=== PATIENT | female | born 1955 | race Caucasian/White ===

== ENCOUNTER 2017-12-11 09:54 | Emergency (ER) | payer BC, SELFPAY ==
[2017-12-11 10:08] VITALS: BP 143/71; PULSE 130; RESP 18; TEMP 36.9; O2SAT 98; BMI 26.6
--- NOTE | 2017-12-11 10:13 | HMH.EDUTC ---
[facility] [place] Clinical Impression: Influenza Disposition: Home, Self-Care Condition on Discharge: Good Instructions: Influenza Additional Instructions: ? Start Tamiflu today if you are going to take it. Discussed risk and possible benefits. ? Lots of rest ? Increase Fluids water, Gatorade, powerade, pedialyte,if infant/toddler/child ? Alternate Tylenol and / or ibuprofen as discussed for fever, aches, chills x 24 hours without medication for symptoms ? Follow up IMMEDIATELY for new or worsening Symptoms OR no noticeable improvement over the next 48-72 hours, 911 for difficulty or breathing ? You or your child area contagious until no fever, aches, chills for 24 hours with medication for symptoms Prescriptions: Dextromethorphan Polistirex [Delsym] 10 ml PO Q12H PRN #250 ninfa.er.12h PRN Reason: Cough Oseltamivir Phosphate [Tamiflu 75mg Capsule] 75 mg PO BID #10 cap Time of Disposition: 10:24 Medical Decision Making - Medical Records Medical records reviewed: Yes: I reviewed the patient's medical records. Vital Signs: 12/11/17 10:08 Temperature 98.4 F Temperature Source Temporal Artery Scan Pulse Rate [Right] 130 H Respiratory Rate 18 Blood Pressure [Right Arm] 143/71 Blood Pressure Mean [Right Arm] 95 Blood Pressure Source [Right Arm] Automatic Cuff Blood Pressure Position [Right Arm] Sitting 02 Sat by Pulse Oximetry 98 Oxygen Delivery Method Room Air - Pillo Inquiry Pt receiving controlled substance: No Pillo was queried for this patient: No [facility] [place] - General Stated complaint: cough chest congestion fever head ache left ear pa Mode of Arrival: Ambulatory Source of Information: Patient Limitations: No Limitations Description of Symptoms (Recalled from Triage Doc. by RN): COUGH, CONGESTION, HEADACHE BEGAN SUNDAY HEENT Symptoms (Recalled from RN notes): Yes Resp Symptoms (Recalled from RN notes): No Skin Symptoms (Recalled from RN notes): No MS Symptoms (Recalled from RN notes): No Functional Status (Recalled from RN notes): N - History of Present Illness Provider Complaint: Patient state that she is having cough, nasal congestion, body aches,fever, chills and over all not feeling well State that she started to feel bad on Sunday and it has continued to get worse State that this morning she seems to feel worse and achey all over - Related Data Previous Rx's Medication Instructions Recorded Dextromethorphan Polistirex 10 ml PO Q12H PRN #250 ninfa.er.12h 12/11/17 [Delsym] Oseltamivir Phosphate [Tamiflu 75 mg PO BID #10 cap 12/11/17 75mg Capsule] Allergies Allergy/AdvReac Type Severity Reaction Status Date / Time prednisone [PREDNISONE] Allergy Mild Verified 12/11/17 10:12 Sulfa (Sulfonamide Allergy Mild Verified 12/11/17 10:12 Antibiotics) [SULFA (SULFONAMIDE ANTIBIOTICS)] - Worker's Comp Is this a Worker's Comp case?: No [facility] History I have reviewed the patient's past medical history: Yes - *Social History Alcohol Intake: never - Psychiatric History Expresses thoughts of harming self/others: None Suicide Plan Description: No Plan ROS Obtained: Yes All systems reviewed & no additional complaints - Constitutional Constitutional: Reports body ache, Reports chills, Reports fever(s) - ENT Ears, Nose, Mouth, and Throat: Reports sinus pain, Reports sore throat Physical Exam - General General appearance: alert, in no apparent distress - Expanded ENT Exam Nose exam: Present: sinus tenderness Comment: Throat red, irritated, drainage noted - Respiratory Respiratory exam: Present: normal lung sounds bilaterally. Absent: respiratory distress - Cardiovascular Cardiovascular exam: Present: tachycardia - Abdominal Exam Abdominal exam: Present: soft, normal bowel sounds. Absent: distention, tenderness, guarding - Neurological Exam Neurological exam: Present: alert, oriented X3
--- NOTE | 2017-12-11 10:17 | ED_ITS ---
[facility] [place]ression: Influenza Disposition: Home, Self-Care Condition on Discharge: Good Instructions: Influenza Additional Instructions: ? Start Tamiflu today if you are going to take it. Discussed risk and possible benefits. ? Lots of rest ? Increase Fluids water, Gatorade, powerade, pedialyte,if infant/toddler/child ? Alternate Tylenol and / or ibuprofen as discussed for fever, aches, chills x 24 hours without medication for symptoms ? Follow up IMMEDIATELY for new or worsening Symptoms OR no noticeable improvement over the next 48-72 hours, 911 for difficulty or breathing ? You or your child area contagious until no fever, aches, chills for 24 hours with medication for symptoms Prescriptions: Dextromethorphan Polistirex [Delsym] 10 ml PO Q12H PRN #250 ninfa.er.12h PRN Reason: Cough Oseltamivir Phosphate [Tamiflu 75mg Capsule] 75 mg PO BID #10 cap Time of Disposition: 10:24 Medical Decision Making - Medical Records Medical records reviewed: Yes: I reviewed the patient's medical records. Vital Signs: 12/11/17 10:08 Temperature 98.4 F Temperature Source Temporal Artery Scan Pulse Rate [Right] 130 H Respiratory Rate 18 Blood Pressure [Right Arm] 143/71 Blood Pressure Mean [Right Arm] 95 Blood Pressure Source [Right Arm] Automatic Cuff Blood Pressure Position [Right Arm] Sitting 02 Sat by Pulse Oximetry 98 Oxygen Delivery Method Room Air - Pillo Inquiry Pt receiving controlled substance: No Pillo was queried for this patient: No [facility] [place] - General Stated complaint: cough chest congestion fever head ache left ear pa Mode of Arrival: Ambulatory Source of Information: Patient Limitations: No Limitations Description of Symptoms (Recalled from Triage Doc. by RN): COUGH, CONGESTION, HEADACHE BEGAN SUNDAY HEENT Symptoms (Recalled from RN notes): Yes Resp Symptoms (Recalled from RN notes): No Skin Symptoms (Recalled from RN notes): No MS Symptoms (Recalled from RN notes): No Functional Status (Recalled from RN notes): N - History of Present Illness Provider Complaint: Patient state that she is having cough, nasal congestion, body aches,fever, chills and over all not feeling well State that she started to feel bad on Sunday and it has continued to get worse State that this morning she seems to feel worse and achey all over - Related Data Previous Rx's Medication Instructions Recorded Dextromethorphan Polistirex 10 ml PO Q12H PRN #250 ninfa.er.12h 12/11/17 [Delsym] Oseltamivir Phosphate [Tamiflu 75 mg PO BID #10 cap 12/11/17 75mg Capsule] Allergies Allergy/AdvReac Type Severity Reaction Status Date / Time prednisone [PREDNISONE] Allergy Mild Verified 12/11/17 10:12 Sulfa (Sulfonamide Allergy Mild Verified 12/11/17 10:12 Antibiotics) [SULFA (SULFONAMIDE ANTIBIOTICS)] - Worker's Comp Is this a Worker's Comp case?: No [facility] History I have reviewed the patient's past medical history: Yes - *Social History Alcohol Intake: never - Psychiatric History Expresses thoughts of harming self/others: None Suicide Plan Description: No Plan ROS Obtained: Yes All systems reviewed & no additional complaints - Constitutional Constitutional: Reports body ache, Reports chills, Reports fever(s) - ENT Ears, Nose, Mouth, and Throat:
[2017-12-11 10:26] LABS: UTC Influenza A Antigen Negative (Negative); UTC Influenza B Antigen Positive (Negative)
[2017-12-11 10:37] VITALS: BP 140/70; PULSE 110; RESP 18; TEMP 36.9
== END 2017-12-11 10:42 | disposition home or self-care (01) ==
PROVIDERS: Emergency Provider Nurse Practitioner
DX: J10.1 Influenza due to other identified influenza virus with other respiratory manifestations (principal)
CPT/HCPCS: 87804; 99201

== ENCOUNTER → 2020-03-23 08:22 | Outpatient (CLI) | payer BC, SELFPAY ==
--- NOTE | 2020-03-23 08:25 | MM_ITS ---
PROCEDURE: MM DIG SCREENING MAMM BI W/CAD Digital Breast Tomosynthesis Included CLINICAL INDICATION: SCREENING There is a history of breast cancer in the patient's sister. There has been a previous lumpectomy left breast. COMPARISON: MAMMO DIAGNOSTIC DIGITAL BILAT from 03/06/2018 MAMMO DIAGNOSTIC DIGITAL BILAT from 09/09/2018 MAMMO DIAGNOSTIC DIGITAL BILAT from 03/13/2019 TECHNIQUE: Standard CC and MLO images and 3D Tomosynthesis was obtained. R2 CAD reviewed. FINDINGS: Moderate diffuse fibroglandular densities are seen in both breasts. Several surgical clips deep to the nipple left breast. There is benign-appearing calcification in each breast. There is no suspicious lesion and no suspicious microcalcifications. IMPRESSION: Fibrofatty parenchyma with no suspicious lesions seen BI-RAD Category: 2 Benign Finding(s) FOLLOW-UP: 1YR 1 Year Follow-up (A letter has been sent to the patient regarding results of the study.) Dictated by: Dr. Daniele Mcclelland MD 03/24/2020 14:[address] Daniele Mcclelland MD in [place] 03/24/2020 14:46
== END ==
PROVIDERS: PCP Nurse Practitioner Family; Visit Provider Nurse Practitioner Family
DX: Z12.31 Encounter for screening mammogram for malignant neoplasm of breast (principal)
CPT/HCPCS: 77063; 77067

== ENCOUNTER → 2021-03-25 10:54 | Outpatient (CLI) | payer BC, SELFPAY ==
--- NOTE | 2021-03-25 10:58 | MM_ITS ---
PROCEDURE INFORMATION: Exam: MG Screening 3D Mammography Exam date and time: 03/25/2021 10:58 AM Age: 65 years old Clinical indication: Encounter for screening mammogram for malignant neoplasm of breast . Family history of breast carcinoma TECHNIQUE: Imaging protocol: Screening tomosynthesis and 2D mammography including computer-aided detection (CAD) when performed. COMPARISON: 1. MG MM DIG SCREENING MAMM BI W/CAD 03/23/2020 8:57 AM 2. MG MAMMO DIAGNOSTIC DIGITAL BILAT 03/13/2019 8:21 AM 3. MG MAMMO DIAGNOSTIC DIGITAL BILAT 09/09/2018 7:56 AM 4. MG MAMMO DIAGNOSTIC DIGITAL BILAT 03/06/2018 10:50 AM FINDINGS: MAMMOGRAPHY: Breast composition: The breasts are heterogeneously dense, which may obscure small masses. Mass: No new suspicious masses. Architectural distortion: No suspicious distortion. Calcifications: No suspicious calcifications. Asymmetric density: None. Skin thickening: None. Axillary adenopathy: None. IMPRESSION: No mammographic evidence of malignancy. Annual screening is recommended unless otherwise clinically indicated. ASSESSMENT: BI-RADS Category 1: Negative
== END ==
PROVIDERS: PCP Nurse Practitioner Family; Visit Provider Nurse Practitioner Family
DX: Z12.31 Encounter for screening mammogram for malignant neoplasm of breast (principal)
CPT/HCPCS: 77063; 77067

== ENCOUNTER 2021-07-12 12:32 | Emergency (ER) | payer BC, SELFPAY ==
[2021-07-12 13:23] VITALS: BP 0/0; PULSE 0; RESP 0; TEMP -17.7; TEMP 0
== END 2021-07-12 13:25 | disposition left against medical advice (07) ==
LOC: UTC 12:34
PROVIDERS: Emergency Provider Nurse Practitioner Family; PCP Family Medicine
DX: Z53.21 Procedure and treatment not carried out due to patient leaving prior to being seen by health care provider (principal)

== ENCOUNTER → 2022-03-31 16:23 | Outpatient (CLI) | payer BC, SELFPAY ==
--- NOTE | 2022-03-31 16:25 | MM_ITS ---
PROCEDURE INFORMATION: Exam: MG Bilateral Screening 3D Mammography Exam date and time: 03/31/2022 4:37 PM Age: 66 years old Clinical indication: Screening examination TECHNIQUE: Imaging protocol: Bilateral Screening tomosynthesis and 2D mammography including computer-aided detection (CAD) when performed. COMPARISON: 1. MG MM DIG SCREENING MAMM BI W/CAD 03/25/2021 11:01 AM 2. MG MM DIG SCREENING MAMM BI W/CAD 03/23/2020 8:57 AM FINDINGS: MAMMOGRAPHY: Breast composition: The breasts are heterogeneously dense, which may obscure small masses. Mass: None. Architectural distortion: None. Calcifications: No suspicious calcifications. Asymmetric density: None. Skin thickening: None. Axillary adenopathy: None. IMPRESSION: No mammographic evidence of malignancy. Annual screening is recommended unless otherwise clinically indicated. ASSESSMENT: BI-RADS Category 1: Negative
== END ==
PROVIDERS: PCP Nurse Practitioner Family; Visit Provider Nurse Practitioner Family
DX: Z12.31 Encounter for screening mammogram for malignant neoplasm of breast (principal)
CPT/HCPCS: 77063; 77067

== ENCOUNTER → 2023-03-27 10:15 | Outpatient (CLI) | payer BC, SELFPAY ==
--- NOTE | 2023-03-27 10:19 | MM_ITS ---
PROCEDURE INFORMATION: Exam: MG Bilateral Screening 3D Mammography Exam date and time: 03/27/2023 10:14 AM Age: 67 years old Clinical indication: Screening examination TECHNIQUE: Imaging protocol: Bilateral Screening tomosynthesis and 2D mammography including computer-aided detection (CAD) when performed. COMPARISON: 1. MG MM DIG SCREENING MAMM BI W/CAD 03/31/2022 4:37 PM 2. MG MM DIG SCREENING MAMM BI W/CAD 03/25/2021 11:01 AM FINDINGS: MAMMOGRAPHY: Breast composition: The breasts are heterogeneously dense, which may obscure small masses. Mass: None. Architectural distortion: None. Calcifications: No suspicious calcifications. Asymmetric density: None. Skin thickening: None. Axillary adenopathy: None. IMPRESSION: No mammographic evidence of malignancy. Annual screening is recommended unless otherwise clinically indicated. ASSESSMENT: BI-RADS Category 1: Negative
== END ==
PROVIDERS: PCP Nurse Practitioner Family; Visit Provider Nurse Practitioner Family
DX: Z12.31 Encounter for screening mammogram for malignant neoplasm of breast (principal)
CPT/HCPCS: 77063; 77067

== ENCOUNTER 2023-12-16 13:40 | Emergency (ER) | payer BC, SELFPAY ==
[2023-12-16 14:30] VITALS: PULSE 81; RESP 18; TEMP 37; O2SAT 97; BMI 23.0
--- NOTE | 2023-12-16 14:49 | EXP.UTC ---
Discharge Plan Disposition Patient Disposition: Home, Self-Care Condition: Good Prescriptions Prescriptions: New mupirocin 2 % ointment 1 applic topical TID 7 Days Qty: 15 0RF No Action atorvastatin 80 mg tablet 80 mg PO DAILY montelukast 10 mg tablet 10 mg PO DAILY duloxetine 30 mg capsule,delayed release(DR/EC) 30 mg PO DAILY losartan 50 mg tablet 50 mg PO DAILY hydrochlorothiazide 50 mg tablet 50 mg PO DAILY fluticasone propionate [Allergy Relief (fluticasone)] 50 mcg/actuation spray,suspension 1 spray INTRANASAL DAILY Rx Instructions: administer into each nostril levocetirizine [Xyzal] 5 mg tablet 5 mg PO DAILY Qvar RediHaler 80 mcg/actuation HFA aerosol breath activated 1 inh INHALATION Q12H PRN trazodone 50 mg tablet 50 mg PO .COMPLEX Qty: 180 1RF Rx Instructions: 50 mg PO take 1-2 tablets at bedtime; desvenlafaxine succinate [Pristiq] 50 mg tablet extended release 24 hr 50 mg PO DAILY Qty: 90 1RF oxycodone-acetaminophen 1 EACH tablet 10 - 325 each PO BIDP PRN (Reason: pain) gabapentin 800 MG tablet 800 mg PO TID hydrochlorothiazide 12.5 MG capsule 5 mg PO DAILY nitroglycerin 0.4 MG tablet, sublingual 0.4 mg sublingual Q5MINP PRN (Reason: Chest Pain) 8 Days Qty: 25 0RF Referrals Follow up/Referrals: Katherine Hendrickson MD [Primary Care Provider] - See instructions Curtis Erazo DO [Staff Physician] - See instructions Activity Restrictions/Add. Instructions Additional Instructions/Restrictions: Rest the extremies, apply ice for 15 minutes as tolerated three or four times per day, Elevate the extremities as tolerated while you are resting. Take tylenol or ibuprofen for pain. Follow up with Dr. Erazo (orthopedics) if you continue to have symptoms. I put in a referral but you need to call his office and schedule an appointment. Follow up with your regular doctor. GO TO THE ER FOR ANY WORSENING SYMPTOMS Clinical Impressions Clinical Impression: Fall, Right knee pain, Abrasion of right knee, Left foot pain, Left ankle sprain Instructions Patient Instructions: DI for Knee Sprain, DI for Ankle Sprain, DI for Abrasion, DI for Foot Sprain Discharge ED Provider: Lon Carter [facility] [place] HPI General Stated complaint: AO fall ankle pain, knee pain Time Seen by Provider: 12/16/23 14:49 History of Present Illness Provider Complaint: She states that she fell and came down on her right knee. She twisted her left ankle and foot. She denies any other injury. Related Data Home Medications Medication Instructions Recorded Confirmed gabapentin 800 mg tablet 800 mg PO TID Pain 06/09/18 02/13/23 hydrochlorothiazide 12.5 mg capsule 5 mg PO DAILY bp 06/09/18 02/13/23 oxycodone-acetaminophen 10 mg-325 10 - 325 each PO BIDP PRN pain 06/09/18 02/13/23 mg tablet atorvastatin 80 mg tablet 80 mg PO DAILY 11/01/21 02/13/23 beclomethasone dipropionate 80 1 inh inhalation Q12H PRN 11/01/21 02/13/23 mcg/actuation HFA breath activated aerosol (Qvar RediHaler) duloxetine 30 mg capsule,delayed 30 mg PO DAILY 11/01/21 02/13/23 release fluticasone propionate 50 1 spray intranasal DAILY 11/01/21 02/13/23 mcg/actuation nasal spray,suspension (Allergy Relief (fluticasone)) hydrochlorothiazide 50 mg tablet 50 mg PO DAILY 11/01/21 02/13/23 levocetirizine 5 mg tablet (Xyzal) 5 mg PO DAILY 11/01/21 02/13/23 losartan 50 mg tablet 50 mg PO DAILY 11/01/21 02/13/23 montelukast 10 mg tablet 10 mg PO DAILY 11/01/21 02/13/23 Previous Rx's Medication Instructions Recorded nitroglycerin 0.4 mg sublingual 0.4 mg sublingual Q5MINP PRN Chest 06/09/18 tablet Pain 8 days ##25 trazodone 50 mg tablet 50 mg PO .COMPLEX #180 tabs 08/09/22 desvenlafaxine succinate 50 mg 50 mg PO DAILY #90 tabs 02/13/23 tablet,extended release 24 hr (Pristiq) mupirocin 2 % topical ointment 1 applic topical TID 7 days #15 12/16/23 grams Allergies Allergy/AdvReac Type Severity Reaction Status Date / Time prednisone [PREDNISONE] Allergy Mild Verified 02/13/23 09:00 Sulfa (Sulfonamide Allergy Mild Verified 02/13/23 09:00 Antibiotics) [SULFA (SULFONAMIDE ANTIBIOTICS)] [facility] Disclaimer: The information contained in this section may have been updated after the patient was seen, as this information can be updated by other users. Medical History (Updated 12/16/23 @ 16:12 by Lon Carter APRN) Major depressive disorder Social History Smoking Status: Former smoker (she quit about 20 years ago) alcohol intake: never substance use type: denies use current occupational status: retired Travel in the last 8 weeks: None number of children: 2 ROS Obtained: Yes All systems reviewed & no additional complaints except as documented Constitutional Constitutional: Denies chills and Denies fever(s) Eyes Eyes: Denies eye discharge ENT Ears, Nose, Mouth, and Throat: Denies dizziness, Denies otalgia and Denies sore throat Cardiovascular Cardiovascular: Denies chest pain Respiratory Respiratory: Denies shortness of breath, Denies chest congestion, Denies cough, Denies stridor and Denies wheezing Gastrointestinal Gastrointestingal: Denies nausea or vomiting Musculoskeletal Musculoskeletal: Reports as per HPI Integumentary/Breasts Skin/Breast: Reports as per HPI and Reports wounds Neurologic Neurologic: Denies dizziness and Denies paresthesias Allergic/Immunologic Allergic/Immunologic: Denies wheezing Physical Exam General General appearance: alert and in no apparent distress Head Head exam: atraumatic, normocephalic and normal inspection Eye Eye exam: Present normal appearance, PERRL and EOMI ENT ENT exam: Present normal exam, normal oropharynx, mucous membranes moist, TM's normal bilaterally and normal external ear exam Neck Neck exam: Present normal inspection, full ROM and trachea midline; Absent meningismus or lymphadenopathy Chest Chest inspection: Present normal inspection and symmetric chest wall rise; Absent tenderness Respiratory Respiratory exam: Present normal lung sounds bilaterally; Absent respiratory distress Cardiovascular Cardiovascular exam: Present regular rate and normal rhythm; Absent JVD Abdominal Exam Abdominal exam: Present soft and normal bowel sounds; Absent distention, tenderness or guarding Extremities Exam Extremities exam: Present normal capillary refill; Absent calf tenderness Expanded Lower Extremity Exam Right: Knee exam: Present normal inspection, full ROM and knee extension intact; Absent tenderness Lower leg exam: Present normal inspection, full ROM and Achilles tendon intact; Absent tenderness, swelling, abrasion, laceration, ecchymosis, deformity, crepitus, dislocation, erythema, palpable cord or Homans' sign Ankle exam: Present normal inspection and full ROM; Absent tenderness, swelling, abrasion, laceration, ecchymosis, deformity, crepitus, dislocation, erythema, tenderness over talofibular lig or anterior draw sign Foot/toe exam: Present normal inspection and full ROM; Absent tenderness, swelling, abrasion, laceration, ecchymosis, deformity, crepitus, dislocation, erythema, amputation, puncture wound, foreign body, calcaneal tenderness, tenderness at base of 5th metatarsal, nail avulsion or subungual hematoma Neurovascular/Tendon exam: Present normal capillary refill; Absent pulse deficit, motor deficit, sensory deficit, tendon deficit or extremity cold to touch Gait: observed and limited by pain Left: Knee exam: Present normal inspection, full ROM and knee extension intact; Absent tenderness Lower leg exam: Present normal inspection, full ROM and Achilles tendon intact; Absent tenderness or Homans' sign Ankle exam: Present full ROM and swelling; Absent abrasion, laceration, ecchymosis, deformity, crepitus, dislocation, erythema, tenderness over talofibular lig or anterior draw sign Foot/toe exam: Present full ROM, tenderness and swelling; Absent abrasion, laceration, ecchymosis, deformity, crepitus, dislocation, erythema, amputation, puncture wound, foreign body, calcaneal tenderness, tenderness at base of 5th metatarsal, nail avulsion or subungual hematoma Neurovascular/Tendon exam: Present normal capillary refill; Absent pulse deficit, motor deficit, sensory deficit, tendon deficit or extremity cold to touch Gait: observed and limited by pain Back Exam Back exam: Present normal inspection; Absent tenderness, CVA tenderness (R) or CVA tenderness (L) Neurological Exam Neurological exam: Present alert and oriented X3 Psychiatric Psychiatric exam: Present normal affect and normal mood Skin Skin exam: Present warm, dry, intact and normal color Lymphatic Lymphatic Findings: no adenopathy Medical Decision Making Medical Records Medical records reviewed: No I reviewed the patient's medical records. Pillo Inquiry Pt receiving controlled substance: No Radiology Data #1: Image(s): Knee Image Reviewed: Yes I reviewed the patient's radiology image and Yes I have reviewed radiologist's interpretation Preliminary Findings: Normal/NAD and No Fracture Seen PROCEDURE INFORMATION: Exam: XR Right Knee Exam date and time: 12/16/2023 3:03 PM Age: 68 years old Clinical indication: Injury or trauma; Fall; Blunt trauma; Knee; Right TECHNIQUE: Imaging protocol: Radiologic exam of the right knee. Views: 3 views. COMPARISON: No relevant prior studies available. FINDINGS: Bones/joints: See Soft tissues finding. Soft tissues: Soft tissue swelling in the region of the prepatellar pretibial bursa compatible with bursitis. IMPRESSION: No evidence of acute osseous injury. #2: Image(s): Ankle Image Reviewed: Yes I reviewed the patient's radiology image Preliminary Findings: Normal/NAD and No Fracture Seen PROCEDURE INFORMATION: Exam: XR Left Ankle Exam date and time: 12/16/2023 2:58 PM Age: 68 years old Clinical indication: Injury or trauma; Fall; Blunt trauma; Ankle; Left TECHNIQUE: Imaging protocol: Radiologic exam of the left ankle. Views: 3 or more views. COMPARISON: No relevant prior studies available. FINDINGS: Bones/joints: Normal. Soft tissues: Normal. IMPRESSION: No acute findings. #3: Image(s): Foot/Toes Image Reviewed: Yes I reviewed the patient's radiology image and Yes I have reviewed radiologist's interpretation Preliminary Findings: Normal/NAD and No Fracture Seen PROCEDURE INFORMATION: Exam: XR Left Foot Exam date and time: 12/16/2023 3:00 PM Age: 68 years old Clinical indication: Injury or trauma; Fall; Blunt trauma; Foot; Left TECHNIQUE: Imaging protocol: Radiologic exam of the left foot. Views: 3 or more views. COMPARISON: CR Ankle L 12/16/2023 2:58 PM FINDINGS: Bones/joints: Osteopenia. Soft tissues: Normal. IMPRESSION: Nodes of acute osseous injury. Procedures Risk/Benefits of Procedure(s) Were Explained: Yes Orthopedic Splinting/Casting Injury #1: Side: right Lower Extremity Injury Location: knee Lower Extremity Immobilizer: Gustavo wrap and applied by nurse/dr heredia Post Cast/Splinting Neuro Status: intact and no change Post Cast/Splinting Vasc Status: intact and no change
[2023-12-16] MEDS: IBUPROFEN 400 MG TABLET 800 MG PO (14:53)
[2023-12-16 16:21] VITALS: BP 0/0; PULSE 81; RESP 18; TEMP 37; O2SAT 97
== END 2023-12-16 16:20 | disposition home or self-care (01) ==
PROVIDERS: Emergency Provider Nurse Practitioner Family; PCP Family Medicine
DX: S93.402A Sprain of unspecified ligament of left ankle, initial encounter (principal); S80.211A Abrasion, right knee, initial encounter; M25.561 Pain in right knee; M79.672 Pain in left foot; W18.30XA Fall on same level, unspecified, initial encounter
CPT/HCPCS: 73562; 73610; 73630; 99212; 99214; G0463

== ENCOUNTER 2024-01-22 13:26 | Outpatient (CLI) | payer BC, SELFPAY ==
--- NOTE | 2024-01-22 13:29 | XR_ITS ---
FINAL REPORT CLINICAL HISTORY: lt foot pain COMPARISON: 12/16/2023 FINDINGS: LEFT FOOT: Three views of the left foot were obtained. There is no acute fracture or dislocation. There is mild degenerative change. There is no soft tissue abnormality. IMPRESSION: Mild degenerative change without acute bony abnormality. Reviewed, Interpreted and Dictated by Larry Boles III, MD Transcribed by Natalee Thomas Authenticated and [facility]
== END 2024-01-22 23:59 ==
LOC: RAD 13:26
PROVIDERS: PCP Family Medicine; Visit Provider Orthopaedic Surgery
DX: M79.672 Pain in left foot (principal)
CPT/HCPCS: 73630

== ENCOUNTER 2024-04-15 13:07 | Outpatient (CLI) | payer BC, SELFPAY | END 2024-04-15 23:59 | disposition home or self-care (01) | LOC: RAD 13:07 | PROVIDERS: PCP Family Medicine; Visit Provider Family Medicine | DX: Z12.31 Encounter for screening mammogram for malignant neoplasm of breast (principal) ==

== ENCOUNTER 2024-04-22 13:31 | Outpatient (CLI) | payer BC, SELFPAY ==
--- NOTE | 2024-04-22 13:34 | MM_ITS ---
PROCEDURE INFORMATION: Exam: MG Bilateral Screening 3D Mammography Exam date and time: 04/22/2024 1:18 PM Age: 68 years old Clinical indication: Screening examination TECHNIQUE: Imaging protocol: Bilateral Screening tomosynthesis and 2D mammography including computer-aided detection (CAD) when performed. COMPARISON: 1. MG MM DIG SCREENING MAMM BI W/CAD 03/27/2023 10:14 AM 2. MG MM DIG SCREENING MAMM BI W/CAD 03/31/2022 4:37 PM FINDINGS: MAMMOGRAPHY: Breast composition: There are scattered areas of fibroglandular density. Mass: None. Architectural distortion: None. Calcifications: No suspicious calcifications. Asymmetric density: None. Skin thickening: None. Axillary adenopathy: None. IMPRESSION: No mammographic evidence of malignancy. Annual screening is recommended unless otherwise clinically indicated. ASSESSMENT: BI-RADS Category 1: Negative
[2024-04-22 14:32] LABS: Blood Urea Nitrogen 10 mg/dl (7-17); Estimated Glomerular Filt Rate 72 ml/min (>60); GFR (African American) 87 ML/MIN (>60)
== END 2024-04-22 23:59 | disposition home or self-care (01) ==
LOC: RAD 13:32
PROVIDERS: Physician Assistant; PCP Family Medicine; Visit Provider Family Medicine
DX: Z12.31 Encounter for screening mammogram for malignant neoplasm of breast (principal)
CPT/HCPCS: 36415; 77063; 77067; 82565; 84520

== ENCOUNTER 2025-04-23 09:57 | Outpatient (CLI) | payer MEDICARE, SELFPAY ==
--- OUTSIDE RECORDS SUMMARY | 2025-04-23 09:59 | XMS_ITS | Encounter Summary ---
Author Organization [employer] Address [address] [place] [id number] Care Team Providers Care Foxer Name Role Phone Unavailable Primary Care Provider Unavailabl e Encounter Details Date Type Department Care Team (Late st Contact Info) Description 08/12/2019 Transcribed Document [facility] Family Medicine [facility] [place] [address] ProviderItz MD [address] [place] [address] Social History Tobacco Use Types Packs/Day Years Used Date Smoking Tobacco: Never Assessed Comments Unknown Sex and Gender Information Value Date Recorded Sex Assigned at Female 05/02/2022 5:42 PM CDT Legal Sex Female 5:42 PM CDT Gender Identity Female 05/02/2022 5:42 PM CDT Sexual Orientation Not on file documented as of this encounter Miscellaneous Notes * Cerner Conversion Note - Historical ProviderMD - 08/12/2019 11:15 AM CDT Patient: JAYMIE JONES V Age: 63 Years Sex: Female : 1955 PROCEDURE NOTE DATE OF SERVICE: 08/08/2019 PROCEDURE: Trigger point injections. PREOPERATIVE DIAGNOSIS: 1. Chronic pain syndrome. 2. Cervical degenerative disc disease. 3. Thoracic degenerative disc disease. 4. Myositis, myalgia. POSTOPERATIVE DIAGNOSIS: 1. Chronic pain syndrome. 2. Cervical degenerative disc disease. 3. Thoracic degenerative disc disease. 4. Myositis, myalgia. PROCEDURE PERFORMED BY: Dustin Serrano PA-C ANESTHESIA: 0.5% ropivacaine COMPLICATIONS: None. INDICATIONS: The patient is a 63-year-old female who had been seen by Dr. Brooke Huerta at her last followup appointment. After physical examination findings that reveals multiple trigger points for this individual, she was scheduled for the trigger point injections at today's visit. PROCEDURE SUMMARY: After reviewing the patient's chart and explaining the risks versus benefits of trigger point injection today, the patient signed the appropriate consent forms. The patient was placed in a seated position, draped in a sterile fashion. Utilizing a skin marker, palpation was done, and trigger points were identified and marked consisting of the following muscle groups: bilateral upper trapezius muscles, bilateral levator scapula muscles, and bilateral rhomboid muscle Skin prep was utilized to sterilize this region. Utilizing a 10 mL syringe and 25-gauge needle, a total of 10 mL of 0.5% ropivacaine was aspirated. The 25-gauge needle was then inserted into each of the above-mentioned trigger point sites. After ensuring the absence of blood and/or air through aspiration, a total of 1.0 mL was injected into each location site. Prior to removing the needle, a short needling procedure was done at each location. The patient tolerated the procedure well and there was minimal blood loss from the procedure. PLAN: The patient will undergo ice massage for a duration of 20 minutes prior to going to bed this evening. We will see the patient back in clinic at the next scheduled followup appointment date. The patient understands and agrees with the above plan. Dustin Serrano PA-C documented in this encounter Plan of Treatment Not on file documented as of this encounter Visit Diagnoses Not on filedocumented in this encounter
--- OUTSIDE RECORDS SUMMARY | 2025-04-23 09:59 | XMS_ITS | Encounter Summary ---
Author Organization [employer] Address [address] [place] [id number] Care Team Providers Care Dairy Hand Name Role Phone Unavailable Primary Care Provider Unavailabl e Encounter Details Date Type Department Care Team (Late st Contact Info) Description 12/04/2019 Transcribed Document [facility] Family Medicine [facility] [place] [address] ProviderItz MD [address] [place] [address] Social History Tobacco Use Types [...] Cerner Conversion Note - Historical ProviderMD - 12/04/2019 12:55 PM PEDIATRIC ANESTHESIOLOGIST Patient: JAYMIE JONES V Age: 64 Years Sex: Female : 1955 FOLLOW-UP DATE OF SERVICE: 11/27/2019 CHIEF COMPLAINT: Neck and shoulder pain. HISTORY OF PRESENT ILLNESS: The patient is a 64 y/o female who returns to the clinic for follow-up on her neck pain, bilateral shoulder pain, left greater than right with numbness and tingling. She rates the pain as 5/10 on the pain scale. Quality is aching, radiating, numbness, dull. The pain is constant. She has tried heat and ice therapy. She has had the pain for 18 years. She has decreased pain with ice and heat and increased pain with sweeping and mopping. She gets 50% relief with her current medication. Fall risk info sheet has been provided. SOCIAL HISTORY: Allergies: Sulfa and Prednisone. Marital status: The patient is . Current work status: She is unemployed. Illicit drug use: Denies. Alcohol use: Denies. Current tobacco use: Denies. Caffeine use: She drinks caffeine. Past Medical History: Arthritis Asthma. Breast cancer Chicken pox. Shingles Depression Gallstones High blood pressure High cholesterol Kidney stones. Migraines Seizures Past Surgical History: Breast Gallbladder Hysterectomy. Shoulder Sinus Spinal surgery of neck Past Family History: Lung cancer Ovarian cancer Breast cancer Lung disease. Diabetes Depression REVIEW OF SYSTEMS: Complete ten system review performed and noted to be positive for the following: General: Fatigue, weight gain. Respiratory: Asthma. Neurological: Dizziness, headaches, numbness and tingling. Gastrointestinal: Negative. Musculoskeletal: Neck pain, back pain. Cardiovascular: Chest pain, leg pain with walking. Psychiatric: Anxiety and depression. HEENT: Negative. Endocrine: Negative. Hematology: Negative. Skin: Negative. Genitourinary: Negative. VITAL SIGNS: Vital signs are reviewed. BP 124/73, heart rate 81, respiratory rate 18, O2 SATs 95%, height 5???2?? , weight 135 lbs PHYSICAL EXAMINATION: Constitutional: The patient is freely conversant, no acute distress. Integumentary: Deferred. HEENT: Deferred. Neck: Deferred. Chest and Lung: Deferred. Cardiovascular: Deferred. Abdomen: Deferred. Peripheral Vascular: Deferred Neurologic: Deferred. Psychiatric: Alert and oriented x 3 with normal mood and affect. She scored a 14 on the depression questionnaire. She is treated. Musculoskeletal: Deferred. Established patient exam is deferred. DIAGNOSTIC STUDIES: Not present MEDICAL DECISION MAKING: The patient's YANIRA has been reviewed and is appropriate. Patient's medications are reviewed and are listed in the patient's file. The patient's tox screen from 07/22/19 is reviewed and is appropriate. ASSESSMENT: Stable. 1. Chronic pain syndrome. 2. Myositis and myalgia. 3. Cervical degenerative disc disease, status post ACDF and discectomy. 4. Cervical radiculitis bilateral upper extremities, left greater than right. 5. History of breast cancer, status post lumpectomy and mastectomy in remission. PROCEDURE/TEST ORDERED: Not present. CURRENT PLAN: I am going to continue Ms. Jones on her current medications of Neurontin 400 mg 2 p.o. q 8 h, Zofran 8 mg 1 p.o. q 8 h prn, Percocet 10 mg 1 p.o. q 6 h. She takes MiraLAX. She is in agreement with the above plan. We will see her back in follow-up in two months. Brooke Huerta M.D. FIDELIA/danial documented in this encounter Plan of Treatment Not on file documented as of this encounter Visit Diagnoses Not on filedocumented in this encounter
--- OUTSIDE RECORDS SUMMARY | 2025-04-23 09:59 | XMS_ITS | Encounter Summary ---
Author Organization [employer] Address [address] [place] [address] Care Team Providers Care Hospital Coordinator Name Role Phone Unavailable Primary Care Provider Unavailabl e Encounter Details Date Type Department Care Team (Late st Contact Info) Description 07/22/2019 Transcribed Document [facility] Family Medicine [facility] [place] [address] ProviderItz MD [address] [place] [address] Social History Tobacco Use Types [...] Cerner Conversion Note - Historical ProviderMD - 07/22/2019 2:06 PM CDT Patient: JAYMIE JONES V Age: 63 Years Sex: Female : 1955 FOLLOWUP DATE OF SERVICE: 07/22/2019 CHIEF COMPLAINT: Neck and shoulder pain. HISTORY OF PRESENT ILLNESS: The patient is a 63-year-old female who returns to the clinic for followup on her neck and shoulder pain. She would like to get scheduled for trigger point injections. She had a fall but had no injuries. She rates her pain as 4/10 on the pain scale. Quality is aching, burning, radiating and dull. her pain is constant. She has had her pain for 18 years. She has increased pain with turning her head and decreased pain with heat and ice. She gets 50% relief with her current medication. Fall risk information sheet has been provided. HISTORY: Allergies: Sulfa drugs, Prednisone. SOCIAL HISTORY: Marital status: . Current work status: Not answered. Current tobacco use: Denies. Illicit drug use: Denies. Alcohol use: Denies. Caffeine use: Not answered. Past Medical History: Anemia. Arthritis. Asthma. Breast cancer. Chicken pox/Shingles. Depression. Gallstones. High blood pressure. High cholesterol. Seizures. Past Surgical History: Gallbladder. Hysterectomy. Shoulder. Sinus. Spinal surgery of the neck. Past Family History: Breast cancer. Ovarian cancer. Lung disease. Diabetes. REVIEW OF SYSTEMS: The patient's ten system Review of Systems was reviewed. General: Fatigue. Respiratory: Asthma. Neurological: Dizziness, headaches, numbness/tingling. Gastrointestinal: Constipation. Musculoskeletal: Joint pain/stiffness, neck pain. Cardiovascular: Negative. Psychiatric: Anxiety and depression. HEENT: Negative. Endocrine: Increased thirst. Hematology: Negative. Skin: Negative. Genitourinary: Negative. VITAL SIGNS: Vital signs are reviewed. BP 133/66, heart rate 64, respiratory rate 16, O2 SATs 96%, height 5'2 , weight 118 lb. PHYSICAL EXAMINATION: Constitutional: Freely conversant and in no acute distress. Integumentary: Deferred. HEENT: Deferred. Neck: Deferred. Chest and Lung: Deferred. Cardiovascular: Deferred. Abdomen: Deferred. Peripheral Vascular: Deferred Neurologic: Deferred. Neuropsychiatric: Alert and oriented x3. She scored a 16 on her depression questionnaire that was completed today. She is treated. She has no suicidal ideation. Musculoskeletal: Antalgic gait. She uses a cane. She has multiple trigger points throughout her bilateral cervical splenius, bilateral upper trapezius, bilateral rhomboids and bilateral levators. DIAGNOSTIC STUDIES: Not present. MEDICAL DECISION MAKING: YANIRA is reviewed and is appropriate. The patient received a urine tox screen today. Patient???s medications are reviewed. See list in patient???s file. ASSESSMENT: Stable. 1. 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 2. Cervical degenerative disc disease status post ACDF. 3. Cervical radiculitis to the bilateral upper extremities, left greater than right. 4. History of left breast cancer status post lumpectomy and mastectomy. PROCEDURE/TEST ORDERED: Not present. CURRENT PLAN: We will continue Ms. Jones on her current medication of Zofran 8 mg q.8h PRN, Neurontin 400 mg two p.o. q.8h, Percocet 10 mg one p.o. q.6h. She takes MiraLAX. I am going to get her scheduled for trigger point injections, cervical and scapula. She is in agreement with the above plan. We will see her back in followup in two months. Brooke Huerta M.D. Candace documented in this encounter Plan of Treatment Not on file documented as of this encounter Visit Diagnoses Not on filedocumented in this encounter
--- NOTE | 2025-04-23 10:00 | MM_ITS ---
PROCEDURE INFORMATION: Exam: MG Bilateral Screening 3D Mammography Exam date and time: 04/23/2025 10:29 AM Age: 69 years old Clinical indication: Screening examination TECHNIQUE: Imaging protocol: Bilateral Screening tomosynthesis and 2D mammography including computer-aided detection (CAD) when performed. COMPARISON: 1. MG MM DIG SCREENING MAMM BI W/CAD 04/22/2024 1:18 PM 2. MG MM DIG SCREENING MAMM BI W/CAD 03/27/2023 10:14 AM FINDINGS: MAMMOGRAPHY: Breast composition: There are scattered areas of fibroglandular density. Mass: None. Architectural distortion: None. Calcifications: No suspicious calcifications. Asymmetric density: None. Skin thickening: None. Axillary adenopathy: None. IMPRESSION: No mammographic evidence of malignancy. Annual screening is recommended unless otherwise clinically indicated. ASSESSMENT: BI-RADS Category 1: Negative.
--- OUTSIDE RECORDS SUMMARY | 2025-04-23 10:00 | XMS_ITS | Data Portability ---
Author Organization [place] - Armando chapin MD, Main Office Address [address], [address] [place] [address] Care Team Providers Care Marketing Database Coordinator Name Role Phone ARIANA BENTON Primary Care Provider LUCIE BOBO Primary Care Provider [phone] Assessment No assessment recorded. Plan of Treatment Reminders Order Date Submit Date Provider Last Modified By Organization Details Last Modified Time Details Appointments None recorded. Lab vitamin B12 + folate, serum or blood 2022 023 [place] [facility], [address], [address], [place], [address], 3 15:18:18 TSH + T4, serum 2022 023 [place] [facility], [address], [address], [place], [address], 3 15:18:19 CBC w/ auto diff 2022 023 [place] [facility], [address], [address], [place], [address], 3 15:18:18 CMP, serum or plasma 2022 023 [place] [facility], [address], [address], [place], [address], 3 15:18:18 Referral None recorded. Procedures electroence phalogram (EEG), 41-60 minutes (PROC) 2022 023 [email or web address] Armando Draper MD, [address], [address], [place], [address], 3 09:48:53 Surgeries None recorded. Imaging MRI, brain, w/o contrast 2022 023 [facility], [address], [address], [place], [address], 3 15:40:31 Medication Orders memantine 10 mg tablet 2023 024 [place] [id number], [address] [place], [address], 4 10:51:40 memantine 5 mg tablet 2022 023 [id number], [address] [place], [address], 4 10:56:59 lamotrigine 25 mg tablet 2019 020 [id number], [address] [place], [address], 3 12:10:12 Patient TargetsNo targets recorded. Patient Instructions Encounter Date Encounter Id Patient Instructions Last Modified By Organization Details Last Modified Time 08/27/2020 [id number] epilepsy: care instructions Not available 08/27/2020 10:11:32 Finding has been discussed with the patient in detail. Lamotrigine 25 mg 1 tablet daily for 2 months and then discontinue. Return as needed. Not available 08/27/2020 10:27:58 04/26/2023 [id number] [employer] LOSS EDUCATION Not available 04/26/2023 12:24:46 Finding has been discussed with the patient in detail. Metabolic screen. Brain MRI scan without contrast. Awake EEG. I will see her back in follow-up. Not available 04/26/2023 12:25:06 05/22/2023 [id number] MEMORY LOSS EDUCATION Not available 05/22/2023 08:35:58 Finding has been discussed with the patient in detail. Brain MRI scan without contrast. Namenda 5 mg once a day. Return in 3 months. Not available 05/22/2023 08:39:27 05/22/2023 [id number] MEMORY LOSS EDUCATION [email or web address] Not available 05/22/2023 08:37:55 03/11/2024 [id number] cervical spinal stenosis: care instructions Not available 03/11/2024 10:57:01 Finding has been discussed with the patient in detail. Increase Namenda to 10 mg once a day. Return in 6 months. Not available 03/11/2024 10:56:58 Reason for Referral None Reported. Results Created Date Observation Date Name Description Value Unit Range Abnormal Flag Note LastModifiedBy Organization Detail LastModifiedTime 05/22/2005/22/2023 elect roenc ephal ogram (EEG) , 41-60 minut es (PROC ) No observ ation record ed. BARCODE Armando Draper MD [address], [place], [address], 05/22/2023 08:44:54 05/22/2005/22/2023 MRI, brain , w/o contr ast No observ ation record ed. [facility] (Scheduling) [address] , [place], [address], 05/23/2023 07:30:50 Result Notes None recorded. Problems Name Problem SNOMED Code Status Onset Date Resolution Date Notes Provider Name and Address Organization Details Recorded Time Epilepsy [id number] Active 018 KIMBERLEY Mobley MD 09/10/2018 12:59:35 Problem Notes None recorded. Procedures Surgical History Date Name Laterality Status Provider Name and Address Organization Details Recorded Time 05/22/20 EEG completed Luis Draper MD 05/22/2023 08:37:47 08/27/20 EEG completed Luis Draper MD 08/27/2019 09:49:41 09/20/20 18 NCV/EMG completed Luis Draper MD 09/20/2018 12:19:27 12/21/19 18 Radiation Therapy completed Cristina Draper MD 09/10/2018 12:58:55 10/05/20 17 Cancer Surgery completed Cristina Draper MD 09/10/2018 12:58:55 05/04/20 13 Cervical Spine Surgery completed Cristina Draper MD 09/10/2018 12:58:55 05/04/20 06 Shoulder Surgery completed Cristina Draper MD 09/10/2018 12:58:55 03/04/19 94 Hysterectomy completed Cristina Draper MD 09/10/2018 12:58:55 Imaging Results None recorded. Procedure Notes None recorded. Medical Equipment None Reported. Allergies Allergen ID Allergen Name Allergen Category Reaction Reaction Severity Criticality Documentation Date Start Date Code Code System Note Provider Name and Address Organization Details Recorded Time 2014 [place] 30x medicatio n rash moderate Not available 09/10/2018 [id number] UNK KIMBERLEY Mobley MD 8 12:58:13 2015 prednison e medicatio n facial swelling rash moderate moderate Not available 09/10/2018 8640 RxNorm KIMBERLEY Mobley MD 8 12:58:13 Medications Name Sig Start Date Stop Date Status Note LastModified by Organization Details LastModified Time amoxicillin 500 mg capsule 08/27 completed Not Available Not Available Not Available atorvastati n 40 mg tablet Take 1 tablet every day by oral route. 04/26 completed Not Available Not Available Not Available anastrozole 1 mg tablet 09/10 completed Not Available Not Available Not Available azelastine 0.05 % eye drops DROP 1 DROP INTO AFFECTED EYE(S) TWICE DAILY NEEDED. 04/26 completed Not Available Not Available Not Available venlafaxine ER 75 mg capsule,ext ended release 24 hr TAKE 1 CAPSULE BY MOUTH EVERY DAY WITH FOOD active Not Available Not Available No t Available atorvastati n 20 mg tablet 08/07 completed Not Available Not Available Not Available trazodone 50 mg tablet TAKE 1 TO 2 TABLETS BY MOUTH AT BEDTIME 10/01 completed Not Available Not Available Not Available azithromyci n 250 mg tablet TAKE 2 TABLETS BY MOUTH TODAY, THEN TAKE 1 TABLET DAILY FOR 4 DAYS DIRECTED 03/11 completed Not Available Not Available Not Available ondansetron HCl 8 mg tablet 08/07 completed Not Available Not Available Not Available ondansetron HCl 4 mg tablet 08/07 completed Not Available Not Available Not Available prednisone 20 mg tablet TAKE 1 TABLET BY MOUTH TWICE A DAY FOR 5 DAYS 04/26 completed Not Available Not Available Not Available gabapentin 400 mg capsule 08/24 completed Not Available Not Available Not Available ondansetron 8 mg disintegrat ing tablet TAKE 1 TABLET BY MOUTH EVERY 8 HRS 04/26 completed Not Available Not Available Not Available lamotrigine 25 mg tablet 1 tablet daily 04/26 completed Not Available Not Available Not Available oxycodone-a cetaminophe n 10 mg-325 mg tablet TAKE 1 TABLET BY MOUTH EVERY 6 HOURS active Not Available Not Available No t Available gabapentin 800 mg tablet TAKE 1 TABLET BY MOUTH EVERY 8 HOURS active Not Available Not Available No t Available ondansetron [address] 1 tablet as needed by oral route. 04/26 completed Not Available Not Available Not Available phenazopyri dine 100 mg tablet active Not Available Not Available Not Available benzonatate 100 mg capsule 09/10 completed Not Available Not Available Not Available desloratadi ne 5 mg tablet TAKE 1 TABLET BY MOUTH EVERY DAY NEEDED 03/11 completed Not Available Not Available Not Available cephalexin 500 mg capsule TAKE 1 CAPSULE BY MOUTH TWICE A DAY 04/26 completed Not Available Not Available Not Available oseltamivir 75 mg capsule active Not Available Not Available Not Available Lamictal 100 mg tablet Take 1 tablet every day by oral route. 08/27 completed Not Available Not Available Not Available montelukast 10 mg tablet TAKE 1 TABLET BY MOUTH EVERY DAY 04/26 completed Not Available Not Available Not Available hydrochloro thiazide 25 mg tablet TAKE 1 TABLET BY MOUTH EVERY DAY IN THE MORNING FOR 30 DAYS 04/26 completed Not Available Not Available Not Available mupirocin 2 % topical ointment APPLY TOPICALLY TO AFFECTED AREA 3 TIMES A DAY FOR 7 DAYS 03/11 completed Not Available Not Available Not Available azelastine 137 mcg (0.1 %) nasal spray SPRAY 1 SPRAY IN EACH NOSTRIL TWICE DAILY NEEDED. 04/26 completed Not Available Not Available Not Available diazepam 10 mg tablet TAKE 1 TABLET BY MOUTH 30 MINUTES BEFORE PROCEDURE ON 02/01 completed Not Available Not Available Not Available epinephrine 0.3 mg/0.3 mL injection, auto-inject or INJECT 1 PEN INTRAMUSC ULARLY IN EVENT OF ANAPHYLAX IS. 10/01 completed Not Available Not Available Not Available levofloxaci n 500 mg tablet 09/10 completed Not Available Not Available Not Available albuterol sulfate HFA 90 mcg/actuati on aerosol inhaler INHALE 1-2 PUFFS BY MOUTH EVERY 4-6 HOURS NEEDED 10/01 completed Not Available Not Available Not Available losartan 100 mg tablet TAKE 1 TABLET BY MOUTH EVERY DAY 09/09 completed Not Available Not Available Not Available fluticasone propionate 50 mcg/actuati on nasal spray,suspe nsion INSTILL 2 SPRAYS IN EACH NOSTRIL ONCE A DAY 04/26 completed Not Available Not Available Not Available neomycin-po lymyxin-hyd rocort 3.5 mg-10,000 unit/mL-1 % ear drops,susp INSTILL 4 DROPS INTO AFFECTED EAR 3-4 TIMES A DAY FOR 7 DAYS 04/26 completed Not Available Not Available Not Available aripiprazol e 10 mg tablet 08/24 completed Not Available Not Available Not Available memantine 10 mg tablet TAKE 1 TABLET BY MOUTH EVERY DAY active Not Available Not Available No t Available memantine 5 mg tablet TAKE 1 TABLET BY MOUTH EVERY DAY 03/11 completed Not Available Not Available Not Available nitrofurant oin monohydrate /macrocryst als 100 mg capsule active Not Available Not Available Not Available duloxetine 30 mg capsule,del ayed release TAKE 1 CAPSULE BY MOUTH EVERY DAY 04/26 completed Not Available Not Available Not Available duloxetine 60 mg capsule,del ayed release Take 1 capsule twice a day by oral route. 08/07 completed Not Available Not Available Not Available fenofibrate nanocrystal lized 145 mg tablet 08/07 completed Not Available Not Available Not Available Symbicort 160 mcg-4.5 mcg/actuati on HFA aerosol inhaler INHALE 2 PUFFS TWICE DAILY. RINSE MOUTH AFTER USE. 09/09 completed Not Available Not Available Not Available desvenlafax ine succinate ER 50 mg tablet,exte nded release 24 hr TAKE 1 TABLET BY MOUTH EVERY DAY 04/26 completed Not Available Not Available Not Available lidocaine-t etracaine 7 %-7 % topical cream active Not Available Not Available Not Available Breo Ellipta 200 mcg-25 mcg/dose powder for inhalation INHALE 1 PUFF INTO THE LUNGS ONCE DAILY. RINSE MOUTH AFTER USE. 10/01 completed Not Available Not Available Not Available Veozah 45 mg tablet 03/11 completed Not Available Not Available Not Available Vitals Date Recorded Body mass index (BMI) Body weight Heart rate Respiratory rate Systolic blood pressure Diastolic blood pressure Provider Name and Address Organization Details Last Updated DateTime 4 23.2 kg/m2 22119.2 3 g 77 /min 17 /min 132 mm[Hg] 82 mm[Hg] Armando Draper MD [address], [address] [address]KIMBERLEY MD 4 10:54:41 Date Recorded Body height Provider Name an d Address Organization Details Last Updated DateTime 03/11/2024 157.48 cm Renu Jeff Draper MD 03/11/2024 10:44:00 Date Recorded Body height Body mass index (BMI) Body weight Heart rate Respiratory rate Systolic blood pressure Diastolic blood pressure Provider Name and Address Organization Details Last Updated DateTime 3 157.48 cm 23 kg/m2 12130.6 4 g 77 /min 17 /min 126 mm[Hg] 75 mm[Hg] Armando Draper MD [address], [address], [address]KIMBERLEY MD 3 12:21:54 Date Recorded Body mass index (BMI) Body weight Heart rate Respiratory rate Systolic blood pressure Diastolic blood pressure Provider Name and Address Organization Details Last Updated DateTime 3 23.4 kg/m2 76096.8 2 g 78 /min 17 /min 122 mm[Hg] 76 mm[Hg] Armando Draper MD [address], [facility], [place], [address] 0KIMBERLEY MD 3 08:37:24 Date Recorded Body height Provider Name an d Address Organization Details Last Updated DateTime 05/22/2023 157.48 cm Cathie Weinstein KIMBERLEY Draper MD 05/22/2023 08:15:08 Date Recorded Body height Body mass index (BMI) Body weight Heart rate Respiratory rate Systolic blood pressure Diastolic blood pressure Provider Name and Address Organization Details Last Updated DateTime 0 157.48 cm 23.8 kg/m2 51693.0 1 g 67 /min 17 /min 111 mm[Hg] 72 mm[Hg] Armando Draper MD [address], [facility], [place], [address] 0KIMBERLEY MD 0 10:25:50 Social History Question Answer Notes LastModified by Organizat ion Details LastModified Time Tobacco Smoking Status Former Smoker KIMBERLEY Mobley MD 09/10/2018 12:58:51 Do You Have An Advance Directive? Yes [email or web address] Information not available 04/26/2023 Are You Blind Or Do You Have Difficulty Seeing? No Information not available 09/10/2018 What Is Your Level Of Caffeine Consumption? Occasional Information not available 09/10/2018 How Much Tobacco Do You Chew? None Information not available 09/10/2018 In The 14 Days Before Symptom Onset, Have You Had Close Contact With A Laboratory-confir med COVID-19 While That Case Was Ill? No [email or web address] Information not available 04/26/2023 In The 14 Days Before Symptom Onset, Have You Had Close Contact With A Person Who Is Under Investigation For COVID-19 While That Person Was Ill? No [email or web address] Information not available 04/26/2023 Have You Been To An Area Known To Be High Risk For COVID-19? No [email or web address] Information not available 04/26/2023 Are You Deaf Or Do You Have Serious Difficulty Hearing? No Information not available 09/10/2018 Live Alone Or With Others? With Others [email or web address] Information not available 04/26/2023 What Was The Date Of Your Most Recent Tobacco Screening? 03/11/2024 Information not available 03/11/2024 How Much Tobacco Do You Smoke? No Information not available 09/10/2018 Has Tobacco Cessation Counseling Been Provided? No [email or web address] Information not available 03/11/2024 How Many Years Have You Smoked Tobacco? 25 Information not available 09/10/2018 Sex: Unknown Functional Status Question Answer Note LastModified by Pictela ion Details LastModified Time Do you use any illicit or recreational drugs? No [email or web address] Information not available 03/11/2024 Do you or have you ever used any other forms of tobacco or nicotine? No [email or web address] Information not available 03/11/2024 What is your level of alcohol consumption? None Information not available 09/10/2018 Are you able to walk? YESWOREST [email or web address] Information not available 04/26/2023 Mental Status None recorded. Family History Relationship Description Onset Age of this Age Resolved Age Notes LastModified by Organization Details LastModified Time Mother Diabetes mellitus Not available 2017 12:58:18 Brother Diabetes mellitus Not available 2017 12:58:18 Brother Diabetes mellitus Not available 2019 10:01:28 Brother Diabetes mellitus 56 [email or web address] Not available 2019 10:01:28 Sister Diabetes mellitus Not available 2017 12:58:18 Sister Diabetes mellitus [email or web address] Not available 2019 10:01:28 Medical History Condition Response Depression Y Anxiety Disorder Y Arthritis Y Cancer Y Stroke N Parkinson's Disease N Migraines N Neurological Problems N Diabetes N Hyperlipidemia N Heart Disease N Hypertension Y Gynecological HistoryNo gynecological history recorded. Obstetrics History GPAL:G 0 P 0 0 0 0 Past Encounters Encounter ID Performer Location Encounter Start Date Encounter Closed Date Diagnosis/Indication Diagnosis SNOMED-CT Code Diagnosis ICD10 Code Diagnosis Note [id number] Armando Draper MD Main Office [address], [address] [address] 09/10/2018 12:54:36 09/10/2018 13:54:16 Cervical radiculopathy 82981654 M54.12 The patient is a 63-year-ol d white female who has recurring left C6-7 radiculopa thy. Epilepsy 66343326 G40.90 9 She has stable epilepsy. [id number] Armando Draper MD Main Office [address], [address] [address] 09/20/2018 11:04:11 09/20/2018 11:39:42 Epilepsy 73269775 G40.909 She has stable epilepsy. 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 Cervical radiculopathy 57611586 M54.12 The patient is a 63-year-ol d white female who has recurring left C6-7 radiculopa thy. [id number] Armando Draper MD Main Office [address], [address] [address] 09/20/2018 11:05:43 09/20/2018 11:55:18 Ulnar neuropathy 319441839 G56.23 Moderate left, Mild right UNE at both elbows. Cervical radiculopathy 35198875 M54.12 The patient is a 63-year-ol d white female who has recurring left C6-7 radiculopa thy. [id number] Armando Draper MD Main Office [address], [address] [address] 08/07/2019 12:17:33 08/07/2019 12:51:36 Epilepsy 99888660 G40.909 She has stable epilepsy. She is interested in coming off seizure medication . Ulnar nerv e entrapment at elbow 018457245 G56.23 She has bilateral ulnar nerve entrapment s at the elbow. [id number] Armando Draper MD Main Office [address], [address] [address] 08/27/2019 08:55:28 08/27/2019 09:51:31 Epilepsy 53166901 G40.909 She has stable epilepsy. She is interested in coming off seizure medication . EEG is unremarkab le. [id number] Armando Draper MD Main Office [address], [address] [address] 08/27/2019 08:55:47 08/27/2019 09:50:25 Altered mental status 293219355 R41.82 [id number] Armando Draper MD Main [facility] [address], [address] [address] 08/27/2020 10:00:23 08/27/2020 10:11:05 Epilepsy 56920775 G40.909 She has stable epilepsy. She has been seizure-fr ee for quite some time. [id number] Armando Draper MD Main Office [address], [address] [address] 04/26/2023 11:55:09 04/26/2023 12:26:36 Poor short-term memory 685220140 R41.3 The patient is a 67-year-ol d white female. She has gradual onset of short-term memory loss. Examinatio n today is unremarkab le. Mild cognitive impairment versus age-relate d memory loss cannot be excluded. [id number] Armando Draper MD Main Office [address], [address] [address] 05/22/2023 08:14:53 05/22/2023 08:59:30 Poor short-term memory 916685840 R41.3 The patient is a 67-year-ol d white female. She has gradual onset of short-term memory loss. Examinatio n today is unremarkab le. Mild cognitive impairment versus age-relate d memory loss cannot be excluded. Her EEG is unremarkab le. [id number] Armando Draper MD Main Office [address], [address] [address] 05/22/2023 08:37:14 05/22/2023 08:38:56 Poor short-term memory 251975520 R41.3 The patient is a 67-year-ol d white female. She has gradual onset of short-term memory loss. Examinatio n today is unremarkab le. Mild cognitive impairment versus age-relate d memory loss cannot be excluded. [id number] Armando Draper MD Main Office [address], [facility] [address] [place] [address] 03/11/2024 10:41:55 03/11/2024 10:51:34 Poor short-term memory 715212096 R41.3 The patient is a 68-year-ol d white female. She has gradual onset of short-term memory loss. Examinatio n today is unremarkab le. Mild cognitive impairment versus age-relate d memory loss cannot be excluded. Spinal mejia nosis in cervical region 22924537 M48.02 Health Concerns Section Related Observation LastModified by Organization Detai ls LastModified Time None Recorded Concern Status LastModified by Organization Details LastModified Time None Recorded Advance Directives Directive Y: Payers Insurance Date Sequence Insurance Name Policy Number Policy [place] Covered Member ID [place] Member ID Guarantor Name [id number] 1 [facility] (O) [id number] Titi Nelson [id number] Jaymie Nelson Notes Date Note Type Note Provider Name a pa Address Organization Details Recorded Time 08/27/2020 text/html Mrs. Nelson is a 64-year-old white female. She has epilepsy. Her last seizure was many years ago. She is on low dose lamotrigine 25 mg 2 tablets daily. She reported no seizure activity. She had a history of cervical spinal fusion. She has chronic neck pain. She is on Percocet and gabapentin prescribed by Dr. Forrest. She is also getting rhizotomy for neck pain. Armando Draper MD [address], [facility] [address], [place], [address], [facility] - Armando Draper MD 08/27/2020 10:28:30 04/26/2023 text/html Jaymie is a 67-year-old white female. She is here today with the complaint of short-term memory loss. This is of gradual onset. It is noticeable to her family. She has difficulty with direction when she drives. She misplaces things. She has difficulty with name recall. She has no headache. She denies any difficulty with ambulation. She has chronic shoulder problem. She takes gabapentin and oxycodone as needed for pain. She is on trazodone at night as needed for sleep. She takes losartan for hypertension. There is no family history of dementia. MD [address], [facility] [address], [place], [address], [facility] Sabine Draper MD 04/26/2023 12:26:25 05/22/2023 text/html Mrs. Nelson is a 67-year-old white female. She has gradual onset short-term memory loss. She has a low B12 level. She also taking pain medication for chronic neck pain. She is taking gabapentin and oxycodone prescribed by Dr. Forrest at the pain clinic. She returned today for EEG. It is a normal study. She is to have a brain MRI scan this morning. MD [address], [facility] [address], [place], [address], KIMBERLEY Draper MD 05/22/2023 08:40:07 03/11/2024 text/html Jaymie is a 68-year-old white female. She has recent onset of short-term memory loss. She reported improvement with low-dose Namenda 5 mg daily. She has no difficulty driving. She had a history of cervical spinal decompression. She has chronic neck pain. She is being followed at the pain clinic. She takes gabapentin and Percocet. She sees Dr. Forrest. She reported an episode of transient left arm numbness without pain or weakness. MD [address], [facility] [address], [place], [address], KIMBERLEY Draper MD 03/11/2024 10:57:30 OBGyn Episode No OBEpisode recorded.
--- OUTSIDE RECORDS SUMMARY | 2025-04-23 10:00 | XMS_ITS | Clinical Summary ---
Author Organization [facility] Address [address] [place] [address] Care Team Providers Care Tailer Out Name Role Phone Unavailable Primary Care Provider Unavailabl e Social History Tobacco Use Types Packs/Day Years Used Date Smoking Tobacco: Never Assessed Comments Unknown Sex and Gender Information Value Date Recorded Sex Assigned at Not on file Legal Sex Female 3:19 PM EDT Gender Identity Not on file Sexual Orientation Not on file Plan of Treatment Not on file
--- OUTSIDE RECORDS SUMMARY | 2025-04-23 10:00 | XMS_ITS | Encounter Summary ---
Author Organization [email or web address] Address [address] [place] [address] Care Team Providers Care Color Strainer Name Role Phone Unavailable Primary Care Provider Unavailabl e Encounter Details Date Type Department Care Team (Late st Contact Info) Description 02/05/2020 Transcribed Document [facility] [place] [facility] [place] [address] ProviderItz MD [address] [place] [address] Social History Tobacco Use Types [...] Cerner Conversion Note - Historical ProviderMD - 02/05/2020 3:39 PM CDT Patient: JAYMIE JONES V Age: 64 Years Sex: Female : 1955 FOLLOW-UP Date of Service: 01/26/2020 CHIEF COMPLAINT: Neck pain. HISTORY OF PRESENT ILLNESS: This is a 64 y/o female being seen in follow-up with an 18 year history of neck pain that affects her bilateral shoulders worse on the right. She describes her pain as constant, aching, burning, dull. The pain is exacerbated with pushing, pulling, stretching, reaching and reduced with ice, heat and medication. She currently rates the pain as a 4/10 VAS and reports a 50% reduction with medication. Medication list reviewed. Pertinent medications are noted to be Percocet 10 mg 1 p.o. q 6 h, Gabapentin 400 mg 2 p.o. q 8 h, and Zofran. Nursing intake reviewed. Fall info sheet provided. HISTORY: Allergies: Sulfa, Prednisone. Social History: Marital status: . Current work status: Retired Illicit drug use: Denies. Alcohol use: Denies. Current tobacco use: Denies. Caffeine use: Enjoys caffeine. Past Medical History: Anemia. Arthritis Asthma. Breast cancer Chicken pox. Shingles Gallstones Depression Hypertension. High cholesterol Kidney stones Seizures Past Surgical History: Breast Gallbladder Hysterectomy Shoulder Neck Past Family History: Cancer Lung disease. Diabetes REVIEW OF SYSTEMS: General: Fatigue, weight gain Respiratory: Negative. Neurological: Negative. Gastrointestinal: Negative. Musculoskeletal: Joint pain, stiffness, neck pain, back pain, muscle weakness. Cardiovascular: Negative. Psychiatric: Anxiety and depression. HEENT: Negative. Endocrine: Negative. Hematology: Negative. Skin: Negative. Genitourinary: Negative. VITAL SIGNS: Vital signs are reviewed. BP 167/77, heart rate 66, respiratory rate 18, O2 SATs 98% on room air, height 5???2?? , weight 148 lbs PHYSICAL EXAMINATION: Constitutional: Conversant, no acute distress, well-nourished. Integumentary: Deferred. HEENT: Normocephalic. Neck: Deferred. Chest and Lung: Deferred. Cardiovascular: Deferred. Abdomen: Deferred. Peripheral Vascular: Deferred Neurologic: Deferred. Musculoskeletal: Able to transition independently. She ambulates with a cane. Psychiatric: Alert and oriented x 3. Denies suicidal ideation. Normal mood and affect. No signs of impairment. DIAGNOSTIC STUDIES: Not present MEDICAL DECISION MAKING: Stable. ASSESSMENT: 1. Chronic pain syndrome. 2. Cervical degenerative disc disease status post ACDF. 3. Cervical radiculitis of the bilateral upper extremities. PROCEDURE/TEST ORDERED: Not present. CURRENT PLAN: Urine tox screen today. We will continue current medications. Questions answered to her satisfaction and she verbalized understanding. YANIRA reviewed. Return to the clinic in two months. BRIDGER Mayfield/danial Electronically signed by Anu [facility] Conversion Manager Of Human Resources Cerner at 02/23/2023 2:35 PM CDT documented in this encounter Plan of Treatment Not on file documented as of this encounter Visit Diagnoses Not on filedocumented in this encounter
--- OUTSIDE RECORDS SUMMARY | 2025-04-23 10:00 | XMS_ITS | Encounter Summary ---
Author Organization [employer] Address [address] [place] [address] Care Team Providers Care Console Operator Name Role Phone Unavailable Primary Care Provider Unavailabl e Encounter Details Date Type Department Care Team (Late st Contact Info) Description 09/07/2020 Transcribed Document [facility] [place] Family Medicine [facility] [place] [address] ProviderItz MD [address] [place] [address] Social History Tobacco Use Types Packs/Day Years Used Date Smoking Tobacco: Never Assessed Comments Unknown Sex and Gender Information Value Date Recorded Sex Assigned at Female 05/02/2022 5:42 PM CDT Legal Sex Female 5:42 PM CDT Gender Identity Female 05/02/2022 5:42 PM CDT Sexual Orientation Not on file documented as of this encounter Miscellaneous Notes * Cerner Conversion Note - Itz ProviderMD - 09/07/2020 3:00 PM LADLE CLEANER Patient: JAYMIE JONES V Age: 65 years Sex: Female : 1955 Associated Diagnoses: None Author: NICOLASA PERZE II, MD-ANS Procedure: Medial Branch Block at C3, C4 and C5 on the right utilizing a lateral approach and Fluoroscopic guidance Pre Procedure Diagnoses: Cervical Spondylosis Cervical Facet Disease Post Procedure Diagnoses: Same Anesthesia: Local (2% Lidocaine) only Complications: none Fluoroscopy: .46 Description of Procedure: Risk and benefits were explained. An informed consent was obtained. The patient was placed in a left lateral position. Sterile prep was performed over the area of the neck laterally on the right. Landmarks were identified under fluoroscopic guidance identifying the area of the lateral mass and the cervical facets. I raised a Lidocaine skin wheal over the identified points and used a 22g spinal needle that was directed to make contact with the lateral masses at C3, C4 and C5. Once appropriate needle placement was obtained I then injected .5cc of .50% Ropivacaine and .5cc PF normal saline at each site. The patient tolerated the procedure well and reported improved pain after the procedure. No complications were noted. documented in this encounter Plan of Treatment Not on file documented as of this encounter Visit Diagnoses Not on filedocumented in this encounter
--- OUTSIDE RECORDS SUMMARY | 2025-04-23 10:00 | XMS_ITS | Referral Summary ---
Author Organization [employer] Address [address] [place] [address] Care Team Providers Care Milk Driver Name Role Phone Unavailable Primary Care Provider Unavailabl e Social History Tobacco Use Types Packs/Day Years Used Date Smoking Tobacco: Never Assessed Comments Unknown Sex and Gender Information Value Date Recorded Sex Assigned at Female 05/02/2022 5:42 PM CDT Legal Sex Female 5:42 PM CDT Gender Identity Female 05/02/2022 5:42 PM CDT Sexual Orientation Not on file Plan of Treatment Not on file
--- OUTSIDE RECORDS SUMMARY | 2025-04-23 10:00 | XMS_ITS | Encounter Summary ---
Author Organization [employer] Address [address] [place] [address] Care Team Providers Care Steel Molder Name Role Phone Unavailable Primary Care Provider Unavailabl e Encounter Details Date Type Department Care Team (Late st Contact Info) Description 04/21/2020 Transcribed Document [facility] [place] [facility] [place] [address] ProviderItz MD [address] [place] [address] Social History Tobacco Use Types [...] Cerner Conversion Note - Historical ProviderMD - 04/21/2020 9:52 AM CDT Patient: JAYMIE JONES V Age: 64 Years Sex: Female : 1955 FOLLOW-UP Date of Service: 03/24/2020 CHIEF COMPLAINT: Neck pain, bilateral shoulder pain. HISTORY OF PRESENT ILLNESS: The patient is a 64 y/o female who returns to the Clinic today with an 18 year history significant for both neck pain as well as bilateral shoulder pain, the left side being worse than the right side. The patient states that the pain is improved with alternating ice and heat therapy as well as medication use from our facility. The patient describes his pain is worse with activities such as weightbearing, standing, walking, bending and lifting. The patient describes 60% reduction of the pain with Percocet 10/325 mg 4 times daily dosing, Zofran 8 mg every 8 hours as needed for opioid induced nausea, Neurontin 400 mg 2 pills 3 times daily dosing. Nursing intake was reviewed and noted on today's visit. VITAL SIGNS: Vital signs are reviewed today. B/P: 172/95. The patient has not had her blood pressure medicine today. Heart rate: 82; Respirations: 16; Oxygen saturation is 95% on room air; Height 5???2?? , weight 148 lbs. HISTORY: Allergies to medications: Sulfa and prednisone. Social History: Marital status: The patient is currently . Current work status: Not listed. Illicit drug use: Denies. Current tobacco use: Denies. Alcohol use: Denies. Caffeine use: Not reported. Past Medical History: Anemia. Osteoarthritis. Asthma. Breast cancer. Chicken pox. Shingles. Depression. Gallstones. Hypertension. Hyperlipidemia. Kidney stones. Migraine headaches. Seizure activity. Past Surgical History: Cholecystectomy. Complete hysterectomy. Arthroscopic shoulder surgery. Sinus surgery. Spinal surgery of the cervical spine. Mastectomy. Past Family History: Cancer. Lung disease. Type 2 diabetes. REVIEW OF SYSTEMS: The patient's ten system review of systems was reviewed and on today's visit this individual has complaints of the following: General: Fatigue and weight gain. Respiratory: Asthma. Neurological: Headaches. Gastrointestinal: Negative. Musculoskeletal: Joint pain, stiffness, neck pain, back pain, muscle aches and pains. Cardiovascular: Chest pain. Psychiatric: Anxiety and depression. HEENT: Negative. Endocrine: Increased thirst. Hematology: Negative. PHYSICAL EXAMINATION: Constitutional: The patient is conversant and well-nourished. Vital signs are reviewed today. Integumentary: Deferred. HEENT: Deferred. Neck: Deferred. Chest and Lung: Deferred. Cardiovascular: Deferred. Abdomen: Deferred. Peripheral Vascular: Deferred Neurologic: Deferred. Musculoskeletal: Deferred. Psychiatric: The patient is alert and oriented to self, time, and place today. The patient has a normal mood and affect on today's visit and there is moderately severe depression issues on the depression questionnaire that was completed today. DIAGNOSTIC STUDIES: Not present. MEDICAL DECISION MAKING: Stable. ASSESSMENT: 1. Chronic pain syndrome. 2. Cervical degenerative disc disease, status post anterior cervical disc fusion and discectomy. 3. Cervical radiculitis involving the bilateral upper extremities. PROCEDURE/TEST ORDERED: Not present. CURRENT PLAN: I am going to continue Ms. Jones on her current medication regimen from our facility at this time. YANIRA report was appropriate upon review today. The patient's urine tox screen done 01/26/2020 was appropriate. We will see the patient back in the Clinic in 2 months for a follow-up appointment. MAKAYLA Rae/gagandeep Electronically signed by Anu [facility] Conversion Impregnation Operator Cerner at 02/23/2023 2:39 PM CDT documented in this encounter Plan of Treatment Not on file documented as of this encounter Visit Diagnoses Not on filedocumented in this encounter
--- OUTSIDE RECORDS SUMMARY | 2025-04-23 10:00 | XMS_ITS | Encounter Summary ---
Author Organization [employer] Address [address] [place] [address] Care Team Providers Care Service Center Manager Name Role Phone Unavailable Primary Care Provider Unavailabl e Encounter Details Date Type Department Care Team (Late st Contact Info) Description 09/25/2019 Transcribed Document [facility] [place] Family Medicine [facility] [place] [address] ProviderItz MD [address] [place] [address] Social History Tobacco Use Types [...] Cerner Conversion Note - Historical ProviderMD - 09/25/2019 2:27 PM STUDENT ADMISSIONS CLERK Patient: JAYMIE JONES V Age: 64 Years Sex: Female : 1955 FOLLOWUP DATE OF SERVICE: 09/24/2019 CHIEF COMPLAINT: Neck pain, bilateral shoulder pain. HISTORY OF PRESENT ILLNESS: The patient is a 64-year-old female who returns to clinic today with an 18-year history significant for neck pain with bilateral shoulder pain involvement with the left side being worse than right side. She is status post trigger point injections that were done on 08/08/2019 which gave her 70% pain relief of her muscle pain. Her pain level today is 2/10 on the numerical pain scale rating. She reports her pain as being worse with pushing and pulling with her arms. She does get relief with alternating ice and heat therapy. She reports 50% pain reduction of her pain with the Zofran 8 mg up to t.i.d. as needed for opioid-induced nausea, Neurontin 400 mg 2 pills t.i.d., Percocet 10/325 mg t.i.d. Nursing intake was reviewed and on today's visit, this individual has a BP 156/84, HR 95, respirations 16, oxygen saturation is 98% on room air. The patient is 5'2 tall and weighs 147 pounds. HISTORY: Allergies: Sulfa and prednisone. Social History: Marital status: . Current work status: Disabled. Current tobacco use: Denied Illicit drug use: Denied Alcohol use: Denied Caffeine use: Caffeine use is daily. Past Medical History: Positives include anemia, osteoarthritis, asthma, breast cancer, chickenpox, shingles, depression, gallstones, hypertension, hyperlipidemia, kidney stones, seizure activity. Past Surgical History: Mastectomy, cholecystectomy, complete hysterectomy, arthroscopic shoulder surgery, sinus surgery, spinal surgery to the cervical spine. Past Family History: This individual has a history of cancer, lung disease and type 2 diabetes in her family. REVIEW OF SYSTEMS: The patient's ten-system review of systems was reviewed. On today's visit, this individual complains of the following: General: Fatigue. Weight gain. Respiratory: Shortness of breath and asthma. Neurological: Dizziness, numbness and tingling. Musculoskeletal: Joint pain, stiffness, neck pain. Psychiatric: Anxiety, depression. All other systems reviewed and were found to be negative. PHYSICAL EXAMINATION: Vital signs: Reviewed today. Constitutional: Conversant. Well nourished. Psychiatric: Alert and oriented to self, time and place today. Normal mood and affect at today's visit. There is moderately severe depression issues on the depression questionnaire completed today. Physical examination is deferred. MEDICAL DECISION MAKING: YANIRA report is appropriate on review today. ASSESSMENT: 1. Chronic pain syndrome. 2. Myositis and myalgia. 3. Cervical degenerative disc disease status post anterior cervical disc fusion and discectomy. 4. Cervical radiculitis involving the bilateral upper extremities with the left being worse than the right. 5. History of breast cancer, status post lumpectomy and mastectomy. CURRENT PLAN: I am going to continue Ms Jones on her current medication regimen from our facility at this time. The patient appears to be doing well with her current medication regimen from our facility at this time. We will see the patient back in clinic in two months for a followup appointment. The patient understands and agrees with the above plan. Dustin Serrano PA-C documented in this encounter Plan of Treatment Not on file documented as of this encounter Visit Diagnoses Not on filedocumented in this encounter
--- OUTSIDE RECORDS SUMMARY | 2025-04-23 10:00 | XMS_ITS | Encounter Summary ---
Author Organization [employer] Address [address] [place] [address] Care Team Providers Care In Store Marketing Associate Name Role Phone Unavailable Primary Care Provider Unavailabl e Encounter Details Date Type Department Care Team (Late st Contact Info) Description 08/06/2020 Transcribed Document [facility] [place] [facility] [place] [address] ProviderItz MD [address] [place] [address] Social History Tobacco Use Types [...] Cerner Conversion Note - Itz ProviderMD - 08/06/2020 10:50 AM CDT Patient: JAYMIE JONES V Age: 64 years Sex: Female : 1955 Associated Diagnoses: None Author: NICOLASA PEREZ II, MD-ANS Procedure: Medial Branch Block at C3, C4 and C5 on the right utilizing a lateral approach and Fluoroscopic guidance Pre Procedure Diagnoses: Cervical Spondylosis Cervical Facet Disease Post Procedure Diagnoses: Same Anesthesia: Local (2% Lidocaine) only Complications: none Fluoroscopy: 1.01 Description of Procedure: Risk and benefits were [...]
--- OUTSIDE RECORDS SUMMARY | 2025-04-23 10:00 | XMS_ITS | Clinical Summary ---
Author Organization [employer] Address [address] [place] [address] Care Team Providers Care Ticket Dispatcher Name Role Phone Unavailable Primary Care Provider [...]
--- OUTSIDE RECORDS SUMMARY | 2025-04-23 10:00 | XMS_ITS | Encounter Summary ---
Author Organization [employer] Address [address] [place] [address] Care Team Providers Care Paper Cone Drying Machine Operator Name Role Phone Unavailable Primary Care Provider Unavailabl e Encounter Details Date Type Department Care Team (Late st Contact Info) Description 06/11/2020 Transcribed Document [facility] [place] Family Medicine [facility] [place] [address] ProviderItz MD [address] [place] [address] Social History Tobacco Use Types [...] Cerner Conversion Note - Historical ProviderMD - 06/11/2020 1:58 PM CDT Patient: JAYMIE JONES V Age: 64 Years Sex: Female : 1955 FOLLOW-UP DATE OF SERVICE: 05/27/2020 CHIEF COMPLAINT: Neck and shoulder pain. HISTORY OF PRESENT ILLNESS: The patient is a 64 y/o female who returns to the clinic for follow-up on her 18+ year history of neck pain, bilateral shoulder pain, left side worse than right with numbness and tingling. She would like to get an injection by Dr. Forrest. She states that she fell down the basement stairs last month and did not seek medical attention and was bruised. Then, she was mowing and she was trying to avoid the tree with the lawnmower and when she lifted her head up, her forehead hit hard into a branch and it jerked her neck pain around and made it worse. When she turns to the left, it causes a headache. She rates her pain as 7/10 on the pain scale. Quality is aching, burning, radiating, dull and constant. She gets 50% relief with her current medication. Her pain is decreased with ice and medication and increased with sweeping, pushing and pulling. Fall risk info sheet has been provided. SOCIAL HISTORY: Allergies: Sulfa drugs, prednisone. Marital status: The patient is . Current work status: She is retired. Illicit drug use: Denies. Alcohol use: Denies. Current tobacco use: Denies. Caffeine use: She drinks caffeine. Past Medical History: Anemia. Arthritis. Asthma. Breast cancer. Chickenpox and shingles. Depression. Gallstones. High blood pressure. High cholesterol. Kidney stones. Seizures. Past Surgical History: Breast. Gallbladder. Hysterectomy. Shoulder. Sinus. Spinal surgery of the neck. Past Family History: Lung cancer. Breast cancer. Lung disease. Diabetes. Depression. REVIEW OF SYSTEMS: Complete ten system review was performed and noted to be positive for the following: General: Fatigue, weight gain. Respiratory: Asthma. Neurological: Headache, numbness and tingling. Gastrointestinal: Negative. Musculoskeletal: Joint pain, stiffness, neck pain, back pain, muscle aches and pains. Cardiovascular: Leg pain with walking. Psychiatric: Anxiety, depression. HEENT: Negative. Endocrine: Negative. Hematology: Negative. VITAL SIGNS: Vital signs are reviewed. BP 155/70, heart rate 72, respiratory rate 18, O2 SATs 94%, height 5???2?? , weight 143 lbs. PHYSICAL EXAMINATION: Constitutional: The patient is freely conversant, no acute distress. Integumentary: Deferred. HEENT: Deferred. Neck: Deferred. Chest and Lung: Deferred. Cardiovascular: Deferred. Abdomen: Deferred. Peripheral Vascular: Deferred Neurologic: Deferred. Psychiatric: Alert and oriented x 3 with normal mood and affect. She scored a 17 on the depression questionnaire. She is treated. Musculoskeletal: She has positive facet loading of the cervical spine, tender to palpation in bilateral cervical facets. She also has multiple trigger points, left greater than right in the cervical splenius muscles and upper trap muscles. Established patient exam is deferred. DIAGNOSTIC STUDIES: Not present. MEDICAL DECISION MAKING: The patient's YANIRA has been reviewed and is appropriate. Patient's medications are reviewed and are listed in the patient's file. ASSESSMENT: Worsening. 1. Chronic pain syndrome. 2. Cervical degenerative disc disease, status post ACDF and discectomy. 3. Cervical spondylosis. 4. Cervical facet arthropathy. PROCEDURE/TEST ORDERED: Not present. CURRENT PLAN: We will continue Ms. Jones on her current medications of Percocet 10 mg every 6 hours, Zofran 8 mg every 8 hours p.r.n., Neurontin 400 mg 2 p.o. every 8 hours. She denies any constipation. I am going to get her scheduled for bilateral facet injections, C3-4, C4-5 with fluoro. She does not have radicular pain. Her most severe pain is right over her facets in her neck. She does not have any infectious process, medical complication or unexplained neurological deficit. She has had the pain for 18 years. For at least a year, she has failed conservative therapy. It has interfered with her ADLs and her function. She has taken anti-inflammatories in the past. She takes Tylenol now. I have reviewed her most recent MRI which was 09/09/2015 and it shows C2-C3 facet arthropathy, bilateral C3-C4 facet arthropathy, C4-C5 facet arthropathy, C5-C6 facet arthropathy and anterior cervical fusion hardware. There is no significant neural foraminal or spinal canal narrowing. I have also given her information on medial branch block and rhizotomy. Depending on how this does, she could benefit from a C3, C4 and C5 rhizotomy. It has been 4-1/2 years since her last MRI and so also depending on how she does, we may need to get a more recent MRI. She is in agreement with the above plan. We will see her back in follow-up in two months. Brooke Huerta M.D. FIDELIA/gagandeep documented in this encounter Plan of Treatment Not on file documented as of this encounter Visit Diagnoses Not on filedocumented in this encounter
--- OUTSIDE RECORDS SUMMARY | 2025-04-23 10:00 | XMS_ITS | Encounter Summary ---
Author Organization [employer] Address [address] [place] [id number] Care Team Providers Care Facility Coordinator Name Role Phone Unavailable Primary Care Provider Unavailabl e Encounter Details Date Type Department Care Team (Late st Contact Info) Description 12/22/2020 Transcribed Document [facility] [place] [facility] [place] [address] ProviderItz MD [address] [place] [address] Social History Tobacco Use Types [...] Cerner Conversion Note - Historical ProviderMD - 12/22/2020 1:36 PM 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 CHIEF COMPLAINT: Neck and shoulder pain. HISTORY OF PRESENT ILLNESS: The patient is a 65-year-old female who returns to the clinic for follow-up on her neck and bilateral shoulder pain she has had since 2000. Her right C3-C4 rhizotomy on 10/05 helped greatly and she states she no longer wakes up with headaches every morning. She rates her pain as 6/10 on the pain scale. Quality is aching, radiating, dull, and her pain is constant. She gets 50% relief with her current medication. Pain is increased with pulling on things, sweeping, reaching; decreased with ice and heating pad. Fall risk information sheet provided. HISTORY: Allergies: Prednisone, Sulfa drugs. Social History: Marital status: . Current work status: Unemployed. Current tobacco use: Denies. Illicit drug use: Denies. Alcohol use: Denies. Caffeine use: Drinks caffeine. Past Medical History: Anemia. Arthritis. Asthma. Breast cancer. Chicken pox/shingles. Depression. Gallstones. High blood pressure. High cholesterol. Kidney stones. Migraines. Seizures. Past Surgical History: Breast. Gallbladder. Hysterectomy. Shoulder. Sinus. Spinal surgery of the neck. Past Family History: Breast cancer. Lung cancer. Lung disease. Diabetes. REVIEW OF SYSTEMS: The patient's ten system Review of Systems was performed. General: Fatigue, weight gain. Respiratory: Asthma. Neurological: Numbness/tingling. Gastrointestinal: Negative. Musculoskeletal: Joint pain/stiffness, neck pain, back pain. Cardiovascular: Negative. Psychiatric: Anxiety, depression. HEENT: Negative. Endocrine: Negative. Hematology: Negative. Skin: Negative. Genitourinary: Negative. VITAL SIGNS: Vital signs are reviewed. Blood pressure 148/74, heart rate 80, respiratory rate 18, O2 SATs 98%, height 5'2 , weight 140 lbs. PHYSICAL EXAMINATION: Constitutional: Freely conversant and in no acute distress. Integumentary: Deferred. HEENT: Deferred. Neck: Deferred. Chest and Lung: Deferred. Cardiovascular: Deferred. Abdomen: Deferred. Peripheral Vascular: Deferred Neurologic: Deferred. Neuropsychiatric: Alert and oriented x 3. She scored a 13 on the depression questionnaire. She is treated. Musculoskeletal: Negative. Established patient exam is deferred. MEDICAL DECISION MAKING: Patient's YANIRA is reviewed and is appropriate. Patient???s medications are reviewed, see list in patient???s file. ASSESSMENT: Stable. 1. Chronic pain syndrome. 2. Cervical degenerative disc disease status post ACDF and discectomy. 3. Cervical spondylosis. 4. Cervical facet arthropathy. CURRENT PLAN: I am going to continue Ms. Jones on her current medication of Percocet 10 mg every 6 hours, Gabapentin 800 mg every 8 hours, and Zofran 8 mg every 8 hours prn. She denies any constipation. She is in agreement with the above plan. We will see her back in follow-up in two months. Brooke Huerta M.D. TYLER/tavia documented in this encounter Plan of Treatment Not on file documented as of this encounter Visit Diagnoses Not on filedocumented in this encounter
--- OUTSIDE RECORDS SUMMARY | 2025-04-23 10:00 | XMS_ITS | Encounter Summary ---
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 Preoperative Diagnosis: Neck pain secondary to Cervical Spondylosis Cervical Facet Disease Postoperative Diagnosis: Same Anesthesia: Local (2% Lidocaine) with 10mg PO Valium Complications: none Fluoroscopy: 1.01 Procedure: The risk and benefits were explained. An informed consent was obtained. The patient was placed in a left lateral position. A sterile prep was performed over the area of the neck laterally on the right. Landmarks were identified under fluoroscopic guidance identifying the area of the lateral mass and the cervical facets. A lidocaine skin wheal was raised over the identified points. I then used fluoroscopic guidance and directed a 17g radiofrequency introducer needle with a 4mm active tip that was directed to make contact with the lateral masses at C3, C4 and C5. I then tested motor stimulation with appropriate responses at 2 volts. A mixture consisting of 2% Lidocaine was slowly injected at each site. Then a radiofrequency ablation at each level was done at a tissue temperature >80 degrees Fahrenheit for 2 minutes and 30 seconds each site. The patient tolerated the procedure well without complications. documented in this encounter Plan of Treatment Not on file documented as of this encounter Visit Diagnoses Not on filedocumented in this encounter
--- OUTSIDE RECORDS SUMMARY | 2025-04-23 10:00 | XMS_ITS | Encounter Summary ---
Author Organization [employer] Address [address] [place] [id number] Care Team Providers Care Information Resource Consultant Name Role Phone Unavailable Primary Care Provider Unavailabl e Encounter Details Date Type Department Care Team (Late st Contact Info) Description 08/15/2020 Transcribed Document [facility] [place] [facility] [place] [address] ProviderItz MD [address] [place] [address] Social History Tobacco Use Types [...] Cerner Conversion Note - Historical ProviderMD - 08/15/2020 4:14 PM CDT Patient: JAYMIE JONES V Age: 64 Years Sex: Female : 1955 FOLLOW-UP DATE OF SERVICE: 07/28/2020. CHIEF COMPLAINT: Neck pain. HISTORY OF PRESENT ILLNESS: This is a 64-year-old female being seen in follow-up with a multiyear history of neck pain that she overall describes as constant, aching, radiating, numb, and dull. The pain is exacerbated with pushing, lifting, sweeping, mopping; reduced with ice, heat, and medication. She currently rates her pain as 6/10 VAS and reports a 50% reduction with medication. Medication list reviewed. Pertinent medications noted to be Percocet 10 mg 1 p.o. q6 hours and Gabapentin 400 mg 2 p.o. q8 hours. She is inquiring about possibility of decreasing her pill burden and taking the 800 mg strength and Zofran 8 mg 1 p.o. q8 hours prn. Nursing intake is reviewed. Fall risk information sheet provided. HISTORY: Allergies: Prednisone, Sulfa. Social History: Marital status: . Current work status: Unemployed. Retired. Current tobacco use: Denies. Illicit drug use: Denies. Alcohol use: Denies. Caffeine use: _ Past Medical History: Anemia. Arthritis. Asthma. Breast cancer. Chicken pox/shingles. Depression. Gallstones. Heartburn. Hypertension. High cholesterol. Kidney stones. Migraines. Seizures. Past Surgical History: Breast. Cholecystectomy. Hysterectomy. Shoulder. Sinus. Neck. Past Family History: Reviewed. REVIEW OF SYSTEMS: The patient's ten system Review of Systems was reviewed. General: Fatigue, weight gain. Respiratory: Negative. Neurological: Dizziness, numbness/tingling. Gastrointestinal: Last bowel movement 07/28, soft. Musculoskeletal: Joint pain/stiffness, neck pain, back pain. Cardiovascular: Negative. Psychiatric: Anxiety, depression. HEENT: Negative. Endocrine: Negative. Hematology: Negative. Skin: Negative. Genitourinary: Negative. VITAL SIGNS: Vital signs are reviewed. Blood pressure 137/81, heart rate 83, respiratory rate 16, O2 SATs 97% on room air, height 5'2 , weight 137 lbs. PHYSICAL EXAMINATION: Constitutional: Conversant and in no acute distress. Well-nourished. Integumentary: Deferred. HEENT: Normocephalic. Neck: Deferred. Chest and Lung: Deferred. Cardiovascular: Deferred. Abdomen: Deferred. Peripheral Vascular: Deferred Neurologic: Deferred. Musculoskeletal: Able to transition independently from walking, sitting, and standing without overt difficulty. Ambulatory with a cane. Facet loading. Antalgic gait. Psychiatric: Alert and oriented x 3. Denies suicidal ideation. Normal mood and affect. No signs of impairment. MEDICAL DECISION MAKING: Stable. ASSESSMENT: 1. Chronic pain syndrome. 2. Cervical degenerative disc disease status post ACDF. 3. Cervical spondylosis. 4. Cervical facet arthropathy. CURRENT PLAN: We will continue her Percocet and Zofran. Her Gabapentin will stay at the same dosage but we will attempt to decrease her pill burden by offering the increased strength. Therefore it will be Gabapentin 800 mg 1 p.o. q8 hours. She is encouraged to keep her scheduled cervical facet injections of the bilateral C3-4 and C4-5. Questions answered to her satisfaction. She verbalized understanding. YANIRA reviewed. Return to the clinic in two months. Gertrude Zapata APRN SRF/ac documented in this encounter Plan of Treatment Not on file documented as of this encounter Visit Diagnoses Not on filedocumented in this encounter
== END 2025-04-23 23:59 | disposition home or self-care (01) ==
LOC: RAD 09:57
PROVIDERS: PCP Family Medicine; Visit Provider Nurse Practitioner
DX: Z12.31 Encounter for screening mammogram for malignant neoplasm of breast (principal); R92.323 Mammographic fibroglandular density, bilateral breasts
CPT/HCPCS: 77063; 77067

== ENCOUNTER 2025-04-28 21:14 | Emergency (ER) | payer MEDICARE, SELFPAY ==
[2025-04-28] VITALS (7 sets, daily range): BP systolic 156–214; BP diastolic 67–107; PULSE 70–99; RESP 9–22; O2SAT 96–100; BMI 24.2
--- NOTE | 2025-04-28 21:14 | ECG_ITS ---
APPROVED REPORT Exam: Resting ECG HR:80 bpm ECG Measurements Heart Rate 80 AXES NC 199 P 68 QRSd 143 QRS 30 QT 409 T 46 QTc 446 Conclusion SINUS RHYTHM INDETERMINATE AXIS RIGHT BUNDLE BRANCH BLOCK [120+ ms QRS DURATION, UPRIGHT V1, 40+ ms S IN I/aVL/V4/V5/V6] ABNORMAL ECG UNCONFIRMED REPORT Electronically signed by : NORIS BROOKS, 04/29/2025 06:30:56
--- NOTE | 2025-04-28 21:19 | CT_ITS ---
PROCEDURE INFORMATION: Exam: CT Head Without Contrast Exam date and time: 04/28/2025 9:36 PM Age: 69 years old Clinical indication: Stroke-like symptoms; Other: Weakness; Additional info: L facial paraesthesia, L arm weakness, dysarthria TECHNIQUE: Imaging protocol: Computed tomography of the head without contrast. Radiation optimization: All CT scans at this facility use at least one of these dose optimization techniques: automated exposure control; mA and/or kV adjustment per patient size (includes targeted exams where dose is matched to clinical indication); or iterative reconstruction. Other technique: STROKE PROTOCOL was implemented. COMPARISON: No relevant prior studies available. FINDINGS: Brain: Minor generalized cerebral/cerebellar atrophy. Minimal periventricular white matter hypodensities which are nonspecific but most commonly associated with chronic microvascular ischemia in this age group. The IACs are grossly normal. No extra-axial fluid collections. No evidence of acute intracranial hemorrhage. Cerebral/cerebellar green-white matter differentiation is well maintained. No intracranial mass lesions. No midline shift or herniation. Cerebral ventricles: Ventricles normal. Pituitary gland and sella: The sella is grossly normal. Paranasal sinuses: Mucosal thickening in the right maxillary sinus suggesting mild chronic sinus inflammatory disease. No fluid levels. The other paranasal sinuses are clear. Mastoid air cells: Visualized mastoid air cells are clear. Orbital cavities: No acute intraorbital findings. Bones: No acute osseous findings. Soft tissues: No acute soft tissue findings. Chronic appearing calcifications of the nasal cartilage. Vasculature: Moderate calcific atherosclerosis. No asymmetric vascular hyperdensities suggestive of thrombosis are identified. IMPRESSION: 1. No acute intracranial process. No intracranial hemorrhage or mass effect. 2. Mild atrophy and microvascular changes consistent with age. 3. Moderate calcific atherosclerosis. ASSESSMENT: ASPECTS ([facility] Stroke Program Early CT Score) is 10.
--- NOTE | 2025-04-28 21:19 | CT_ITS ---
PROCEDURE INFORMATION: Exam: CTA Head With Contrast, Arteriography Exam date and time: 04/28/2025 9:39 PM Age: 69 years old Clinical indication: Stroke-like symptoms; Other: Weakness; Additional info: L facial paraesthesia, L arm weakness, dysarthria TECHNIQUE: Imaging protocol: Computed tomographic angiography of the head with contrast. Exam focused on the arteries. 3D rendering (Not supervised by radiologist): MIP and/or 3D reconstructed images were created by the technologist. Radiation optimization: All CT scans at this facility use at least one of these dose optimization techniques: automated exposure control; mA and/or kV adjustment per patient size (includes targeted exams where dose is matched to clinical indication); or iterative reconstruction. COMPARISON: CT HEAD/BRAIN WO CON 04/28/2025 9:36 PM FINDINGS: ANTERIOR CIRCULATION: Right internal carotid artery: Distal right ICA is small, likely related to chronic flow restriction from high-grade stenosis in the proximal ICA seen on the neck CT angiogram. Moderate calcific plaque in the cavernous segment without significant stenosis. Right middle cerebral artery: Unremarkable. No occlusion or significant stenosis. No aneurysm. Right anterior cerebral artery: Variant small right A1 segment with suspected moderate 50% stenosis of the proximal A1 segment. No aneurysm. The anterior communicating artery is unremarkable. Left internal carotid artery: Left ICA petrous segment is unremarkable. Cavernous segment demonstrates moderate calcific plaque without stenosis. Supraclinoid segment demonstrates mild calcific plaque without stenosis. Left middle cerebral artery: Unremarkable. No occlusion or significant stenosis. No aneurysm. Left anterior cerebral artery: Left A1 segment is dominant. No occlusion or significant stenosis. No aneurysm. POSTERIOR CIRCULATION: Right vertebral artery: Severe 70% stenosis of the proximal V4 segment. The distal V4 segment is congenitally hypoplastic beyond the PICA origin, versus severe distal 70-80% stenosis near the basilar confluence. No occlusion or significant stenosis. No aneurysm. Left vertebral artery: Left vertebral artery is dominant. No occlusion or significant stenosis. No aneurysm. Basilar artery: Unremarkable. No occlusion or significant stenosis. No aneurysm. Right posterior cerebral artery: Very small right posterior communicating artery present. No occlusion or significant stenosis. No aneurysm. Left posterior cerebral artery: Question short segment severe stenosis of 90% or greater involving a proximal left P3 branch although this might represent a vein with phase related incomplete filling. MRA may be helpful for confirmation if clinically indicated. No aneurysm. Veins: The dural venous sinuses and major cortical veins enhance appropriately without evidence of thrombosis. Brain: No enhancing brain lesions or vascular malformations are identified. Cerebral ventricles: No ventriculomegaly. Bones/joints: Unremarkable. No acute fracture. Soft tissues: Unremarkable. IMPRESSION: 1. Small right ICA likely related to chronic flow restriction from the severe right proximal ICA stenosis seen on neck CT angiography. 2. The right anterior circulation is fairly poorly collateralized, with a hypoplastic right A1 segment and suspected additional moderate 50% stenosis in the proximal right A1 segment. Only a very small right posterior communicating artery is present. 3. Short segment severe stenosis of 90% or greater suspected in a left FACULTY PHYSICIAN proximal P3 branch, although this might represent a vein with incomplete contrast filling due to early phase. MRA could help differentiate these possibilities if clinically indicated. PROCEDURE INFORMATION: Exam: CTA Neck With Contrast Exam date and time: 04/28/2025 9:39 PM Age: 69 years old Clinical indication: Stroke-like symptoms; Other: Weakness; Additional info: L facial paraesthesia, L arm weakness, dysarthria TECHNIQUE: Imaging protocol: Computed tomographic angiography of the neck with contrast. Exam focused on the cervical segments of the vasculature. 3D rendering (Not supervised by radiologist): MIP and/or 3D reconstructed images were created by the technologist. Radiation optimization: All CT scans at this facility use at least one of these dose optimization techniques: automated exposure control; mA and/or kV adjustment per patient size (includes targeted exams where dose is matched to clinical indication); or iterative reconstruction. Contrast material: ISOVUE; Contrast volume: 80 ml; Contrast route: INTRAVENOUS (IV); COMPARISON: CT HEAD/BRAIN WO CON 04/28/2025 9:36 PM FINDINGS: Right common carotid artery: Mild proximal soft plaque. Additional soft plaque in the mid segment. No stenosis. No dissection or occlusion. Right internal carotid artery: Severe mixed calcific plaque in the right carotid bulb and proximal most right ICA segment producing severe stenosis of 90% or greater, near occlusion. Small right ICA probably relates to chronic flow restriction from the severe proximal stenosis. No dissection or occlusion. Right external carotid artery: Ostial calcific plaque produces moderate 50% ostial stenosis. No dissection or occlusion. Left common carotid artery: Mild mixed calcific plaque. No stenosis. No dissection or occlusion. Left internal carotid artery: Moderate-severe calcific plaque in the left carotid bulb producing mild stenosis of less than 50%. Moderate tortuosity of the mid ICA segment with mild kinking. No significant stenosis. No dissection or occlusion. Left external carotid artery: Mild ostial mixed plaque with no significant stenosis. No dissection or occlusion. Right vertebral artery: The V1 through V3 segments are unremarkable. Severe short segment 70% stenosis of the proximal V4 segment. 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 No dissection or occlusion. Left vertebral artery: Left vertebral artery is dominant. No stenosis. No dissection or occlusion. 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 Left subclavian artery: The left subclavian artery is unremarkable. Aorta: The visualized aortic arch demonstrates moderate mixed calcific plaque and ectasia without patrick aneurysm or evidence of dissection. Thyroid: The thyroid gland is unremarkable. Soft tissues: No significant soft tissue swelling or hematoma. Bones/joints: No acute osseous abnormalities are identified. C5-C6 ACDF without gross hardware complication. Moderate disc osteoarthritic changes C4-C5 and C6-C7. Lungs: Mild pleuroparenchymal scarring in the pulmonary apices bilaterally. IMPRESSION: 1. Severe stenosis of 90% or greater, near occlusion, in the right carotid bulb and proximal most ICA. Generalized small caliber of the right ICA probably relates to chronic flow restriction. 2. Short segment severe 70% stenosis of the right vertebral artery proximal V4 segment. Additional tandem downstream severe stenosis of the distal V4 segment versus congenital hypoplasia, estimated 70-80% stenosis. The left vertebral artery is dominant. REFERENCES: NASCET CRITERIA. The degree of stenosis in the cervical segment of the internal carotid artery is based on NASCET criteria. Normal is no stenosis. Mild is less than 50% stenosis. Moderate is 50-69% stenosis. Severe is 70% to 99% stenosis. Total occlusion is no detectable patent lumen.
--- NOTE | 2025-04-28 21:21 | ED_ITS ---
Discharge Plan Disposition Patient Disposition: Admitted Prescriptions Prescriptions: No Action atorvastatin 80 mg tablet 80 mg PO DAILY montelukast 10 mg tablet 10 mg PO DAILY duloxetine 30 mg capsule,delayed release(DR/EC) 30 mg PO DAILY losartan 50 mg tablet 50 mg PO DAILY hydrochlorothiazide 50 mg tablet 50 mg PO DAILY fluticasone propionate [Allergy Relief (fluticasone)] 50 mcg/actuation spray,suspension 1 spray INTRANASAL DAILY Rx Instructions: administer into each nostril levocetirizine [Xyzal] 5 mg tablet 5 mg PO DAILY Qvar RediHaler 80 mcg/actuation HFA aerosol breath activated 1 inh INHALATION Q12H PRN trazodone 50 mg tablet 50 mg PO .COMPLEX Qty: 180 1RF Rx Instructions: 50 mg PO take 1-2 tablets at bedtime; desvenlafaxine succinate [Pristiq] 50 mg tablet extended release 24 hr 50 mg PO DAILY Qty: 90 1RF oxycodone-acetaminophen 1 EACH tablet 10 - 325 each PO BIDP PRN (Reason: pain) gabapentin 800 MG tablet 800 mg PO TID hydrochlorothiazide 12.5 MG capsule 5 mg PO DAILY nitroglycerin 0.4 MG tablet, sublingual 0.4 mg sublingual Q5MINP PRN (Reason: Chest Pain) 8 Days Qty: 25 0RF mupirocin 2 % ointment 1 applic topical TID 7 Days Qty: 15 0RF Referrals Follow up/Referrals: Katherine Hendrickson MD [Primary Care Provider, Medical] - See instructions Clinical Impressions Clinical Impression: Carotid artery stenosis, Vertebral artery stenosis, Stroke-like symptoms Print Language Print Language: Cypriot Discharge ED Provider: Jerrell Cruz General Adult HPI General Chief complaint: Neuro Symptoms/Deficit Stated complaint: Weakness Time Seen by Provider: 04/28/25 21:15 History of Present Illness HPI narrative: Patient is a 69-year-old female with past medical history of hypertension hyperlipidemia presents emergency department for evaluation of strokelike symptoms. Last known normal 1:30 PM she was at a family member's Dr. Pelletier appointment when she noticed weakness in her left upper extremity and dropped a cup multiple times. Over the last 1 to 2 hours she had significant slurring of her words and different sensation on the left side of her face compared to the right causing her to become concerned and present here for continued evaluation. No trauma. No anticoagulants. No other acute complaints at this time Please note that above description of symptoms, in this electronic medical record under categorization of recalled from ER triage doctor by RN are reflective of an initial nursing assessment, however, is not reflective of my full history and physical exam that was personally taken and clarified. Consequentially, this preceding description of symptoms, which may include the patient's categorized chief complaint in the EMR, do not reflect my personal clinical impression, and the ultimate description of history of present illness and patient stated complaints should be deferred to this section of the note. Unless stated otherwise or congruent with this section of the note, additional signs, symptoms, or incongruence should be interpreted as inaccurate with my clinical impression. Related Data Home Medications ?Medication ?Instructions ?Recorded ?Confirmed gabapentin 800 mg tablet 800 mg PO TID Pain 06/09/18 02/26/24 hydrochlorothiazide 12.5 mg capsule 5 mg PO DAILY bp 0 06/09/18 02/26/24 oxycodone-acetaminophen 10 mg-325 10 - 325 each PO BID P PRN pain 06/09/18 02/26/24 mg tablet atorvastatin 80 mg tablet 80 mg PO DAILY 11/01/2102/04 beclomethasone dipropionate 80 1 inh inhalation Q12H P RN 11/01/21 02/26/24 mcg/actuation HFA breath activated aerosol (Qvar RediHaler) duloxetine 30 mg capsule,delayed 30 mg PO DAILY 02/26/24 release fluticasone propionate 50 1 spray intranasal DAILY 02/26/24 mcg/actuation nasal spray,suspension (Allergy Relief (fluticasone)) hydrochlorothiazide 50 mg tablet 50 mg PO DAILY 02/26/24 levocetirizine 5 mg tablet (Xyzal) 5 mg PO DAILY 11/0102/26/24 losartan 50 mg tablet 50 mg PO DAILY 11/01/2102/04 montelukast 10 mg tablet 10 mg PO DAILY 11/01/2102/04 Previous Rx's ?Medication ?Instructions ?Recorded nitroglycerin 0.4 mg sublingual 0.4 mg sublingual Q5MI [employer] PRN Chest 06/09/18 tablet Pain 8 days ##25 trazodone 50 mg tablet 50 mg PO .COMPLEX #180 tabs 10/05/22 desvenlafaxine succinate 50 mg 50 mg PO DAILY #90 tabs 02/13/23 tablet,extended release 24 hr (Pristiq) mupirocin 2 % topical ointment 1 applic topical TID 7 days #15 12/16/23 grams Allergies Allergy/AdvReac Type Severity Reaction Status Date / Time prednisone (PREDNISONE) Allergy Mild Verified 02/26/24 13:16 Sulfa (Sulfonamide Allergy Mild Verified 02/26/24 13:16 Antibiotics) (SULFA (SULFONAMIDE ANTIBIOTICS)) [facility] Disclaimer: The information contained in this section may have been updated after the patient was seen, as this information can be updated by other users. Medical History Major depressive disorder Social History Smoking Status: Never smoker alcohol intake: never substance use type: denies use current occupational status: retired Travel in the last 8 weeks?: None number of children: 2 Have you lived/traveled outside [place] in past 30 days?: No Contact w/someone who lives/traveled outside US past 30 days?: No Exposure to someone with infectious disease in past 14 days?: No Do you have a fever (greater than 100.4 F or 38 C)?: No Have you tested positive for COVID-19?: No Exposed to someone with COVID-19 in past 14 days?: No Do you have a sore throat?: No Do you have a cough?: No Do you have any weakness?: Yes Do you have any diarrhea?: No Are you experiencing any unusual bleeding?: No Do you have any muscle aches/pain?: No Do you have any abdominal pain?: No Are you experiencing loss of taste or smell?: No Other Medical History Have you received the Pneumonia Vaccine: No ROS Obtained: Yes Systems reviewed as appropriate & no additional complaints except as documented Physical Exam General General appearance: alert and in no apparent distress Head Head exam: atraumatic and normocephalic Eye Eye exam: Present PERRL and EOMI ENT ENT exam: Present mucous membranes moist Neck Neck exam: Present normal inspection Chest Chest inspection: Present normal inspection and symmetric chest wall rise Respiratory Respiratory exam: Present normal lung sounds bilaterally; Absent respiratory distress Cardiovascular Cardiovascular exam: Present regular rate and normal rhythm Abdominal Exam Abdominal exam: Present soft; Absent tenderness Extremities Exam Extremities exam: Present normal inspection Neurological Exam Neurological exam: Present alert, oriented X3 and other (Sensation decreased on the left face, 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 Pillo Inquiry Pt receiving controlled substance: No Vital Signs: 04/28/25 21:20 04/28/25 21:31 04/28/25 21:56 Pulse Rate 74 Pulse Rate [Right] 99 H Respiratory Rate 22 13 Blood Pressure 201/101 H 203/85 H Blood Pressure [Right Arm] 214/107 H Blood Pressure Mean [Right Arm] 142 Blood Pressure Source Manual Cuff/ Auscultation 02 Sat by Pulse Oximetry 98 100 Oxygen Delivery Method Room Air 04/28/25 22:00 04/28/25 22:30 Pulse Rate 74 Pulse Rate [Right] Respiratory Rate 11 L 11 L Blood Pressure 189/88 H 206/90 H Blood Pressure [Right Arm] Blood Pressure Mean [Right Arm] Blood Pressure Source 02 Sat by Pulse Oximetry 98 Oxygen Delivery Method Lab Data Lab Results 04/28/25 21:16: WBC 8.1, RBC 5.28, Hgb 15.5, Hct 48.6 H, MCV 92.0, MCH 29.4, MCHC 31.9, RDW 12.7, Plt Count 234, MPV 10.6 H, Neut % (Auto) 64.3, Lymph % (Auto) 25.6, [place] % (Auto) 7.3, Eos % (Auto) 1.7, Baso % (Auto) 0.6, Neut # (Auto) 5.2, Lymph # (Auto) 2.1, [place] # (Auto) 0.6, Eos # (Auto) 0.1, Baso # (Auto) 0.1, Sodium 139, Potassium 4.7, Chloride 101, Carbon Dioxide 23, Anion Gap 19.7 H, BUN 8, Creatinine 0.80, Estimated Creat Clear 59, Estimated GFR 72, Est GFR ( Amer) 87, Glucose 106 H, Calcium 9.3, Total Bilirubin 1.6 H, A ST 64 H, ALT 18, Alkaline Phosphatase 144 H, Troponin I 0.01, Total Protein 8.8 H, Albumin 4.8, Globulin 4.0 H, Albumin/Globulin Ratio 1.2, Triglycerides 164 H, Cholesterol 183, LDL Cholesterol Direct 63.86 L, VLDL Cholesterol 33, HDL Cholesterol 45, Cholesterol/HDL Ratio 4.1 H, Plasma/Serum Alcohol < 10, HCV Ab ANISA w/Rflx PCR Qn Negative, HIV Ag/Ab Combo Qual Negative 04/28/25 22:13: PT 11.4, INR 1.03, APTT 26.8 04/28/25 21:16 04/28/25 21:16 Orders (Tests/Meds): ED MEDICATIONS Generic Name Dose Route Start Last Admin Trade Name Freq PRN Reason Stop Dose Admin Sodium Chloride 10 ml 04/28/25 21:19 Sodium Chloride 0.9% 10ml Flush Syringe IV 05/28/25 21:18 NEEDED PRN Maintain IV Site Sodium Chloride 10 ml 04/28/25 21:38 04/28/25 21:38 Sodium Chloride 0.9% 10ml Syr (Rad Only) IV 05/28/25 21:37 10 ml NEEDED PRN Administration Maintain IV Site Discontinued Medications Generic Name Dose Route Start Last Admin Trade Name Freq PRN Reason Stop Dose Admin Aspirin 324 mg 04/28/25 22:53 04/28/25 22:56 Aspirin 81mg Chewable Tablet PO 04/28/25 22:54 324 mg ONCE ONE Administration Iopamidol 80 ml 04/28/25 21:38 04/28/25 21:38 Iopamidol-370 (76%);100ml Bottle IV 04/28/25 21:39 80 ml ONCE ONE Administration Sodium Chloride 50 ml 04/28/25 21:38 04/28/25 21:38 0.9 % Sodium Chloride 50 Ml Vial IV 04/28/25 21:39 50 ml ONCE ONE Administration ORDERS Category Date Time Status CT angio head Stat Cat Scan 04/28/25 21:[address] angio neck Stat Cat Scan 04/28/25 21:[address] head/brain wo con Stat Cat Scan 04/28/25 21:19 Completed Activated Partial Thrombo Time Stat Lab 04/28/25 22:13 Completed Complete Blood Count Auto Diff Stat Lab 04/28/25 21:16 Completed Comprehensive Metabolic Panel Stat Lab 04/28/25 21:16 Completed Drug Screen,Urine Stat Lab 04/28/25 21:19 Ordered Ethyl Alcohol Stat Lab 04/28/25 21:16 Completed HIV Combo Stat Lab 04/28/25 21:16 Completed Hepatitis C Ab Qual. W/ RFX Stat Lab 04/28/25 21:16 Completed Lipid Panel Stat Lab 04/28/25 21:16 Completed Prothrombin Time INR Stat Lab 04/28/25 22:13 Completed Troponin I Q3H Lab 04/29/25 00:30 Ordered Troponin I Q3H Lab 04/29/25 03:30 Ordered Troponin I Stat Lab 04/28/25 21:16 Completed Urinalysis and Microscopic Stat Lab 04/28/25 21:19 Ordered ECG Request Stat Y 04/28/25 21:19 Ordered ECG Data Tracing #1: Independently inter by me rate is 80, rhythm is regular, axis is normal, right bundle branch block, no ST elevation in anatomical contiguous leads, QTc 446 Medical Decision Narrative: In summary patient is 69-year-old female with past medical history Antonio above presents emergency department for evaluation of strokelike symptoms. Patient is hemodynamically stable nontoxic-appearing upon arrival, afebrile. Last known normal 1:30 PM. Patient is outside the window for thrombolytics and will undergo stroke protocol. Patient has had stuttering weakness of her left upper extremity and stuttering dysarthria with sensory changes on her left face. Initial hematologic labs reviewed by me and are nonactionable no JAYANT or critical electrolyte abnormality, glucose is 106. Noncontrasted CT scan of the head informally visualized by me no acute large intracranial hemorrhage. 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 I had interactive discussion with [facility] Raul with the stroke team discussing the patient's symptomatology and imaging findings. He agrees that patient needs to be admitted and will discuss with their team given that they are at capacity and intervention only right now and will call me back. In the meantime I will give full dose aspirin. [facility] originally recommended full dose Plavix and I discussed the case with hospital medicine regarding management they wish for me to contact [facility] to see if patient can be excepted in a more expedited manner I will defer Plavix given that there is possibility for surgical intervention of the carotid artery. I discussed case with [facility] stroke navigator Kiran who recommended we defer Plavix at this time and contact [facility] transfer center to discuss with neurology attending milk condenser to see if this is in the patient's best interest or if they wish to have the patient transferred for more expedited management and care. The case was discussed with [facility] stroke attending on- call who agrees patient would benefit from expedited care and I subsequently discussed case with the emergency medicine physician who graciously accepted patient for transfer for continued evaluation at this time. Critical Care Critical Care Time Critical Care Time: Yes Attestation: On 04/28/25, the high probability of a clinically significant, sudden or life threatening deterioration of the following system(s) required my full and direct attention, intervention and personal management. The time I documented below is in addition to time spent performing reported procedures but includes the following listed in this critical care notation. Total Time Total Critical Care Time: 30
--- OUTSIDE RECORDS SUMMARY | 2025-04-28 21:26 | XMS_ITS | Encounter Summary ---
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
--- OUTSIDE RECORDS SUMMARY | 2025-04-28 21:26 | XMS_ITS | Data Portability ---
Author Organization KIMBERLEY - Armando chapin MD, Main Office Address [address], [address] [place] [address] Care Team Providers Care Accountant Certified Public Name Role Phone ARIANA BENTON Primary Care Provider LUCIE BOBO Primary Care Provider [phone] Assessment No assessment recorded. Plan of Treatment Reminders Order Date Submit Date Provider Last Modified By Organization Details Last Modified Time Details Appointments None recorded. Lab vitamin B12 + folate, serum or blood 2022 023 [facility], [address], [address], [place], [address], 3 15:18:18 TSH + T4, serum 2022 023 [facility], [address], [address], [place], [address], 3 15:18:19 CBC w/ auto diff 2022 023 [facility], [address], [address], [place], [address], 3 15:18:18 CMP, serum or plasma 2022 023 [facility], [address], [address], [place], [address], 3 15:18:18 Referral None recorded. Procedures electroence phalogram (EEG), 41-60 minutes (PROC) 2022 023 [email or web address] Armando Draper MD, [address], [address], [place], [address], 3 09:48:53 Surgeries None recorded. Imaging MRI, brain, w/o contrast 2022 023 [facility], [address], [address], [place], [address], 3 15:40:31 Medication Orders memantine 10 mg tablet 2023 024 [facility]acy #[id number], [address] [place], [address], 4 10:51:40 memantine 5 mg tablet [address]/Pharmacy #[id number], [address] [place], [address], 4 10:56:59 lamotrigine 25 mg tablet 2019 020 [email or web address] [facility]/Pharmacy #[id number], [address] [place], [address], 3 12:10:12 Patient TargetsNo targets recorded. Patient Instructions Encounter Date Encounter Id Patient Instructions Last Modified By Organization Details Last Modified Time 08/27/2020 [id number] epilepsy: care instructions Not available 08/27/2020 10:11:32 Finding has been discussed with the patient in detail. Lamotrigine 25 mg 1 tablet daily for 2 months and then discontinue. Return as needed. Not available 08/27/2020 10:27:58 04/26/2023 [id number] MEMORY LOSS EDUCATION Not available 04/26/2023 12:24:46 Finding has been discussed with the patient in detail. Metabolic screen. Brain MRI scan without contrast. Awake EEG. I will see her back in follow-up. Not available 04/26/2023 12:25:06 05/22/2023 [id number] MEMORY LOSS EDUCATION Not available 05/22/2023 08:35:58 Finding has been discussed with the patient in detail. Brain MRI scan without contrast. Namenda 5 mg once a day. Return in 3 months. Not available 05/22/2023 08:39:27 05/22/2023 [id number] MEMORY LOSS EDUCATION Not available 05/22/2023 08:37:55 03/11/2024 [id number] cervical spinal stenosis: care instructions Not available [...] record ed. BARCODE Armando Draper MD [address], [place], [address], 05/22/2023 08:44:54 05/22/2005/22/2023 MRI, brain , w/o contr ast No observ ation record ed. [facility] (Scheduling) [address], [place], [address], 05/23/2023 07:30:50 Result Notes None recorded. Problems Name Problem SNOMED Code Status Onset Date Resolution Date Notes Provider Name and Address Organization Details Recorded Time Epilepsy 57000559 Active 018 KIMBERLEY Mobley MD 09/10/2018 12:59:35 [...] and Address Organization Details Recorded Time 2014 [place] 30x medicatio n rash moderate Not available 09/10/2018 [id number] UNK KIMBERLEY Mobley MD 8 12:58:13 2015 [...] Details Last Updated DateTime 4 23.2 kg/m2 19464.2 3 g 77 /min 17 /min 132 mm[Hg] 82 mm[Hg] Armando Draper MD [address], [address] [address] 0KIMBERLEY MD 4 10:54:41 Date Recorded Body height Provider Name an d Address Organization Details Last Updated DateTime 03/11/2024 157.48 cm Renu Draper MD 03/11/2024 10:44:00 Date Recorded Body height Body mass index (BMI) Body weight Heart rate Respiratory rate Systolic blood pressure Diastolic blood pressure Provider Name and Address Organization Details Last Updated DateTime 3 157.48 cm 23 kg/m2 19543.6 4 g 77 /min 17 /min 126 mm[Hg] 75 mm[Hg] Armando Draper MD [address], [address], [address] 0KIMBERLEY MD 3 12:21:54 Date Recorded Body mass index (BMI) Body weight Heart rate Respiratory rate Systolic blood pressure Diastolic blood pressure Provider Name and Address Organization Details Last Updated DateTime 3 23.4 kg/m2 66176.8 2 g 78 /min 17 /min 122 mm[Hg] 76 mm[Hg] Armando Draper MD [address], [facility] [address], [place], [address] 0KIMBERLEY MD 3 08:37:24 Date Recorded Body height Provider Name an d Address Organization Details Last Updated DateTime 05/22/2023 157.48 cm Cathie Weinstein KIMBERLEY Draper MD 05/22/2023 08:15:08 Date Recorded Body height Body mass index (BMI) Body weight Heart rate Respiratory rate Systolic blood pressure Diastolic blood pressure Provider Name and Address Organization Details Last Updated DateTime 0 157.48 cm 23.8 kg/m2 47403.0 1 g 67 /min 17 /min 111 mm[Hg] 72 mm[Hg] Armando Draper MD [address], [facility]25[facility] [address], KIMBERLEY Draper MD 0 10:25:50 Social History Question Answer Notes LastModified by Organizat ion Details LastModified Time Tobacco Smoking Status Former Smoker KIMBERLEY Mobley MD 09/10/2018 12:58:51 Do You Have An Advance Directive? Yes [email or web address] Information not available 04/26/2023 Are You Blind [...] COVID-19 While That Case Was Ill? No [email or web address] Information not available 04/26/2023 In The 14 Days Before Symptom Onset, Have You Had Close Contact With A Person Who Is Under Investigation For COVID-19 While That Person Was Ill? No [email or web address] Information not available 04/26/2023 Have You Been To An Area Known To Be High Risk For COVID-19? No Information not available 04/26/2023 Are You Deaf Or Do You Have Serious Difficulty Hearing? No Information not available 09/10/2018 Live Alone Or With Others? With Others [email or web address] Information not available 04/26/2023 What Was The Date Of Your Most Recent Tobacco Screening? 03/11/2024 [email or web address] Information not available 03/11/2024 How Much Tobacco Do You Smoke? No Information not available 09/10/2018 Has Tobacco Cessation Counseling Been Provided? No Information not available 03/11/2024 How Many Years Have You Smoked Tobacco? 25 Information not available 09/10/2018 Sex: Unknown Functional Status Question Answer Note LastModified by Expanite ion Details LastModified Time Do you use any illicit or recreational drugs? No Information not available 03/11/2024 Do you or have you ever used any other forms of tobacco or nicotine? No Information not available 03/11/2024 What is your level of alcohol consumption? None Information not available 09/10/2018 Are you able to walk? YESWOREST [email or web address] Information not available 04/26/2023 Mental Status None recorded. Family History Relationship Description Onset Age of this Age Resolved Age Notes LastModified by Organization Details LastModified Time Mother Diabetes mellitus Not available 2017 12:58:18 Brother Diabetes mellitus Not available 2017 12:58:18 Brother Diabetes mellitus [email or web address] Not available 2019 10:01:28 Brother Diabetes mellitus 56 [email or web address] Not available 2019 10:01:28 Sister Diabetes mellitus Not available 2017 12:58:18 Sister Diabetes mellitus [email or web address] Not available 2019 10:01:28 Medical History Condition [...] [id number] Armando Draper MD Main Office [address], [address] [address] 09/10/2018 12:54:36 09/10/2018 13:54:16 Cervical radiculopathy 91795349 M54.12 The patient is a 63-year-ol d white female who has recurring left C6-7 radiculopa thy. Epilepsy 31666659 G40.90 9 She has stable epilepsy. [id number] Armando Draper MD Main Office [address], [address] [address] 09/20/2018 11:04:11 09/20/2018 11:39:42 Epilepsy 42018077 G40.909 She has stable epilepsy. 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 Cervical radiculopathy 10624412 M54.12 The patient is a 63-year-ol d white female who has recurring left C6-7 radiculopa thy. [id number] Armando Draper MD Main Office [address], [address] [address] 09/20/2018 11:05:43 09/20/2018 11:55:18 Ulnar neuropathy 815426392 G56.23 Moderate left, Mild right UNE at both elbows. Cervical radiculopathy 85114607 M54.12 The patient is a 63-year-ol d white female who has recurring left C6-7 radiculopa thy. [id number] Armando Draper MD Main Office [address], [address] [address] 08/07/2019 12:17:33 08/07/2019 12:51:36 Epilepsy 18134470 G40.909 She has stable epilepsy. She is interested in coming off seizure medication . 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 [id number] Armando Draper MD Main Office [address], [address] [address] 08/27/2019 08:55:28 08/27/2019 09:51:31 Epilepsy 38951438 G40.909 She has stable epilepsy. She is interested in coming off seizure medication . EEG is unremarkab le. [id number] Armando Draper MD Main Office [address], [address] [address] 08/27/2019 08:55:47 08/27/2019 09:50:25 Altered mental status 226234380 R41.82 [id number] rAmando Draper MD Main Office [address], [address] [address] 08/27/2020 10:00:23 08/27/2020 10:11:05 Epilepsy 13040978 G40.909 She has stable epilepsy. She has been seizure-fr ee for quite some time. [id number] Armando Draper MD Main Office [address], [address] [address] 04/26/2023 11:55:09 04/26/2023 12:26:36 Poor short-term memory 334222598 R41.3 The patient is a 67-year-ol d white female. She has gradual onset of short-term memory loss. Examinatio n today is unremarkab le. Mild cognitive impairment versus age-relate d memory loss cannot be excluded. [id number] Armando Draper MD Main Office [address], [facility] [place] [address] 05/22/2023 08:14:53 05/22/2023 08:59:30 Poor short-term memory 924820808 R41.3 The patient is a 67-year-ol d white female. She has gradual onset of short-term memory loss. Examinatio n today is unremarkab le. Mild cognitive impairment versus age-relate d memory loss cannot be excluded. Her EEG is unremarkab le. [id number] Armando Draper MD Main Office [address], [address] [address] 05/22/2023 08:37:14 05/22/2023 08:38:56 Poor short-term memory 259005395 R41.3 The patient is a 67-year-ol d white female. She has gradual onset of short-term memory loss. Examinatio n today is unremarkab le. Mild cognitive impairment versus age-relate d memory loss cannot be excluded. [id number] Armando Draper MD Main Office [address], [address] [place] [address] 03/11/2024 10:41:55 03/11/2024 10:51:34 Poor short-term memory 549344921 R41.3 The patient is a 68-year-ol d white female. She has gradual onset of short-term memory loss. Examinatio n today is unremarkab le. Mild cognitive impairment versus age-relate d memory loss cannot be excluded. Spinal mejia nosis in cervical region 02438929 M48.02 Health Concerns Section Related Observation LastModified by Organization Detai ls LastModified Time None Recorded Concern Status LastModified by Organization Details LastModified Time None Recorded Advance Directives Directive Y: Payers Insurance Date Sequence Insurance Name Policy Number Policy Tejada Covered Member ID Tejada Member ID Guarantor Name [address] [facility] (O) [id number] Titi Nelson [id number] Jaymie Nelson Notes Date Note Type Note Provider Name a nd Address Organization Details Recorded Time 08/27/2020 text/html [...] pain. Armando Draper MD [address], [place], [address], [place] - Armando Draper MD 08/27/2020 10:28:30 04/26/2023 [...] history of dementia. MD [address], [address] [place] [address], [place], [address], [facility] Sabine Draper MD 04/26/2023 12:26:25 [...] scan this morning. MD [address], [facility] [address], [place], [address], KIMBERLEY Draper MD 05/22/2023 08:40:07 03/11/2024 text/html [...] pain or weakness. MD [address], [facility] [address], [place], [address], KIMBERLEY Draper MD 03/11/2024 10:57:30 OBGyn Episode No OBEpisode recorded.
--- OUTSIDE RECORDS SUMMARY | 2025-04-28 21:26 | XMS_ITS | Encounter Summary ---
Author Organization [employer] iat[employer]woopo Address [address] [place] [address] Care Team Providers Care Correspondence Analyst Name Role Phone Unavailable Primary Care Provider Unavailabl e Encounter Details Date Type Department Care Team (Late st Contact Info) Description 07/22/2019 Transcribed Document [facility] [place] [facility] [place] [address] ProviderItz MD [address] [place] [address] Social History Tobacco Use Types [...] in two months. Brooke Huerta M.D. Candace Electronically signed by Nakita Brennan Conversion Magnetic Tape Composer Operator Sumaya at 02/23/2023 2:39 PM CDT documented in this encounter Plan of Treatment Not on file documented as of this encounter Visit Diagnoses Not on filedocumented in this encounter
--- OUTSIDE RECORDS SUMMARY | 2025-04-28 21:26 | XMS_ITS | Referral Summary ---
Author Organization [employer] i[employer] Address [address] [place] [address] Care Team Providers Care Machinist Job Setter Name Role Phone Unavailable Primary Care Provider [...]
--- OUTSIDE RECORDS SUMMARY | 2025-04-28 21:26 | XMS_ITS | Encounter Summary ---
Author Organization [employer] i[employer] Address [address] [place] [address] Care Team Providers Care Homeworker Name Role Phone Unavailable Primary Care Provider Unavailabl e Encounter Details Date Type Department Care Team (Late st Contact Info) Description 12/22/2020 Transcribed Document [facility] [place] [address] ProviderItz MD [address] [place] [address] Social History Tobacco Use Types [...] - Historical ProviderMD - 12/22/2020 1:36 PM BACK END ARCHITECT Patient: JAYMIE JONES V Age: 65 Years [...]
--- OUTSIDE RECORDS SUMMARY | 2025-04-28 21:26 | XMS_ITS | Encounter Summary ---
Author Organization [employer] iatProvidajob Address [address] [place] [address] Care Team Providers Care Psychologist Experimental Name Role Phone Unavailable Primary Care Provider Unavailabl e Encounter Details Date Type Department Care Team (Late st Contact Info) Description 12/04/2019 Transcribed Document [facility] [place] [facility] [place] [address] ProviderItz MD [address] [place] [address] Social History Tobacco Use Types [...] - Historical ProviderMD - 12/04/2019 12:55 PM CRATE MAKER Patient: JAYMIE JONES V Age: 64 Years [...]
--- OUTSIDE RECORDS SUMMARY | 2025-04-28 21:26 | XMS_ITS | Encounter Summary ---
Author Organization [employer] Address [address] [place] [address] Care Team Providers Care Cold Water Machine Operator Name Role Phone Unavailable Primary Care Provider Unavailabl e Encounter Details Date Type Department Care Team (Late st Contact Info) Description 09/25/2019 Transcribed Document [facility] [place] [facility] [place] [address] ProviderItz MD [address] [place] [address] Social History Tobacco Use Types [...] - Historical ProviderMD - 09/25/2019 2:27 PM MANAGER WATER Patient: JAYMIE JONES V Age: 64 Years [...]
--- OUTSIDE RECORDS SUMMARY | 2025-04-28 21:26 | XMS_ITS | Encounter Summary ---
Author Organization [employer] Address [address] [place] [address] Care Team Providers Care Neurology Teacher Name Role Phone Unavailable Primary Care Provider Unavailabl e Encounter Details Date Type Department Care Team (Late st Contact Info) Description 10/05/2020 Transcribed Document [facility] [place] [facility] [place] [address] ProviderItz MD [address] [place] [address] Social History Tobacco Use Types [...] - Historical ProviderMD - 10/05/2020 1:25 PM FIRE REGULATOR Patient: JAYMIE JONES V Age: 65 years [...]
--- OUTSIDE RECORDS SUMMARY | 2025-04-28 21:26 | XMS_ITS | Encounter Summary ---
Author Organization [employer] Address [address] [place] [address] Care Team Providers Care Scrap Stripper Hand Name Role Phone Unavailable Primary Care Provider Unavailabl e Encounter Details Date Type Department Care Team (Late st Contact Info) Description 08/12/2019 Transcribed Document [facility] [place] [facility] [place] [address] ProviderItz MD [address] [place] [address] Social History Tobacco Use Types [...]
--- OUTSIDE RECORDS SUMMARY | 2025-04-28 21:26 | XMS_ITS | Clinical Summary ---
Author Organization [employer] In i[employer] Address [address] [place] [address] Care Team Providers Care Stone Cutter Name Role Phone Unavailable Primary Care Provider [...]
--- OUTSIDE RECORDS SUMMARY | 2025-04-28 21:26 | XMS_ITS | Encounter Summary ---
Author Organization [employer] Address [address] [place] [address] Care Team Providers Care Documentation Supervisor Name Role Phone Unavailable Primary Care Provider Unavailabl e Encounter Details Date Type Department Care Team (Late st Contact Info) Description 08/06/2020 Transcribed Document [facility] [place] [facility] [place] [address] ProviderItz MD [address] [place] [address] Social History Tobacco Use Types [...]
--- OUTSIDE RECORDS SUMMARY | 2025-04-28 21:26 | XMS_ITS | Clinical Summary ---
Author Organization [facility] Address [address] [place] [address] Care Team Providers Care Cash Grain Grower Name Role Phone Unavailable Primary Care Provider [...]
--- OUTSIDE RECORDS SUMMARY | 2025-04-28 21:26 | XMS_ITS | Encounter Summary ---
Author Organization [employer] i[employer] Address [address] [place] [address] Care Team Providers Care Burn Out Tender Lace Name Role Phone Unavailable Primary Care Provider Unavailabl e Encounter Details Date Type Department Care Team (Late st Contact Info) Description 02/05/2020 Transcribed Document [facility] [place] [facility] [place] [address] ProviderItz MD [address] [place] [address] Social History Tobacco Use Types [...] the clinic in two months. BRIDGER Mayfield/danial documented in this encounter Plan of Treatment Not on file documented as of this encounter Visit Diagnoses Not on filedocumented in this encounter
--- OUTSIDE RECORDS SUMMARY | 2025-04-28 21:26 | XMS_ITS | Encounter Summary ---
Author Organization [employer] i[employer] Address [address] [place] [address] Care Team Providers Care It Account Manager Name Role Phone Unavailable Primary Care Provider Unavailabl e Encounter Details Date Type Department Care Team (Late st Contact Info) Description 04/21/2020 Transcribed Document [facility] [place] [facility] [place] [address] ProviderItz MD [address] [place] [address] Social History Tobacco Use Types [...] appointment. MAKAYLA Rae/gagandeep Electronically signed by Anu [facility] Conversion Superintendent Plant Cerner at 02/23/2023 2:39 PM CDT documented in this encounter Plan of Treatment Not on file documented as of this encounter Visit Diagnoses Not on filedocumented in this encounter
--- OUTSIDE RECORDS SUMMARY | 2025-04-28 21:26 | XMS_ITS | Encounter Summary ---
Author Organization [employer] i[employer] Address [address] [place] [address] Care Team Providers Care Stopper Maker Name Role Phone Unavailable Primary Care Provider Unavailabl e Encounter Details Date Type Department Care Team (Late st Contact Info) Description 08/15/2020 Transcribed Document [facility] [place] [facility] [place] [address] ProviderItz MD [address] [place] [address] Social History Tobacco Use Types [...] in two months. Gertrude Zapata APRN SRF/ac Electronically signed by Matthew Brennan Conversion Housekeeper/Custodian/Laundry Worker Cerner at 02/23/2023 2:49 PM CDT documented in this encounter Plan of Treatment Not on file documented as of this encounter Visit Diagnoses Not on filedocumented in this encounter
--- OUTSIDE RECORDS SUMMARY | 2025-04-28 21:26 | XMS_ITS | Encounter Summary ---
Author Organization [employer] iatives Address [address] [place] [address] Care Team Providers Care Management Planner Name Role Phone Unavailable Primary Care Provider Unavailabl e Encounter Details Date Type Department Care Team (Late st Contact Info) Description 06/11/2020 Transcribed Document [facility] [place] [facility] [place] [address] ProviderItz MD [address] [place] [address] Social History Tobacco Use Types [...]
[2025-04-28 21:28] LABS: Basophils # 0.1 K/mm3 (0-0.2); Basophils % 0.6 % (0.1-2.0); Eosinophils # 0.1 Kmm3 (0.0-0.4); Eosinophils % 1.7 % (0.1-12.0); Hematocrit 48.6 % (37.0-47.0); Hemoglobin 15.5 g/dL (12.2-16.2); Immature Granulocytes # 0.04 10^3uL; Immature Granulocytes % 0.5 %; Lymphocytes # 2.1 K/mm3 (0.7-4.5); Lymphocytes % 25.6 % (10-50); Mean Corpuscular HGB Conc 31.9 g/dL (31.8-35.4); Mean Corpuscular Hemoglobin 29.4 pg (27.0-31.2); Mean Platelet Volume 10.6 fl (7.4-10.4); Monocytes # 0.6 K/mm3 (0.1-1.0); Monocytes % 7.3 % (1.7-9.3); Neutrophils # 5.2 K/mm3 (1.8-7.8); Neutrophils % 64.3 % (37.0-80.0); Nucleated Red Blood Cells # 0 10^3/uL; Nucleated Red Blood Cells % 0 %; Platelet Count 234 K/mm3 (142-424); Red Blood Count 5.28 M/mm3 (4.20-5.40); Red Cell Distribution Width 12.7 % (11.5-17.5); Red Cell Distribution Width-SD 42.7 fL; White Blood Count 8.1 K/mm3 (4.8-10.8)
[2025-04-28 21:35] LABS: Albumin Level 4.8 g/dl (3.5-5.0); Chloride 101 mmol/L (98-107); Potassium 4.7 mmoL/L (3.5-5.1); Sodium 139 mmol/L (136-145)
[2025-04-28 21:37] LABS: Alanine Aminotransferase 18 U/L (12-78); Anion Gap 19.7 mEq/L (5-15); Aspartate Amino Transferase 64 U/L (14-36); Blood Urea Nitrogen 8 mg/dl (7-17); Carbon Dioxide 23 mmol/L (22.0-30.0); Creatinine Clearance Estimated 59 mL/min (50-200); Estimated Glomerular Filt Rate 72 ml/min (>60); GFR (African American) 87 ML/MIN (>60)
[2025-04-28 21:38] LABS: Albumin/Globulin Ratio 1.2 (1.1-1.8); Alkaline Phosphatase 144 U/L (38-126); Bilirubin,Total 1.6 mg/dl (0.2-1.3); Calcium 9.3 mg/dl (8.4-10.2); Chol/HDL Ratio 4.1 (1-3.5); Cholesterol 183 mg/dl (140-200); Glucose 106 mg/dl (74-100); HDL Cholesterol 45 mg/dl (40-60); Total Protein,Serum 8.8 g/dl (6.3-8.2); Triglycerides 164 mg/dl (30-150); VLDL Cholesterol 33 mg/dL (0-40)
[2025-04-28] MEDS: IOPAMIDOL-370 (76%);100ML BOTTLE 80 ML IV (21:38)
[2025-04-28] MEDS: 0.9 % SODIUM CHLORIDE 50 ML VIAL IV (21:38)
[2025-04-28] MEDS: SODIUM CHLORIDE 0.9% 10ML SYR (RAD ONLY) 10 ML IV (21:38)
[2025-04-28 21:47] LABS: Ethyl Alcohol < 10 mg/dl (0-10)
[2025-04-28 21:49] LABS: Direct LDL Cholesterol 63.86 mg/dL (100-129)
--- NOTE | 2025-04-28 21:51 | PC.NURSE ---
RT at bedside to place pt on BIPAP
[2025-04-28 21:52] LABS: Troponin I 0.01 ng/ml (0.00-0.034)
[2025-04-28 22:32] LABS: HIV Combo NEGATIVE (Negative)
[2025-04-28 22:34] LABS: Activated Partial Thrombo Time 26.8 seconds (22.8-30.6); INR 1.03 (0.9-1.1); Prothrombin Time 11.4 seconds (10.1-12.5)
[2025-04-28 22:39] LABS: Hepatitis C Ab Qual. W/ RFX NEGATIVE (Negative)
--- NOTE | 2025-04-28 22:45 | PC.NURSE ---
MD Cruz on phone with [facility] at this time.
--- NOTE | 2025-04-28 22:46 | PC.NURSE ---
Pt attempted to void on bedpan and was unable. Pt placed on purewick
--- NOTE | 2025-04-28 22:48 | PC.NURSE ---
Called [facility] for a possible patient transfer. Dr. Cruz on phone with stroke navigator now
[2025-04-28] MEDS: ASPIRIN 81MG CHEWABLE TABLET 324 MG PO (22:56)
--- NOTE | 2025-04-28 23:08 | PC.NURSE ---
Spoke with stroke line, awaiting a call back at this time
--- NOTE | 2025-04-28 23:26 | PC.NURSE ---
Spoke with transfer center, awaiting a call back from the neuro attending
--- NOTE | 2025-04-28 23:42 | PC.NURSE ---
speaking with neuro attending at this time
[2025-04-29] VITALS: BP 196/89; PULSE 68; RESP 16; O2SAT 86
[2025-04-29 01:16] VITALS: BP 163/88; PULSE 67; O2SAT 96
[2025-04-29 01:30] VITALS: BP 211/94; PULSE 68; O2SAT 96
[2025-04-29 02:00] VITALS: BP 214/120; PULSE 68; O2SAT 94
[2025-04-29 02:27] VITALS: BP 163/88; PULSE 66; RESP 18; TEMP 36.8; O2SAT 95
== END 2025-04-29 02:29 | disposition short-term general hospital (02) ==
PROVIDERS: Emergency Provider Emergency Medicine; PCP Family Medicine
DX: I65.21 Occlusion and stenosis of right carotid artery (principal); I65.02 Occlusion and stenosis of left vertebral artery; I45.10 Unspecified right bundle-branch block; R29.818 Other symptoms and signs involving the nervous system; I10 Essential (primary) hypertension
CPT/HCPCS: 70450; 70496; 70498; 80053; 80061; 80320; 84484; 85025; 85610; 85730; 86803; 87389; 93005; 99291; Q9967

== ENCOUNTER 2025-05-30 19:12 | Emergency (ER) | payer MEDICARE, SELFPAY ==
--- OUTSIDE RECORDS SUMMARY | 2025-04-29 03:58 | XMS_ITS | Encounter Summary ---
Author Organization [facility] Address [facility] [place] [address] Care Team Providers Care Emt I/85 Name Role Phone Krzysztof Hendrickson MD Primary Care Provider [phone] Source Comments This information has been disclosed to you from confidential records protectfrom disclosure by state law. You shall make no further disclosure of thisinformation without the specific, written, and informed release of theindividual to whom it pertains, or as otherwise permitted by law. A generalauthorization for the release of medical or other information is not sufficientfor the purposes of the release of HIV test results or diagnoses. [id number] Reason for Visit * Reason Comments Extremity Weakness Stroke Alert * Auth/Cert (Routine) Specialty Diagnoses / Procedures Referred By Mandy chandler Referred To Contact Emergency Medicine Diagnoses Stroke [facility] Emergency Department [address] [place] [address] Phone: tel: fax: Referral ID Status Reason Start Date Expiration Date Visits Re quested Visits Authorized [id number] 1 1 Encounter Details Date Type Department Care Team (Latest Contact Info) Description 04/29/2025 3:58 AM EDT - 05/02/2025 2:50 PM EDT Hospital Encounter [facility] [address] [place] [address] Schuyler Pastor MD [address] [facility] [phone] Manolo Manning DO [address] [place] [phone] Damari Trevizo MD [address] [place] [address] Stenosis of right carotid artery (Primary Dx); Cerebrovascular accident (CVA) due to stenosis of right carotid artery (CMS-HCC); Chronic pain syndrome; Hypertension, unspecified type Discharge Disposition: Home or Self Care WITHOUT Home Care Services Social History Tobacco Use Types Packs/Day Years Used Date Smoking Tobacco: Former Cigarettes Q uit: 2004 Passive Smoke Exposure: Never Smokeless Tobacco: Never Tobacco Cessation:Counseling Given: No Alcohol Use Standard Drinks/Week Comments Never 0 (1 standard drink = 0.6 oz pur e alcohol) Utilities Answer Date Recorded In the past 12 months has th e [employer], gas, oil, or water orderTopia threatened to shut off services in your home? No 04/29/2025 AUDIT-C Answer Date Recorded Q1: How often do you have a drink containing alcohol? Never 04/29/2025 Q2: How many drinks containi ng alcohol do you have on a typical day when you are drinking? Patient does not drink Q3: How often do you have si x or more drinks on one occasion? Never 04/29/2025 Hunger Vital Sign Answer Date Recorded Within the past 12 months, y ou worried that your food would run out before you got the money to buy more. Never true 04/29/20 Within the past 12 months, t he food you bought just didn't last and you didn't have money to get more. Never true 04/29/2025 PRAPARE - Transportation Answer Date Re corded In the past 12 months, has l ack of transportation kept you from medical appointments or from getting medications? No 04/06 In the past 12 months, has l ack of transportation kept you from meetings, work, or from getting things needed for daily living? No 04/29/2025 Housing Stability Vital Sign Answer Rober e Recorded In the last 12 months, was t here a time when you were not able to pay the mortgage or rent on time? No 04/29/2025 In the past 12 months, how m any times have you moved where you were living? 0 04/29/2025 At any time in the past 12 m [facility], were you homeless or living in a skilled nursing (including now)? No 04/29/2025 Comments Unknown Sex and Gender Information Value Date Recorded Sex Assigned at Not on file Legal Sex Female 11:24 PM EDT Gender Identity Not on file Sexual Orientation Not on file documented as of this encounter Last Filed Vital Signs Vital Sign Reading Time Taken Comments Blood Pressure 158/77 05/02/2025 4:25 AM EDT Pulse 66 05/02/2025 10:22 AM EDT Temperature 36.7 C (98.1 F) 05/02/2025 4:25 AM EDT Respiratory Rate 12 05/02/2025 4:25 AM EDT Oxygen Saturation 99% 05/02/2025 10:22 AM EDT Inhaled Oxygen Concentration 99% 05/02/2025 1 0:22 AM EDT Weight 58.1 kg (128 lb) 04/29/2025 10:03 PM EDT Height 157.5 cm (5' 2 ) 04/30/2025 5:26 AM EDT Body Mass Index 23.41 04/29/2025 10:03 PM EDT documented in this encounter Functional Status * Audit-C Score Answer Date of Assessment Author 0 04/29/2025 11:03 PM EDT Coral Zhang RN * Question Answer Date of Assessment Author Q1: How often do you have a drink containing alcohol? Never 04/29/2025 11:03 PM EDT Coral Zhang RN Q2: How many drinks containing alcohol do you have on a typical day when you are drinking? Patient does not drink 04/29/2025 11:03 PM EDT Coral Zhang RN Q3: How often do you have six or more drinks on one occasion? Never 04/29/2025 11:03 PM EDT Coral Zhang RN documented as of this encounter Discharge Summaries * Robinson Alarcon MD - 05/02/2025 2:50 PM EDT Images from the original note were not included. [facility] Department of Neurology Discharge Summary Patient: Jaymie Nelson [facility]: [id number] Date of Admission: 04/29/2025 Date of Discharge: 05/02/2025 Attending Physician: No att. providers found Diagnoses Present on Admission No past medical history on file. Discharge Diagnoses Active Hospital Problems Diagnosis Date Noted Acute stroke due to ischemia ([facility]) [I63.9] 05/02/2025 Chronic pain syndrome [G89.4] 04/30/2025 Hypertension [I10] 04/30/2025 Vitamin D deficiency [E55.9] 04/30/2025 Resolved Hospital Problems No resolved problems to display. Operations/Procedures Performed (include dates) TTE with Bubble 04/30/25 - Left ventricle: The cavity size is normal. Wall thickness was increased in a pattern of mild LVH. Systolic function is normal. The estimated ejection fraction is 60-65%. Wall motion is normal; there are no regional wall motion abnormalities. Grade I diastolic dysfunction. There is no evidence of a thrombus revealed by acoustic contrast opacification. - Right ventricle: The cavity size is normal. Wall thickness is increased. Systolic function is normal. - Atrial septum: Agitated saline contrast study at baseline or with provocation, shows no [id number] atrial level shunt. - Pulmonary arteries: Systolic pressure could not be accurately estimated. - Left atrium: The atrium is normal in size. - Inferior vena cava: The IVC is normal-sized. Imaging (include dates) MRI Brain without contrast 04/30/25 1. Acute multifocal, predominantly cortical/subcortical right frontal and parietal infarcts. 2. No associated petechial hemorrhage. 3. Background mild small vessel disease, mild atrophy, and scattered remote lacunar-type infarcts. CTH stability scan 05/02/25 1. No intracranial mass effect or hemorrhage. 2. Evolving right frontal and parietal infarcts better seen on prior MRI. CTA Head and Neck OSH 04/28/25 Critical stenosis >90% of the R internal carotid bulb and proximal ICA. Consulting Services (include reason) Neurosurgery - R ICA stenosis and surgical plan. Planning on outpatient R CEA on 05/12. Anesthesia - Preoperative planning for future outpatient R CEA. PT/OT/DATABASES SOFTWARE CONSULTANT/SW - Discharge planning Allergies Prednisone Sulfa (Sulfonamide Antibiotics) Discharge Medications Medication List TAKE these medications, which are NEW Quantity/Refills aspirin 325 MG tablet Take 1 tablet (325 mg total) by mouth daily. Quantity: 30 tablet Refills: 0 ergocalciferol 1,250 mcg (50,000 unit) capsule Commonly known as: ERGOCALCIFEROL Take 1 capsule (50,000 Units total) by mouth once a week. Quantity: 4 capsule Refills: 0 hydrALAZINE 10 MG tablet Commonly known as: APRESOLINE Take 1 tablet (10 mg total) by mouth every 8 hours. Quantity: 120 tablet Refills: 0 ticagrelor 90 mg Tab tablet Commonly known as: BRILINTA Take 1 tablet (90 mg total) by mouth 2 times a day for 37 days. MUST REFILL TO FINISH COURSE Quantity: 74 tablet Refills: 0 TAKE these medication, which have CHANGED Quantity/Refills atorvastatin 40 MG tablet Commonly known as: LIPITOR Take 1 tablet (40 mg total) by mouth daily. Start taking on: May 03, 2025 What changed: medication strength how much to take Quantity: 30 tablet Refills: 0 TAKE these medications, which you were ALREADY TAKING Quantity/Refills oxyCODONE-acetaminophen 10-325 mg per tablet Commonly known as: PERCOCET Take 0.5 tablets by mouth every 12 hours as needed for Pain. Refills: 0 pregabalin 50 MG capsule Commonly known as: LYRICA Take 1 capsule (50 mg total) by mouth at bedtime. Refills: 0 venlafaxine 75 MG 24 hr capsule Commonly known as: EFFEXOR-XR Take 1 capsule (75 mg total) by mouth daily. Refills: 0 STOP taking these medications losartan 100 MG tablet Commonly known as: EDDZAJAVON Where to Get Your Medications These medications were sent to [facility] [address] [place] [id number] Hours: Sunday - Sunday: 8:00AM - 6:00PM aspirin 325 MG tablet atorvastatin 40 MG tablet ergocalciferol 1,250 mcg (50,000 unit) capsule hydrALAZINE 10 MG tablet ticagrelor 90 mg Tab tablet Reason for Admission Jaymie Nelson is a 69 y.o. female with PMH HTN, HLD, hx breast cancer (left side lumpectomy s/pradiation 2018), cervical spine stenosis s/p decompression/fusion 2014 with repeated rhizotomies C3-5, b12 deficiency, kidney stones, migraines, depression, anxiety, arthritis, who initially presented to [facility] on 04[facility]28[facility]25 for transient left sided numbness/weakness that resolved spontaneously. Patient was found to have severe (>90%) R ICA stenosis at OSH and transferred to neurology for further management. Patient remained asymptomatic without deficits despite being found to have multifocal scattered acute infarcts in the R frontal and parietal lobes in the setting of severe R ICA stenosis. Hospital Course #Critical R ICA stenosis (>90%) now on DAPT (Aspirin + Ticagrelor) #Multifocal acute R frontal and parietal strokes #Transient left sided numbness/weakness, resolved Patient initially presented to OSH with transient left sided weakness, numbness, and dysarthria (LKW 04/28 1330) that ultimately resolved spontaneously. CTA H/N at the OSH revealed critical R ICA stenosis (>90%) so patient was transferred to neurology on 04/29. MRI Brain revealed multifocal acute cortical/subcortical infarcts in the R frontal and R parietal lobes. Etiology of these strokes ismost likely thromboembolic in the setting of severe R ICA stenosis. Despite this, patient was asymptomatic without deficits on arrival to hospital and remained stable throughout admission. She wasinitially started on a heparin gtt then transitioned to DAPT (Aspirin + Brilinta) on 05/01. Neurosurgery was consulted and decision was made to discharge patient home on DAPT with plans for outpatient R carotid endarterectomy on 05/12/25. RCRI score is 2 (1 point for high risk nature of surgery and 1 for history of cerebrovascular disease) with 10.1% risk of major cardiac event with surgery. Patient instructed to return to ED if she develops any recurrent stroke-like symptoms prior to surgery. PLAN: - Outpatient R CEA scheduled with neurosurgery on 05/12/25 - Discharged on ASA 325mg and Brilinta 90mg BID -- Hold Brilinta 3 days prior to surgery (last dose on 05/08 PM) -- Will defer If/when to resume DAPT post-operatively to neurosurgery - Increased to Atorvastatin 40mg - Follow up in neurology TCC clinic on 05/11/25. Follow up in stroke clinic in 2-3 months #History of HTN Patient's target systolic blood pressure during admission was SBP 160-200 due to her severe R ICA stenosis. Her home Losartan 100mg was discontinued during admission and patient was discharged on PO Hydralazine 10mg q8h. 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 Active Hospital Problems Diagnosis Date Noted Acute stroke due to ischemia ([facility]) [I63.9] 05/02/2025 Chronic pain syndrome [G89.4] 04/30/2025 Hypertension [I10] 04/30/2025 Vitamin D deficiency [E55.9] 04/30/2025 Resolved Hospital Problems No resolved problems to display. Neurologic Examination BP 158/77 (BP Location: Right upper arm, Patient Position: Lying) Pulse 66 Temp 98.1 ??F (36.7 ??C) (Oral) Resp 12 Ht 5' 2 (1.575 m) Wt 128 lb (58.1 kg) SpO2 99% BMI 23.41 kg/m?? General Exam: Pt in NAD CV: RRR, no edema Lungs: Breathing comfortably on room air, no wheezing Neurologic Physical Exam: Cognitive: Alert and interactive. Oriented to person, place, month, year Language/Speech: Language without aphasia. Speech spontaneous and fluent, no paraphasic errors, no slurring of speech CN: CN II: PERRL. VF intact no extinction. CN III/IV/: Extraocular movements intact CN V: Facial sensation normal in V1, V2, V3 bilaterally CN VII: Face grossly symmetric at rest and with smile. CN VIII: Hearing intact CN IX/X: palate elevation symmetric CN XII: Tongue protrudes midline Motor: Moves all extremities spontaneously and antigravity without drift. Sensory: intact symmetrically to light touch in BUE and BLE. Coordination/Cerebellum: No dysmetria with finger to nose bilaterally NIH Stroke Scale: Performed by Robinson Alarcon 12pm 05/02 1a Level of consciousness: 0=alert; keenly responsive 1b. LOC questions: 0=Performs both tasks correctly 1c. LOC commands: 0=Performs both tasks correctly 2. Best Gaze: 0=normal 3. Visual: 0=No visual loss 4. Facial Palsy: 0=Normal symmetric movement 5a. Motor left arm: 0=No drift, limb holds 90 (or 45) degrees for full 10 seconds 5b. Motor right arm: 0=No drift, limb holds 90 (or 45) degrees for full 10 seconds 6a. motor left le=No drift, limb holds 90 (or 45) degrees for full 10 seconds 6b Motor right le=No drift, limb holds 90 (or 45) degrees for full 10 seconds 7. Limb Ataxia: 0=Absent 8. Sensory: 0=Normal; no sensory loss 9. Best Language: 0=No aphasia, normal 10. Dysarthria: 0=Normal 11. Extinction and Inattention: 0=No abnormality Total: 0 Condition on Discharge 1. Functional Status: normal Describe limitations, if any: avoid hypotension until after R CEA PT Interventions and Frequency: PT Frequency: Discharge from PT PT Recommendations: Recommendation: No skilled PT Equipment Recommended: None OT Interventions and Frequency: OT Frequency: Discharge from OT OT Recommendations: Recommendation: No skilled OT Equipment Recommendations: None 2. Mental Status: Alert/Oriented 3. Dietary Restrictions / Tube Feeding / TPN: No Speech Frequency and Recommendations: Recommendation: Discharged from DATABASES SOFTWARE CONSULTANT therapy DATABASES SOFTWARE CONSULTANT Treatment Details: R/T (d/c 04/29) 4. Supplemental Oxygen / Ventilation / CPAP / Bi-Level: No 5. In-dwelling Lines or Catheters: No Disposition Home independent Follow-Up Appointments Future Appointments Date Time Provider Department Center 05/11/2025 1:00 PM Luly Conde CNP [facility] 06/26/2025 1:40 PM Yelena Lopez MD [facility] Specific Follow-Up Items for Receiving Physician Patient discharged on DAPT (Aspirin and Brilinta). Instructed to hold Brilinta 3 days prior to R CEA. Will defer If/when to resume DAPT post-operatively to neurosurgery Patient switched from Losartan to Hydralazine at least until surgery. Should follow up with her PCPafter R CEA to determine if/what changes to make to her antihypertensive pressure regimen. ROBINSON ALARCON MD 05/02/2025, 6:59 PM Cosigned by Damari Trevizo MD at 05/03/2025 7:32 AM EDT Associated attestation - Damari Trevizo MD - 05/03/2025 7:32 AM EDT As the supervising physician caring for this patient, I have seen and examined the patient during her hospitalization, including the date of discharge. I have discussed the medical decision making regarding diagnosis and therapeutic recommendations with the consulting services and the resident. I have reviewed the discharge documentation, and agree with the findings and plan for outpatient medical therapy and follow-up as documented. CTH from this AM reviewed - no HT Anesthesia pre-op c/s completed Patient will be discharged on ASA 325/Ticagrelor 90 BID Reviewed instructions with patient and her regarding holding ticagrelor 3 days prior to surgery and using ASA 325 mg monotherapy Patient will return 05/12/[address] Jones I spent 35 minutes providing care, interpreting results, documenting, and coordinating the patient's care. Damari Trevizo MD Neurology Team 2 Attending * Robinson Alarcon MD - 05/02/2025 1:17 PM EDT Neurology Transitional Care/Hospital Discharge Follow Up Note: Patient Information: Name: Jaymie Nelson : 1955 Patient to follow up with: General Transitional Care Clinic ([facility]). Scheduled 05/11/25 Patient to follow-up in: 05/11/25 Provider location: [facility] Reason: Stroke Discharged to: Home Post Transitional Care Follow Up Plan: Vascular (RN Stroke schedules). Scheduled with Dr. Lopez 06/26/25 Patient to follow-up in Post TCC: 2-3 months Brief Plan of Care/Discharge follow-up items: Patient admitted with R frontoparietal strokes in setting of R ICA stenosis. Scheduled for R CEA outpatient on 05/12. Follow up with TCC and stroke clinic ROBINSON ALARCON MD Neurology Resident documented in this encounter Discharge Instructions * Discharge Instructions* Robinson Alarcon MD - 04/29/2025 7:43 AM EDT Jaymie Nelson, You were hospitalized for: severe right internal carotid artery stenosis causing small strokes in the right side of your brain. These are located in the right frontal and parietal lobes. It is reassuring that your left sided weakness and slurred speech resolved. Please come BACK to the hospital immediately if these problems return or you develop any other stroke like symptoms including numbness, weakness, slurred speech, facial droop, trouble speaking, imbalance. Stay hydrated and avoid the heat until your surgery. If you develop significant dizziness or lightheadedness, go to the ER. We think this happened because your right carotid artery is significantly narrowed. You will followup with neurosurgery and have outpatient surgery for your carotid artery (carotid endarterectomy) on May 12 (05/12/25). You will be discharged on dual antiplatelet therapy (DAPT) Aspirin and Ticagrelor. You will continue taking aspirin daily. You will hold ticagrelor after May 08 (do not take for 3 days before surgery). You will follow up with neurosurgery to determine duration of these medications after your surgery. You will be discharged on hydralazine for blood pressure. You will take this medication three timesa day (every 8 hours) at least until your surgery. Here are your hospital discharge instructions: New medications: 1) Aspirin 325mg daily. Please take every day. 2) Ticagrelor 90mg twice daily. Please take 1 pill in the morning and 1 pill at bedtime until 3 days before your surgery (last dose on 05/08 bedtime). Follow up with neurosurgery to determine if/when to restart this medication after surgery. 3) Hydralazine 10 mg three times daily (every 8 hours). Take 1 pill in the morning, 1 pill midday, 1 pill at bedtime. Take this until at least your surgery then follow up with your primary doctor. Itis okay if your blood pressure is slightly high until after your surgery. Medication changes: 1) stop losartan (blood pressure medication) until you after your surgery. Other Instructions: 1) Stroke Instructions Look into DASH, Mediterranean diet, or Diabetic Diet if applicable. Stop smoking. Do not use illicit substances. Stimulants (cocaine, methamphetamine) increase your blood pressure and can cause stroke. Increase exercise regimen to achieve 30 minutes three times per week. You need to follow-up with the following providers: 1) Luly Conde CNP with Stroke Transitional clinic on 2) Carotid endarterectomy on 05/12/25 at 730 AM 3) Schedule a Family doctor appointment in 1-2 weeks. 4) Yelena Lopez MD in neurology clinic on 06/26/25 The Neurology Transitional Care Clinic is an opportunity for you to see a provider shortly after discharge who will address questions/concerns, review lab values and imaging, and place necessary orders or referrals. This should not replace an appointment with the Neurology sub-specialty Attending for patients with urgent issues. If you have signs or symptoms of stroke, go to the Emergency Department immediately. If you have a NON-URGENT question for your doctor, please contact the Neurology Clinic at [phone] and ask for Natalee Dash, the Transitional Care Nurse. Additionally, when leaving a message, please let the form tamper operator know the name of the doctor who took care of you in the hospital (listed below). Please take care, [facility] Neurology Discharging attending neurologist name: Dr. Damari Trevizo Stroke Nurse Education: You were treated at the [facility] for symptoms concerning for a stroke. We are committed to providing you with information about your diagnosis and ways to help keep theblood vessels in your brain as healthy as possible. It is important to understand your specific risk factors for stroke, which include high blood pressure and high cholesterol. It is also crucial that you take your stroke specific medications as directed in your discharge instructions. If you are experiencing any stroke-like symptoms below, call 911 immediately: Balance problems, Eyes (vision loss or blurry vision), Facial drooping, Arm weakness, Slurred speech. Time to call 911 (B.E.F.A.S.T.). Please schedule an appointment with your Primary Care Physician (PCP) within 2 weeks of discharge to discuss the ways to best manage your risk factors. If you do not have a PCP, call [phone] to establish with Primary Care. If you have any questions or concerns, the Stroke Nurse Navigators are available to help. Please call the stroke nurse hotline at [phone] with any non- urgent concerns. You can also call the Neurology Clinic at [phone] to contact your physician. The Stroke Nurse Navigators will call youwith Neurology follow up appointment information if recommended by your physician. * Attachments The following attachments cannot be sent through Care Everywhere. * Warning Signs of a Stroke ([place]) * Carotid Artery Disease [id number]-[id number] ([place]) * Carotid Endarterectomy ([place]) documented in this encounter Medications at Time of Discharge aspirin 325 MG tablet Take 1 tablet (325 mg total) by mouth daily. 30 tablet 05/02/2025 3:03 PM EDT 05/02/2025 atorvastatin (LIPITOR) 40 MG tablet Take 1 tablet (40 mg total) by mouth daily. 30 tablet 05/02/2025 3:03 PM EDT 05/03/2025 ergocalciferol (ERGOCALCIFEROL) 1,250 mcg (50,000 unit) capsule Take 1 capsule (50,000 Units total) by mouth once a week. 4 capsule 05/02/2025 3:03 PM EDT 05/02/2025 hydrALAZINE (APRESOLINE) 10 MG tablet Take 1 tablet (10 mg total) by mouth every 8 hours. 120 tablet 05/02/2025 3:03 PM EDT 05/02/2025 oxyCODONE-acetami nophen (PERCOCET) 10-325 mg per tablet Take 0.5 tablets by mouth every 12 hours as needed for Pain. pregabalin (LYRICA) 50 MG capsule Take 1 capsule (50 mg total) by mouth at bedtime. 04/23/2025 venlafaxine (EFFEXOR-XR) 75 MG 24 hr capsule Take 1 capsule (75 mg total) by mouth daily. ticagrelor (BRILINTA) 90 mg Tab tablet Take 1 tablet (90 mg total) by mouth 2 times a day for 37 days. MUST REFILL TO FINISH COURSE 74 tablet 05/02/2025 3:03 PM EDT 05/02/2025 05/27/2025 documented as of this encounter Progress Notes * Verona Stark MD - 05/01/2025 9:46 AM EDT BRIEF NEUROSURGERY PROGRESS NOTE 69 y.o. female p/w PMHx HTN, HLD, breast ca, and prior cervical fusion who presents with new left sided weakness and dysarthria. She reports 2 episodes of above symptoms which self resolved after a few minutes. Patient does not have a prior history of TIA/CVA. CTA with 90% stenosis on the right internal carotid bulb and proximal ICA. Patient currently GCS 15. Neurosurgery consulted for further evaluation and management. Given the imaging findings and patients clinical condition CEA is favored. PLAN: - CTA head/neck reviewed showing significant stenosis of the Right ICA at the level of the bifurcation around C5 - Lesion below Ac's line thus amendable to operative intervention - MRI reviewed that demonstrates evidence of acute infarct but not an overwhelming stroke burden that would potentially delay surgery - Recommend medicine clearance for possible CEA v. KAYLIE - please document RCRI - Recommend continuing heparin gtt at this time - CEA scheduled for 05/12, can remain inpatient vs outpatient per primary team - Clinic messaged to arrange follow up with Dr. Early outpatient - Neurosurgery to follow peripherally at this time If further questions or concerns should arise, do not hesitate to contact the neurosurgery residenton call, [phone]. Verona Stark MD Neurosurgery Resident 9:50 AM 05/01/2025 [phone] * Robinson Alarcon MD - 05/01/2025 7:31 AM EDT Images from the original note were not included. [facility] Neurology Department Daily Progress Note Chief Complaint / Brief hospital summary CC: Transient left sided weakness, numbness, dysarthria, facial droop HPI: Jaymie Nelson is a 69 y.o. female with PMH HTN, HLD, hx breast cancer (left side lumpectomy s/p radiation 2018), cervical spine stenosis s/p decompression/fusion 2014 with repeated rhizotomies C3-5, b12 deficiency, kidney stones, migraines, depression, anxiety, arthritis, that initially presented to [facility] with transient left sided weakness, numbness, dysarthria, facial droop. Patient found to have >90% stenosis of R internal carotid bulb and proximal ICA and transferred to hospital for further evaluation. She is asymptomatic upon arrival to and was started on a heparin gtt the morning of admission (04/29). MRI revealed multifocal scattered cortical and subcortical infarcts in the right frontoparietal region. Interval History / Subjective - NAEO. Afebrile. SBP 150-190s. - Patient resting comfortably in bed this morning without deficits or concerns. - Patient continues on low dose no bolus heparin gtt - hptt 88 > 42 > 57 - TTE shows no shunt and left atrium is normal in size Daily Plan: - Start hydralazine 10mg q8h - Continue heparin gtt to low dose no bolus (hptt goal 80-110) - Continue ASA81 - Consulted NSGY for R CEA eval -- CEA scheduled for 05/12, can remain inpatient vs outpatient -- Will consider transitioning to DAPT in future, pending surgical plan -- Will need to hold DAPT for 3 days prior to surgery - Low threshold to repeat imaging and upgrade to stepdown status if any change in exam/return of symptoms. Medications See MAR Vital Signs / Intake & Output Temp: [97.7 ??F (36.5 ??C)-98.3 ??F (36.8 ??C)] 98.3 ??F (36.8 ??C) Heart Rate: [65-83] 68 Resp: [15-18] 18 BP: (155-199)/(67-87) 197/87 Intake/Output Summary (Last 24 hours) at 05/01/2025 0731 Last data filed at 04/30/20252047 Gross per 24 hour Intake 100 ml Output -- Net 100 ml Physical Exam Physical Exam: General Exam: Pt in NAD CV: RRR, no edema Lungs: Breathing comfortably on room air, no wheezing Neurologic Physical Exam: Cognitive: Alert and interactive. Oriented to person, place, month, year Language/Speech: Language without aphasia. Speech spontaneous and fluent, no paraphasic errors, no slurring of speech CN: CN II: PERRL. VF intact no extinction. CN III/IV/: Extraocular movements intact CN V: Facial sensation normal in V1, V2, V3 bilaterally CN VII: Face grossly symmetric at rest and with smile. CN VIII: Hearing intact CN IX/X: palate elevation symmetric CN XII: Tongue protrudes midline Motor: Moves all extremities spontaneously and antigravity without drift. Sensory: intact symmetrically to light touch in BUE and BLE. Coordination/Cerebellum: No dysmetria with finger to nose bilaterally NIH Stroke Scale: Performed by Robinson Alarcon 8am 05/01 1a Level of consciousness: 0=alert; keenly responsive 1b. LOC questions: 0=Performs both tasks correctly 1c. LOC commands: 0=Performs both tasks correctly 2. Best Gaze: 0=normal 3. Visual: 0=No visual loss 4. Facial Palsy: 0=Normal symmetric movement 5a. Motor left arm: 0=No drift, limb holds 90 (or 45) degrees for full 10 seconds 5b. Motor right arm: 0=No drift, limb holds 90 (or 45) degrees for full 10 seconds 6a. motor left le=No drift, limb holds 90 (or 45) degrees for full 10 seconds 6b Motor right le=No drift, limb holds 90 (or 45) degrees for full 10 seconds 7. Limb Ataxia: 0=Absent 8. Sensory: 0=Normal; no sensory loss 9. Best Language: 0=No aphasia, normal 10. Dysarthria: 0=Normal 11. Extinction and Inattention: 0=No abnormality Total: 0 Laboratory Data Reviewed in Epic A1C 5.7, LDL 77, TSH 2.14 Diagnostic Studies MRI Brain without contrast Assessment & Plan Jaymie Nelson is a 69 y.o. female with PMH HTN, HLD, hx breast cancer (left side lumpectomy s/pradiation 2018), cervical spine stenosis s/p decompression/fusion 2014 with repeated rhizotomies C3-5, b12 deficiency, kidney stones, migraines, depression, anxiety, arthritis, presented from OSH with transient left sided numbness/weakness that has since resolved. Patient found to have multifocal scattered acute infarcts in the R frontal and parietal lobes in the setting of severe R ICA stenosis. #Multifocal acute R frontal and parietal strokes #C/b Critical R ICA stenosis (>90%) on heparin gtt #Transient left sided numbness/weakness, resolved Patient initially presented to OSH with transient left sided weakness, numbness, and dysarthria (LKW 04/28 1330) that ultimately resolved spontaneously. CTA H/N at the OSH revealed critical R ICA stenosis (>90%) so patient was transferred to neurology on 04/29 and started on a heparin gtt. MRI was obtained and revealed multifocal acute cortical/subcortical infarcts in the R frontal and R parietal lobes. Etiology of these strokes is most likely thromboembolic in the setting of severe R ICA stenosis. Patient is currently stable without residual deficits. She is pending potential R CEA with neurosurgery. RCRI score is 2 (1 point for high risk nature of surgery and 1 for history of cerebrovascular disease) with 10.1% risk of major cardiac event with surgery. PLAN: - Continue heparin gtt to low dose no bolus (hptt goal 80-110) - Continue [id number], Atovastatin 20mg - Consulted NSGY for R CEA, scheduled for 05/12, can remain inpatient vs outpatient -- Will consider transitioning to DAPT in future, need to hold DAPT for 3 days prior to surgery - SBP goal 160-200 - q4h neuro checks - NIHSS q12h - telemetry - PT/OT/Speech consulted - bedside dysphagia screen prior to diet - stroke nurses consulted #HTN - SBP goal 160-200 - holding home losartan 100mg (therapeutic interchange valsartan) - Start hydralazine 10mg q8h #Cervical spine stenosis s/p decompression/fusion - continue home pregabalin 50mg - continue home venlafaxine 75mg - holding home Percocet 0.5mg BID prn #Vitamin D deficiency - continue home Vitamin D supplement 50,000 units 2x week #Allergies -Continue home Flonase Checklist: Fluids: no Nutrition: Regular diet Telemetry: yes DVT PPx: heparin gtt low dose no bolus GI PPx: no Restraints: no Lines: 2 piv Catheter: no Family: 04/29 Disposition: Floor status. Code Status: Full Code Signed: Robinson Alarcon MD Neurology Resident Physician, PGY-2 05/01/2025 7:31 AM Cosigned by Damari Trevizo MD at 05/02/2025 5:45 PM EDT Associated attestation - Damari Trevizo MD - 05/02/2025 5:45 PM EDT Images from the original note were not included. I reviewed the history, imaging, clinical and laboratory data and examined the patient with the resident on 05/01/25. I discussed the case with the resident and agree with the findings and plan as documented in the resident???s note, with the following additions: Briefly, Ms. Nelson is a 69 yo F with a h/o HTN, HLD, cervical stenosis s/p decompression (2014), h/o breast ca s/p lumpectomy and radiation (2018), B12 deficiency, ?remote h/o epilepsy, mood d/o and arthritis who presented 04/28 after developing transient L sided weakness, numbness, dysarthria andL facial droop. CT/CTA revealing of >90% stenosis of proximal R ICA. She has remained asymptomatic since arrival to [facility] in the early AM 04/29. Stroke work-up: Lipids: Total chol 139; TG 110; HDL 40; LDL 77; non-HDL 99 HgbA1c: 57.7 EKG: NSR, RBBB; QTc 470 ECHO: LV with normal cavity size, wall motion and systolic fn (EF 60-65%); wall thickness pattern of mild LVH; G1DD, no thrombus; RV with normal cavity size and increased wall thickness, normal fn; No R to L shunt MRI brain: Small R sided cortical/subcortical infarcts noted Patient states that she continues to feel fine. She would really like to go home. On my exam: NIHSS 0; RCRI 2 Assessment: 69 yo F with h/o HTN, HLD, cervical stenosis s/p decompression (2015), h/o breast ca s/p lumpectomy and radiation (2019), B12 deficiency, ?remote h/o epilepsy, mood d/o and arthritis who presented with clinical TIA c/w a R MCA distribution. Her MRI demonstrates some small areas of cortical and subcortical strokes of likely atheroembolic etiology secondary to her severe R ICA stenosis.Her stroke burden is very small, and she is currently asymptomatic, so from neurology standpoint, she is appropriate for an early CEA. Neurosurgery has been consulted and has scheduled her CEA for 05/12/25. Plan to transition to ASA/ticagrelor today, as patient will discharge prior to OR for severe carotid stenosis. - D/C heparin gtt - Start ASA 325 mg daily - Start ticagrelor 180 mg now; start 90 mg BID at bedtime tonight - Plan for repeat CT head to assess for HT post-DAPT load on AM 05/02/25 - Continue Atorvastatin 40 mg qHS - SBP: <180 - Start hydralazine 10 mg q 8 hrs - Continue Vitamin D 50,000 Units twice weekly - Continue home lyrica and Effexor-XR - Stroke nurse navigator c/s - HUANG c/s - appreciate recs; will schedule CEA on 05/12/25 - Diet: regular with thins - DVT ppx: heparin gtt - Bowel reg: senna-S; miralax (Last BM: None since admission); will need suppository 05/01 if no BM - PT/OT/DATABASES SOFTWARE CONSULTANT cognitive eval - Anesthesia c/s pre-op eval - Plan for d/c 05/[address] head appears without HT I spent 50 minutes providing care, interpreting results, documenting, and coordinating the patient's care. I independently reviewed the patient's old medical records, current laboratory results, and radiographic images as outlined in the above note. Portions of this note may have been copied forward with edits. I have reviewed and updated the history, physical exam, data, assessment, and plan of the note so that it reflects my current evaluationand management of the patient on this date. Damari Trevizo MD Neurology Team 2 Attending * Lucille Webster - 05/01/2025 7:29 AM EDT Images from the original note were not included. [facility] Neurology Department Daily Progress Note Chief Complaint / Brief hospital summary Jaymie Nelson is a 69 y.o. female with a PMHx of Epilepsy in 2004 previously on lamictal for 10years, previous breast cancer in 2018, spinal stenosis s/p decompression and fusion in 2014, cognitive deficit on nemenda and B12, who presents after right facial droop, RUE weakness and dysarthria. Interval History / Subjective - NAEO - PT was awake and alert this AM, laying in bed - Reports feeling good this AM and having slept well - Reports that she was not sitting in the chair yesterday but would get up to go to the bathroom. Stated that RN will be walking her on the floor - Pt reports having a BM yesterday - Denies new complaints or sxs - No PRNs Review of Systems (Focused) Constitutional: Negative for fever. Appetite wnl. Respiratory: Negative for cough and shortness of breath. Cardiovascular: Negative for chest pain, palpitations, or leg swelling. Gastrointestinal: Negative for abdominal pain, N/V, diarrhea and constipation. Neurological: Negative for new numbness, tingling, or focal weakness Medications Scheduled Meds: aspirin 81 mg Oral Daily with breakfast atorvastatin 40 mg Oral Daily 0900 ergocalciferol 50,000 Units Oral Once per day on Sunday magnesium oxide 400 mg Oral BID polyethylene glycol 17 g Oral Daily 899 pregabalin 50 mg Oral Nightly (2099) senna-docusate 1 tablet Oral Nightly (2100) venlafaxine 75 mg Oral Daily 0900 Continuous Infusions: heparin 14 Units/kg/hr (05/01/25 0713) PRN Meds: acetaminophen OR acetaminophen, ondansetron Vital Signs / Intake & Output Temp: [97.7 ??F (36.5 ??C)-98.3 ??F (36.8 ??C)] 98.3 ??F (36.8 ??C) Heart Rate: [65-83] 68 Resp: [15-18] 18 BP: (155-199)/(67-87) 197/87 Intake/Output Summary (Last 24 hours) at 05/01/2025 0730 Last data filed at 04/30/20252047 Gross per 24 hour Intake 100 ml Output -- Net 100 ml Physical Exam General Medical Exam CONSTITUTIONAL: well-appearing, in no acute distress, appears stated age EYES: Pupils round and reactive, no conjunctival injection HENT: normocephalic, atraumatic, Hearing is grossly normal, oropharynx reveals normal mucosa, palate, and tongue. CV: regular rate, no significant peripheral edema RESP: No accessory muscle use, no increased WOB on RA SKIN: warm, dry PSYCH: Appropriate behavior, calm mood, congruent affect, no audiovisual hallucinations mentioned Neurologic Exam Mental Status: Level of consciousness: awake and alert to voice Orientation: oriented to self, year, month, day, date, situation. Attention/concentration: able to attend exam well; Language: normal fluency/word-finding in conversation, no notable paraphasic errors, able to followverbal commands. able to repeat it's a becka day in [place] Speech: clear, coherent, goal-directed, spontaneous, without notable dysarthria Memory: Intact to remote and recent events in conversation. No left-right confusion, no finger agnosia, no signs of neglect on exam Cranial Nerves: II, III: VFF intact to finger count, PERRL bilaterally, no APD III, IV, : Gaze conjugate, EOMI with normal saccades/smooth pursuit, no nystagmus V: Facial sensation to light touch intact in V1, V2, V3 VII: Facial motion and strength was intact/symmetric VIII: Hearing intact to finger rub IX/X: Symmetric palatal elevation XI: Sternocleidomastoid strong bilaterally XII: Tongue exam reveals normal power and midline protrusion Motor: Normal bulk. No signs of atrophy. Axial tone was appropriate, appendicular tone was appropriate. No rest tremor noted. Strength: R L R L Deltoid 5 5 Hip Flex 5 5 Biceps 5 5 Quadriceps 5 5 Triceps 5 5 Hamstrings 5 5 Wrist Ext Plantar Flex 5 5 Wrist Flex Ankle Dorsiflex 5 5 IO Basketball Coach Coordination: Finger nose finger revealed no dysmetria Heel to murray was normal Sensory: - Intact to light touch in the bilateral upper/lower extremities Reflexes: Not tested R L Brachioradialis Biceps Triceps Patella Achilles Babinski Thomas Gait and Station: Not tested NIH Stroke Scale 1a Level of consciousness: 0 1b. LOC questions: 0 1c. LOC commands: 0 2. Best Gaze: 0 3. Visual: 0 4. Facial Palsy: 0 5a. Motor left arm: 0 5b. Motor right arm: 0 6a. motor left le 6b Motor right le 7. Limb Ataxia: 0 8. Sensory: 0 9. Best Language: 0 10. Dysarthria: 0 11. Extinction and Inattention: 0 Total: 0 Laboratory Data Reviewed interval lab data. Pertinent for: Latest Reference Range & Units 05/01/25 06:30 Sodium 133 - 146 mmol/L 138 Potassium 3.5 - 5.3 mmol/L 4.1 Chloride 98 - 110 mmol/L 105 Carbon Dioxide (CO2) 21 - 33 mmol/L 25 Anion Gap 3 - 16 mmol/L 8 BUN 7 - 25 mg/dL 10 Creatinine 0.60 - 1.30 mg/dL 0.63 Glucose 70 - 100 mg/dL 90 EGFR >90 Calcium 8.6 - 10.3 mg/dL 9.3 Phosphorus 2.1 - 4.5 mg/dL 3.8 Magnesium 1.5 - 2.5 mg/dL 1.9 Albumin 3.5 - 5.7 g/dL 4.1 Calculated Osmolality, Serum 278 - 305 mOsm/kg 285 Latest Reference Range & Units 05/01/25 06:30 WBC 3.8 - 10.8 10E3/uL 5.0 RBC 3.80 - 5.10 10E6/uL 5.07 Hemoglobin 11.7 - 15.5 g/dL 15.1 Hematocrit 35.0 - 45.0 % 43.8 MCV 80.0 - 100.0 fL 86.4 MCH 27.0 - 33.0 pg 29.8 MCHC 32.0 - 36.0 g/dL 34.5 RDW 11.0 - 15.0 % 13.0 Platelet Count 140 - 400 10E3/uL 186 MPV 7.5 - 11.5 fL 9.5 Latest Reference Range & Units 04/30/25 17:27 05/01/25 00:08 05/01/25 06:30 hPTT 90.0 - 130.0 seconds 42.0 (L) 59.6 (L) 57.0 (L) (L): Data is abnormally low Diagnostic Studies Reviewed interval diagnostic studies Transthoracic Echo (TTE) Complete with Bubble * [facility]* [address] [place] [id number] Transthoracic Echocardiogram Patient: Jaymie Nelson Room: 4422 Height: 62in MR Number: [id number] : 1955 Weight: 128lb Account: [id number] Gender: F BP: 170 / 75 Study Date: 04/30/2025 Age: 69 BSA: 1.58m^2 Referring physician: Destini Hewitt Interpreting physician: Xin Mcdermott MD PERFORMING Xin Mcdermott MD SHIFT LEADER Destini Zhao ORDERING Destini Hewitt REFERRING Destini Hewitt ATTENDING Damari Trevizo ADMITTING Manolo Manning Study Conclusions - Left ventricle: The cavity size is normal. Wall thickness was increased in a pattern of mild LVH. Systolic function is normal. The estimated ejection fraction is 60-65%. Wall motion is normal; there are no regional wall motion abnormalities. Grade I diastolic dysfunction. There is no evidence of a thrombus revealed by acoustic contrast opacification. - Right ventricle: The cavity size is normal. Wall thickness is increased. Systolic function is normal. - Atrial septum: Agitated saline contrast study at baseline or with provocation, shows no peqco-nq-snek atrial level shunt. - Pulmonary arteries: Systolic pressure could not be accurately estimated. - Inferior vena cava: The IVC is normal-sized. Reviewed and confirmed by Xin Mcdermott MD [id number] CT Head WO contrast Narrative: EXAM: CT HEAD WO CONTRAST INDICATION: Stroke, follow up, stability scan to rule out hemorrhage TECHNIQUE: Axial thin section CT images of the head were obtained without contrast. Sagittal and coronal 2-D multiplanar reconstructions were performed at the scanner. COMPARISON: MRI 04/29/2025 FINDINGS: Adequate diagnostic quality. Brain parenchyma: Small right frontal parietal hypodensities , better visualized on the prior MRI. No acute hemorrhage. A few small remote right centrum semiovale watershed infarction. Ventricles and extraaxial spaces: Normal ventricular system. No extra-axial fluid collection. Orbits, paranasal sinuses, mastoids: No acute orbital abnormality. Clear paranasal sinuses. Clear mastoid air cells. Extracranial soft tissues: Normal. Calvarium and skull base: No fracture or suspicious osseous lesion. Other: No other abnormalities. Impression: IMPRESSION: 1. No acute hemorrhage. Report Verified by: Edith Plummer MD at 04/30/2025 2:35 PM EDT Assessment & Plan Jaymie Nelson is a 69 y.o. female with a PMHx of Epilepsy in 2004 previously on lamictal for 10years, previous breast cancer in 2019, spinal stenosis s/p decompression and fusion in 2014, cognitive deficit on nemenda and B12, who presents after right facial droop, RUE weakness and dysarthria. Today is Hospital Day 2. # Multifocal Acute ischemic stroke of right frontal & parietal lobes, cortical and subcortical distribution with no hemorrhagic transformation # Severe stenosis > 90% of R internal carotid bulb and proximal ICA # Likely atheroembolic stroke etiology # scattered remote lacunar infarcts of right centrum semiovale Given acute presentation of dysarthria, RUE weakness and facial droop concern for stroke. NIHSS score of 3 at OSH. CTA H/N showed severe stenosis > 90% of R internal carotid bulb and proximal ICA.NIH of 0 at arrival to [facility]. ABCD score of 6 points; 2-Day Stroke Risk of 8.1%, 7-Day Stroke Risk of 11.7% and 90-Day Stroke Risk of 17.8%. Preliminary read on MRI DWI shows acute multifocal strokes in the cortical and subcortical right frontal and parietal infarcts with corresponding T2/FLAIR hyperintense signal. No associated petechial hemorrhage. Considering cardioembolic etiology due to only cortical involvement vs atheroembolic due to severe stenosis of the R internal carotid bulb and proximal ICA; the new strokes on MRI appear on R side. Pt reports no new complaints or sxs AM 04/30. NIH score of 0 AM 04/30. Per CT head on 04/30/25 no hemorrhagic transformation. TTE on 04/30/25 determined no thrombus, R to left shunt or valve abnormalities. No concern for cardioembolic etiology. Etiologyis likely atherothrombotic given the R sided presentation and non-significant findings on TTE and ECG. Based SAMPRUS trials, with a NIHSS score of 0 and ABCD score of 6, DAPT for 90 days due to previous lacunar stroke and symptomatic severe intracranial stenosis. Ticagrelor is preferred over clopidogrel given more potent antiplatelet efficacy in the setting of the severe stenosis > 90%. NIH score of 0 on 05/01/25 and no new sxs indicative of no transitional inflammatory effects. Per chart review and ECG review, RCRI (revised cardiac risk index) score of 2 with a 10.1% risk of major cardiac event due to hx of CVD and high risk surgery. No WA or ischemic heart disease in chart (no pathological q waves in ECG ED, only RBBB), no CHF on TTE (diastolic dysfunction grade I), no pre-op tx with insulin, and pre-op creatinine 0.63 on 04/06/25 (< 2 mg/dL cut off). - continue heparin drip 14 u/kg/hr no bolus - Neurosurg recs - Primary team document RCRI for CEA vs KAYLIE - Confirm procedure scheduled in 10-14 days - d/c heparin drip if procedure confirmed OP - continue ASA 81 mg atorvastatin 40mg qD - If d/c prior to CEA will plan for DAPT (ASA + ticagrelor) - Ticagrelor 120 mg load and 80 BID - obtain new ECG for RCRI assessment - obtain new CT head wo contrast after starting DAPT - q4 neuro checks - NIHSS q12 h - CMU/tele continuous - PT/OT: home, no needs - DATABASES SOFTWARE CONSULTANT consult: Regular diet thin liquids; Passed Swallow screen - consulted stroke nurse - recommend patient to sit in chair out of bed most of the daytime - OP Neuro scheduled follow-up on 05/11 at 1245 EDT with Luly Conde CNP #Cervical spine stenosis s/p decompression/fusion - continue home pregabalin - continue home venlafaxine - continue home percocet #HTN Given concern for CVD as the cause for stroke like sxs, would want to allow auto-regulation of blood pressure. - hold home losartan - SBP goal of < 200 - blood pressure cuff for home, daily checks #Vitamin D Deficiency - continue home Vitamin D supplement 50,000 units 2x week #Allergies - continue home Flonase #Pre-diabetes A1c of 5.7 on 04/29/25. - follow-up with PCP for lifestyle interventions. Checklist: Nutrition: Diet/Nutrition Orders Diet Regular(7) Frequency: Effective Now Number of Occurrences: Until Specified Order Questions: Suicide/Behavior Risk Modification? No DVT Prophy: SCDs, heparin drip Bowel Regimen: miralax, senna Restraints: Reviewed Lines/Drains: 2 peripheral IV, R and L UE Port Access?: no Pain Management: tylenol 650 mg Precautions/Isolation: none IVF: none Tele: yes, continuous Disposition: d/c to home on 05/02/2025 PT Interventions and Frequency: PT Frequency: Discharge from PT PT Recommendations: Recommendation: No skilled PT Equipment Recommended: None OT Interventions and Frequency: OT Frequency: Discharge from OT OT Recommendations: Recommendation: No skilled OT Equipment Recommendations: None DATABASES SOFTWARE CONSULTANT recs: Diagnosis: WFL Services: Discharged from DATABASES SOFTWARE CONSULTANT therapy # Code Status: Full Code Signed: LUCILLE WE[facility] [place] [place] 05/01/2025, 7:30 AM Cosigned by Damari Trevizo MD at 05/02/2025 5:46 PM EDT Associated attestation - Damari Trevizo MD - 05/02/2025 5:46 PM EDT I reviewed the history, imaging, clinical and laboratory data and examined the patient with the [id number] rounds on 05/01/25. Please see my attestation with the resident progress note from this date for additional details. Damari Trevizo MD Neurology Team 2 Attending * Angela Porter MD - 05/01/2025 5:12 AM EDT [facility] DEPARTMENT OF NEUROSURGERY INPATIENT PROGRESS NOTE Jaymie Nelson [id number] 1955 HD: 3 POD: N/A Neurosurgery Attending: MD Nneka Interval History: - Echo complete - MRI B complete minimal stroke burden - Neuro exam stable Meds: Current Facility-Administered Medications Medication Dose Frequency Provider Last Admin acetaminophen 650 mg Q4H PRN Destini Hewitt MD 650 mg at 04/29/252202 Or acetaminophen 650 mg Q4H PRN Destini Hewitt MD aspirin 81 mg Daily with breakfast Kelly Bridget, PharmD 81 mg at 04/30/25 1037 atorvastatin 40 mg Daily 899 Sindhu Cowart DO ergocalciferol 50,000 Units Once per day on Sunday Manolo Manning DO 50,000 Units at 04/30/25 1037 heparin 12 Units/kg/hr Continuous Robinson Alarcon MD 14 Units/kg/hr at 05/01/25 0050 magnesium oxide 400 mg BID Robinson Alarcon MD 400 mg at 04/30/252144 ondansetron 4 mg Q6H PRN Sindhu Cowart DO polyethylene glycol 17 g Daily 899 Sindhu Cowart DO 17 g at 04/30/25 0836 pregabalin 50 mg Nightly (2099) Simona Mirza MD 50 mg at 04/30/25 214 senna-docusate 1 tablet Nightly (2099) Sindhu Cowart DO 1 tablet at 04/30/252144 venlafaxine 75 mg Daily 0900 Simona Mirza MD 75 mg at 04/30/25 0835 Examination: Temp: [97.7 ??F (36.5 ??C)-98.3 ??F (36.8 ??C)] 98.3 ??F (36.8 ??C) Heart Rate: [65-83] 68 Resp: [15-18] 18 BP: (155-199)/(67-87) 197/87 General: awake, sitting in bed HEENT: Normocephalic, trachea midline GCS: 4-5-6 CN: Pupillary Response: + Pupils Corneal Reflex: present Cough: present Orientation: alert, oriented x 3 (person, place, and time) Language: speech fluent and appropriate and dysarthric Other: EOMI, PERRL, and face grossly symmetric Motor: Follows commands in BL, full strength throughout Sensation: sensation intact to light touch and symmetric in bilateral upper and lower extremities Coordination: no bilateral upper extremity drift or dysmetria on [id number] assessments Labs: Na/K/Cl/CO2: 139/3.7/106/26 (04/30 0708) WBC/Hgb/Hct/Plts: 4.7/14.3/41.5/234 (04/30 0708) Imaging Review I personally reviewed demonstrating, by my read, as above ASSESMENT & PLAN 69 y.o. female p/w PMHx HTN, HLD, breast ca, and prior cervical fusion who presents with new left sided weakness and dysarthria. She reports 2 episodes of above symptoms which self resolved after a few minutes. Patient does not have a prior history of TIA/CVA. CTA with 90% stenosis on the right internal carotid bulb and proximal ICA. Patient currently GCS 15. Neurosurgery consulted for further evaluation and management. Given the imaging findings and patients clinical condition CEA is favored. PLAN: - CTA head/neck reviewed showing significant stenosis of the Right ICA at the level of the bifurcation around C5 - Lesion below Ac's line thus amendable to operative intervention - MRI reviewed that demonstrates evidence of acute infarct but not an overwhelming stroke burden that would potentially delay surgery - Recommend medicine clearance for possible CEA v. KAYLIE - please document RCRI - Recommend continuing heparin gtt at this time - Discussed operative plan with staff - timing likely 10-14 days. If further questions or concerns should arise, do not hesitate to contact the neurosurgery residenton call, [phone]. Angela Porter MD Neurosurgery Resident ([id number]) 5:12 AM 05/01/2025 Cosigned by Larry Early MD at 05/03/2025 12:07 PM EDT Associated attestation - Larry Early MD - 05/03/2025 12:07 PM EDT Neurosurgery Attending Attestation I saw and examined the patient and discussed the case with the resident and agree with the findingson 05.01 and plan as documented in the resident???s note. Larry Early MD, FACS, FAANS Vascular and Endovascular Neurosurgery Dept of Neurological Surgery [facility] 05/03/2025 12:07 PM * Kelly Gill PharmD - 04/30/2025 4:15 PM EDT Clinical Pharmacy Progress Note: Pharmacotherapy Stewardship Transitions of Care A prescription for ticagrelor was sent to [facility] as authorized by the primary team. Themedication was covered by the patient's insurance. This medication has a patient copay of $21. There were no identified barriers to medication access. The team was notified; no further transitions of care needs identified at this time. Dixie Gill PharmD, BCPS, CTTS Clinical Courtesy Booth Cashier, Neurology / Internal Medicine Preferred contact: [employer] Phone: [phone] 04/30/2025 4:15 PM * Robinson Alarcon MD - 04/30/2025 7:24 AM EDT Images from the original note were not included. [facility] Neurology Department Daily Progress Note Chief Complaint / Brief hospital summary CC: Transient left sided weakness, numbness, dysarthria, facial droop HPI: Jaymie Nelson is a 69 y.o. female with PMH HTN, HLD, hx breast cancer (left side lumpectomy s/p radiation 2018), cervical spine stenosis s/p decompression/fusion 2014 with repeated rhizotomies C3-5, b12 deficiency, kidney stones, migraines, depression, anxiety, arthritis, that initially presented to [facility] with transient left sided weakness, numbness, dysarthria, facial droop. Patient found to have >90% stenosis of R internal carotid bulb and proximal ICA and transferred to hospital for further evaluation. She is asymptomatic upon arrival to and was started on a heparin gtt the morning of admission (04/29). MRI revealed multifocal scattered cortical and subcortical infarcts in the right frontoparietal region. Interval History / Subjective - NAEO. - Patient started on minimal dose no bolus heparin gtt yesterday - Had MRI last night revealing multifocal scattered cortical and subcortical infarcts in the right frontoparietal region. - Afebrile and HDS. SBP improved from 170s to 140s. - hptt therapeutic x3. AM labs stable - Patient resting comfortably in bed this morning without deficits or concerns. - CTH stability scan did not show any hemorrhage. Daily Plan: - Increase heparin gtt to low dose no bolus (hptt goal 80-110) - Continue ASA81 - Consulted NSGY for R CEA eval -- Will consider transitioning to DAPT in future, pending surgical plan - Low threshold to repeat imaging and upgrade to stepdown status if any change in exam/return of symptoms. Medications See MAR Vital Signs / Intake & Output Temp: [97.7 ??F (36.5 ??C)-98.2 ??F (36.8 ??C)] 97.7 ??F (36.5 ??C) Heart Rate: [61-86] 65 Resp: [14-22] 18 BP: (147-165)/(60-109) 159/67 Intake/Output Summary (Last 24 hours) at 04/30/2025 1033 Last data filed at 04/29/2025 1736 Gross per 24 hour Intake 53.03 ml Output -- Net 53.03 ml Physical Exam Physical Exam: General Exam: Pt in NAD CV: RRR, no edema Lungs: Breathing comfortably on room air, no wheezing Neurologic Physical Exam: Cognitive: Alert and interactive Language/Speech: Language without aphasia. Speech spontaneous and fluent, no paraphasic errors, no slurring of speech CN: CN II: PERRL CN III/IV/: Extraocular movements intact CN V: Facial sensation normal in V1, V2, V3 bilaterally CN VII: Face grossly symmetric at rest and with smile. CN VIII: Hearing intact CN IX/X: palate elevation symmetric CN XII: Tongue protrudes midline Motor: Moves all extremities spontaneously and antigravity without drift. Sensory: intact symmetrically to light touch in BUE and BLE. Coordination/Cerebellum: No dysmetria with finger to nose bilaterally Laboratory Data Reviewed in Epic A1C 5.7, LDL 77, TSH 2.14 Diagnostic Studies MRI Brain without contrast Assessment & Plan Jaymie Nelson is a 69 y.o. female with PMH HTN, HLD, hx breast cancer (left side lumpectomy s/pradiation 2018), cervical spine stenosis s/p decompression/fusion 2014 with repeated rhizotomies C3-5, b12 deficiency, kidney stones, migraines, depression, anxiety, arthritis, presented from OSH with transient left sided numbness/weakness that has since resolved. Patient found to have multifocal scattered acute infarcts in the R frontal and parietal lobes in the setting of severe R ICA stenosis. #Multifocal acute R frontal and parietal strokes #C/b Critical R ICA stenosis (>90%) on heparin gtt #Transient left sided numbness/weakness, resolved Patient initially presented to OSH with transient left sided weakness, numbness, and dysarthria (LKW 04/28 1330) that ultimately resolved spontaneously. CTA H/N at the OSH revealed critical R ICA stenosis (>90%) so patient was transferred to neurology on 04/29 and started on a heparin gtt. MRI was obtained and revealed multifocal acute cortical/subcortical infarcts in the R frontal and R parietal lobes. Etiology of these strokes is most likely thromboembolic in the setting of severe R ICA stenosis. Patient is currently stable without residual deficits. She is pending potential R CEA with neurosurgery. PLAN: - Increase heparin gtt to low dose no bolus (hptt goal 80-110) - Continue [id number], Atovastatin 20mg - Consult NSGY for R CEA evaluation -- Will consider transitioning to DAPT in future, pending surgical plan - TTE with bubble to evaluate for cardiac source or shunt - q4h neuro checks - NIHSS q12h - telemetry - PT/OT/Speech consulted - bedside dysphagia screen prior to diet - stroke nurses consulted #Cervical spine stenosis s/p decompression/fusion - continue home pregabalin 50mg - continue home venlafaxine 75mg - holding home Percocet 0.5mg BID prn #HTN - holding home losartan 100mg (therapeutic interchange valsartan) #Vitamin D deficiency - continue home Vitamin D supplement 50,000 units 2x week #Allergies -Continue home Flonase Checklist: Fluids: no Nutrition: Regular diet Telemetry: yes DVT PPx: heparin gtt low dose no bolus GI PPx: no Restraints: no Lines: 2 piv Catheter: no Family: 04/29 Disposition: Floor status. Code Status: Full Code Signed: Robinson Alarcon MD Neurology Resident Physician, PGY-2 04/30/2025 10:33 AM Cosigned by Damari Trevizo MD at 05/01/2025 5:06 AM EDT Associated attestation - Damari Trevizo MD - 05/01/2025 5:06 AM EDT Images from the original note were not included. I reviewed the history, imaging, clinical and laboratory data and examined the patient with the resident on 04/30/25. I discussed the case with the resident and agree with the findings and plan as documented in the resident???s note, with the following additions: Briefly, Ms. Nelson is a 69 yo F with a h/o HTN, HLD, cervical stenosis s/p decompression (2014), h/o breast ca s/p lumpectomy and radiation (2018), B12 deficiency, ?remote h/o epilepsy, mood d/o and arthritis who presented 04/28 after developing transient L sided weakness, numbness, dysarthria andL facial droop. CT/CTA revealing of >90% stenosis of proximal R ICA. She has remained asymptomatic since arrival to [facility] in the early AM 04/29. Stroke work-up: Lipids: Total chol 139; TG 110; HDL 40; LDL 77; non-HDL 99 HgbA1c: 57.7 EKG: NSR, RBBB; QTc 470 ECHO: LV with normal cavity size, wall motion and systolic fn (EF 60-65%); wall thickness pattern of mild LVH; G1DD, no thrombus; RV with normal cavity size and increased wall thickness, normal fn; No R to L shunt Overnight events: Patient started on ASA and heparin gtt (current hPTT 88) MRI completed: Small R sided cortical/subcortical infarcts noted Patient states that she feels back to her baseline at this time; no additional events. On my exam: NIHSS 0 Assessment: 69 yo F with h/o HTN, HLD, cervical stenosis s/p decompression (2015), h/o breast ca s/p lumpectomy and radiation (2019), B12 deficiency, ?remote h/o epilepsy, mood d/o and arthritis who presented with clinical TIA c/w a R MCA distribution. Her MRI demonstrates some small areas of cortical and subcortical strokes of likely atheroembolic etiology secondary to her severe R ICA stenosis.Her stroke burden is very small, and she is currently asymptomatic, so from neurology standpoint, she is appropriate for an early CEA. Neurosurgery has been consulted and is looking into all of her imaging data in addition to OR schedules to see when they may be able to do her CEA. Will plan to continue ASA/heparin for stroke ppx until a more definitive date for her carotid intervention can be obtained. If patient is to d/c prior to CEA, will plan for ASA/ticagrelor bridge to OR due to severe carotid stenosis. - Continue ASA and heparin gtt (hPTT 80-110, no bolus) - Continue Atorvastatin 40 mg qHS - SBP: allow to autoregulate with 140-200 range - Continue Vitamin D 50,000 Units twice weekly - Continue home lyrica and Effexor-XR - Stroke nurse navigator c/s - Diet: regular with thins - DVT ppx: heparin gtt - Bowel reg: senna-S; miralax (Last BM: None since admission); will need suppository 05/01 if no BM - PT/OT/DATABASES SOFTWARE CONSULTANT cognitive eval; OK for dispo home I spent 75 minutes providing care, interpreting results, documenting, and coordinating the patient's care. I independently reviewed the patient's old medical records, current laboratory results, and radiographic images as outlined in the above note. Damari Trevizo MD Neurology Team 2 Attending * Lucille Webster - 04/30/2025 7:14 AM EDT Images from the original note were not included. [facility] Neurology Department Daily Progress Note Chief Complaint / Brief hospital summary Jaymie Nelson is a 69 y.o. female with a PMHx of Epilepsy in 2004 previously on lamictal for 10years, previous breast cancer in 2019, spinal stenosis s/p decompression and fusion in 2014, cognitive deficit on nemenda and B12, who presents after right facial droop, RUE weakness and dysarthria. Interval History / Subjective - NAEO - PT was awake and alert this AM, laying in bed - Reports feeling good though decided to hold off on ordering breakfast in the case she needs to beNPO - Denies new complaints or sxs - PRN: tylenol 650 mg at 2203 Review of Systems (Focused) Constitutional: Negative for fever. Appetite wnl. Respiratory: Negative for cough and shortness of breath. Cardiovascular: Negative for chest pain, palpitations, or leg swelling. Gastrointestinal: Negative for abdominal pain, N/V, diarrhea and constipation. Neurological: Negative for new numbness, tingling, or focal weakness Medications Scheduled Meds: [Held by provider] aspirin 81 mg Oral Daily 0900 Or [Held by provider] aspirin 300 mg Rectal Daily 899 atorvastatin 20 mg Oral Daily 899 ergocalciferol 50,000 Units Oral Once per day on Sunday polyethylene glycol 17 g Oral Daily 899 pregabalin 50 mg Oral Nightly (2100) venlafaxine 75 mg Oral Daily 09 Continuous Infusions: heparin 10 Units/kg/hr (04/30/25 0929) PRN Meds: acetaminophen OR acetaminophen, ondansetron Vital Signs / Intake & Output Temp: [97.7 ??F (36.5 ??C)-98.2 ??F (36.8 ??C)] 97.7 ??F (36.5 ??C) Heart Rate: [61-86] 65 Resp: [9-22] 18 BP: (147-183)/(60-109) 159/67 Intake/Output Summary (Last 24 hours) at 04/30/2025 0955 Last data filed at 04/29/2025 1736 Gross per 24 hour Intake 53.03 ml Output -- Net 53.03 ml Physical Exam General Medical Exam CONSTITUTIONAL: well-appearing in no acute distress, appears stated age EYES: Pupils round and reactive, no conjunctival injection, HENT: normocephalic, atraumatic, Hearing is grossly normal, oropharynx reveals normal mucosa, palate, and tongue. CV: regular rate, no significant peripheral edema RESP: No accessory muscle use, no increased WOB on RA SKIN: warm, dry PSYCH: Appropriate behavior, calm mood Neurologic Exam Mental Status: Level of consciousness: awake and alert to voice Orientation: oriented to self, year, month, day, date, situation. Attention/concentration: able to attend exam well; Language: normal fluency/word-finding in conversation, no notable paraphasic errors, able to repeat it's a becka day in [place] Speech: clear, coherent, goal-directed, spontaneous, without notable dysarthria Memory: Intact to remote and recent events in conversation. No left-right confusion, no finger agnosia, no signs of neglect on exam Cranial Nerves: II, III: PERRL bilaterally, no APD III, IV, : Gaze conjugate, EOMI with normal saccades/smooth pursuit, no nystagmus V: Facial sensation to light touch intact in V1, V2, V3 VII: Facial motion and strength was intact/symmetric IX/X: Symmetric palatal elevation XI: Sternocleidomastoid strong bilaterally XII: Tongue exam reveals normal power and midline protrusion Motor: Normal bulk. No signs of atrophy. No rest tremor noted. Strength: R L R L Deltoid 4+ 4+ Hip Flex 4+ 4+ Biceps 4+ 4+ Quadriceps 4+ 4+ Triceps 4+ 4+ Hamstrings 4+ 4+ Wrist Ext Plantar Flex 4+ 4+ Wrist Flex Ankle Dorsiflex 4+ 4+ IO Basketball Coach Coordination: Finger nose finger revealed no dysmetria Heel to murray was normal Sensory: - Intact to light touch in bilateral upper/lower extremities Reflexes: Not tested Gait and Station: Not tested NIH Stroke Scale 1a Level of consciousness: 0 1b. LOC questions: 0 1c. LOC commands: 0 2. Best Gaze: 0 3. Visual: 0 4. Facial Palsy: 0 5a. Motor left arm: 0 5b. Motor right arm: 0 6a. motor left le 6b Motor right le 7. Limb Ataxia: 0 8. Sensory: 0 9. Best Language: 0 10. Dysarthria: 0 11. Extinction and Inattention: 0 Total: 0 Laboratory Data Reviewed interval lab data. Pertinent for: Latest Reference Range & Units 04/30/25 07:08 Sodium 133 - 146 mmol/L 139 Potassium 3.5 - 5.3 mmol/L 3.7 Chloride 98 - 110 mmol/L 106 Carbon Dioxide (CO2) 21 - 33 mmol/L 26 Anion Gap 3 - 16 mmol/L 7 BUN 7 - 25 mg/dL 10 Creatinine 0.60 - 1.30 mg/dL 0.61 Glucose 70 - 100 mg/dL 88 EGFR >90 Calcium 8.6 - 10.3 mg/dL 9.3 Phosphorus 2.1 - 4.5 mg/dL 3.1 Magnesium 1.5 - 2.5 mg/dL 1.8 Albumin 3.5 - 5.7 g/dL 3.8 Calculated Osmolality, Serum 278 - 305 mOsm/kg 286 Latest Reference Range & Units 04/30/25 07:08 WBC 3.8 - 10.8 10E3/uL 4.7 RBC 3.80 - 5.10 10E6/uL 4.78 Hemoglobin 11.7 - 15.5 g/dL 14.3 Hematocrit 35.0 - 45.0 % 41.5 MCV 80.0 - 100.0 fL 86.8 MCH 27.0 - 33.0 pg 29.9 MCHC 32.0 - 36.0 g/dL 34.4 RDW 11.0 - 15.0 % 13.1 Platelet Count 140 - 400 10E3/uL 234 MPV 7.5 - 11.5 fL 8.5 Latest Reference Range & Units 04/29/25 09:59 Protime 12.1 - 15.1 seconds 13.9 INR 0.9 - 1.1 1.0 APTT 25.5 - 35.0 seconds 33.2 Latest Reference Range & Units 04/29/25 15:58 04/29/25 22:16 04/30/25 07:08 hPTT 90.0 - 130.0 seconds 64.0 (L) 75.4 (L) 88.4 (L) (L): Data is abnormally low Latest Reference Range & Units 04/29/25 05:18 Hemoglobin A1C 4.0 - 5.6 % 5.7 (H) (H): Data is abnormally high Diagnostic Studies MRI Head WO contrast Narrative: EXAM: MRI BRAIN WO CONTRAST INDICATION: Acute Stroke TECHNIQUE: MRI brain performed including multiplanar T1 and T2 weighted sequences. COMPARISON: None available. FINDINGS: Adequate diagnostic quality. Brain parenchyma, ventricles, and extraaxial spaces: Proportionate enlargement of sulci and ventricles. Multifocal diffusion restriction involving the right frontal and parietal lobes, predominantly in a cortical and subcortical distribution with corresponding T2/FLAIR hyperintense signal. Scattered remote lacunar infarcts of the right centrum semiovale. Otherwise, scattered white matter T2/FLAIRhyperintensities. Mild diffuse atrophy. No hemorrhagic staining. Normal pituitary gland, optic chiasm, and cerebellar tonsils. No extra-axial fluid collection. Marrow signal of calvarium and skull base: Normal. Orbits, paranasal sinuses, and mastoid regions: No acute orbital abnormality. Minimal paranasal sinus mucosal thickening. Mild right mastoid opacification/fluid. Vascular structures: Grossly maintained arterial and venous flow voids. Patient reportedly had outside CTA performed which is not available within our system for viewing. Other: Normal included extracranial structures. Upper cervical spine without significant abnormality. Impression: IMPRESSION: 1. Acute multifocal, predominantly cortical/subcortical right frontal and parietal infarcts. 2. No associated petechial hemorrhage. 3. Background mild small vessel disease, mild atrophy, and scattered remote lacunar-type infarcts. Approved by Regis Redman MD on 04/30/2025 8:09 AM EDT I have personally reviewed the images and I agree with this report. Report Verified by: Moses Ortiz DO at 04/30/2025 9:40 AM EDT X-ray Comparison Images Images associated with this accession number were presented to us for comparison to an examination performed here. X-ray Comparison Images Images associated with this accession number were presented to us for comparison to an examination performed here. Assessment & Plan Jaymie Nelosn is a 69 y.o. female with a PMHx of Epilepsy in 2004 previously on lamictal for 10years, previous breast cancer in 2019, spinal stenosis s/p decompression and fusion in 2014, cognitive deficit on nemenda and B12, who presents after right facial droop, RUE weakness and dysarthria. Today is Hospital Day 1. # W/U for acute ischemic stroke # Severe stenosis > 90% of R internal carotid bulb and proximal ICA Given acute presentation of dysarthria, RUE weakness and facial droop concern for stroke. NIHSS score of 3 at OSH. CTA H/N showed severe stenosis > 90% of R internal carotid bulb and proximal ICA.NIH of 0 at arrival to [facility]. ABCD score of 6 points; 2-Day Stroke Risk of 8.1%, 7-Day Stroke Risk of 11.7% and 90-Day Stroke Risk of 17.8%. Preliminary read on MRI DWI shows acute multifocal strokes in the cortical and subcortical right frontal and parietal infarcts with corresponding T2/FLAIR hyperintense signal. No associated petechial hemorrhage. Likely cardioembolic etiology due to only cortical involvement. Possible source of emboli is severe stenosis of the R internal carotid bulb and proximal ICA; the new strokes on MRI appear on R side. Pt reports no new complaints or sxs AM 04/30. NIHscore of 0 this AM. - increase heparin dose to an aPTT goal of 80-110 no bolus - Neurosurg recs - Pre-op eval for Carotid endarterectomy (CEA) and carotid artery stenting (KAYLIE) - NSG will determine if procedure same admission or scheduled for future in couple of weeks - continue aspirin 81 mg - increase atorvastatin from 20 to 40mg qD - Will obtain CT head w/o contrast for hemorrhagic conversion since she is therapeutic x3 - Will obtain TTE with bubble - q4h neuro checks - NIHSS q12 h - CMU/tele - PT/OT: No SNF - DATABASES SOFTWARE CONSULTANT consult: Regular diet thin liquids; Passed Swallow screen - consulted stroke nurse - recommend patient to sit in chair out of bed most of the daytime and ambulate as tolerated #Cervical spine stenosis s/p decompression/fusion - continue home pregabalin - continue home venlafaxine - continue home percocet #HTN Given concern for CVD as the cause for stroke like sxs, would want to allow auto-regulation of blood pressure. - hold home losartan - SBP goal of < 200 #Vitamin D Deficiency - continue home Vitamin D supplement 50,000 units 2x week #Allergies - continue home Flonase #FEN/Nutrition - Miralax packet on 05/01/25 if no BM on this admission Checklist: Nutrition: Diet/Nutrition Orders Diet Regular(7) Frequency: Effective Now Number of Occurrences: Until Specified Order Questions: Suicide/Behavior Risk Modification? No DVT Prophy: heparin drip Bowel Regimen: miralax Restraints: Reviewed Lines/Drains: 2 IV peripheral, RUE, LUE Port Access?: No Pain Management: tylenol 650 mg Precautions/Isolation: none IVF: none Tele: yes continuous Disposition: Anticipated home 05/04 PT Interventions and Frequency: PT Frequency: Discharge from PT PT Recommendations: Recommendation: No skilled PT Equipment Recommended: None OT Interventions and Frequency: OT Frequency: Discharge from OT OT Recommendations: Recommendation: No skilled OT Equipment Recommendations: None DATABASES SOFTWARE CONSULTANT recs: Diagnosis: WFL Services: Discharged from DATABASES SOFTWARE CONSULTANT therapy # Code Status: Full Code Signed: LUCILLE [facility] [place] 04/30/2025, 9:55 AM Cosigned by Damari Trevizo MD at 05/01/2025 5:07 AM EDT Associated attestation - Damari Trevizo MD - 05/01/2025 5:07 AM EDT I reviewed the history, imaging, clinical and laboratory data and examined the patient with the [id number] rounds on 04/30/25. Please see my attestation with the resident progress note from this date for additional details. Damari Trevizo MD Neurology Team 2 Attending * Alem Alvarez, OT - 04/29/2025 10:10 AM EDT Occupational Therapy Initial Assessment and Discharge Name: Jaymie Nelson : 1955 Attending Physician: Manolo Manning DO Admission Diagnosis: Stroke Date: 04/29/2025 Room: [address] Reviewed Pertinent hospital course: Yes Hospital Course PT/OT: 69 yo female presents from OSH with L sided weakness and dysarthria. CT angio (@ OSH) - 90% occlusion of L ICA. MRI Head pending. Relevant PMH : HTN, HLD, hx breast cancer (left side lumpectomy s/p radiatio 2018), cervical spine stenosis s/p decompression/fusion 2014, b12 deficiency, kidney stones, migraines, depression, anxiety, arthritis Precautions: none Activity Level: Activity as tolerated Assist: Co-evaluation performed Recommendation Recommendation: No skilled OT Equipment Recommendations: None Assessment Assessment: No acute impairments Prognosis for OT goals: Good Pt was pleasant and agreeable to OT. Pt completed all functional mobility IND. Pt reports resolution of numbness and aphasia that prompted her initial presentation. Pt presents with symmetrical strength in BUE, mild weakness in L shoulder that she reports is normal. Pt reports no concerns for safety, ADL performance, or functional mobility in the home environment. D/C from OT services at this time. Re-consult if new OT needs arise. Outcome Measures AM-PAC 6 Clicks Daily Activity Inpatient Short Form: OT 6 Clicks Score: 24 Home Living/Prior Function Patient able to provide accurate information at this time: Yes Lives With: Spouse Assistance available: 24 hour assistance Type of Home: House Home Entry: 1 step to enter Home Layout: Two level, Laundry in basement, Performs ADL's on one level Bathroom Shower/Tub: Tub/shower unit, Walk-in shower Bathroom Toilet: Standard Bathroom Equipment: none Home Equipment: Single-point cane, Crutches Prior Function Functional Mobility: Independent ( no assistive device) Receives Help From: None needed prior to admission ADL Assistance: Independent IADL Assistance: Independent Vocation: Retired Leisure: Hobbies-yes (Comment) Leisure Activities: sew, take care of chicken Pain Pain Score: 0 - No Pain Cognition Overall Cognitive Status: Within Functional Limits Cognitive Assessment: Arousal/ Alertness;Orientation Level;Behavior;Following Commands;Safety Judgment;Insight;Communication Arousal/Alertness: Alert Orientation Level: Oriented X4 Behavior: Appropriate;Cooperative Following Commands: Follows all commands and directions without difficulty Safety Judgment: Good awareness of safety precautions Vision Hearing: No hearing deficits noted Baseline Vision: Wears glasses all the time Overall Vision/ Perception: Within Functional Limits Right Upper Extremity Right UE ROM: Grossly WFL as observed during functional activities Right UE Strength: Grossly WFL (at least 3+/5) as observed during functional activities Right UE Muscle Tone: Normal Right Hand Function: Grossly WFL as observed during functional activity Left Upper Extremity Left UE ROM: Grossly WFL as observed during functional activities Left UE Strength: WFL except Left UE Strength Comment: shoulder flexion 4/5 Left UE Muscle Tone: Normal Left UE Hand Function: Grossly WFL as observed during functional activites Neuromuscular Overall Sensation: Patient denies any numbness/ tingling in BUE's/ BLEs Additional Comments: reports numbness from initial presentation is completely resolved Functional Mobility Bed Mobility Supine to Sit: Independent Sit to Supine: Independent Transfers Sit to Stand: Independent Stand to Sit: Independent Functional Mobility: Independent Balance Sitting - Static: Independent Sitting-Dynamic: Independent Standing-Static: Independent Standing-Dynamic: Independent Gait belt used: Yes ADL Lower Body Dressing: Independent Location Assessed LE Dressing: Seated edge of bed Position after Treatment/Safety Handoff Position after therapy session: Bed Details: RN notified;Call light/ needs within reach;visitor present Alarms: Bed Alarms Status: Not needed-patient on [place] fall risk precautions with other interventions in place Plan Plan OT Frequency: Discharge from OT The plan of care and recommendations assesses the patient's and/or caregiver's readiness, willingness, and ability to provide or support functional mobility and ADL tasks as needed upon discharge. Goals Goals to be met in: (no acute care OT goals identified) Patient stated goal: to go home Collaborated with: Patient Patient/Family Education Educated patient on the role of occupational therapy, OT plan of care, discharge recommendation, ADL training, functional mobility training, and the importance of safety and fall prevention strategies including need for supervision/ assistance with OOB activity and use of call light. patient verbalized understanding. OT Time Start Time: 917 Stop Time: 931 Time Calculation (min): 14 min OT Charges $OT Evaluation Low Complex 30 Min: 1 Procedure Problem List Problem List[1] Past Medical History No past medical history on file. Past Surgical History No past surgical history on file. [1] There is no problem list on file for this patient. * Quita Bhandari, PT - 04/29/2025 10:03 AM EDT Physical Therapy Physical Therapy Initial Assessment and Discharge Name: Jaymie Nelson : 1955 Attending Physician: Manolo Manning DO Admission Diagnosis: Stroke Date: 04/29/2025 Room: [address] Reviewed Pertinent hospital course: Yes Hospital Course PT/OT: 69 yo female presents from OSH with L sided weakness and dysarthria. CT angio (@ OSH) - 90% occlusion of L ICA. MRI Head pending. Relevant PMH : HTN, HLD, hx breast cancer (left side lumpectomy s/p radiatio 2018), cervical spine stenosis s/p decompression/fusion 2014, b12 deficiency, kidney stones, migraines, depression, anxiety, arthritis Precautions: none Activity Level: Activity as tolerated Assist: Co-evaluation performed Assessment Assessment: No impairments Pt demonstrates independence with functional mobility. Pt without additional acute PT needs. Recommendation Recommendation: No skilled PT Equipment Recommended: None AM-PAC 6 Clicks Basic Mobility Inpatient Short Form: PT 6 Clicks Score: 24 Mobility Recommendations for Staff Patient ability: Patient ambulates in hallway Assist needed: independently Home Living/Prior Function Patient able to provide accurate information at this time: Yes Lives With: Spouse Assistance available: 24 hour assistance Type of Home: House Home Entry: 1 step to enter Home Layout: Two level;Laundry in basement;Performs ADL's on one level Bathroom Shower/Tub: Tub/shower unit;Walk-in shower Bathroom Toilet: Standard Bathroom Equipment: none Home Equipment: Single-point cane;Crutches Prior Function Functional Mobility: Independent ( no assistive device) Receives Help From: None needed prior to admission ADL Assistance: Independent IADL Assistance: Independent Vocation: Retired Leisure Activities: sew, take care of chicken Pain Pain Score: 0 - No Pain Vision Hearing/Vision/Perception Hearing: No hearing deficits noted Baseline Vision: Wears glasses all the time Overall Vision/ Perception: Within Functional Limits Cognition Overall Cognitive Status: Within Functional Limits Cognitive Assessment: Arousal/ Alertness;Orientation Level;Behavior;Following Commands;Safety Judgment;Insight;Communication Arousal/Alertness: Alert Orientation Level: Oriented X4 Behavior: Appropriate;Cooperative Following Commands: Follows all commands and directions without difficulty Safety Judgment: Good awareness of safety precautions Neuromuscular Overall Sensation: Patient denies any numbness/ tingling in BUE's/ BLEs Additional Comments: reports numbness from initial presentation is completely resolved Upper Extremity UE Assessment: Defer to OT evaluation for formal assessment Lower Extremity Lower Extremity LE Assessment: 5/5 strength bilaterally Functional Mobility Bed Mobility Supine to Sit: Independent Sit to Supine: Independent Transfers Sit to Stand: Independent Gait Distance (in feet): 200' Level of assistance: Independent Assistive Device: None Gait Characteristics: Steady;No LOB Balance Sitting - Static: Independent Sitting-Dynamic: Independent Standing-Static: Independent Standing-Dynamic: Independent Gait belt used: No Position after Therapy/Safety Handoff Position after treatment and safety handoff Position after therapy session: Bed Details: RN notified;visitor present;Call light/ needs within reach Alarms: Bed Alarms Status: Not needed-patient on [place] fall risk precautions with other interventions in place Goals No PT goals established secondary to patient with no acute skilled PT needs. Patient stated goal(s)is/are to go home--addressed at time of eval. Discharge patient from inpatient PT services at this time. Patients and/or caregivers as well as practitioners mutually agreed upon the above goal(s)/plan. Patient/Family Education Educated patient on the role of physical therapy, goals, plan of care, and discharge recommendations and fall prevention strategies, including use of call light; patient verbalized understanding and demonstrated understanding. Handout(s) issued: none. Plan Plan PT Frequency: Discharge from PT The plan of care and recommendations assesses the patient's and/or caregiver's readiness, willingness, and ability to provide or support functional mobility and ADL tasks as needed upon discharge. Time Start Time: 917 Stop Time: 930 Time Calculation (min): 13 min Charges $PT Evaluation Low Complex 20 Min: 1 Procedure Problem List Problem List[1] Past Medical History No past medical history on file. Past Surgical History No past surgical history on file. [1] There is no problem list on file for this patient. * Lucille Caballerooval - 04/29/2025 8:30 AM EDT Images from the original note were not included. [facility] Neurology Department Daily Progress Note Chief Complaint / Brief hospital summary Jaymie Nelson is a 69 y.o. female with a PMHx of Epilepsy in 2004 previously on lamictal for 10years, previous breast cancer in 2019, spinal stenosis s/p decompression and fusion in 2014, cognitive deficit on nemenda and B12, who presents after right facial droop, RUE weakness and dysarthria. Interval History / Subjective - Pt was awake and alert this AM - Reports full resolution of sxs - Pt states she is hungry and would like food. Discussed with pt the need to discuss surgical intervention with NSG before removing NPO status. - Denies any other complaints Review of Systems (Focused) Constitutional: Negative for fever. Appetite wnl. Respiratory: Negative for cough and shortness of breath. Cardiovascular: Negative for chest pain, palpitations, or leg swelling. Gastrointestinal: Negative for abdominal pain, N/V, diarrhea and constipation. Neurological: Negative for new numbness, tingling, or focal weakness Medications Scheduled Meds: aspirin 81 mg Oral Daily 0900 Or aspirin 300 mg Rectal Daily 0900 atorvastatin 20 mg Oral Daily 0900 [START ON 04/30/2025] cholecalciferol (vitamin D3) 50,000 Units Oral Twice Weekly fluticasone propionate 2 spray Nasal Daily 0900 pregabalin 50 mg Oral Nightly (2100) [Held by provider] valsartan 160 mg Oral Daily 0900 venlafaxine 75 mg Oral Daily 0900 Continuous Infusions: heparin 12 Units/kg/hr (04/29/25 1000) PRN Meds: acetaminophen OR acetaminophen Vital Signs / Intake & Output Temp: [98.4 ??F (36.9 ??C)-98.5 ??F (36.9 ??C)] 98.5 ??F (36.9 ??C) Heart Rate: [65-82] 65 Resp: [9-20] 9 BP: (171-187)/(70-85) 183/74 No intake or output data in the 24 hours ending 04/29/25 1031 Physical Exam General Medical Exam CONSTITUTIONAL: well-appearing in no acute distress, appears stated age EYES: Pupils round and reactive, no conjunctival injection, HENT: normocephalic, atraumatic, Hearing is grossly normal, oropharynx reveals normal mucosa, palate, and tongue. CV: regular rate, no significant peripheral edema RESP: No accessory muscle use, no increased WOB on R SKIN: warm, dry PSYCH: Appropriate behavior, calm mood, congruent affect, no audiovisual hallucinations mentioned Neurologic Exam Mental Status: Level of consciousness: alert and awake Orientation: oriented to self, year, month, day, date, situation. Attention/concentration: able to attend exam well; Language: normal fluency/word-finding in conversation, no notable paraphasic errors, able to followverbal commands. able to repeat it's a becka day in [place] Speech: clear, coherent, goal-directed, spontaneous, without notable dysarthria Memory: Intact to remote and recent events in conversation. No left-right confusion, no finger agnosia, no signs of neglect on exam Praxis: intact bilateral ideomotor and conductive praxis in upper extremities, intact in bilateral lower extremities Cranial Nerves: II, III: VFF intact to finger count, PERRL bilaterally, no APD III, IV, : Gaze conjugate, EOMI with normal saccades/smooth pursuit, nonystagmus V: Facial sensation to light touch intact in V1, V2, V3 VII: Facial motion and strength was intact/symmetric VIII: Hearing intact to finger rub IX/X: Symmetric palatal elevation XI: Sternocleidomastoid strong bilaterally XII: Tongue exam reveals normal power and midline protrusion Motor: Normal bulk. No signs of atrophy. No rest tremor noted. There was no pronator drift noted. Strength: See yomi resident's note. Coordination: Finger nose finger revealed no dysmetria Sensory: - Intact to light touch in the bilateral upper/lower extremities Reflexes: Not tested Gait and Station: Not tested NIH Stroke Scale 1a Level of consciousness: 0 1b. LOC questions: 0 1c. LOC commands: 0 2. Best Gaze: 0 3. Visual: 0 4. Facial Palsy: 0 5a. Motor left arm: 0 5b. Motor right arm: 0 6a. motor left le 6b Motor right le 7. Limb Ataxia: 0 8. Sensory: 0 9. Best Language: 0 10. Dysarthria: 0 11. Extinction and Inattention: 0 Total: 0 Laboratory Data Reviewed interval lab data. Pertinent for: Latest Reference Range & Units 04/29/25 05:18 04/29/25 09:59 Cholesterol, Total 0 - 200 mg/dL 139 Triglycerides, Serum 10 - 149 mg/dL 110 HDL 60 - 92 mg/dL 40 (L) Non-HDL Cholesterol, Calculated 0 - 129 mg/dL 99 LDL Cholesterol mg/dL 77 WBC 3.8 - 10.8 10E3/uL 6.1 5.3 RBC 3.80 - 5.10 10E6/uL 4.67 4.72 Hemoglobin 11.7 - 15.5 g/dL 13.6 13.6 Hematocrit 35.0 - 45.0 % 40.6 40.7 MCV 80.0 - 100.0 fL 87.1 86.3 MCH 27.0 - 33.0 pg 29.1 28.8 MCHC 32.0 - 36.0 g/dL 33.5 33.3 RDW 11.0 - 15.0 % 13.2 13.4 Platelet Count 140 - 400 10E3/uL 239 227 MPV 7.5 - 11.5 fL 8.4 8.4 Protime 12.1 - 15.1 seconds 13.9 INR 0.9 - 1.1 1.0 APTT 25.5 - 35.0 seconds 33.2 Hemoglobin A1C 4.0 - 5.6 % 5.7 (H) TSH 0.45 - 4.12 uIU/mL 2.14 (L): Data is abnormally low (H): Data is abnormally high Diagnostic Studies Review chart for OSH CTA H/N. Assessment & Plan Jaymie Nelson is a 69 y.o. female with a PMHx of Epilepsy in 2004 previously on lamictal for 10years, previous breast cancer in 2019, spinal stenosis s/p decompression and fusion in 2014, cognitive deficit on nemenda and B12, who presents after right facial droop, RUE weakness and dysarthria. Today is Hospital Day 0. # W/U for acute ischemic stroke vs TIA # Severe stenosis > 90% of R internal carotid bulb and proximal ICA Given acute presentation of dysarthria, RUE weakness and facial droop concern for stroke. NIHSS score of 3 at OSH. CTA H/N showed severe stenosis > 90% of R internal carotid bulb and proximal ICA.NIH of 0 at arrival to [facility], possibly TIA. ABCD score of 6 points; 2-Day Stroke Risk of 8.1%, 7-DayStroke Risk of 11.7% and 90-Day Stroke Risk of 17.8%. - MRI brain - continue aspirin 91 mg - heparin drip minimal dose - will consult NSG - continue atorvastatin 20 mg - will obtain TTE with bubble - q4h neuro checks - NIHSS q12h - CMU/tele continuous - will consult PT/OT/DATABASES SOFTWARE CONSULTANT - will consult stroke nurse #Cervical spine stenosis s/p decompression/fusion - continue home pregabalin - continue home venlafaxine - continue home percocet #HTN Given concern for CVD as the cause for stroke like sxs, would want to allow auto-regulation of blood pressure. - hold home losartan #Vitamin D Deficiency - continue home Vitamin D supplement 50,000 units 2x week #Allergies - continue home Flonase Checklist: Nutrition: Diet/Nutrition Orders Diet Regular(7) Frequency: Effective Now Number of Occurrences: Until Specified Order Questions: Suicide/Behavior Risk Modification? No DVT Prophy: heparin drip Bowel Regimen: none Restraints: Reviewed Lines/Drains: 1 peripheral IV Port Access?: no Pain Management: tylenol Precautions/Isolation: none IVF: none Tele: yes, continuous Disposition: PT Interventions and Frequency: PT Frequency: Discharge from PT PT Recommendations: Recommendation: No skilled PT Equipment Recommended: None OT Interventions and Frequency: OT Frequency: Discharge from OT OT Recommendations: Recommendation: No skilled OT Equipment Recommendations: None DATABASES SOFTWARE CONSULTANT recs: # Code Status: Full Code Signed: LUCILLE [facility] [place] 04/29/2025, 10:31 AM Cosigned by Manolo Manning DO at 04/30/2025 3:45 PM EDT Associated attestation - Manolo Manning DO - 04/30/2025 3:45 PM EDT I discussed this case with the medical student on 04/29. * Robinson Alarcon MD - 04/29/2025 7:26 AM EDT Images from the original note were not included. [facility] Neurology Department Daily Progress Note Chief Complaint / Brief hospital summary CC: left sided weakness, numbness, dysarthria, facial droop HPI: Jaymie Nelson is a 69 y.o. female with PMH HTN, HLD, hx breast cancer (left side lumpectomy s/p radiation 2018), cervical spine stenosis s/p decompression/fusion 2014 with repeated rhizotomies C3-5, b12 deficiency, kidney stones, migraines, depression, anxiety, arthritis, presenting as a transfer from [facility] after presenting with acute onset left sided weakness, numbness, dysarthria, facial droop. Patient found to have >90% stenosis of R internal carotid bulb and proximal ICA and transferred to [facility] for further evaluation. She is asymptomatic upon arrival without residual deficits. Started on a heparin gtt the morning of admission (04/29). Interval History / Subjective - NAEO. Patient resting comfortably in bed this morning without deficits. States she is hungry but otherwise is without concerns. - Afebrile. BP 170s/80s. - Labs stable. LDL 77, A1c pending. Daily Plan: - Start heparin gtt minimal dose no bolus (hptt goal 60-80) - Continue ASA81 - MRI brain scheduled 1030pm - Consult NSGY for CEA eval after MRI - SBP goal < 200 - Low threshold to upgrade to stepdown status if any change in exam/return of symptoms. Medications See MAR Vital Signs / Intake & Output Temp: [98.4 ??F (36.9 ??C)-98.5 ??F (36.9 ??C)] 98.5 ??F (36.9 ??C) Heart Rate: [65-82] 82 Resp: [12-20] 20 BP: (171-187)/(70-85) 171/82 No intake or output data in the 24 hours ending 04/29/25 0727 Physical Exam Physical Exam: General Exam: Pt in NAD CV: RRR, no edema Lungs: Breathing comfortably on room air, no wheezing Neurologic Physical Exam: Cognitive: Alert and Oriented to person, place, date, situation. Language/Speech: Language without aphasia. Speech spontaneous and fluent, no paraphasic errors, no slurring of speech, able to name objects, able to repeat today is a becka day CN: CN II: VF intact to fingercount without extinction. PERRL CN III/IV/: Extraocular movements intact CN V: Facial sensation normal in V1, V2, V3 bilaterally CN VII: Very mild ?R nasolabial fold flattening with smile. Remaining facial motion intact and symmetric. CN VIII: Hearing intact CN IX/X: palate elevation symmetric CN XII: Tongue protrudes midline Motor: R L R L Deltoid 5 5 Hip Flex 5 5 Biceps 5 5 Triceps 5 5 Sensory: intact symmetrically to light touch in BUE and BLE. Coordination/Cerebellum: No dysmetria with finger to nose bilaterally NIH Stroke Scale: Performed by Robinson Alarcon 8am 04/29 1a Level of consciousness: 0=alert; keenly responsive 1b. LOC questions: 0=Performs both tasks correctly 1c. LOC commands: 0=Performs both tasks correctly 2. Best Gaze: 0=normal 3. Visual: 0=No visual loss 4. Facial Palsy: 0=Normal symmetric movement 5a. Motor left arm: 0=No drift, limb holds 90 (or 45) degrees for full 10 seconds 5b. Motor right arm: 0=No drift, limb holds 90 (or 45) degrees for full 10 seconds 6a. motor left le=No drift, limb holds 90 (or 45) degrees for full 10 seconds 6b Motor right le=No drift, limb holds 90 (or 45) degrees for full 10 seconds 7. Limb Ataxia: 0=Absent 8. Sensory: 0=Normal; no sensory loss 9. Best Language: 0=No aphasia, normal 10. Dysarthria: 0=Normal 11. Extinction and Inattention: 0=No abnormality Total: 0 Laboratory Data Reviewed in Epic Diagnostic Studies No results found. Assessment & Plan Jaymie Nelson is a 69 y.o. female with PMH HTN, HLD, hx breast cancer (left side lumpectomy s/pradiation 2018), cervical spine stenosis s/p decompression/fusion 2014 with repeated rhizotomies C3-5, b12 deficiency, kidney stones, migraines, depression, anxiety, arthritis, presenting as a transfer from [facility] after presenting with acute onset left sided weakness, numbness, dysarthria, facial droop. # Critical stenosis >90% of the R internal carotid bulb and proximal ICA # Concern for acute ischemic stroke vs TIA Patient presented to the OSH with symptoms of acute onset left sided weakness, numbness, dysarthria, facial droop which had slowly started to improve since onset at 1330 04/28. NIH 3 at outside facility. BP on arrival was 206/90. CTA H/N was notable for critical stenosis >90% of the R internal carotid bulb and proximal ICA. She was given ASA 325mg, did not receive plavix load in anticipation ofpossible carotid intervention. Transferred to . NIH 0 on arrival. Basic stroke risk labs show A1C pending, LDL 77 (04/29/2025); TSH 2.14 (04/29/2025). PLAN: - Start heparin gtt minimal dose no bolus (hptt goal 60-80) - Continue [id number], Atovastatin 20mg - MRI head without contrast - Consult NSGY after MRI for CEA evaluation - TTE with bubble to evaluate for cardiac source or shunt - SBP goal < 200 - q4h neuro checks - NIHSS q12h - telemetry - PT/OT/Speech consult - bedside dysphagia screen prior to diet - stroke nurses consulted #Cervical spine stenosis s/p decompression/fusion - continue home pregabalin 50mg - continue home venlafaxine 75mg - holding home Percocet 0.5mg BID prn #HTN - holding home losartan 100mg (therapeutic interchange valsartan) - SBP < 200 #Vitamin D deficiency - continue home Vitamin D supplement 50,000 units 2x week #Allergies -Continue home Flonase Checklist: Fluids: no Nutrition: Regular diet Telemetry: yes DVT PPx: heparin gtt GI PPx: no Restraints: no Lines: 2 piv Catheter: no Family: 04/29 Disposition: Floor status. Code Status: Full Code Signed: Robinson Alarcon MD Neurology Resident Physician, PGY-2 04/29/2025 7:27 AM Cosigned by Manolo Manning DO at 04/29/2025 5:36 PM EDT Associated attestation - Manolo Manning DO - 04/29/2025 5:36 PM EDT I discussed the case w/ Dr. Alarcon today. Please see my attestation on H&P. * Schuyler Pastor MD - 04/29/2025 4:42 AM EDT ED Attending Attestation Note Date of service: 04/29/2025 This patient was seen by the Resident Physician. I have seen and examined the patient, agree with the workup, evaluation, management and diagnosis. The care plan has been discussed and I concur. I have reviewed the ECG and concur with the interpretation. I was present for the following procedures: None My assessment reveals a 69 y.o. female who presents due to concern for stroke/TIA. The patient's last known normal was 1:30 PM yesterday. She went to an outside facility and was outside of the windowfor IV thrombolytics, but CT angiography demonstrated significant carotid artery disease. NIH stroke scale for the outside facility was 3. She was transferred here for further evaluation. Upon arrival, the patient now is essentially back to baseline per the patient and family. We will talk to stroke team, but will likely need admission and more subacute evaluation/treatment of this carotid disease. SCHUYLER PASTOR MD documented in this encounter H&P Notes * Simona Mirza MD - 04/29/2025 4:52 AM EDT Images from the original note were not included. [facility] Neurology Department INPATIENT HISTORY AND PHYSICAL History Present of Illness: CC: left sided weakness, numbness, dysarthria, facial droop HPI: Jaymie Nelson is a 69 y.o. female with PMH HTN, HLD, hx breast cancer (left side lumpectomy s/p radiation 2019), cervical spine stenosis s/p decompression/fusion 2014 with repeated rhizotomies C3-5, b12 deficiency, kidney stones, migraines, depression, anxiety, arthritis, presenting as a transfer from [facility] after presenting with acute onset left sided weakness, numbness, dysarthria, facial droop. 04/28 Pt states she was feeling off all day but denies preceding cp, sob, palpations. At 1:30pm LKW/symptom onset, drove to a doctors visit, when entered the front door, she dropped her cup from her left hand and was unable to pick it up again with multiple attempts. Her left hand became numb as well. She was able to drive home from the doctors office. She tired to fold laundry but she was still unable to use her hand. Around 5pm, the pt noted her left leg had become weak, and she had a soda spill out of her mouth on the left side. At 7pm, her arrived and found her with slurred speech leading them to go to the [facility]. 7:30pm [facility]: BP on arrival was 206/90. CTA H/N was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 Marital status: Spouse name: Not on file Number of children: Not on file Years of education: Not on file Highest education level: Not on file Occupational History Not on file Tobacco Use Smoking status: Former Current packs/day: 0.00 Types: Cigarettes Quit date: 2004 Years since quittin.4 Passive exposure: Never Smokeless tobacco: Never Vaping Use Vaping status: Never Used Substance and Sexual Activity Alcohol use: Never Drug use: Never Sexual activity: Yes Other Topics Concern Not on file Social History Narrative Not on file Social Drivers of Health Financial Resource Strain: Not on file Food Insecurity: No Food Insecurity (04/29/2025) Hunger Vital Sign Worried About Running Out of Food in the Last Year: Never true Ran Out of Food in the Last Year: Never true Transportation Needs: No Transportation Needs (04/29/2025) PRAPARE - Transportation Lack of Transportation (Medical): No Lack of Transportation (Non-Medical): No Physical Activity: Not on file Stress: Not on file Social Connections: Unknown (08/13/2023) Received from [facility] Family and Community Support Help with Day-to-Day Activities: Not on file Lonely or Isolated: Not on file Intimate Partner Violence: Not At Risk (04/29/2025) Humiliation, Afraid, Rape, and Kick questionnaire Fear of Current or Ex-Partner: No Emotionally Abused: No Physically Abused: No Sexually Abused: No Housing Stability: Low Risk (04/29/2025) Housing Stability Vital Sign Unable to Pay for Housing in the Last Year: No Number of Times Moved in the Last Year: 0 Homeless in the Last Year: No FMH No family history on file. MEDS Home Medications Medication Sig Taking? Last Dose atorvastatin (LIPITOR) 20 MG tablet Take 1 tablet (20 mg total) by mouth daily. Yes Past Week losartan (COZAAR) 100 MG tablet Take 1 tablet (100 mg total) by mouth daily. Yes Past Week oxyCODONE-acetaminophen (PERCOCET) 10-325 mg per tablet Take 0.5 tablets by mouth every 12 hours asneeded for Pain. Yes Past Week pregabalin (LYRICA) 50 MG capsule Take 1 capsule (50 mg total) by mouth at bedtime. Yes Past Week venlafaxine (EFFEXOR-XR) 75 MG 24 hr capsule Take 1 capsule (75 mg total) by mouth daily. Yes Past Week ALLERGIES Allergies[1] EXAMINATION Temp: [97.7 ??F (36.5 ??C)-98.2 ??F (36.8 ??C)] 97.7 ??F (36.5 ??C) Heart Rate: [61-86] 65 Resp: [9-22] 18 BP: (147-183)/(60-109) 159/67 Date 04/29/25 07 - 04/30/25 0659 04/30/25 07 - 05/01/25 0659 Shift 8665-6335 3413-5463 0506-2867 24 Hour Total 8613-2337 0707-2777 6478-2052 24 Hour Total INTAKE I.V. 31.7 21.3(0.4) 53(0.9) Volume (mL) Heparin 31.7 21.3 53 Shift Total(mL/kg) 31.7 21.3(0.4) 53(0.9) OUTPUT Shift Total(mL/kg) Weight (kg) 58.1 58.1 58.1 58.1 58.1 58.1 58.1 General: awake, sitting in bed HEENT: Normocephalic, trachea midline GCS: 4-5-6 CN: Pupillary Response: + Pupils Corneal Reflex: present Cough: present Orientation: alert, oriented x 3 (person, place, and time) Language: speech fluent and appropriate and dysarthric Other: EOMI, PERRL, and face grossly symmetric Motor: Follows commands in BL Sensation: sensation intact to light touch and symmetric in bilateral upper and lower extremities Coordination: no bilateral upper extremity drift or dysmetria on [id number] assessments LABORATORY AND RADIOLOGY RESULTS Labs Lab Results Component Value Date GLUCOSE 88 04/30/2025 BUN 10 04/30/2025 CO2 26 04/30/2025 CREATININE 0.61 04/30/2025 K 3.7 04/30/2025 NA 139 04/30/2025 CL 106 04/30/2025 CALCIUM 9.3 04/30/2025 MG 1.8 04/30/2025 PHOS 3.1 04/30/2025 No results found for: ALT , AST , GGT , ALKPHOS , BILITOT Lab Results Component Value Date WBC 4.7 04/30/2025 HGB 14.3 04/30/2025 HCT 41.5 04/30/2025 MCV 86.8 04/30/2025 PLT 234 04/30/2025 Lab Results Component Value Date INR 1.0 04/29/2025 Lab Results Component Value Date CHOLTOT 139 04/29/2025 TRIG 110 04/29/2025 HDL 40 (L) 04/29/2025 LDL 77 04/29/2025 No results found for: PHART , PCO2 , PO2ART , YFH4YLU , BEART , QQV4HND , Q3RKIZWL No results found for: ABS , ABOGROUP , RH Invalid input(s): PLTFUNASP Imaging Review I personally reviewed relevant imaging demonstrating, by my read, 90% stenosis on the right. The plaque is calcified. The plaque terminates at C5 . The lesion is below Ac's line. ASSESMENT & PLAN 69 y.o. female p/w PMHx HTN, HLD, breast ca, and prior cervical fusion who presents with new left sided weakness and dysarthria. She reports 2 episodes of above symptoms which self resolved after a few minutes. Patient does not have a prior history of TIA/CVA. CTA with 90% stenosis on the right internal carotid bulb and proximal ICA. Patient currently GCS 15. Neurosurgery consulted for further evaluation and management. Given the imaging findings and patients clinical condition CEA is favored. PLAN: - CTA head/neck reviewed showing significant stenosis of the Right ICA at the level of the bifurcation around C5 - Lesion below Ac's line thus amendable to operative intervention - MRI reviewed that demonstrates evidence of acute infarct but not an overwhelming stroke burden that would potentially delay surgery - Recommend medicine clearance for possible CEA v. KAYLIE - Recommend continuing heparin gtt at this time - Discussed operative plan with staff - timing likely 10-14 days. If further questions or concerns should arise, do not hesitate to contact the neurosurgery residenton call, [phone]. Carlita Sanches NP-C Neurosurgery Nurse Practitioner [1] Allergies Allergen Reactions Prednisone Swelling Sulfa (Sulfonamide Antibiotics) Hives Cosigned by Larry Early MD at 05/03/2025 12:06 PM EDT Associated attestation - Larry Early MD - 05/03/2025 12:06 PM EDT Neurosurgery Attending Attestation I saw and examined the patient and discussed the case with the resident and agree with the findingson . and plan as documented in the resident???s note. Larry Early MD, FACS, FAANS Vascular and Endovascular Neurosurgery Dept of Neurological Surgery [facility] 05/03/2025 12:06 PM * Em Dejesus - 04/29/2025 12:29 PM EDT [employer] Social Work Stroke Assessment Jaymie Nelson [id number] 69 y.o. female White or Stroke Additional Stroke Assessment Who typically provides your care at home and what are their ages?: (independent prior) How many hours a day can your caregiver provide?: (N/A) Do you think that the above care provider(s) can continue to care for you after discharge?: (N/A) Do you think that the above care provider can physically assist you with your activities of daily living?: (N/A) If a rehabilitation facility post hospitalization is indicated do you know what to expect post rehabilitation facility discharge?: (N/A) Do you have the necessary equipment at home to provide a safe environment?: Yes Equipment patient has at home:: Cane walker Do you have a plan in place so that you can obtain your prescribed medications?: Yes Who will be picking up your medications?: Children, Spouse/Significant Other (self) Do you see any barriers to obtaining your prescribed medications?: No Do you have transportation to and from needed follow-up appointments?: Yes Who will be assisting you with transportation needs?: Self, Family, Spouse Do you feel your needs have been addressed regarding planning of post hospitalization?: Yes Do you agree with your discharge plan of care?: Yes Em Dejesus MSW, TRAINS SERVICE CONDUCTOR [phone] * Em Dejesus - 04/29/2025 12:24 PM EDTAssociated Order(s): IP CONSULT TO SOCIAL WORK HEALTH Care Management/Social Work Assessment Patient Information Patient Name: Jaymie Nelson Hospital Day: 0 Inpatient/Observation: Inpatient Admit Date: 04/29/2025 Admission Diagnosis: Stroke Attending provider: Manolo Manning DO PCP: KRZYSZTOF HENDRICKSON MD Home Pharmacy: [facility] [id number] [facility] [id number] Issues related to obtaining medications: no issues Payor Information Medical Insurance Coverage: Payor: HUMANA MANAGED MEDICARE / Plan: HUMANA GOLD PLUS MEDICARE / Product Type: Medicare Mngd Care / Secondary Payor: N/A Functional Assessment Functional Assessment Assessment Information Obtained From:: Patient May We Obtain Collateral Information From Family, Friends and Neighbors?: Yes Current Mental Status: Awake, Oriented to Person, Oriented to Place, Oriented to Time, Oriented to Situation Mental Status Prior to Admission: Unable to Assess Mental Health History: No Suicide Attempts: No Activities of Daily Living: Independent Work History: Retired Marital Status: Number of children and their names: Kin - Be Jara and Narciso Jara Relative Search Completed: No Demographics Correct:: Yes Current Living Arrangements Current Living Arrangements Current Living Arrangements: Home Type of Housing: House Who do you live with?: With Family What family member?: spouse One Story or Two (check all that apply): Multi-Level Enter the number of steps and rails to enter the residence: 1 Enter the number of steps and rails inside the residence: one flight History of Falls?: (has not fallen since medication was adjusted) Community Services Community Services Community Services at Home: DME DME Current: [employer] Was any abuse reported by patient?: No [place] & [facility] to [facility] [place] & Connection to [place] Services Are you a ?: No Support Systems Emergency contact: Extended Emergency Contact Information Primary Emergency Contact: LANG NELSON Mobile Relation: Spouse Support Systems Legal Status: N/A Primary Caregiver: Self Times of available support: Total / hands on (add comment) Marital Status: Number of children and their names: 2 - Be Jara and Narciso Jara Relative Search Completed: No Demographics Correct:: Yes Expected Discharge Disposition: Home Next of Kin: Lang Nelson Next of Kin Relationship: Spouse Next of Kin Assessment Information Obtained From:: Patient Other Pertinent Information Patient stated her spouse, Lang Nelson [phone], is her HCPOA. Copy not on file. Discharge Plan Met with patient to initiate discussion regarding discharge planning. Introduced self and role of case management/social work and provided contact information. Anticipated Discharge Plan: home no needs Anticipated Discharge Date: 05/04 Anticipated Transportation: family Patient/Family aware and taking part in the discharge plan. Patient/family educated that once post-acute care needs have been identified, a provider list applicable to the identified post-acute care needs as well as the insurance provider will be provided, and patient/family have the freedom to choose their provider(s); financial interest(s) are disclosed as appropriate. LYNNETTE Chilel, TRAINS SERVICE CONDUCTOR [phone] * Fadumo Farrar [facility]-DATABASES SOFTWARE CONSULTANT - 04/29/2025 10:48 AM EDT Speech Language Pathology Clinical Swallow Assessment Name: Jaymie Nelson : 1955 Attending Physician: Manolo Manning DO Admission Diagnosis: Stroke Date: 04/29/2025 Reviewed Pertinent hospital course: Yes Hospital Course DATABASES SOFTWARE CONSULTANT: 69 y.o. F with PMH HTN, HLD, hx breast cancer (left side lumpectomy s/p radiation 2018), cervical spine stenosis s/p decompression/fusion 2014 with repeated rhizotomies C3-5, [id number], kidney stones, migraines, depression, anxiety, arthritis, who presented to [facility] on 04/29from OSH w/ L acute onset left sided weakness, numbness, dysarthria, facial droop. Imaging: MRI pending DATABASES SOFTWARE CONSULTANT Hx: None at [facility] Assessment: Patient presents with no clinical signs or symptoms of aspiration with any consistency,or concerns for oropharyngeal dysphagia. The successive 3oz thin liquid challenge was administered and passed, resulting in no clinical signs of aspiration. Mastication is timely and effective, with adequate oral clearance. No further acute DATABASES SOFTWARE CONSULTANT services warranted for dysphagia at this time. Plan/Recommendation: - Diet: Regular (IDDSI 7) with Thin Liquids (IDDSI 0) - Medication Administration: whole with liquid - Discharge from DATABASES SOFTWARE CONSULTANT - no acute needs at this time - DATABASES SOFTWARE CONSULTANT at discharge is not recommended Orientation: Person: Yes Place: Yes Time: Yes Situation: Yes Behavioral Profile: alert, cooperative, pleasant Pain: Pain Score: 0 - No Pain Aspiration Risk Dysphagia Diagnosis: WFL Recommended Solid for Diet: Regular Recommended Liquid for Diet: Thin Liquids (IDDSI 0) Medication Administration: whole with liquid Baseline Assessment History of Intubation: No Dentition: Edentulous;Other (Comment) (did not have dentures placed, eats with and without) Vision: Functional for self-feeding Patient Positioning: Upright in bed Volitional Cough: Strong Volitional Swallow: WFL Respiratory Status Respiratory Status: Room air Cranial Nerve & Laryngeal Function Exam CNIII - Occulomotor: Within Functional Limits CNV- Trigeminal: Within Functional Limits CNVII - Facial : Within Functional Limits CNIX - Glossopharyngeal: Within Functional Limits CNX - Vagus: Within Functional Limits CNVXII - Hypoglossal Status: Within Functional Limits Dentition and Hearing Dentition: Edentulous;Other (Comment) (did not have dentures placed, eats with and without) Hearing Exceptions: None Consistencies Assessed Consistencies Assessed: Thin;Hard Solid Thin Presentation: Straw Oral: Within functional limits Pharyngeal: No overt s/s of aspiration Hard Solid Presentation: Self Fed Oral: Within functional limits Pharyngeal: No overt s/s of aspiration Patient and Family Education Patient and Family Education: Patient educated on, Family educated on, role of DATABASES SOFTWARE CONSULTANT, current diet recommendations Education response: Patient demonstrated understanding, Family demonstrated understanding End of Session: Patient was left in bed with call light within reach and all needs met. Fadumo Farrar MS, CCC-DATABASES SOFTWARE CONSULTANT Speech-Language Pathologist [facility] Rehabilitation Services [phone] Time Start Time: 1028 Stop Time: 1044 Time Calculation (min): 16 min Charges $Eval Speech Sound Prd w/Lng Comp & Expr: 1 Procedure Patient Class Inpatient * GERTRUDE Rubalcava - 04/29/2025 10:46 AM EDT Speech Language Pathology Speech, Language and Cognitive Initial Assessment Name: Jaymie Nelson : 1955 Attending Physician: Manolo Manning DO Admission Diagnosis: Stroke Date: 04/29/2025 Reviewed Pertinent hospital course: Yes Hospital Course DATABASES SOFTWARE CONSULTANT: 69 y.o. F with PMH HTN, HLD, hx breast cancer (left side lumpectomy s/p radiation 2018), cervical spine stenosis s/p decompression/fusion 2014 with repeated rhizotomies C3-5, [id number], kidney stones, migraines, depression, anxiety, arthritis, who presented to [facility] on 04/29from OSH w/ L acute onset left sided weakness, numbness, dysarthria, facial droop. Imaging: MRI pending DATABASES SOFTWARE CONSULTANT Hx: None at [facility] Assessment: Patient presents WF for expressive and receptive language, speech, and cognitive-linguistic skills. The patient was administered the NCSE which assesses orientation, attention, language,constructional ability, memory, reasoning, and judgement. The patient's composite score is 75 / 76 with the following breakdown: Component Score Total Severity of Deficits Orientation 12 12 WFL Attention 8 8 WFL Comprehension 6 6 WFL Repetition 12 12 WFL Naming 8 8 WFL Constructional Ability x x DNT Memory 11 12 WFL Calculations 4 4 WFL Similarities 8 8 WFL Judgement 6 6 WFL Composite 75 76 Plan: 1. Discharge from DATABASES SOFTWARE CONSULTANT--no acute DATABASES SOFTWARE CONSULTANT needs at this time. 2. DATABASES SOFTWARE CONSULTANT at discharge is not recommended Prognosis Diagnosis: WFL Problem List Problem List[1] Past Medical History No past medical history on file. Past Surgical History No past surgical history on file. Orientation: Person: Yes Place: Yes Time: Yes Situation: Yes Behavioral Profile: alert;cooperative;pleasant Pain Pain Score: 0 - No Pain Respiratory Status Respiratory Status: Room air Receptive Language Multistep Basic Commands: Within Functional Limits Conversation: Within Functional Limits Expressive Language Primary Mode of Expression: Verbal Primary Language: Tuvaluan Confrontation Naming: Within Functional Limits Sentence Level Repetition: Within Functional Limits Spontaneous Speech in Conversation: WFL Conversation: Within Functional Limits Cognitive Attention: Within Functional Limits Memory: Within Functional Limits Problem Solving: Within Functional Limits Numeric Reasoning: Within Functional Limits Abstract Reasoning: Within Functional Limits Safety/Judgement: Within Functional Limits Insight: WFL Processing Speed: WFL Affect: Within Functional Limits Prosody: Within Functional Limits Eye Contact: Within Functional Limits Motor Speech Intelligibility: Intelligible Patient Education Patient educated on: role of DATABASES SOFTWARE CONSULTANT, current POC, and discharge recommendations for DATABASES SOFTWARE CONSULTANT therapy;Familyeducated on Patient response: Patient verbalized understanding;Family demonstrated understanding End of Session: Patient was left in bed with call light within reach and all needs met. Fadumo Farrar MS, CCC-DATABASES SOFTWARE CONSULTANT Speech-Language Pathologist [facility] Rehabilitation Services [phone] Time Start Time: 1028 Stop Time: 1044 Time Calculation (min): 16 min Charges $Eval Speech Sound Prd w/Lng Comp & Expr: 1 Procedure Patient Class Inpatient [1] There is no problem list on file for this patient. * Noemi Hopper RN - 04/29/2025 7:43 AM EDTAssociated Order(s): CONSULT STROKE NURSE Stroke Nurse Navigators have been consulted. Will follow closely in coordination with primary team. Please call Stroke Nurse Navigators with any needs: [phone]. documented in this encounter Nursing Notes * Simona Lantigua RN - 04/30/2025 6:55 PM EDT Patient had bp 199/81 reported maria del carmen check 192/84 notified 10mg po hydrazaline given 1730 recheck 1830 166/71 * Isabel Hampton RN - 04/30/2025 3:39 PM EDT Name: Jaymie Nelson : 1955 Preferred PMH: HLD, HTN, Breast cancer, cervical stenosis, B12 def, kidney stones, migraines, depression/anxiety Diagnosis: Acute Ischemic Stroke secondary to Large Artery Atherosclerosis Chief Complaint: slurred speech and weakness of left arm Modified [place] Score at Discharge: 0 BP Goal: not specified TPA/ Thrombectomy/Intervention/TICI Score: not applicable Cardiology Consult: no Event Monitor Order: no Loop: no Admit Date: 04/29/2025 Discharge Date: Discharge Disposition: Home Hospital Complications: CTA with 90% stenosis on the right internal carotid bulb and proximal ICA. LDL: LDL Cholesterol Date Value Ref Range Status 04/29/2025 77 mg/dL Final A1C: Hemoglobin A1C Date Value Ref Range Status 04/29/2025 5.7 (H) 4.0 - 5.6 % Final Comment: Hemoglobin A1c Interpretation Guidelines: Normal: <5.7% Prediabetes: 5.7-6.4% Diabetes: >6.4% Diagnosis requires two independent tests unless clinical diagnosis is clear. Some clinical conditions, particularly anemias and hemoglobinopathies, may interfere with the diagnostic accuracy of hemoglobin A1c. The recommended goal for diabetic glycemic control (Hemoglobin A1c <7.0%) should be individualized based on duration of diabetes, age/life expectancy, comorbid conditions, known CVD or advanced microvascular complications, hypoglycemia unawareness, and other individual patient considerations. ECHO: 04/30/25 pending read Stroke Education: Spoke with patient and provided individualized stroke education. Discussed stroke risk factors of hyperlipidemia, hypertension, and history of cancer. Reviewed pertinent labs, provided additional education on labs that were elevated. Reviewed patients stroke specific medications of Aspirin 81 mg a day Atorvastatin 40mg and importance of taking medications as prescribed. Reviewed patient goals: attend follow up appointments make an appointment with PCP check BP daily Discussed stroke specific medications. Reviewed BEFAST & when to call 911. Discussed following up with PCP within 1-2 weeks once home. Reviewed follow up appointment information with Neurology. Stroke Nurse Navigator contact information provided to patient for future questions/concerns. Patientwas handed appointment reminders. Notes to Outpatient RN Thoracic Medicine Specialist: Patient is supported my her who works. They live 1.5 hours away Labs/tests pending at discharge: Waiting for Dr. Samaniego to decide when to perform her CEA vs KAYLIE & final med plan I spent approximately 45 minutes counseling the patient, reviewing their chart, and coordinating their care. ISABEL HAMPTON RN Future Appointments Date Time Provider Department [place] 05/11/2025 1:00 PM Luly Conde CNP [facility] NEUR [facility] 06/26/2025 1:40 PM Yelena Lopez MD [facility] * Noemi Hopper RN - 04/29/2025 7:45 AM EDT Stroke Nurse Navigator note: Stroke Nurse Navigators following for potential stroke. Patient is currently pending further workupincluding MRI of head. Stroke education along with risk factor education added to discharge paperwork. FAST education and when to call 911 included on discharge paperwork. Neurology follow up appointment will be scheduled pending team recommendations. * Quita Masters RN - 04/29/2025 3:56 AM EDT VSS per EMS. Pt A&OX4, resp easy and even. documented in this encounter ED Notes * Shemar Fuentes RN - 04/29/2025 10:25 PM EDT Heparin gtt placed on MRI safe pump * Simona Jenkins RN - 04/29/2025 9:58 PM EDT Ready and clean bed assigned to [id number]. Pt updated on plan of care including transfer and is agreeable. Receiving RN may call [phone] to consult ED RN with questions regarding patients care. Pt is leaving the department in stable condition with all personal items in possession. Ordered medications that have been received from Pharmacy will be tubed to receiving unit. The patient does not have a patient monitor at bedside in the ED. Most recent vitals: BP 155/90 (BP Location: Left upper arm, Patient Position: Lying, BP Cuff Size: Regular) Pulse 86 Temp 98.2 ??F (36.8 ??C) (Oral) Resp 22 SpO2 97% * Shemar Fuentes RN - 04/29/2025 7:55 PM EDT Pt placed on continuous monitoring, even unlabored breathing, bed in lowest position, call light within reach, provided with warm blankets. No other requests at this time. * Be French RN - 04/29/2025 11:26 AM EDT Neuro team at bedside. * Be French RN - 04/29/2025 10:04 AM EDT Menu provided and educated pt on how to order meals. Pt verbalizes understanding. * Be French RN - 04/29/2025 7:30 AM EDT RN introduced self to pt and family this morning. Pt is connected to appropriate monitoring devices. Respirations are even and labored, NSR on the monitor. Patient states no needs at this time. Bed is in the lowest position. Call light within reach and educated patient on how to use the call light. Pt and family updated on plan of care. Pt and family verbalizes understanding. * Kayla Moses RN - 04/29/2025 5:26 AM EDT Swallow evaluation performed by RN. Pt able to swallow without coughing, throat clearing, or changein vocal quality. No signs of aspiration observed. Vital signs remained stable throughout with normal respiratory status. * Simona Jenkins RN - 04/29/2025 3:58 AM EDT Bed: A15U Expected date: Expected time: Means of arrival: Comments: Flow * Valentín Sal RN - 04/28/2025 11:59 PM EDT Pt is a tx from OSH. Stroke like symptoms @ 1330 today. L arm weakness, stuttering, dysarthria. NIH-3. 1900 pt developed slurred speech and decrease sensation to the L side of the face. Scan showed greater then 90% blockage in R carotid. AAOX4. GCS-15. Bilateral 20g IV's in F arm. PMH of HLD and HTN. Meds station captain 324 asa. documented in this encounter Miscellaneous Notes * Plan of Care - Vaughn Jorgensen RN - 05/02/2025 4:04 AM EDT Problem: Safety Goal: Patient will be injury free during hospitalization Description: Assess and monitor vitals signs, neurological status including level of consciousness and orientation. Assess patient's risk for falls and implement fall prevention plan of care and interventions per hospital policy. Ensure arm band on, uncluttered walking paths in room, adequate room lighting, call light and overbed table within reach, bed in low position, wheels locked, side rails up per policy, and non-skid footwear provided. Outcome: Progressing Problem: Patient will remain free of falls Goal: [place] Fall Precautions Outcome: Progressing * Care Coordination - Em Dejesus - 05/01/2025 8:35 AM EDT [facility] Case Management/Social Work Department Progress Note Patient Information Patient Name: Jaymie Nelson Hospital day: 2 Inpatient/Observation: Inpatient Level of Care: floor Admit date: 04/29/2025 Admission diagnosis: Stenosis of right carotid artery [I65.21] PMH: has no past medical history on file. PCP: KRZYSZTOF HENDRICKSON MD Home Pharmacy: [facility] [id number] [facility] [id number] Medical Insurance Coverage: Payor: [employer] MEDICARE / Plan: [employer] GOLD PLUS MEDICARE / Product Type: Medicare [place] Care / Other Pertinent Information SW completed chart review and attended interdisciplinary rounds with Neurology. PT/OT recommends home no needs. Patient is expected to be medically ready later today. CEA with NSGY will be preformed outpatient. Family will transport home. Discharge Plan Anticipated discharge plan: home no needs Anticipated discharge date: 05/01 CM/SW will continue to follow and remain available for discharge planning needs. Em Dejesus MSW, TRAINS SERVICE CONDUCTOR [phone] * Plan of Care - Raoul Mcdowell RN - 05/01/2025 6:07 AM EDT Problem: Acute Pain Description: Patient's pain progressing toward patient's stated pain goal Goal: Patient displays improved well-being such as baseline levels for pulse, BP, respirations and relaxed muscle tone or body posture Outcome: Progressing Goal: Patient will manage pain with the appropriate technique/intervention Description: Assess and monitor patient's pain using appropriate pain scale. Collaborate with interdisciplinary team and initiate plan and interventions as ordered. Re-assess patient's pain level 30-60 minutes after pain management intervention. Outcome: Progressing Goal: Patient will reduce or eliminate use of analgesics Outcome: Progressing Goal: Patients pain is managed to allow active participation in daily activities Outcome: Progressing Goal: Patient verbalizes a reduction in pain level Outcome: Progressing Goal: Discharge Pain Management Plan (Acute Pain) Outcome: Progressing Problem: Safety Goal: Patient will be injury free during hospitalization Description: Assess and monitor vitals signs, neurological status including level of consciousness and orientation. Assess patient's risk for falls and implement fall prevention plan of care and interventions per hospital policy. Ensure arm band on, uncluttered walking paths in room, adequate room lighting, call light and overbed table within reach, bed in low position, wheels locked, side rails up per policy, and non-skid footwear provided. Outcome: Progressing Problem: Patient will remain free of falls Goal: [place] Fall Precautions Outcome: Progressing Problem: Daily Care Goal: Daily care needs are met Description: Assess and monitor ability to perform self care and identify potential discharge needs. Outcome: Progressing Problem: Psychosocial Needs Goal: Demonstrates ability to cope with hospitalization/illness Description: Assess and monitor patients ability to cope with his/her illness. Outcome: Progressing Problem: Discharge Barriers Goal: Patient's discharge needs are met Description: Collaborate with interdisciplinary team and initiate plans and interventions as needed. Outcome: Progressing * Care Coordination - Em Dejesus - 04/30/2025 8:23 AM EDT Health Case Management/Social Work Department Progress Note Patient Information Patient Name: Jaymie Nelson Hospital day: 1 Inpatient/Observation: Inpatient Level of Care: floor Admit date: 04/29/2025 Admission diagnosis: Stenosis of right carotid artery [I65.21] PMH: has no past medical history on file. PCP: KRZYSZTOF HENDRICKSON MD Home Pharmacy: [facility] [address] [facility] [id number] Medical Insurance Coverage: Payor: HUMANA MANAGED MEDICARE / Plan: HUMANA GOLD PLUS MEDICARE / Product Type: Medicare [place]ng[place] Care / Other Pertinent Information SW completed chart review and attended interdisciplinary rounds with Neurology. PT/OT recommends home no needs. Patient is not medically ready pending CEA with NSGY. Discharge Plan Anticipated discharge plan: home no needs Anticipated discharge date: 05/04 vs 05/05 CM/SW will continue to follow and remain available for discharge planning needs. Em Dejesus MSW, TRAINS SERVICE CONDUCTOR [phone] * Plan of Care - Coral Zhang RN - 04/30/2025 1:56 AM EDT Problem: Acute Pain Description: Patient's pain progressing toward patient's stated pain goal Goal: Patient displays improved well-being such as baseline levels for pulse, BP, respirations and relaxed muscle tone or body posture Outcome: Progressing Goal: Patient will manage pain with the appropriate technique/intervention Description: Assess and monitor patient's pain using appropriate pain scale. Collaborate with interdisciplinary team and initiate plan and interventions as ordered. Re-assess patient's pain level 30-60 minutes after pain management intervention. Outcome: Progressing Goal: Patient will reduce or eliminate use of analgesics Outcome: Progressing Goal: Patients pain is managed to allow active participation in daily activities Outcome: Progressing Goal: Patient verbalizes a reduction in pain level Outcome: Progressing Goal: Discharge Pain Management Plan (Acute Pain) Outcome: Progressing Problem: Safety Goal: Patient will be injury free during hospitalization Description: Assess and monitor vitals signs, neurological status including level of consciousness and orientation. Assess patient's risk for falls and implement fall prevention plan of care and interventions per hospital policy. Ensure arm band on, uncluttered walking paths in room, adequate room lighting, call light and overbed table within reach, bed in low position, wheels locked, side rails up per policy, and non-skid footwear provided. Outcome: Progressing Problem: Patient will remain free of falls Goal: [place] Fall Precautions Outcome: Progressing Problem: Daily Care Goal: Daily care needs are met Description: Assess and monitor ability to perform self care and identify potential discharge needs. Outcome: Progressing Problem: Psychosocial Needs Goal: Demonstrates ability to cope with hospitalization/illness Description: Assess and monitor patients ability to cope with his/her illness. Outcome: Progressing Problem: Discharge Barriers Goal: Patient's discharge needs are met Description: Collaborate with interdisciplinary team and initiate plans and interventions as needed. Outcome: Progressing * Care Coordination - Em Dejesus - 04/29/2025 10:16 AM EDT Health Case Management/Social Work Department Progress Note Patient Information Patient Name: Jaymie Nelson Hospital day: 0 Inpatient/Observation: Inpatient Level of Care: floor Admit date: 04/29/2025 Admission diagnosis: Stroke PMH: has no past medical history on file. PCP: KRZYSZTOF HENDRICKSON MD Home Pharmacy: [facility] [address] [facility] [id number] Medical Insurance Coverage: Payor: HUMANA MANAGED MEDICARE / Plan: HUMANA GOLD PLUS MEDICARE / Product Type: Medicare [place] Care / Other Pertinent Information SW completed chart review and attended interdisciplinary rounds with Neurology. PT/OT recommends home no needs. Patient is not medically ready pending stroke work up and Neuro IR. Discharge Plan Anticipated discharge plan: home no needs Anticipated discharge date: 05/04 CM/SW will continue to follow and remain available for discharge planning needs. Em Dejseus SENIOR PRINCIPAL ARCHITECT, TRAINS SERVICE CONDUCTOR [phone] documented in this encounter Plan of Treatment Not on file documented as of this encounter Procedures Procedure Name Priority Date/Time Associated Diagnosis Comments EKG - SCAN 05/04/2025 2:[address] HEAD WO CONTRAST Routine 05/02/2025 9 :00 AM EDT RENAL FUNCTION PANEL W/EGFR Routine 05/02/2025 6:53 AM EDT CBC Routine 05/02/2025 6:53 AM EDT MAGNESIUM Routine 05/02/2025 6:53 AM EDT APTT-HEPARIN Timed 05/01/2025 12:06 PM EDT ECG 12-LEAD (MUSE) NAKUL 05/01/2025 9: 53 AM EDT APTT-HEPARIN Timed 05/01/2025 6:30 AM EDT RENAL FUNCTION PANEL W/EGFR Routine 05/01/2025 6:30 AM EDT CBC Routine 05/01/2025 6:30 AM EDT MAGNESIUM Routine 05/01/2025 6:30 AM EDT APTT-HEPARIN Timed 05/01/2025 12:08 AM EDT SARA RHYTHM STRIP - SCAN 04/30/2025 7:16 PM EDT APTT-HEPARIN Timed 04/30/2025 5:[address] HEAD WO CONTRAST NAKUL 04/30/2025 1 :59 PM EDT ECHO COMPLETE W/ CONTRAST Routine 04/30/2025 1:38 PM EDT XR COMPARISON IMAGES Routine 04/30/2025 8:59 AM EDT XR COMPARISON IMAGES Routine 04/30/2025 8:59 AM EDT APTT-HEPARIN Routine 04/30/2025 7:08 AM EDT RENAL FUNCTION PANEL W/EGFR Routine 04/30/2025 7:08 AM EDT CBC Routine 04/30/2025 7:08 AM EDT MAGNESIUM Routine 04/30/2025 7:08 AM EDT MRI HEAD WITHOUT CONTRAST Routine 04/30/2025 12:14 AM EDT APTT-HEPARIN Timed 04/29/2025 10:16 PM EDT APTT-HEPARIN Timed 04/29/2025 3:58 PM EDT APTT STAT 04/29/2025 9:59 AM EDT PROTIME-INR STAT 04/29/2025 9:59 AM EDT CBC STAT 04/29/2025 9:59 AM EDT CBC Routine 04/29/2025 5:18 AM EDT TSH Routine 04/29/2025 5:18 AM EDT HEMOGLOBIN A1C Routine 04/29/2025 5:18 AM EDT LIPID PANEL Routine 04/29/2025 5:18 AM EDT POC GLU MONITORING DEVICE Routine 04/29/2025 5:13 AM EDT HIGH SENSITIVITY TROPONIN STAT 04/29/2025 4:41 AM EDT VENOUS BLOOD GAS, LINE/SYRINGE STAT 04/29/2025 4:41 AM EDT ED HCV AB REFLEX TO HCV QUANT Routine 04/29/2025 4:41 AM EDT DIFFERENTIAL STAT 04/29/2025 4:41 AM EDT APTT STAT 04/29/2025 4:41 AM EDT PROTIME-INR STAT 04/29/2025 4:41 AM EDT CBC STAT 04/29/2025 4:41 AM EDT B NATRIURETIC PEPTIDE STAT 04/29/2025 4:41 AM EDT MAGNESIUM STAT 04/29/2025 4:41 AM EDT BASIC METABOLIC PANEL STAT 04/29/2025 4:41 AM EDT ED ECG 12-LEAD (MUSE) STAT 04/29/2025 4:06 AM EDT documented in this encounter Results * EKG - scan (05/04/2025 2:13 AM EDT) us Scanning [facility] SCAN DOCS - NO RESULTS Final Res ult * CT Head WO contrast (05/02/2025 9:00 AM EDT) Anatomical Region Laterality Modality Head Computed Tomogra phy 05/02/2025 8:52 AM EDT Impressions 05/02/2025 12:18 PM EDT IMPRESSION: 1. No intracranial mass effect or hemorrhage. 2. Evolving right frontal and parietal infarcts better seen on prior MRI. Approved by Rafi Garcia MD on 05/02/2025 11:36 AM EDT I have personally reviewed the images and I agree with this report. Report Verified by: Moses Ortiz DO at 05/02/2025 12:18 PM EDT Narrative 05/02/2025 12:18 PM EDT EXAM: CT HEAD WO CONTRAST INDICATION: Stroke, follow up TECHNIQUE: Axial thin section CT images of the head were obtained without contrast. Sagittal and coronal 2-D multiplanar reconstructions were performed at the scanner. COMPARISON: 04/30/2025, MRI head 04/29/2025 FINDINGS: Adequate diagnostic quality. Brain parenchyma: Hypoattenuation in the right frontal and parietal lobes, better seen on prior MRI. No acute hemorrhage or mass effect. Ventricles and extraaxial spaces: Normal ventricular system. No extra-axial fluid collection. Orbits, paranasal sinuses, mastoids: No acute orbital abnormality. Clear paranasal sinuses. Clear mastoid air cells. Extracranial soft tissues: Normal. Calvarium and skull base: No fracture or suspicious osseous lesion. Other: No other abnormalities. Procedure Note Moses Ortiz MD - 05/02/2025 EXAM: CT HEAD WO CONTRAST INDICATION: Stroke, follow up TECHNIQUE: Axial thin section CT images of the head were obtained withoutcontrast. Sagittal and coronal 2-D multiplanar reconstructions wereperformed at the scanner. COMPARISON: 04/30/2025, MRI head 04/29/2025 FINDINGS: Adequate diagnostic quality. Brain parenchyma: Hypoattenuation in the right frontal and parietal lobes,better seen on prior MRI. No acute hemorrhage or mass effect. Ventricles and extraaxial spaces: Normal ventricular system. Noextra-axial fluid collection. Orbits, paranasal sinuses, mastoids: No acute orbital abnormality. Clearparanasal sinuses. Clear mastoid air cells. Extracranial soft tissues: Normal. Calvarium and skull base: No fracture or suspicious osseous lesion. Other: No other abnormalities. IMPRESSION: 1. No intracranial mass effect or hemorrhage. 2. Evolving right frontal and parietal infarcts better seen on priorMRI. Approved by Rafi Garcia MD on 05/02/2025 11:36 AM EDT I have personally reviewed the images and I agree with this report. Report Verified by: Moses Ortiz DO at 05/02/2025 12:18 PM EDT Sindhu Cowart DO IMG CT ORDERABLES Final Resu lt * CBC (05/02/2025 6:53 AM EDT) WBC 6.1 3.8 - 10.8 10E3/uL 05/02/2025 7:49 AM EDT [facility] RBC 4.82 3.80 - 5.10 10E6/uL 05/02/2025 7:49 AM EDT [facility] Hemoglobin 14.3 11.7 - 15.5 g/dL 05/02/2025 7:49 AM EDT [facility] Hematocrit 41.6 35.0 - 45.0 % 05/02/2025 7:49 AM EDT [facility] MCV 86.4 80.0 - 100.0 fL 05/02/2025 7:49 AM EDT [facility] MCH 29.6 27.0 - 33.0 pg 05/02/2025 7:49 AM EDT [facility] MCHC 34.3 32.0 - 36.0 g/dL 05/02/2025 7:49 AM EDT [facility] RDW 13.2 11.0 - 15.0 % 05/02/2025 7:49 AM EDT [facility] Platelets 250 140 - 400 10E3/uL 05/02/2025 7:49 AM EDT [facility] MPV 8.7 7.5 - 11.5 fL 05/02/2025 7:49 AM EDT [facility] Whole Blood 05/02/2025 6:53 AM EDT 05/02/2025 7:41 AM EDT Sindhu Cowart DO LAB BLOOD ORDERABLES Final R esult [facility] [address] * (ABNORMAL) Renal Function Panel w/EGFR (05/02/2025 6:53 AM EDT) Sodium 139 133 - 146 mmol/L 05/02/2025 8:14 AM EDT [facility] Potassium 3.8 3.5 - 5.3 mmol/L 05/02/2025 8:14 AM EDT [facility] Chloride 106 98 - 110 mmol/L 05/02/2025 8:14 AM EDT [facility] CO2 23 21 - 33 mmol/L 05/02/2025 8:14 AM EDT [facility] Anion Gap 10 3 - 16 mmol/L 05/02/2025 8:14 AM EDT [facility] BUN 11 7 - 25 mg/dL 05/02/2025 8:14 AM EDT [facility] Creatinine 0.70 0.60 - 1.30 mg/dL 05/02/2025 8:14 AM EDT [facility] Glucose 110(H) 70 - 100 mg/dL 05/02/2025 8:14 AM EDT [facility] Calcium 9.3 8.6 - 10.3 mg/dL 05/02/2025 8:14 AM EDT [facility] Phosphorus 3.9 2.1 - 4.5 mg/dL 05/02/2025 8:14 AM EDT [facility] Albumin 4.0 3.5 - 5.7 g/dL 05/02/2025 8:14 AM EDT [facility] Osmolality, Calculated 288 278 - 305 mOsm/kg 05/02/2025 8:14 AM EDT [facility] EGFR >90 05/02/2025 8:14 AM EDT [facility] Comment: As of 2022, the estimated GFR is calculated using the 2020 Chronic Kidney Disease Epidemiology Collaboration (CKD-EPI) equation. In line with the NKF-ASN Task Force Recommendations, this equation does not include a coefficient for race. A single eGFR value is calculated for each patient. The reference interval is >60 mL/min/1.73m2. eGFR values greater than 90 will be reported as >90mL/min/1.73m2. Reference: Stas C, Eliazar M, Steven DC, Telly [place], [place], Mindi [place], et al. A Unifying Approach for GFR Estimation: Recommendations of the NKF-ASN Task Force on Reassessing the inclusion of Race in Diagnosing Kidney Disease. Am J Kidney Dis. 2020. GFR is estimated using creatinine, age, and sex. Patient's values should be interpreted as a trend. Below 90 mL/min/1.73m2, the patient may have renal disease. For additional information: www.kidney.org Plasma 05/02/2025 6:53 AM EDT 05/02/2025 7:41 AM EDT us Sindhu Cowart DO LAB BLOOD ORDERABLES Final R esult [facility] [address] [facility] [place] [address], [facility] * Magnesium (05/02/2025 6:53 AM EDT) Magnesium 1.9 1.5 - 2.5 mg/dL 05/02/2025 8:14 AM EDT [facility] Plasma 05/02/2025 6:53 AM EDT 05/02/2025 7:41 AM EDT Sindhu Cowart DO LAB BLOOD ORDERABLES Final R esult [facility] [address] * (ABNORMAL) aPTT-Heparin (05/01/2025 12:06 PM EDT) hPTT 58.3(L) 90.0 - 130.0 seconds 05/01/2025 12:46 PM EDT [facility] Plasma 05/01/2025 12:0 6 PM EDT 05/01/2025 12:24 PM EDT us Damari Trevizo MD LAB BLOOD ORDERABLES Final Result Performing Organization Address [facility] Co de Phone Number [facility] [address] [facility] * ECG 12-lead (MUSE) (05/01/2025 9:53 AM EDT) 05/01/2025 9:53 AM EDT Narrative MUSE - 05/01/2025 3:53 PM EDT Ventricular Rate: 61 BPM Atrial Rate: 61 BPM P-R Interval: 220 ms QRS Duration: 100 ms QT: 438 ms QTc: 440 ms P [place]: 4 degrees R [place]: 35 degrees T [place]: -170 degrees Diagnosis Line: SINUS RHYTHM WITH 1ST DEGREE A-V BLOCK ^ INCOMPLETE RIGHT BUNDLE BRANCH BLOCK ^ ST SEGMENT CHANGE AND LATERAL T WAVE INVERSION ^ ABNORMAL ECG ^ ^ Confirmed by CATRINA SHAW ([id number]) on 05/01/2025 3:53:23 PM Robinson Alarcon MD ECG ORDERABLES Final Result Performing Organization Address City/[facility] Co de Phone Number MUSE * (ABNORMAL) aPTT-Heparin (05/01/2025 6:30 AM EDT) hPTT 57.0(L) 90.0 - 130.0 seconds 05/01/2025 7:27 AM EDT [facility] Plasma 05/01/2025 6:30 AM EDT 05/01/2025 7:01 AM EDT Damari Trevizo MD LAB BLOOD ORDERABLES Final Result [facility] [address] * Magnesium, AM (05/01/2025 6:30 AM EDT) Magnesium 1.9 1.5 - 2.5 mg/dL 05/01/2025 7:32 AM EDT [facility] Plasma 05/01/2025 6:30 AM EDT 05/01/2025 7:03 AM EDT Robinson Alarcon MD LAB BLOOD ORDERABLES Final Resul t Performing Organization Address City/[facility] Co de Phone Number [facility] [address] * Renal Function Panel w/EGFR (05/01/2025 6:30 AM EDT) Sodium 138 133 - 146 mmol/L 05/01/2025 7:32 AM EDT [facility] Potassium 4.1 3.5 - 5.3 mmol/L 05/01/2025 7:32 AM EDT [facility] Chloride 105 98 - 110 mmol/L 05/01/2025 7:32 AM EDT [facility] CO2 25 21 - 33 mmol/L 05/01/2025 7:32 AM EDT [facility] Anion Gap 8 3 - 16 mmol/L 05/01/2025 7:32 AM EDT [facility] BUN 10 7 - 25 mg/dL 05/01/2025 7:32 AM EDT [facility] Creatinine 0.63 0.60 - 1.30 mg/dL 05/01/2025 7:32 AM EDT [facility] Glucose 90 70 - 100 mg/dL 05/01/2025 7:32 AM EDT [facility] Calcium 9.3 8.6 - 10.3 mg/dL 05/01/2025 7:32 AM EDT [facility] Phosphorus 3.8 2.1 - 4.5 mg/dL 05/01/2025 7:32 AM EDT [facility] Albumin 4.1 3.5 - 5.7 g/dL 05/01/2025 7:32 AM EDT [facility] Osmolality, Calculated 285 278 - 305 mOsm/kg 05/01/2025 7:32 AM EDT [facility] EGFR >90 05/01/2025 7:32 AM EDT [facility] Comment: As of 2022, the estimated GFR is calculated using the 2020 Chronic Kidney Disease Epidemiology Collaboration (CKD-EPI) equation. In line with the NKF-ASN Task Force Recommendations, this equation does not include a coefficient for race. A single eGFR value is calculated for each patient. The reference interval is >60 mL/min/1.73m2. eGFR values greater than 90 will be reported as >90mL/min/1.73m2. Reference: Stas C, Eliazar M, Steven DC, Telly ND, [place], Mindi [place], et al. A Unifying Approach for GFR Estimation: Recommendations of the NKF-ASN Task Force on Reassessing the inclusion of Race in Diagnosing Kidney Disease. Am J Kidney Dis. 2020. GFR is estimated using creatinine, age, and sex. Patient's values should be interpreted as a trend. Below 90 mL/min/1.73m2, the patient may have renal disease. For additional information: www.kidney.org Plasma 05/01/2025 6:30 AM EDT 05/01/2025 7:03 AM EDT us Robinson Alarcon MD LAB BLOOD ORDERABLES Final Resul t [facility] [address] [place] [address], [facility] * CBC, AM (05/01/2025 6:30 AM EDT) WBC 5.0 3.8 - 10.8 10E3/uL 05/01/2025 7:11 AM EDT [facility] RBC 5.07 3.80 - 5.10 10E6/uL 05/01/2025 7:11 AM EDT [facility] Hemoglobin 15.1 11.7 - 15.5 g/dL 05/01/2025 7:11 AM EDT [facility] Hematocrit 43.8 35.0 - 45.0 % 05/01/2025 7:11 AM EDT [facility] MCV 86.4 80.0 - 100.0 fL 05/01/2025 7:11 AM EDT [facility] MCH 29.8 27.0 - 33.0 pg 05/01/2025 7:11 AM EDT [facility] MCHC 34.5 32.0 - 36.0 g/dL 05/01/2025 7:11 AM EDT [facility] RDW 13.0 11.0 - 15.0 % 05/01/2025 7:11 AM EDT [facility] Platelets 186 140 - 400 10E3/uL 05/01/2025 7:11 AM EDT [facility] MPV 9.5 7.5 - 11.5 fL 05/01/2025 7:11 AM EDT [facility] Whole Blood 05/01/2025 6:30 AM EDT 05/01/2025 7:01 AM EDT Robinson Alarcon MD LAB BLOOD ORDERABLES Final Resul t [facility] [address] * (ABNORMAL) aPTT-Heparin (05/01/2025 12:08 AM EDT) hPTT 59.6(L) 90.0 - 130.0 seconds 05/01/2025 12:31 AM EDT [facility] Plasma 05/01/2025 12:0 8 AM EDT 05/01/2025 12:20 AM EDT Damari Trevizo MD LAB BLOOD ORDERABLES Final Result [facility] [address] * SARA Rhythm Strip - Scan (04/30/2025 7:16 PM EDT) Scanning [facility] SCAN DOCS - NO RESULTS Final Res ult * (ABNORMAL) aPTT-Heparin (04/30/2025 5:27 PM EDT) hPTT 42.0(L) 90.0 - 130.0 seconds 04/30/2025 6:22 PM EDT [facility] [employer] [facility] Plasma 04/30/2025 5:27 PM EDT 04/30/2025 5:43 PM EDT Manolo Manning DO LAB BLOOD ORDERABL ES Final Result [facility] [address] [facility]. [address] * CT Head WO contrast (04/30/2025 1:59 PM EDT) Anatomical Region Laterality Modality Head Computed Tomogra phy 04/30/2025 1:59 PM EDT Impressions 04/30/2025 2:35 PM EDT IMPRESSION: 1. No acute hemorrhage. Report Verified by: Edith Plummer MD at 04/30/2025 2:35 PM EDT Narrative 04/30/2025 2:35 PM EDT EXAM: CT HEAD WO CONTRAST INDICATION: Stroke, follow up, stability scan to rule out hemorrhage TECHNIQUE: Axial thin section CT images of the head were obtained without contrast. Sagittal and coronal 2-D multiplanar reconstructions were performed at the scanner. COMPARISON: MRI 04/29/2025 FINDINGS: Adequate diagnostic quality. Brain parenchyma: Small right frontal parietal hypodensities , better visualized on the prior MRI. No acute hemorrhage. A few small remote right centrum semiovale watershed infarction. Ventricles and extraaxial spaces: Normal ventricular system. No extra-axial fluid collection. Orbits, paranasal sinuses, mastoids: No acute orbital abnormality. Clear paranasal sinuses. Clear mastoid air cells. Extracranial soft tissues: Normal. Calvarium and skull base: No fracture or suspicious osseous lesion. Other: No other abnormalities. Procedure Note Edith Plummer MD - 04/30/2025 EXAM: CT HEAD WO CONTRAST INDICATION: Stroke, follow up, stability scan to rule out hemorrhage TECHNIQUE: Axial thin section CT images of the head were obtained withoutcontrast. Sagittal and coronal 2-D multiplanar reconstructions wereperformed at the scanner. COMPARISON: MRI 04/29/2025 FINDINGS: Adequate diagnostic quality. Brain parenchyma: Small right frontal parietal hypodensities , bettervisualized on the prior MRI. No acute hemorrhage. A few small remote rightcentrum semiovale watershed infarction. Ventricles and extraaxial spaces: Normal ventricular system. Noextra-axial fluid collection. Orbits, paranasal sinuses, mastoids: No acute orbital abnormality. Clearparanasal sinuses. Clear mastoid air cells. Extracranial soft tissues: Normal. Calvarium and skull base: No fracture or suspicious osseous lesion. Other: No other abnormalities. IMPRESSION: 1. No acute hemorrhage. Report Verified by: Edith Plummer MD at 04/30/2025 2:35 PM EDT us Robinson Alarcon MD IMG CT ORDERABLES Final Result * ECHO COMPLETE W/ CONTRAST (04/30/2025 1:38 PM EDT) Anatomical Region Laterality Modality Ultrasound 04/30/2025 1:01 PM EDT Narrative 04/30/2025 4:21 PM EDT * [facility]* [address] [place] [address] Transthoracic Echocardiogram Patient: Jaymie Nelson Room: 4422 Height: 62in MR Number: [id number] : 1955 Weight: 128lb Account: [id number] Gender: F BP: 170 / 75 Study Date: 04/30/2025 Age: 69 BSA: 1.58m^2 Referring physician: Destini Hewitt Interpreting physician: Xin Mcdermott MD PERFORMING Xin Mcdermott MD SHIFT LEADER Destini Zhao ORDERING Destini Hewitt REFERRING Destini Hewitt ATTENDING Damari Trevizo ADMITTING Manolo Manning Procedure:TRANSTHORACIC ECHO (TTE) COMPLETE Order: Accession WITH BUBBLE Number:[id number] Indications: Stroke, embolic source (I63.20 + Z13.6). Risk factors: Hypertension. Dyslipidemia. Study data: Height: 62in. 157.5cm. Weight: 128lb. 58.1kg. No prior study was available for comparison. Study status: Routine. Procedure: A transthoracic echocardiogram was performed. Image quality was adequate. Scanning was performed from the parasternal, apical, and subcostal acoustic windows. Intravenous contrast (agitated saline and Optison) was administered. Transthoracic echocardiogram. M-mode, complete 2D, complete spectral Doppler, and color Doppler. Birthdate: Patient birthdate: 1955. Age: Patient is 69year(s) old. Sex: gender: female. Body mass index: BMI: 23.4kg/m^2. Body surface area: BSA: 1.58m^2. Blood pressure: 170/75 Patient status: Inpatient. Study date: Study date: 04/30/2025. Study time: 01:01 PM. Location: Echo laboratory. Study Conclusions - Left ventricle: The cavity size is normal. Wall thickness was increased in a pattern of mild LVH. Systolic function is normal. The estimated ejection fraction is 60-65%. Wall motion is normal; there are no regional wall motion abnormalities. Grade I diastolic dysfunction. There is no evidence of a thrombus revealed by acoustic contrast opacification. - Right ventricle: The cavity size is normal. Wall thickness is increased. Systolic function is normal. - Atrial septum: Agitated saline contrast study at baseline or with provocation, shows no gaeqt-bn-kpwe atrial level shunt. - Pulmonary arteries: Systolic pressure could not be accurately estimated. - Inferior vena cava: The IVC is normal-sized. Cardiac Anatomy Left ventricle: - The cavity size is normal. Wall thickness was increased in a pattern of mild LVH. Systolic function is normal. The estimated ejection fraction is 60-65%. Wall motion is normal; there are no regional wall motion abnormalities. There is no evidence of a thrombus revealed by acoustic contrast opacification. - Grade I diastolic dysfunction. Aorta: Aortic root: The root is normal in size. Aortic valve: - TrileafletThe leaflets are normal thickness and mildly calcified. Mobility is not restricted. Velocity is within the normal range. There is no stenosis. There is no regurgitation. The mean systolic gradient is 2mm Hg. The peak systolic gradient is 4mm Hg. The LVOT to aortic valve VTI ratio is 0.77. The valve area is 2.7cm^2. The valve area index is 1.68cm^2/m^2. The ratio of LVOT to aortic valve peak velocity is 0.8. The valve area is 2.8cm^2. The valve area index is 1.75cm^2/m^2. The ratio of LVOT to aortic valve mean velocity is 0.71. The valve area is 2.5cm^2. The valve area index is 1.56cm^2/m^2. Mitral valve: - The valve is structurally normal. Mobility is not restricted. Inflow velocity is within the normal range. There is no evidence for stenosis. There is no regurgitation. Left atrium: The atrium is normal in size. Atrial septum: - Agitated saline contrast study at baseline or with provocation, shows no ljrbh-an-ygmu atrial level shunt. Pulmonary artery: - Systolic pressure could not be accurately estimated. Right ventricle: - The cavity size is normal. Wall thickness is increased. Systolic function is normal. Pulmonic valve: - Velocity is within the normal range. There is no evidence for stenosis. There is no regurgitation. Tricuspid valve: - The valve is structurally normal. Inflow velocity is within the normal range. There is no regurgitation. Right atrium: The atrium is normal in size. Atrial septum: Agitated saline contrast study at baseline or with provocation, shows no srhcg-uf-qwqa atrial level shunt. Pericardium: - There is no pericardial effusion. Systemic veins: Inferior vena cava: The IVC is normal-sized. Measurements Left ventricle Value Ref SABA, LAX (N) 3.9 cm 3.8 - 5.2 ESD, LAX (N) 2.3 cm 2.2 - 3.5 SABA/bsa, LAX (N) 2.5 cm/m^2 2.3 - 3.1 ESD/bsa, LAX (N) 1.5 cm/m^2 1.3 - 2.1 FS, LAX (N) 41 % - 45 FS, LAX chord (N) 41 % 27 - 45 IVS, ED (H) 1.3 cm 0.6 - 0.9 ESD (N) 2.3 cm 2.2 - 3.5 ESD/bsa (N) 1.5 cm/m^2 1.3 - 2.1 PW, ED (H) 1.1 cm 0.6 - 0.9 IVS/PW, ED 1.18 --------- EDV (N) 66 ml 46 - 106 ESV (N) 18 ml 14 - 42 EF (N) 73 % 54 - 74 SV 51 ml --------- EDV/bsa (N) 42 ml/m^2 29 - 61 ESV/bsa (N) 11 ml/m^2 8 - 24 SV/bsa 32 ml/m^2 --------- SV, 1-p A2C 48 ml --------- SV/bsa, 1-p A2C 30.3 ml/m^2 --------- SV, 1-p A4C 47 ml --------- SV/bsa, 1-p A4C 30 ml/m^2 --------- E', lat octaviano, TDI (L) 6.1 cm/sec >=10.0 E/e', lat octaviano, TDI (N) 9 <=13 A', lat octaviano, TDI 9.1 cm/sec --------- E'/a', lat octaviano, TDI 0.67 --------- S', lat octaviano, TDI 6.4 cm/sec --------- E', med octaviano, TDI (L) 5.4 cm/sec >=7.0 E/e', med octaviano, TDI 10 --------- A', med octaviano, TDI 8.2 cm/sec --------- E'/a', med octaviano, TDI 0.67 --------- S', med octaviano, TDI 6.7 cm/sec --------- E', avg, TDI 5.8 cm/sec --------- E/e', avg, TDI (N) 10 <=14 LVOT Value Ref Diam, S 2.1 cm --------- Area 3.5 cm^2 --------- Peak annette, S 0.75 m/sec --------- Mean annette, S 0.45 m/sec --------- Peak grad, S 2 mm Hg --------- SV 51 ml --------- SV/bsa 32 ml/m^2 --------- Right ventricle Value Ref SABA, LAX 2.8 cm --------- TAPSE, MM (N) 2.2 cm >=1.7 S' lateral (L) 8.1 cm/sec >=9.5 RVOT Value Ref Peak v, S 0.71 m/sec --------- Mean v, S 0.53 m/sec --------- Left atrium Value Ref AP dim, ES (L) 2.6 cm 2.7 - 3.8 AP dim index, ES (N) 1.6 cm/m^2 1.5 - 2.3 Area ES, A4C (N) 17 cm^2 <=20 Area/bsa ES, A4C 11.01 cm^2/m^2 --------- Vol, ES, 1-p A4C (N) 41 ml 22 - 52 Vol/bsa, ES, 1-p A4C (N) 26 ml/m^2 11 - 40 Aortic valve Value Ref Peak v, S 0.9 m/sec --------- Mean v, S 0.63 m/sec --------- Mean grad, S 2 mm Hg --------- Peak grad, S 4 mm Hg --------- LVOT/AV, VTI ratio 0.77 --------- KARL, VTI 2.7 cm^2 --------- KARL/bsa, VTI 1.68 cm^2/m^2 --------- LVOT/AV, Vpeak ratio 0.8 --------- KARL, Vmax 2.8 cm^2 --------- KARL/bsa, Vmax 1.75 cm^2/m^2 --------- LVOT/AV, Vmean ratio 0.71 --------- KARL, Vmean 2.5 cm^2 --------- KARL/bsa, Vmean 1.56 cm^2/m^2 --------- Mitral valve Value Ref Peak E 0.57 m/sec --------- Peak A 0.96 m/sec --------- Decel time 359 ms --------- Peak E/A ratio 0.6 --------- Pulmonic valve Value Ref Peak v, S 0.8 m/sec --------- Mean annette, S 0.57 m/sec --------- Aortic root Value Ref Root diam (N) 3.0 cm 2.4 - 3.8 Root diam/bsa 1.9 cm/m^2 --------- Ascending aorta Value Ref AAo AP diam, S 3.4 cm --------- AAo AP diam/bsa, S 2.2 cm/m^2 --------- Inferior vena cava Value Ref Diam (N) 1.4 cm <=2.1 Legend: (L) and (H) chivo values outside specified reference range. (N) ma values inside specified reference range. Reviewed and confirmed by Xin Mcdermott MD [id number] Procedure Note Xin Mcdermott MD - 04/30/2025 * [facility]* [address] [place] [id number] Transthoracic Echocardiogram Patient: Jaymie Nelson Room: 4422 Height: 62in MR Number: [id number] : 1955 Weight: 128lb Account: [id number] Gender: F BP: 170 /75 Study Date: 04/30/2025 Age: 69 BSA: 1.58m^2 Referring physician: Destini Hewitt Interpreting physician: Xin Mcdermott MD PERFORMING Xin Mcdermott MD SHIFT LEADER Destini Zhao ORDERING Destini Hewitt REFERRING eDstini Hewitt Katrina L ADMITTING Laporta, Joseph Christopher Procedure:TRANSTHORACIC ECHO (TTE) COMPLETE Order: Accession WITH BUBBLE Number:[id number] Indications: Stroke, embolic source (I63.20 + Z13.6). Risk factors: Hypertension. Dyslipidemia. Study data: Height: 62in. 157.5cm. Weight: 128lb. 58.1kg. No priorstudy was available for comparison. Study status: Routine. Procedure: A transthoracic echocardiogram was performed. Image quality was adequate. Scanning was performed from the parasternal, apical, and subcostalacoustic windows. Intravenous contrast (agitated saline and Optison) was administered. Transthoracic echocardiogram. M-mode, [id number], complete spectral Doppler, and color Doppler. Birthdate: Patient birthdate: 1955. Age: Patient is 69year(s) old. Sex: Birthgender: female. Body mass index: BMI: 23.4kg/m^2. Body surface area: BSA: 1.58m^2. Blood pressure: 170/75 Patient status: Inpatient. Study date: Study date: 04/30/2025. Study time: 01:01 PM. Location: Echo laboratory. Study Conclusions - Left ventricle: The cavity size is normal. Wall thickness was increasedin a pattern of mild LVH. Systolic function is normal. The estimatedejection fraction is 60-65%. Wall motion is normal; there are no regional wall motion abnormalities. Grade I diastolic dysfunction. There is noevidence of a thrombus revealed by acoustic contrast opacification. - Right ventricle: The cavity size is normal. Wall thickness isincreased. Systolic function is normal. - Atrial septum: Agitated saline contrast study at baseline or with provocation, shows no ykeum-yk-emve atrial level shunt. - Pulmonary arteries: Systolic pressure could not be accuratelyestimated. - Inferior vena cava: The IVC is normal-sized. Cardiac Anatomy Left ventricle: - The cavity size is normal. Wall thickness was increased in a patternof mild LVH. Systolic function is normal. The estimated ejection fractionis 60-65%. Wall motion is normal; there are no regional wall motion abnormalities. There is no evidence of a thrombus revealed by acoustic contrast opacification. - Grade I diastolic dysfunction. Aorta: Aortic root: The root is normal in size. Aortic valve: - TrileafletThe leaflets are normal thickness and mildly calcified.Mobility is not restricted. Velocity is within the normal range. There is no stenosis. There is no regurgitation. The mean systolic gradient is 2mmHg. The peak systolic gradient is 4mm Hg. The LVOT to aortic valve VTIratio is 0.77. The valve area is 2.7cm^2. The valve area index is1.68cm^2/m^2. The ratio of LVOT to aortic valve peak velocity is 0.8. The valve areais 2.8cm^2. The valve area index is 1.75cm^2/m^2. The ratio of LVOT toaortic valve mean velocity is 0.71. The valve area is 2.5cm^2. The valve area index is 1.56cm^2/m^2. Mitral valve: - The valve is structurally normal. Mobility is not restricted. Inflow velocity is within the normal range. There is no evidence forstenosis. There is no regurgitation. Left atrium: The atrium is normal in size. Atrial septum: - Agitated saline contrast study at baseline or with provocation, showsno levio-jl-rtbl atrial level shunt. Pulmonary artery: - Systolic pressure could not be accurately estimated. Right ventricle: - The cavity size is normal. Wall thickness is increased. Systolicfunction is normal. Pulmonic valve: - Velocity is within the normal range. There is no evidence forstenosis. There is no regurgitation. Tricuspid valve: - The valve is structurally normal. Inflow velocity is within the normal range. There is no regurgitation. Right atrium: The atrium is normal in size. Atrial septum: Agitated saline contrast study at baseline or with provocation, shows no clune-bk-qlxz atrial level shunt. Pericardium: - There is no pericardial effusion. Systemic veins: Inferior vena cava: The IVC is normal-sized. Measurements Left ventricle Value Ref SABA, LAX (N) 3.9 cm 3.8 - 5.2 ESD, LAX (N) 2.3 cm 2.2 - 3.5 SABA/bsa, LAX (N) 2.5 cm/m^2 2.3 - 3.1 ESD/bsa, LAX (N) 1.5 cm/m^2 1.3 - 2.1 FS, LAX (N) 41 % 27 - 45 FS, LAX chord (N) 41 % 27 - 45 IVS, ED (H) 1.3 cm 0.6 - 0.9 ESD (N) 2.3 cm 2.2 - 3.5 ESD/bsa (N) 1.5 cm/m^2 1.3 - 2.1 PW, ED (H) 1.1 cm 0.6 - 0.9 IVS/PW, ED 1.18 --------- EDV (N) 66 ml 46 - 106 ESV (N) 18 ml 14 - 42 EF (N) 73 % 54 - 74 SV 51 ml --------- EDV/bsa (N) 42 ml/m^2 29 - 61 ESV/bsa (N) 11 ml/m^2 8 - 24 SV/bsa 32 ml/m^2 --------- SV, 1-p A2C 48 ml --------- SV/bsa, 1-p A2C 30.3 ml/m^2 --------- SV, 1-p A4C 47 ml --------- SV/bsa, 1-p A4C 30 ml/m^2 --------- E', lat octaviano, TDI (L) 6.1 cm/sec >=10.0 E/e', lat octaviano, TDI (N) 9 <=13 A', lat octaviano, TDI 9.1 cm/sec --------- E'/a', lat octaviano, TDI 0.67 --------- S', lat octaviano, TDI 6.4 cm/sec --------- E', med octaviano, TDI (L) 5.4 cm/sec >=7.0 E/e', med octaviano, TDI 10 --------- A', med octaviano, TDI 8.2 cm/sec --------- E'/a', med octaviano, TDI 0.67 --------- S', med octaviano, TDI 6.7 cm/sec --------- E', avg, TDI 5.8 cm/sec --------- E/e', avg, TDI (N) 10 <=14 LVOT Value Ref Diam, S 2.1 cm --------- Area 3.5 cm^2 --------- Peak annette, S 0.75 m/sec --------- Mean annette, S 0.45 m/sec --------- Peak grad, S 2 mm Hg --------- SV 51 ml --------- SV/bsa 32 ml/m^2 --------- Right ventricle Value Ref SABA, LAX 2.8 cm --------- TAPSE, MM (N) 2.2 cm >=1.7 S' lateral (L) 8.1 cm/sec >=9.5 RVOT Value Ref Peak v, S 0.71 m/sec --------- Mean v, S 0.53 m/sec --------- Left atrium Value Ref AP dim, ES (L) 2.6 cm 2.7 - 3.8 AP dim index, ES (N) 1.6 cm/m^2 1.5 - 2.3 Area ES, A4C (N) 17 cm^2 <=20 Area/bsa ES, A4C 11.01 cm^2/m^2 --------- Vol, ES, 1-p A4C (N) 41 ml 22 - 52 Vol/bsa, ES, 1-p A4C (N) 26 ml/m^2 11 - 40 Aortic valve Value Ref Peak v, S 0.9 m/sec --------- Mean v, S 0.63 m/sec --------- Mean grad, S 2 mm Hg --------- Peak grad, S 4 mm Hg --------- LVOT/AV, VTI ratio 0.77 --------- KARL, VTI 2.7 cm^2 --------- KARL/bsa, VTI 1.68 cm^2/m^2 --------- LVOT/AV, Vpeak ratio 0.8 --------- KARL, Vmax 2.8 cm^2 --------- KARL/bsa, Vmax 1.75 cm^2/m^2 --------- LVOT/AV, Vmean ratio 0.71 --------- KARL, Vmean 2.5 cm^2 --------- KARL/bsa, Vmean 1.56 cm^2/m^2 --------- Mitral valve Value Ref Peak E 0.57 m/sec --------- Peak A 0.96 m/sec --------- Decel time 359 ms --------- Peak E/A ratio 0.6 --------- Pulmonic valve Value Ref Peak v, S 0.8 m/sec --------- Mean annette, S 0.57 m/sec --------- Aortic root Value Ref Root diam (N) 3.0 cm 2.4 - 3.8 Root diam/bsa 1.9 cm/m^2 --------- Ascending aorta Value Ref AAo AP diam, S 3.4 cm --------- AAo AP diam/bsa, S 2.2 cm/m^2 --------- Inferior vena cava Value Ref Diam (N) 1.4 cm <=2.1 Legend: (L) and (H) chivo values outside specified reference range. (N) ma values inside specified reference range. Reviewed and confirmed by Xin Mcdermott MD [id number] us Destini Hewitt MD CV ECHO ORDERABLES Final Resul t * X-ray Comparison Images (04/30/2025 8:59 AM EDT) Narrative EXTERNAL - 04/30/2025 8:59 AM EDT Images associated with this accession number were presented to us for comparison to an examination performed here. us Provider Not In System IMG DIAGNOSTIC IMAGING OR DERABLES Final Result Performing Organization Address City/[facility]/ZIP Co de Phone Number EXTERNAL * X-ray Comparison Images (04/30/2025 8:59 AM EDT) Narrative EXTERNAL - 04/30/2025 8:59 AM EDT Images associated with this accession number were presented to us for comparison to an examination performed here. us Provider Not In System IMG DIAGNOSTIC IMAGING OR DERABLES Final Result Performing Organization Address [facility] Co de Phone Number EXTERNAL * (ABNORMAL) aPTT-Heparin (04/30/2025 7:08 AM EDT) hPTT 88.4(L) 90.0 - 130.0 seconds 04/30/2025 8:14 AM EDT [facility] Plasma 04/30/2025 7:08 AM EDT 04/30/2025 7:16 AM EDT Sindhu Brice MD LAB BLOOD ORDERABLES Final Re sult Performing Organization Address City/[facility]/ZIP Co de Phone Number [facility] [address] [place] [address], [facility] * Magnesium, AM (04/30/2025 7:08 AM EDT) Magnesium 1.8 1.5 - 2.5 mg/dL 04/30/2025 7:46 AM EDT [facility] Plasma 04/30/2025 7:08 AM EDT 04/30/2025 7:16 AM EDT us Robinson Alarcon MD LAB BLOOD ORDERABLES Final Resul t [facility] [address] [place] [address], [facility] * Renal Function Panel w/EGFR (04/30/2025 7:08 AM EDT) Sodium 139 133 - 146 mmol/L 04/30/2025 7:46 AM EDT [facility] Potassium 3.7 3.5 - 5.3 mmol/L 04/30/2025 7:46 AM EDT [facility] Chloride 106 98 - 110 mmol/L 04/30/2025 7:46 AM EDT [facility] CO2 26 21 - 33 mmol/L 04/30/2025 7:46 AM EDT [facility] Anion Gap 7 3 - 16 mmol/L 04/30/2025 7:46 AM EDT [facility] BUN 10 7 - 25 mg/dL 04/30/2025 7:46 AM EDT [facility] Creatinine 0.61 0.60 - 1.30 mg/dL 04/30/2025 7:46 AM EDT [facility] Glucose 88 70 - 100 mg/dL 04/30/2025 7:46 AM EDT [facility] Calcium 9.3 8.6 - 10.3 mg/dL 04/30/2025 7:46 AM EDT [facility] Phosphorus 3.1 2.1 - 4.5 mg/dL 04/30/2025 7:46 AM EDT [facility] Albumin 3.8 3.5 - 5.7 g/dL 04/30/2025 7:46 AM EDT [facility] Osmolality, Calculated 286 278 - 305 mOsm/kg 04/30/2025 7:46 AM EDT [facility] EGFR >90 04/30/2025 7:46 AM EDT [facility] Comment: As of 2022, the estimated GFR is calculated using the 2020 Chronic Kidney Disease Epidemiology Collaboration (CKD-EPI) equation. In line with the NKF-ASN Task Force Recommendations, this equation does not include a coefficient for race. A single eGFR value is calculated for each patient. The reference interval is >60 mL/min/1.73m2. eGFR values greater than 90 will be reported as >90mL/min/1.73m2. Reference: Stas C, Eliazar M, Steven DC, Telly [place], Clayton [place], Mindi [place], et al. A Unifying Approach for GFR Estimation: Recommendations of the NKF-ASN Task Force on Reassessing the inclusion of Race in Diagnosing Kidney Disease. Am J Kidney Dis. 2020. GFR is estimated using creatinine, age, and sex. Patient's values should be interpreted as a trend. Below 90 mL/min/1.73m2, the patient may have renal disease. For additional information: www.kidney.org Plasma 04/30/2025 7:08 AM EDT 04/30/2025 7:16 AM EDT us Robinson Alarcon MD LAB BLOOD ORDERABLES Final Resul t [facility] [address] [place] [address], [facility] * CBC, AM (04/30/2025 7:08 AM EDT) WBC 4.7 3.8 - 10.8 10E3/uL 04/30/2025 7:23 AM EDT [facility] RBC 4.78 3.80 - 5.10 10E6/uL 04/30/2025 7:23 AM EDT [facility] Hemoglobin 14.3 11.7 - 15.5 g/dL 04/30/2025 7:23 AM EDT [facility] Hematocrit 41.5 35.0 - 45.0 % 04/30/2025 7:23 AM EDT [facility] MCV 86.8 80.0 - 100.0 fL 04/30/2025 7:23 AM EDT [facility] MCH 29.9 27.0 - 33.0 pg 04/30/2025 7:23 AM EDT [facility] MCHC 34.4 32.0 - 36.0 g/dL 04/30/2025 7:23 AM EDT [facility] RDW 13.1 11.0 - 15.0 % 04/30/2025 7:23 AM EDT [facility] Platelets 234 140 - 400 10E3/uL 04/30/2025 7:23 AM EDT [facility] MPV 8.5 7.5 - 11.5 fL 04/30/2025 7:23 AM EDT [facility] Whole Blood 04/30/2025 7:08 AM EDT 04/30/2025 7:15 AM EDT us Robinson Alarcon MD LAB BLOOD ORDERABLES Final Resul t [facility] [address] [facility] [place] [id number], [facility] * MRI Head WO contrast (04/30/2025 12:14 AM EDT) Anatomical Region Laterality Modality Head Magnetic Resonan ce 04/29/2025 11:5 5 PM EDT Impressions 04/30/2025 9:40 AM EDT IMPRESSION: 1. Acute multifocal, predominantly cortical/subcortical right frontal and parietal infarcts. 2. No associated petechial hemorrhage. 3. Background mild small vessel disease, mild atrophy, and scattered remote lacunar-type infarcts. Approved by Regis Redman MD on 04/30/2025 8:09 AM EDT I have personally reviewed the images and I agree with this report. Report Verified by: Moses Ortiz DO at 04/30/2025 9:40 AM EDT Narrative 04/30/2025 9:40 AM EDT EXAM: MRI BRAIN WO CONTRAST INDICATION: Acute Stroke TECHNIQUE: MRI brain performed including multiplanar T1 and T2 weighted sequences. COMPARISON: None available. FINDINGS: Adequate diagnostic quality. Brain parenchyma, ventricles, and extraaxial spaces: Proportionate enlargement of sulci and ventricles. Multifocal diffusion restriction involving the right frontal and parietal lobes, predominantly in a cortical and subcortical distribution with corresponding T2/FLAIR hyperintense signal. Scattered remote lacunar infarcts of the right centrum semiovale. Otherwise, scattered white matter T2/FLAIR hyperintensities. Mild diffuse atrophy. No hemorrhagic staining. Normal pituitary gland, optic chiasm, and cerebellar tonsils. No extra-axial fluid collection. Marrow signal of calvarium and skull base: Normal. Orbits, paranasal sinuses, and mastoid regions: No acute orbital abnormality. Minimal paranasal sinus mucosal thickening. Mild right mastoid opacification/fluid. Vascular structures: Grossly maintained arterial and venous flow voids. Patient reportedly had outside CTA performed which is not available within our system for viewing. Other: Normal included extracranial structures. Upper cervical spine without significant abnormality. Procedure Note Moses Ortiz MD - 04/30/2025 EXAM: MRI BRAIN WO CONTRAST INDICATION: Acute Stroke TECHNIQUE: MRI brain performed including multiplanar T1 and T2 weightedsequences. COMPARISON: None available. FINDINGS: Adequate diagnostic quality. Brain parenchyma, ventricles, and extraaxial spaces: Proportionateenlargement of sulci and ventricles. Multifocal diffusion restrictioninvolving the right frontal and parietal lobes, predominantly in acortical and subcortical distribution with corresponding T2/FLAIRhyperintense signal. Scattered remote lacunar infarcts of the rightcentrum semiovale. Otherwise, scattered white matter T2/FLAIRhyperintensities. Mild diffuse atrophy. No hemorrhagic staining. Normalpituitary gland, optic chiasm, and cerebellar tonsils. No extra-axialfluid collection. Marrow signal of calvarium and skull base: Normal. Orbits, paranasal sinuses, and mastoid regions: No acute orbitalabnormality. Minimal paranasal sinus mucosal thickening. Mild rightmastoid opacification/fluid. Vascular structures: Grossly maintained arterial and venous flow voids.Patient reportedly had outside CTA performed which is not available withinour system for viewing. Other: Normal included extracranial structures. Upper cervical spinewithout significant abnormality. IMPRESSION: 1. Acute multifocal, predominantly cortical/subcortical right frontal andparietal infarcts. 2. No associated petechial hemorrhage. 3. Background mild small vessel disease, mild atrophy, and scatteredremote lacunar-type infarcts. Approved by Regis Redman MD on 04/30/2025 8:09 AM EDT I have personally reviewed the images and I agree with this report. Report Verified by: Moses Ortiz DO at 04/30/2025 9:40 AM EDT us Destini Hewitt MD IMG MRI ORDERABLES Final Resul t * (ABNORMAL) aPTT-Heparin (04/29/2025 10:16 PM EDT) hPTT 75.4(L) 90.0 - 130.0 seconds 04/29/2025 11:26 PM EDT [facility] Plasma 04/29/2025 10:1 6 PM EDT 04/29/2025 10:41 PM EDT Manolo Manning DO LAB BLOOD ORDERABL ES Final Result [facility] [address] [facility]. [address] * (ABNORMAL) aPTT-Heparin (04/29/2025 3:58 PM EDT) hPTT 64.0(L) 90.0 - 130.0 seconds 04/29/2025 5:33 PM EDT [facility] Plasma 04/29/2025 3:58 PM EDT 04/29/2025 5:04 PM EDT Manolo Manning DO LAB BLOOD ORDERABL ES Final Result Performing Organization Address [facility] Co de Phone Number [facility] [address] [facility]. [address] * APTT, No Anticoagulant (04/29/2025 9:59 AM EDT) aPTT 33.2 25.5 - 35.0 seconds 04/29/2025 10:28 AM EDT [facility] Plasma 04/29/2025 9:59 AM EDT 04/29/2025 10:05 AM EDT Sindhu Cowart DO LAB BLOOD ORDERABLES Final R esult Performing Organization Address City/[facility] Co de Phone Number [facility] [address] * Protime-INR (04/29/2025 9:59 AM EDT) Protime 13.9 12.1 - 15.1 seconds 04/29/2025 10:28 AM EDT [facility] INR 1.0 0.9 - 1.1 04/29/2025 10:28 AM EDT [facility] Comment: RECOMMENDED THERAPEUTIC RANGES USING INR : Stable oral anticoagulant therapy: 2.0 - 3.0 Mechanical prosthetic heart valve: 2.5 - 3.5 Recurrent acute myocardial infarction: 2.5 - 3.5 Plasma 04/29/2025 9:59 AM EDT 04/29/2025 10:05 AM EDT us Sindhu Cowart DO LAB BLOOD ORDERABLES Final R esult [facility] [address] [facility] [place] [address], [facility] * CBC (04/29/2025 9:59 AM EDT) WBC 5.3 3.8 - 10.8 10E3/uL 04/29/2025 10:15 AM EDT [facility] RBC 4.72 3.80 - 5.10 10E6/uL 04/29/2025 10:15 AM EDT [facility] Hemoglobin 13.6 11.7 - 15.5 g/dL 04/29/2025 10:15 AM EDT [facility] Hematocrit 40.7 35.0 - 45.0 % 04/29/2025 10:15 AM EDT [facility] MCV 86.3 80.0 - 100.0 fL 04/29/2025 10:15 AM EDT [facility] MCH 28.8 27.0 - 33.0 pg 04/29/2025 10:15 AM EDT [facility] MCHC 33.3 32.0 - 36.0 g/dL 04/29/2025 10:15 AM EDT [facility] RDW 13.4 11.0 - 15.0 % 04/29/2025 10:15 AM EDT [facility] Platelets 227 140 - 400 10E3/uL 04/29/2025 10:15 AM EDT [facility] MPV 8.4 7.5 - 11.5 fL 04/29/2025 10:15 AM EDT [facility] Whole Blood 04/29/2025 9:59 AM EDT 04/29/2025 10:08 AM EDT Sindhu Cowart DO LAB BLOOD ORDERABLES Final R esult Performing Organization Address City/[facility]/ZIP Co de Phone Number [facility] [address] [place] [address] * TSH (04/29/2025 5:18 AM EDT) TSH 2.14 0.45 - 4.12 uIU/mL 04/29/2025 6:07 AM EDT [facility] Serum 04/29/2025 5:18 AM EDT 04/29/2025 5:28 AM EDT Destini Hewitt MD LAB BLOOD ORDERABLES Final Res ult Performing Organization Address [facility] de Phone Number [address] * (ABNORMAL) Hemoglobin A1c (04/29/2025 5:18 AM EDT) Hemoglobin A1C 5.7(H) 4.0 - 5.6 % 04/29/2025 11:06 AM EDT [facility] Comment: Hemoglobin A1c Interpretation Guidelines: Normal: <5.7% Prediabetes: 5.7-6.4% Diabetes: >6.4% Diagnosis requires two independent tests unless clinical diagnosis is clear. Some clinical conditions, particularly anemias and hemoglobinopathies, may interfere with the diagnostic accuracy of hemoglobin A1c. The recommended goal for diabetic glycemic control (Hemoglobin A1c <7.0%) should be individualized based on duration of diabetes, age/life expectancy, comorbid conditions, known CVD or advanced microvascular complications, hypoglycemia unawareness, and other individual patient considerations. Whole Blood 04/29/2025 5:18 AM EDT 04/29/2025 5:28 AM EDT Destini Hewitt MD LAB BLOOD ORDERABLES Final Res ult Performing Organization Address City/[facility]/ZIP Co de Phone Number [facility] [address] [place] [address], [facility] * (ABNORMAL) Lipid Profile (04/29/2025 5:18 AM EDT) Non-HDL Cholesterol, Calculated 99 0 - 129 mg/dL 04/29/2025 6:05 AM EDT [facility] Comment: Desirable: < 130 mg/dL Above Desirable: 130-159 mg/dL Borderline High: 160-189 mg/dL High: 190-219 mg/dL Very High: > 219 mg/dL Cholesterol, Total 139 0 - 200 mg/dL 04/29/2025 6:05 AM EDT [facility] Triglycerides 110 10 - 149 mg/dL 04/29/2025 6:05 AM EDT [facility] HDL 40(L) 60 - 92 mg/dL 04/29/2025 6:05 AM EDT [facility] Comment: LIPID PROFILE INTERPRETATION CHOLESTEROL,TOTAL(mg/dL) DESIRABLE: < 200 BORDERLINE HIGH RISK: 200 - 239 HIGH RISK(UNDESIRABLE): =/> 240 LDL CHOLESTEROL(mg/dL) OPTIMAL: < 100 NEAR HIGH OPTIMAL: 100 - 129 BORDERLINE HIGH RISK: 130 - 159 HIGH RISK: 160 - 189 VERY HIGH RISK: =/> 190 HDL CHOLESTEROL(mg/dL) HIGH RISK(UNDESIRABLE): < 40 BORDERLINE: 40 - 59 LOW RISK (DESIRABLE): => 60 TRIGLYCERIDES (mg/dL) NORMAL(DESIRABLE): < 150 BORDERLINE HIGH RISK: 150 - 199 HIGH RISK: 200 - 499 VERY HIGH RISK: =/> 500 Based on the guidlines of the National Cholesterol Education Program (NCEP). Assumes sample obtained after a 9- to 12- hour fast. LDL Cholesterol 77 mg/dL 6:05 AM EDT [facility] Plasma 04/29/2025 5:18 AM EDT 04/29/2025 5:28 AM EDT Narrative [facility] - 04/29/2025 6:05 AM EDT Fasting LDL cholesterol calculated using the Friedewald equation. us Destini Hewitt MD LAB BLOOD ORDERABLES Final Res ult [facility] [address] * CBC (04/29/2025 5:18 AM EDT) WBC 6.1 3.8 - 10.8 10E3/uL 04/29/2025 5:35 AM EDT [facility] RBC 4.67 3.80 - 5.10 10E6/uL 04/29/2025 5:35 AM EDT [facility] Hemoglobin 13.6 11.7 - 15.5 g/dL 04/29/2025 5:35 AM EDT [facility] Hematocrit 40.6 35.0 - 45.0 % 04/29/2025 5:35 AM EDT [facility] MCV 87.1 80.0 - 100.0 fL 04/29/2025 5:35 AM EDT [facility] MCH 29.1 27.0 - 33.0 pg 04/29/2025 5:35 AM EDT [facility] MCHC 33.5 32.0 - 36.0 g/dL 04/29/2025 5:35 AM EDT [facility] RDW 13.2 11.0 - 15.0 % 04/29/2025 5:35 AM EDT [facility] Platelets 239 140 - 400 10E3/uL 04/29/2025 5:35 AM EDT [facility] MPV 8.4 7.5 - 11.5 fL 04/29/2025 5:35 AM EDT [facility] Whole Blood 04/29/2025 5:18 AM EDT 04/29/2025 5:28 AM EDT us Destini Hewitt MD LAB BLOOD ORDERABLES Final Res ult [facility] [address] * POC Glucose Monitoring Device (04/29/2025 5:13 AM EDT) POC Glucose Monitoring Device 89 70 - 100 mg/dL 04/29/2025 5:13 AM EDT [facility] Blood 04/29/2025 5:13 AM EDT 04/29/2025 5:13 AM EDT Manolo Manning DO POINT OF CARE TEST ORDERABLES Final Result [facility] [address] * PTT, No Anticoagulant (04/29/2025 4:41 AM EDT) aPTT 32.1 25.5 - 35.0 seconds 04/29/2025 5:17 AM EDT [facility] Plasma 04/29/2025 4:41 AM EDT 04/29/2025 5:01 AM EDT Debby Feng MD LAB BLOOD ORDERABLES F inal Result Performing Organization Address [facility] Co de Phone Number [facility] [address] [facility] * Protime-INR (04/29/2025 4:41 AM EDT) Protime 14.0 12.1 - 15.1 seconds 04/29/2025 5:16 AM EDT [facility] INR 1.0 0.9 - 1.1 04/29/2025 5:16 AM EDT [facility] Comment: RECOMMENDED THERAPEUTIC RANGES USING INR : Stable oral anticoagulant therapy: 2.0 - 3.0 Mechanical prosthetic heart valve: 2.5 - 3.5 Recurrent acute myocardial infarction: 2.5 - 3.5 Plasma 04/29/2025 4:41 AM EDT 04/29/2025 5:01 AM EDT Debby Feng MD LAB BLOOD ORDERABLES F inal Result [facility] [address] * BNP (04/29/2025 4:41 AM EDT) BNP 12 0 - 100 pg/mL 04/29/2025 5:11 AM EDT [facility] Comment: BNP may be increased in the presence of sacubitril/valsartan (Entresto). Please interpret accordingly. Plasma 04/29/2025 4:41 AM EDT 04/29/2025 4:47 AM EDT Narrative [facility] - 04/29/2025 5:11 AM EDT The presence of high concentrations of biotin may cause falsely lowered BNP results. Biotin interference may be seen if an individual is taking >5 mg biotin per day. Interpret BNP results in the context of the patient's clinical presentation. Debby Feng MD LAB BLOOD ORDERABLES F inal Result [facility] [address] [place] [id number], [facility] * (ABNORMAL) Venous blood gas, Line/Syringe (04/29/2025 4:41 AM EDT) Pathologist [facility] PH-Line Draw 7.36 7.32 - 7.42 04/29/2025 4:51 AM EDT [facility] PCO2-Line Draw 50 41 - 51 mm Hg 04/29/2025 4:51 AM EDT [facility] PO2-Line Draw 31 25 - 40 mm Hg 04/29/2025 4:51 AM EDT [facility] HCO3-Line Draw 25 24 - 28 mmol/L 04/29/2025 4:51 AM EDT [facility] CO2 Content-Line Draw 30(H) 25 - 29 mmol/L 04/29/2025 4:51 AM EDT [facility] Base Excess-Line Draw 1.8 -2.0 - 3.0 mmol/L 04/29/2025 4:51 AM EDT [facility] %HBO2-Line Draw 56.2 40.0 - 70.0 % 04/29/2025 4:51 AM EDT [facility] Carboxyhgb-Gavi e Draw 1.4 % 04/29/2025 4:51 AM EDT [facility] Comment: CARBOXYHEMOGLOBIN (CO) REFERENCE RANGES: Non-Smokers: <2 % Smokers: <8 % TOXIC: >20 % Methemoglobin- Line Draw 0.1 0.0 - 1.5 % 04/29/2025 4:51 AM EDT [facility] Reduced Hemoglobin-Gavi e Draw 42.2(H) 0.0 - 5.0 % 04/29/2025 4:51 AM EDT [facility] Venous, Line Draw 04/29/2025 4:41 AM EDT 04/29/2025 4:47 AM EDT Debby Feng MD LAB BLOOD ORDERABLES F inal Result [facility] [address] [facility] * High Sensitivity Troponin (04/29/2025 4:41 AM EDT) High Sensitivity Troponin 7 0 - 14 ng/L 04/29/2025 5:12 AM EDT [facility] Serum 04/29/2025 4:41 AM EDT 04/29/2025 4:47 AM EDT Debby Feng MD LAB BLOOD ORDERABLES F inal Result [facility] [address] [facility] * Magnesium (04/29/2025 4:41 AM EDT) Magnesium 1.9 1.5 - 2.5 mg/dL 04/29/2025 5:04 AM EDT [facility] Plasma 04/29/2025 4:41 AM EDT 04/29/2025 4:47 AM EDT Debby Feng MD LAB BLOOD ORDERABLES F inal Result [facility] [address] [facility] * Differential (04/29/2025 4:41 AM EDT) Neutrophils Relative 53.3 40.0 - 80.0 % 04/29/2025 5:11 AM EDT [facility] Lymphocytes Relative 37.0 15.0 - 45.0 % 04/29/2025 5:11 AM EDT [facility] Monocytes Relative 7.4 0.0 - 12.0 % 04/29/2025 5:11 AM EDT [facility] Eosinophils Relative 1.9 0.0 - 8.0 % 04/29/2025 5:11 AM EDT [facility] Basophils Relative 0.4 0.0 - 1.0 % 04/29/2025 5:11 AM EDT [facility] nRBC 0 0 - 0 /100 WBC 04/29/2025 5:11 AM EDT [facility] Neutrophils Absolute 3,251 1,520 - 8,640 /uL 04/29/2025 5:11 AM EDT [facility] Lymphocytes Absolute 2,257 570 - 4,860 /uL 04/29/2025 5:11 AM EDT [facility] Monocytes Absolute 451 0 - 1,296 /uL 04/29/2025 5:11 AM EDT [facility] Eosinophils Absolute 116 0 - 864 /uL 04/29/2025 5:11 AM EDT [facility] Basophils Absolute 24 0 - 108 /uL 04/29/2025 5:11 AM EDT [facility] Whole Blood 04/29/2025 4:41 AM EDT 04/29/2025 5:01 AM EDT us Debby Feng MD LAB BLOOD ORDERABLES F inal Result [facility] [address] * CBC (04/29/2025 4:41 AM EDT) WBC 6.1 3.8 - 10.8 10E3/uL 04/29/2025 5:11 AM EDT [facility] RBC 4.75 3.80 - 5.10 10E6/uL 04/29/2025 5:11 AM EDT [facility] Hemoglobin 13.6 11.7 - 15.5 g/dL 04/29/2025 5:11 AM EDT [facility] Hematocrit 41.5 35.0 - 45.0 % 04/29/2025 5:11 AM EDT [facility] MCV 87.2 80.0 - 100.0 fL 04/29/2025 5:11 AM EDT [facility] MCH 28.7 27.0 - 33.0 pg 04/29/2025 5:11 AM EDT [facility] MCHC 32.9 32.0 - 36.0 g/dL 04/29/2025 5:11 AM EDT [facility] RDW 13.1 11.0 - 15.0 % 04/29/2025 5:11 AM EDT [facility] Platelets 237 140 - 400 10E3/uL 04/29/2025 5:11 AM EDT [facility] MPV 8.5 7.5 - 11.5 fL 04/29/2025 5:11 AM EDT [facility] Whole Blood 04/29/2025 4:41 AM EDT 04/29/2025 5:01 AM EDT Debby Feng MD LAB BLOOD ORDERABLES F inal Result Performing Organization Address City/State/[facility] Co de Phone Number [facility] [address] * ED HCV Ab Reflex To HCV Quant (04/29/2025 4:41 AM EDT) HCV Ab Nonreactive Nonreactive 04/29/2025 6:02 AM EDT [facility] Comment:Health Department no tified in accordance with reportable infectious disease guidelines. HCVAB Number 0.06 0.00 - 0.79 S/CO 04/29/2025 6:02 AM EDT [facility] Serum 04/29/2025 4:41 AM EDT 04/29/2025 5:01 AM EDT Debby Feng MD LAB BLOOD ORDERABLES F inal Result [facility] [address] [place] [id number], [facility] * Basic metabolic panel (04/29/2025 4:41 AM EDT) Sodium 139 133 - 146 mmol/L 04/29/2025 5:04 AM EDT [facility] Potassium 3.8 3.5 - 5.3 mmol/L 04/29/2025 5:04 AM EDT [facility] Chloride 105 98 - 110 mmol/L 04/29/2025 5:04 AM EDT [facility] CO2 27 21 - 33 mmol/L 04/29/2025 5:04 AM EDT [facility] Anion Gap 7 3 - 16 mmol/L 04/29/2025 5:04 AM EDT [facility] BUN 9 7 - 25 mg/dL 04/29/2025 5:04 AM EDT [facility] Creatinine 0.70 0.60 - 1.30 mg/dL 04/29/2025 5:04 AM EDT [facility] Glucose 91 70 - 100 mg/dL 04/29/2025 5:04 AM EDT [facility] Calcium 8.9 8.6 - 10.3 mg/dL 04/29/2025 5:04 AM EDT [facility] Osmolality, Calculated 286 278 - 305 mOsm/kg 04/29/2025 5:04 AM EDT [facility] EGFR >90 04/29/2025 5:04 AM EDT [facility] Comment: As of 2022, the estimated GFR is calculated using the 2020 Chronic Kidney Disease Epidemiology Collaboration (CKD-EPI) equation. In line with the NKF-ASN Task Force Recommendations, this equation does not include a coefficient for race. A single eGFR value is calculated for each patient. The reference interval is >60 mL/min/1.73m2. eGFR values greater than 90 will be reported as >90mL/min/1.73m2. Reference: Stas C, Eliazar M, Steven [place], Telly [place], [place], Mindi [place], et al. A Unifying Approach for GFR Estimation: Recommendations of the NKF-ASN Task Force on Reassessing the inclusion of Race in Diagnosing Kidney Disease. Am J Kidney Dis. 2021. GFR is estimated using creatinine, age, and sex. Patient's values should be interpreted as a trend. Below 90 mL/min/1.73m2, the patient may have renal disease. For additional information: www.kidney.org Plasma 04/29/2025 4:41 AM EDT 04/29/2025 4:47 AM EDT Debby Feng MD LAB BLOOD ORDERABLES F inal Result [facility] [address] [place] [address], [facility] * ED ECG 12-Lead (MUSE) (04/29/2025 4:06 AM EDT) 04/29/2025 4:06 AM EDT Narrative MUSE - 04/29/2025 8:05 AM EDT Ventricular Rate: 63 BPM Atrial Rate: 63 BPM P-R Interval: 228 ms QRS Duration: 134 ms QT: 460 ms QTc: 470 ms P [place]: 82 degrees R [place]: 37 degrees T [place]: 93 degrees Diagnosis Line: ^ INTERPRETATION NOT AVAILABLE--ECG READ IN ER ^ Confirmed by PHYSICIAN, ER ([id number]), news video editor Kalina Patricia ([id number]) on 04/29/2025 8:05:52 AM Simona Mirza MD ECG ORDERABLES Final Result Performing Organization Address [facility] Co de Phone Number MUSE documented in this encounter Visit Diagnoses Diagnosis Acute stroke due to ischemia ([facility])- Primary Stenosis of right carotid artery Occlusion and stenosis of carotid artery without mention of cerebral infarction Cerebrovascular accident (CVA) due to stenosis of right carotid artery ([facility]) Chronic pain syndrome Hypertension, unspecified type Chronic pain syndrome Hypertension Unspecified essential hypertension Vitamin D deficiency Unspecified vitamin D deficiency documented in this encounter Administered Medications Inactive Administered Medications - up to 3 most recent administrations Medication Order MAR Action Action Date Dose Rate Site acetaminophen (TYLENOL) suppository 650 mg 650 mg, Rectal, Every 4 hours PRN, mild pain (NRS 1-3); no comparable CPOT score, Starting on Sun04/29/25 at 0523, If patient unable to take PO. Maximum dose of acetaminophen is 4000 mg (4 grams) from all sources in 24 hours. acetaminophen (TYLENOL) tablet 650 mg 650 mg, Oral, Every 4 hours PRN, mild pain (NRS 1-3); no comparable CPOT score, Starting on Sun04/29/25 at 0523, Maximum dose of acetaminophen is 4000 mg (4 grams) from all sources in 24 hours. Given 05/01/2025 7:43 AM EDT 650 mg Given 04/29/2025 10:03 PM EDT 650 mg aspirin chewable tablet 81 mg 81 mg, Oral, Daily, First dose on Sun04/29/25 at 0900, On hold since Sun04/30/2025 at 0729 until manually unheld Given 04/29/2025 7:37 AM EDT 81 mg aspirin chewable tablet 81 mg 81 mg, Oral, Daily with breakfast, First dose on Sun04/30/25 at 1030 Given 05/02/2025 8:37 AM EDT 81 mg Given 05/01/2025 7:43 AM EDT 81 mg Given 04/30/2025 10:37 AM EDT 81 mg atorvastatin (LIPITOR) tablet 20 mg 20 mg, Oral, Daily, First dose on Sun04/29/25 at 0900 Given 04/30/2025 8:36 AM EDT 20 mg Given 04/29/2025 7:37 AM EDT 20 mg atorvastatin (LIPITOR) tablet 40 mg 40 mg, Oral, Daily, First dose (after last modification) on Sun05/01/25 at 0900 Given 05/02/2025 8:37 AM EDT 40 mg Given 05/01/2025 7:43 AM EDT 40 mg ergocalciferol capsule 50,000 Units 50,000 Units, Oral, User specified (Once per day on Sunday), First dose on Sun04/30/25 at 0930 Given 04/30/2025 10:37 AM EDT 50,000 Units heparin (porcine) injection 5,000 Units 5,000 Units, Subcutaneous, Every 8 hours scheduled (3 times per day), First dose on Sun04/29/25 at 0456 Given 04/29/2025 5:12 AM EDT 5,000 Units Abdominal Tissue heparin 31213 units in 0.45% NaCl 250 mL IV infusion Intravenous, at 7 mL/hr, Continuous, Starting on Sun04/29/25 at 0931, Goal hPTT 60-80 seconds Patient weight less than 83kg hPTT = less than 36 seconds: NO BOLUS INCREASE dose by 2 units/kg/hour ORDER repeat hPTT in 6 hours hPTT = 36 to 59 seconds: NO BOLUS INCREASE dose by 1 units/kg/hour ORDER repeat hPTT in 6 hours hPTT = 60 to 80 seconds: NO bolus CONTINUE current dose ORDER repeat hPTT in 6 hours until there are 2 consecutive results in range hPTT = 81 to 120 seconds: NO bolus DECREASE dose by 2 units/kg/hour ORDER repeat hPTT in 6 hours hPTT = greater than 120 seconds: HOLD infusion for 1 hour DECREASE dose by 3 units/kg/hour ORDER repeat hPTT in 6 hours hPTT = 2 consecutive greater than 200 seconds: HOLD infusion CALL Physician for further direction HIGH ALERT MEDICATION., Other Indications for heparin: Arterial Thrombus, Heparin protocol selected: Minimal Dose New Bag 04/30/2025 9:29 AM EDT 10 Units/kg/hr 5.8 mL/hr Handoff 04/30/2025 7:32 AM EDT 12 Units/kg/hr 7 mL/hr New Bag 04/30/2025 7:09 AM EDT 12 Units/kg/hr 7 mL/hr heparin 58289 units in 0.45% NaCl 250 mL IV infusion Intravenous, at 7 mL/hr, Continuous, Starting on Bettie 04/30/25 at 1530, Goal hPTT 80-110 seconds hPTT = less than 36 seconds: NO BOLUS INCREASE dose by 4 units/kg/hour ORDER repeat hPTT in 6 hours hPTT = 36 to 79 seconds: NO BOLUS INCREASE dose by 2 units/kg/hour, ORDER repeat hPTT in 6 hours hPTT = 80 to 110 seconds: NO bolus CONTINUE current dose ORDER repeat hPTT in 6 hours until there are 2 consecutive results in range hPTT = 111 to 140 seconds: NO bolus DECREASE dose by 2 units/kg/hour ORDER repeat hPTT in 6 hours hPTT = greater than 140 seconds: HOLD infusion for 1 hour DECREASE dose by 3 units/kg/hour ORDER repeat hPTT in 6 hours hPTT = 2 consecutive greater than 200 seconds: HOLD infusion CALL Physician for further direction HIGH ALERT MEDICATION., Other Indications for heparin: Other (Comments), Please specify indication: carotid stenosis New Bag 05/01/2025 7:38 AM EDT 16 Units/kg/hr 9.3 mL/hr Handoff 05/01/2025 7:13 AM EDT 14 Units/kg/hr 8.1 mL/hr Rate/Dose Change 05/01/2025 12:50 AM EDT 14 Units/kg/hr 8. 1 mL/hr hydrALAZINE (APRESOLINE) tablet 10 mg 10 mg, Oral, Once, On Sun04/30/25 at 1700, For 1 dose Given 04/30/2025 5:32 PM EDT 10 mg hydrALAZINE (APRESOLINE) tablet 10 mg 10 mg, Oral, Every 8 hours, First dose on Sun05/01/25 at 1000, For 2 doses Given 05/01/2025 5:23 PM EDT 10 mg Given 05/01/2025 11:09 AM EDT 10 mg hydrALAZINE (APRESOLINE) tablet 10 mg 10 mg, Oral, Every 8 hours scheduled (3 times per day), First dose on Sun05/02/25 at 0500 Given 05/02/2025 4:55 AM EDT 10 mg magnesium oxide (MAG-OX) tablet 400 mg 400 mg, Oral, 2 times daily, First dose on Sun04/30/25 at 1030, For 4 doses Given 05/01/2025 7:52 PM EDT 400 mg Given 05/01/2025 7:43 AM EDT 400 mg Given 04/30/2025 9:45 PM EDT 400 mg ondansetron (ZOFRAN) injection 4 mg 4 mg, Intravenous, Every 6 hours PRN, Nausea and/or Vomiting, Starting on Sun04/29/25 at 1319 perflutren (OPTISON) Susp 0.66 mg 0.66 mg, Intravenous, IMG once as needed, contrast, Starting on Sun04/30/25 at 1347, For 1 dose Given 04/30/2025 1:28 PM EDT 0.66 mg polyethylene glycol (MIRALAX) packet 17 g 17 g, Oral, Daily, First dose on Sun04/30/25 at 0900 Given 04/30/2025 8:36 AM EDT 17 g potassium chloride (KLOR-CON M20) CR tablet 40 mEq 40 mEq, Oral, Once, On Sun04/30/25 at 1000, For 1 dose, FOR PATIENTS UNABLE TO SWALLOW LARGE TABLETS, but can take liquids orally: Place tablet(s) in room temperature or warm water (@ 2-4 ounces) and allow to disintegrate for ~ 30 seconds. Then stir well and administer immediately before particles settle. NOTE: not all particles will go into solution. DO NOT CRUSH or CHEW; TABLET(S) MAY BE SPLIT Given 04/30/2025 10:37 AM EDT 40 mEq pregabalin (LYRICA) capsule 50 mg 50 mg, Oral, At Bedtime (2099), First dose on Sun04/29/25 at 0646 Given 05/01/2025 7:51 PM EDT 50 mg Given 04/30/2025 9:45 PM EDT 50 mg Given 04/29/2025 10:07 PM EDT 50 mg senna-docusate (SENNA-S) 8.6-50 mg per tablet 1 tablet 1 tablet, Oral, At Bedtime (2099), First dose on Sun04/30/25 at 2100 Given 04/30/2025 9:45 PM EDT 1 tablet senna-docusate (SENNA-S) 8.6-50 mg per tablet 1 tablet 1 tablet, Oral, 2 times daily, First dose (after last modification) on Sun05/01/25 at 0900 Given 05/02/2025 8:35 AM EDT 1 tablet ticagrelor (BRILINTA) tablet 180 mg 180 mg, Oral, Once, On Sun05/01/25 at 1100, For 1 dose, LOADING DOSE If patient received a ticagrelor loading dose, next maintenance dose should start within 12 hour. Subsequent doses should be kept on a BID schedule. Given 05/01/2025 11:43 AM EDT 180 mg ticagrelor (BRILINTA) tablet 90 mg 90 mg, Oral, 2 times daily, First dose on Sun05/01/25 at 2100, If patient received a ticagrelor loading dose, next maintenance dose should start within 12 hour. Subsequent doses should be kept on a BID schedule. Given 05/02/2025 8:36 AM EDT 90 mg Given 05/01/2025 7:52 PM EDT 90 mg venlafaxine (EFFEXOR-XR) 24 hr capsule 75 mg 75 mg, Oral, Daily, First dose on Sun04/29/25 at 0900, CAPSULES MUST BE SWALLOWED WHOLE; DO NOT OPEN OR CRUSH CAPSULES Given 05/02/2025 8:36 AM EDT 75 mg Given 05/01/2025 7:43 AM EDT 75 mg Given 04/30/2025 8:35 AM EDT 75 mg documented in this encounter Active and Recently Administered Medications Times are shown in EDT. Scheduled Medication Order 04/30/2025 05/01/2025 05/02/2025 aspirin chewable tablet 81 mg 81 mg, Oral, Daily with breakfast, First dose on Sun04/30/25 at 1030 1037 (Given - Provider: Yen Ann RN) 0743 (Given - Provider: Leanna De Jesus, LASHON) 0837 (Given - Provider: Sheila Russell, LASHON) atorvastatin (LIPITOR) tablet 20 mg (CANCELED) 20 mg, Oral, Daily, First dose on Sun04/29/25 at 0900 0836 (Given - Provider: Yen Ann RN) atorvastatin (LIPITOR) tablet 40 mg 40 mg, Oral, Daily, First dose (after last modification) on Sun05/01/25 at 0900 0743 (Given - Provider: Leanna De Jesus RN) 0837 (Given - Provider: Sheila Russell, LASHON) ergocalciferol capsule 50,000 Units 50,000 Units, Oral, User specified (Once per day on Sunday), First dose on Sun04/30/25 at 0930 1037 (Given - Provider: Yen Ann RN) hydrALAZINE (APRESOLINE) tablet 10 mg (COMPLETED) 10 mg, Oral, Once, On Sun04/30/25 at 1700, For 1 dose 1732 (Given - Provider: Simona Lantigua RN) hydrALAZINE (APRESOLINE) tablet 10 mg (COMPLETED) 10 mg, Oral, Every 8 hours, First dose on Sun05/01/25 at 1000, For 2 doses 1109 (Given - Provider: Leanna De Jesus, LASHON)1723 (Given - Provider: Leanna De Jesus, LASHON) hydrALAZINE (APRESOLINE) tablet 10 mg 10 mg, Oral, Every 8 hours scheduled (3 times per day), First dose on Sun05/02/25 at 0500 0455 (Given - Provider: Vaughn Jorgensen, RN)1300 (Due) magnesium oxide (MAG-OX) tablet 400 mg (COMPLETED) 400 mg, Oral, 2 times daily, First dose on Sun04/30/25 at 1030, For 4 doses 1039 (Given - Provider: Yen Ann RN)2145 (Given - Provider: Raoul Mcdowell RN) 0743 (Given - Provider: Leanna De Jesus, LASHON)1951 (Given - Provider: Vaughn Jorgensen RN) polyethylene glycol (MIRALAX) packet 17 g 17 g, Oral, Daily, First dose on Sun04/30/25 at 0900 0836 (Given - Provider: Yen Ann RN) 0744 (Not Given - Provider: Leanna De Jesus RN - Reason: Patient/family refused) 0838 (Not Given - Provider: Sheila Russell RN - Reason: Patient/family refused) potassium chloride (KLOR-CON M20) CR tablet 40 mEq (COMPLETED) 40 mEq, Oral, Once, On Sun04/30/25 at 1000, For 1 dose, FOR PATIENTS UNABLE TO SWALLOW LARGE TABLETS, but can take liquids orally: Place tablet(s) in room temperature or warm water (@ 2-4 ounces) and allow to disintegrate for ~ 30 seconds. Then stir well and administer immediately before particles settle. NOTE: not all particles will go into solution. DO NOT CRUSH or CHEW; TABLET(S) MAY BE SPLIT 1037 (Given - Provider: Yen Ann RN) pregabalin (LYRICA) capsule 50 mg 50 mg, Oral, At Bedtime (2099), First dose on Sun04/29/25 at 0646 2145 (Given - Provider: Raoul Mcdowell, LASHON) 1950 (Given - Provider: Vaughn Jorgensen RN) senna-docusate (SENNA-S) 8.6-50 mg per tablet 1 tablet (CANCELED) 1 tablet, Oral, At Bedtime (2099), First dose on Sun04/30/25 at 2100 2145 (Given - Provider: Raoul Mcdowell, LASHON) senna-docusate (SENNA-S) 8.6-50 mg per tablet 1 tablet 1 tablet, Oral, 2 times daily, First dose (after last modification) on Sun05/01/25 at 0900 0744 (Not Given - Provider: Leanna De Jesus RN - Reason: Patient/family refused)1950 (Not Given - Provider: Vaughn Jorgensen RN - Reason: Patient/family refused) 0835 (Given - Provider: Sheila Russell, LASHON) ticagrelor (BRILINTA) tablet 180 mg (COMPLETED) 180 mg, Oral, Once, On Sun05/01/25 at 1100, For 1 dose, LOADING DOSE If patient received a ticagrelor loading dose, next maintenance dose should start within 12 hour. Subsequent doses should be kept on a BID schedule. 1143 (Given - Provider: Leanna De Jesus RN) ticagrelor (BRILINTA) tablet 90 mg 90 mg, Oral, 2 times daily, First dose on Sun05/01/25 at 2100, If patient received a ticagrelor loading dose, next maintenance dose should start within 12 hour. Subsequent doses should be kept on a BID schedule. 1951 (Given - Provider: Vaughn Jorgensen RN) 0836 (Given - Provider: Sheila Russell, LASHON) venlafaxine (EFFEXOR-XR) 24 hr capsule 75 mg 75 mg, Oral, Daily, First dose on Sun04/29/25 at 0900, CAPSULES MUST BE SWALLOWED WHOLE; DO NOT OPEN OR CRUSH CAPSULES 0835 (Given - Provider: Yen Ann RN) 0743 (Given - Provider: Leanna De Jesus RN) 0836 (Given - Provider: Sheila Russell, LASHON) Continuous Medication Order 04/30/2025 05/01/2025 05/02/2025 heparin 16530 units in 0.45% NaCl 250 mL IV infusion (CANCELED) Intravenous, at 7 mL/hr, Continuous, Starting on Sun04/29/25 at 0931, Goal hPTT 60-80 seconds Patient weight less than 83kg hPTT = less than 36 seconds: NO BOLUS INCREASE dose by 2 units/kg/hour ORDER repeat hPTT in 6 hours hPTT = 36 to 59 seconds: NO BOLUS INCREASE dose by 1 units/kg/hour ORDER repeat hPTT in 6 hours hPTT = 60 to 80 seconds: NO bolus CONTINUE current dose ORDER repeat hPTT in 6 hours until there are 2 consecutive results in range hPTT = 81 to 120 seconds: NO bolus DECREASE dose by 2 units/kg/hour ORDER repeat hPTT in 6 hours hPTT = greater than 120 seconds: HOLD infusion for 1 hour DECREASE dose by 3 units/kg/hour ORDER repeat hPTT in 6 hours hPTT = 2 consecutive greater than 200 seconds: HOLD infusion CALL Physician for further direction HIGH ALERT MEDICATION., Other Indications for heparin: Arterial Thrombus, Heparin protocol selected: Minimal Dose 0709 (New Bag - Provider: Coral Zhang RN)0732 (Handoff - Provider: Yen Ann, RN)0929 (New Bag - Provider: Yen Ann, RN) heparin 56847 units in 0.45% NaCl 250 mL IV infusion (CANCELED) Intravenous, at 7 mL/hr, Continuous, Starting on Bettie 04/30/25 at 1530, Goal hPTT 80-110 seconds hPTT = less than 36 seconds: NO BOLUS INCREASE dose by 4 units/kg/hour ORDER repeat hPTT in 6 hours hPTT = 36 to 79 seconds: NO BOLUS INCREASE dose by 2 units/kg/hour, ORDER repeat hPTT in 6 hours hPTT = 80 to 110 seconds: NO bolus CONTINUE current dose ORDER repeat hPTT in 6 hours until there are 2 consecutive results in range hPTT = 111 to 140 seconds: NO bolus DECREASE dose by 2 units/kg/hour ORDER repeat hPTT in 6 hours hPTT = greater than 140 seconds: HOLD infusion for 1 hour DECREASE dose by 3 units/kg/hour ORDER repeat hPTT in 6 hours hPTT = 2 consecutive greater than 200 seconds: HOLD infusion CALL Physician for further direction HIGH ALERT MEDICATION., Other Indications for heparin: Other (Comments), Please specify indication: carotid stenosis 1526 (Handoff - Provider: Simona Lantigua, LASHON)1826 (Rate/Dose Change - Provider: Simona Lantigua RN)1912 (Handoff - Provider: Simona Lantigua RN) 0050 (Rate/Dose Change - Provider: Raoul Mcdowell RN)0713 (Handoff - Provider: Leanna De Jesus, LASHON)0738 (New Bag - Provider: Leanna De Jesus, LASHON)1056 (Stopped - Provider: Leanna De JesusLASHON) PRN Medication Order 04/30/2025 05/01/2025 05/02/2025 acetaminophen (TYLENOL) suppository 650 mg(Linked Group 1) 650 mg, Rectal, Every 4 hours PRN, mild pain (NRS 1-3); no comparable CPOT score, Starting on Sun04/29/25 at 0523, If patient unable to take PO. Maximum dose of acetaminophen is 4000 mg (4 grams) from all sources in 24 hours. 0743 (See Alternative - Provider: Leanna De Jesus RN) acetaminophen (TYLENOL) tablet 650 mg(Linked Group 1) 650 mg, Oral, Every 4 hours PRN, mild pain (NRS 1-3); no comparable CPOT score, Starting on Sun04/29/25 at 0523, Maximum dose of acetaminophen is 4000 mg (4 grams) from all sources in 24 hours. 0743 (Given - Provider: Leanna De Jesus RN) ondansetron (ZOFRAN) injection 4 mg 4 mg, Intravenous, Every 6 hours PRN, Nausea and/or Vomiting, Starting on Sun04/29/25 at 1319 perflutren (OPTISON) Susp 0.66 mg (COMPLETED) 0.66 mg, Intravenous, IMG once as needed, contrast, Starting on Bettie 04/30/25 at 1347, For 1 dose 1328 (Given - Provider: Yessy Parekh RN - Comment: 1.5cc given) Linked Groups Order Group 1: acetaminophen (TYLENOL) tablet 650 mgJump to med 650 mg, Oral, Every 4 hours PRN, mild pain (NRS 1-3); no comparable CPOT score, Starting on Sun04/29/25 at 0523, Maximum dose of acetaminophen is 4000 mg (4 grams) from all sources in 24 hours. Or acetaminophen (TYLENOL) suppository 650 mgJump to med 650 mg, Rectal, Every 4 hours PRN, mild pain (NRS 1-3); no comparable CPOT score, Starting on Sun04/29/25 at 0523, If patient unable to take PO. Maximum dose of acetaminophen is 4000 mg (4 grams) from all sources in 24 hours. documented in this encounter Care Teams Emt I/85 Relationship Specialty Start Date End Date Krzysztof Hendrickson MD [address] [place] [address] PCP - General Family Medicine 04/29/25 documented as of this encounter
--- OUTSIDE RECORDS SUMMARY | 2025-05-05 08:46 | XMS_ITS | Encounter Summary ---
Author Organization [facility] Address [address] [place] [address] Care Team Providers Care Animal Behaviourist Name Role Phone Krzysztof Hendrickson MD Primary Care Provider [phone] Source Comments This information has been disclosed [...] release of HIV test results or diagnoses. [id number] Health Encounter Details Date Type Department Care Team (Latest Contact Info) Description 05/05/2025 8:46 AM EDT - 05/05/2025 11:59 PM EDT Hospital Encounter [facility] [address] [place] [address] System, Provider Not In Discharge Disposition: Home or Self Care WITHOUT Home Care Services Social History Tobacco Use Types Packs/Day Years Used Date Smoking Tobacco: Former Cigarettes Q uit: 2005 Passive Smoke Exposure: Never Smokeless Tobacco: Never Alcohol Use Standard Drinks/Week Comments Never 0 (1 standard drink = 0.6 oz pur e alcohol) Utilities Answer Date Recorded In the past 12 months has [employer], gas, oil, or water [employer] threatened to shut off services in your [...] any time in the past 12 m [facility], were you homeless or living in a halfway (including now)? No 04/29/2025 Comments Unknown Sex and Gender Information Value Date Recorded Sex Assigned at Not on file Legal Sex Female 11:24 PM EDT Gender Identity Not on file Sexual Orientation Not on file documented as of this encounter Medications at Time of Discharge [...] 4 capsule 05/02/2025 3:03 PM EDT 05/02/2025 fluticasone propionate (FLONASE) 50 mcg/actuation nasal spray Use 2 sprays into each nostril daily. Shake well 05/05/2025 hydrALAZINE (APRESOLINE) 10 MG tablet Take 1 [...] 05/02/2025 05/27/2025 documented as of this encounter Plan of Treatment Not on file documented as of this encounter Procedures Procedure Name Priority Date/Time Associated Diagnosis Comments XR COMPARISON IMAGES Routine 05/05/2025 8:46 AM EDT documented in this encounter Results * X-ray Comparison Images (05/05/2025 8:46 AM EDT) Narrative EXTERNAL - 05/05/2025 8:46 AM EDT Images associated with this accession number were presented to us for comparison to an examination performed here. us Provider Not In System IMG DIAGNOSTIC IMAGING OR DERABLES Final Result EXTERNAL documented in this encounter Visit Diagnoses Not on filedocumented in this encounter Care Teams Animal Behaviourist Relationship Specialty Start Date End Date Krzysztof Hendrickson MD [address] [place] [address] PCP - General Family Medicine 04/29/25 documented as of this encounter
--- OUTSIDE RECORDS SUMMARY | 2025-05-11 13:00 | XMS_ITS | Encounter Summary ---
Author Organization [facility] Address [address] [place] [id number] Care Team Providers Care Solder Making Supervisor Name Role Phone Cullen Rodas MD Primary Care Provider [phone] Source Comments This information has been disclosed [...] release of HIV test results or diagnoses. [id number] Reason for Visit * Auth/Cert (Routine) Specialty Diagnoses / Procedures Referred By Mandy chandler Referred To Contact Neurology [facility] [address] [address] [place] [address] Phone: tel: fax: Referral ID Status Reason Start Date Expiration Date Visits Re quested Visits Authorized [id number] 1 1 Encounter Details Date Type Department Care Team (Latest Contact Info) Description 05/11/2025 1:00 PM EDT Office Visit [facility] Neurology at [facility] [address] [facility] [address] [place] [address] Devendra Conde CNP [address] [place] [address] Hospital discharge follow-up (Primary Dx); Cerebrovascular accident (CVA) due to stenosis of right carotid artery ([facility]) Social History Tobacco Use Types Packs/Day Years Used Date Smoking Tobacco: Former Cigarettes Q uit: 2005 Passive Smoke Exposure: Never Smokeless Tobacco: Never Comments:Quit in 2000 Alcohol Use Standard Drinks/Week Comments Never 0 (1 standard drink = 0.6 oz pur e alcohol) Utilities Answer Date Recorded In the past 12 months has th e electric, gas, oil, or water company threatened to shut off services in your [...] more drinks on one occasion? Never 04/29/2025 PHQ-2 Answer Date Recorded PHQ-2 Total Score 0 05/11/2025 Hunger Vital Sign Answer Date Recorded Within [...] any time in the past 12 m [facility], were you homeless or living in a fpc (including now)? No 04/29/2025 Yearly Questionnaire Answer Date Record ed Do you need any assistance w ith obtaining housing, meals, medication, transportation or medical equipment? No 05/11 Assistance needed for: Not on file Yearly Questionnaire Answer Date Record ed Do you need any assistance w ith obtaining housing, meals, medication, transportation or medical equipment? No 05/11 Assistance needed for: Not on file 5 Yearly Questionnaire Answer Date Record ed Do you need any assistance w ith obtaining housing, meals, medication, transportation or medical equipment? No 05/11 Assistance needed for: Not on file 5 Comments No Sex and Gender Information Value Date Recorded Sex Assigned at Not on file Legal Sex Female 11:24 PM EDT Gender Identity Not on file Sexual Orientation Not on file documented as of this encounter Last Filed Vital Signs Vital Sign Reading Time Taken Comments Blood Pressure 194/95 05/11/2025 12:55 PM EDT Pulse 78 05/11/2025 12:55 PM EDT Temperature - - Respiratory Rate - - Oxygen Saturation 98% 05/11/2025 12:55 PM EDT Inhaled Oxygen Concentration 98% 05/11/2025 1 2:55 PM EDT Weight 58.5 kg (129 lb) 05/11/2025 12:55 PM EDT Height 157.5 cm (5' 2 ) 05/11/2025 12:55 PM EDT Body Mass Index 23.59 05/11/2025 12:55 PM EDT documented in this encounter Progress Notes * Devendra Conde CNP - 05/11/2025 1:00 PM EDT Images from the original note were not included. [facility] Date of visit: May 11, 2025 Patient Name: Jaymie Nelson : 1955 PCP: CULLEN RODAS MD Jaymie Nelson is a 69 y.o. female who presents today for a hospital discharge follow-up visit. Patient has a PMHx of hypertension, hyperlipidemia, history of breast cancer s/p left lumpectomy with radiation (2018), cervical spine stenosis s/p decompression/fusion (2014), B12 deficiency, migraines, kidney stones, chronic pain syndrome, anxiety, and depression. Admission: 04/29/2025 - 05/02/2025 Diagnosis: Acute ischemic stroke (multifocal R frontal/parietal), critical R ICA stenosis Disposition: Home, independent Interval History: Since discharge, Jaymie has remained neurologically stable with no recurrence of stroke symptoms. She reports persistent fatigue and episodic shortness of breath, sometimes occurring at rest. She denies chest pain. Her is closely monitoring her, and they both express growing frustration and concern with the postponement of her CEA, which was originally scheduled for 05/12/25. The CEA was delayed due to a required ENT evaluation mandated by neurosurgery due to her history ofcervical spine surgery. ENT evaluation (Dr. Taylor) is now scheduled for 05/21/25. The patient and family are distressed by the delay given the high-grade (90-95%) stenosis and fear of recurrent stroke.I counseled on signs of stroke recurrence and advised emergent evaluation if symptoms recur. She remains on aspirin but held ticagrelor as directed prior to the original surgery date (last dose 05/08). In light of the delay, I advised her to restart ticagrelor immediately and to stop it again three days prior to her new surgical date, once scheduled. Medications and Allergies Prednisone and Sulfa (sulfonamide antibiotics) Current Medications as of 05/11/2025 1:04 PM Outpatient Medications Quantity Refills Start End aspirin 325 MG tablet 30 tablet 0 05/02/2025 -- atorvastatin (LIPITOR) 40 MG tablet 30 tablet 0 05/03/2025 -- ergocalciferol (ERGOCALCIFEROL) 1,250 mcg (50,000 unit) capsule 4 capsule 0 05/02/2025 -- hydrALAZINE (APRESOLINE) 10 MG tablet 120 tablet 0 05/02/2025 -- oxyCODONE-acetaminophen (PERCOCET) 10-325 mg per tablet -- -- -- pregabalin (LYRICA) 50 MG capsule -- -- 04/23/2025 -- ticagrelor (BRILINTA) 90 mg Tab tablet 74 tablet 0 05/02/2025 06/08/2025 venlafaxine (EFFEXOR-XR) 75 MG 24 hr capsule -- -- -- Diagnostics Imaging: MRI Brain (04/30/25): Acute multifocal R frontal and parietal cortical/subcortical infarcts Mild background small vessel disease and atrophy No hemorrhage CT Head (05/02/25): Evolving right infarcts, no hemorrhage CTA H/N (04/28/25 OSH): 90% R ICA bulb/proximal stenosis TTE with Bubble (04/30/25): No intracardiac thrombus or R-to-L shunt Mild LVH, normal EF (60-65%) Labs I personally reviewed all recent labs. The pertinent labs which relate to this visit are as follows LDL: LDL Cholesterol Date Value Ref Range [...] hypoglycemia unawareness, and other individual patient considerations. TSH: Lab Results Component Value Date TSH 2.14 04/29/2025 Vitals Vitals: 05/11/25 1255 BP: (!) 194/95 BP Location: Left upper arm Patient Position: Sitting BP Cuff Size: Regular Pulse: 78 SpO2: 98% Weight: 129 lb (58.5 kg) Height: 5' 2 (1.575 m) Neurologic Exam Per most recent discharge summary, this patient was discharged with the following deficits: none Neurologic Exam Appearance: Well groomed, well nourished patient in no acute distress. Language/Speech: Fluent language. No word finding difficulty or paraphasic errors. Able to name simple objects. Able to repeat. Able to follow 2 step commands. No neglect or gaze preference. Attention/concentration: Awake and able to attend to the examiner. Able to provide a history with memory intact to recent events. Orientation: Oriented to self, year, month, day, date, situation. Fund of Knowledge: Able to name current events/holidays. Cranial nerves: CN II Pupils equal and reactive CN III,IV, Eyes aligned in primary gaze. No skew. Extraocular eye movements intact. No nystagmus. CN V Sensation is intact V1-V3 bilaterally to light touch. CN VII Facial movements are symmetric at rest and with activation. No dysarthria. CN VIII Hearing is intact to conversational tone. CN IX & X Soft palate elevates symmetrically. CN XI Shoulder shrug strength 5/5 bilaterally . CN XII Tongue protrudes midline. Motor: Normal tone and bulk No tremor Movement Right Left Comments Deltoid 5 5 Biceps 5 5 Triceps 5 5 Wrist Flexion 5 5 Wrist Extension 5 5 Finger Flexion 5 5 Interosseous 5 5 Hip Flexion 5 5 Knee Flexion 5 5 Knee Extension 5 5 Dorsiflexion 5 5 Plantarflexion 5 5 Sensation: Intact to light touch throughout Gait: WNL Impression and Plan Jaymie Nelson presents today for a Transitional Care appointment after a recent hospital admission for: # Acute Multifocal R Hemisphere Infarcts due to Severe R ICA Stenosis Etiology: Likely thromboembolic from high-grade R ICA atherosclerosis Inpatient Stroke Workup Summary: CTA showed >90% R ICA stenosis MRI showed acute cortical/subcortical infarcts (R frontal/parietal) TTE with bubble: no embolic source Started on ASA + Brilinta (DAPT) Neurosurgery consulted ? R CEA planned but postponed pending ENT clearance ? new date 05/26 Plan: Hold Brilinta 3 days before surgery Resume antiplatelet per neurosurgery post-op Neurology follow-up on 06/26/25 Reinforced stroke symptom education and need to return to ED with any recurrence # Secondary Stroke Prevention: Antiplatelet: ASA 325 mg daily + Ticagrelor 90 mg BID ? THEN ASA monotherapy for surgery starting 05/22 Statins: Atorvastatin 40 mg daily (goal LDL <70) -- current LDL 77 Appreciate PCP assistance in managing BP and cholesterol # Hypertension: BP today: 194/95 -- elevated On hydralazine 10 mg q8h, stopped losartan per IP team Will need PCP f/u post-op to reassess long-term regimen Encouraged home BP log, DASH-style diet, avoid NSAIDs # Diabetes Screening: A1c 5.7% (borderline) Counseled on Mediterranean-style diet, exercise 3-4x/week No medication change at this time # Rehabilitation: mRS = 0 at discharge and today Functionally independent at home # STOP-BANG Sleep Apnea Screening: Snoring: No Daytime fatigue: No Observed apnea: No HTN: Yes Age >50: Yes BMI >35: No Neck >16 in: No Male: No Score = 2 (Low Risk) ? No referral needed at this time # Medication Reconciliation: Completed; reviewed med changes Education provided on antiplatelet timing and BP meds # Education: Stroke warning signs (BEFAST) reviewed Smoking cessation, diet, activity emphasized Follow-up plans discussed Signed, DEVENDRA ABRAMS CNP ([facility]) [facility] Outpatient General Neurology [phone] Compliance: Time spent with patient: est: 60 min More than 50% of this time was spent discussing: * Diagnosis * Management * Treatment Plan * Diagnostic Results as indicated above * Medications and side effects Portions of this note may have been copied forward. I have reviewed the note in its entirety to ensure that it reflects care and decision making on today's date. Transitional Care Management Compliance: Discharge Date:05/02/2025 2-Day Contact Date:05/05/2025 Face-Face Visit Date: 05/11/2025 The 2-day hospital discharge follow up call was completed for the patient within 2 business days bya registered nurse. The patient has been seen in clinic within 14 calendar days of hospital discharge. Chart was reviewed up to this date to ensure no additional TCM charge was placed within the past 30days. Medical Decision Making: The patient was seen for the new diagnosis of stroke or TIA. All admissionrecords were reviewed including medical history, radiographic studies, laboratories, consult reports, and discharge plan. Radiographic brain imaging was personally reviewed. Medication reconciliationwas performed and appropriate medications were refilled. This patient is at high risk of recurrent vascular event. 60 minutes were spent in consultation with the patient. documented in this encounter Plan of Treatment Not on file documented as of this encounter Visit Diagnoses Diagnosis Hospital discharge follow-up- Primary Other follow-up examination Cerebrovascular accident (CVA) due to stenosis of right carotid artery ([facility]) documented in this encounter Care Teams Solder Making Supervisor Relationship Specialty Start Date End Date Cullen Rodas MD [address] [place] [address] PCP - General Family Medicine 04/29/25 documented as of this encounter
--- OUTSIDE RECORDS SUMMARY | 2025-05-11 15:30 | XMS_ITS | Encounter Summary ---
Author Organization [facility] Address [facility] [place] [address] Care Team Providers Care Bronc Breaker Name Role Phone Krzysztof Hendrickson MD Primary Care Provider [phone] Source Comments This information has been disclosed [...] release of HIV test results or diagnoses. [id number] Reason for Visit * Reason Comments Pre-op Exam * Auth/Cert (Routine) Specialty Diagnoses / Procedures Referred By Mandy chandler Referred To Contact Neurology [facility] Neurology at [facility] [address] [facility] [address] [place] [address] Phone: tel: fax: Referral ID Status Reason Start Date Expiration Date Visits Re quested Visits Authorized [id number] 1 1 Encounter Details Date Type Department Care Team (Latest Contact Info) Description 05/11/2025 3:30 PM EDT Office Visit [facility] Perioperative Care at [facility] [address] [place] [address] Quita Heck, C DEVELOPER [address] [place] [id number] Stenosis of right carotid artery (Primary Dx); History of CVA (cerebrovascular accident); Hypertension, unspecified type; Hyperlipidemia, unspecified hyperlipidemia type; Asthma, unspecified asthma severity, unspecified whether complicated, unspecified whether persistent; Gastroesophageal reflux disease, unspecified whether esophagitis present; Prediabetes; History of seizure; History of breast cancer; Cervical spinal stenosis; Mood disorder ([facility]); Chronic pain syndrome; PONV (postoperative nausea and vomiting) Social History Tobacco Use Types Packs/Day Years Used Date Smoking Tobacco: Former Cigarettes Q uit: 2004 Passive Smoke Exposure: Never Smokeless Tobacco: Never Tobacco Cessation:Counseling Given: Not Answered Comments:Quit in 2000 Alcohol Use Standard Drinks/Week Comments Never 0 (1 standard drink = 0.6 oz pur e alcohol) Utilities Answer Date Recorded In the past 12 months has th e [employer], gas, oil, or water ENT Surgical threatened to shut off services in your [...] any time in the past [address] [facility], were you homeless or living in a senior care (including now)? No 04/29/2025 Yearly Questionnaire Answer [...] Sign Reading Time Taken Comments Blood Pressure 191/83 05/11/2025 2:44 PM EDT Pulse 77 05/11/2025 2:44 PM EDT Temperature 35.6 C (96.1 F) 05/11/2025 2:44 PM EDT Respiratory Rate 16 05/11/2025 2:44 PM EDT Oxygen Saturation 100% 05/11/2025 2:44 PM EDT Inhaled Oxygen Concentration 100% 05/11/2025 2 :44 PM EDT Weight 59.9 kg (132 lb) 05/11/2025 2:44 PM EDT Height 157.5 cm (5' 2 ) 05/11/2025 2:44 PM EDT Body Mass Index 24.14 05/11/2025 2:44 PM EDT documented in this encounter Patient Instructions * Patient Instructions* Quita Heck CNP - 05/11/2025 3:30 PM EDT Images from the original note were not included. [facility]: [address] [place] [address]. [phone] (phone); [phone] (fax) Arrival Instructions We're pleased that you have chosen [facility] for your upcoming procedure. The staff serving you hasbeen professionally trained to provide the highest quality care. We encourage you to ask questions and to let the staff know of any special needs,as we want your visit to be as comfortable as possible. Your procedure, as of today, is scheduled on 05/26/25 at 1000 AM. Please arrive by 0800 AM. You will check in at: [facility]: the registration area in the main lobby. Please be aware that your surgeon's office will reach out to you regarding any changes to your dateand time of surgery. Feel free to contact your surgeon's office 1-2 days prior to surgery to confirm. Parking: [facility]: the [employer] located at [address] [place] [address] (formerly [employer]). *Parking tickets can be validated at the Parking Kiosk near the Main Lobby. *Test Engineering Technician available 6:00am-6:00pm for a fee Fasting Instructions Prior to Surgery or Procedure Requiring Sedation DO NOT EAT OR DRINK ANYTHING after midnight the night before your procedure. , FAILURE TO FOLLOW YOUR DIET INSTRUCTIONS MAY LEAD TO A DELAY OR CANCELLATION OF YOUR SURGERY. Medication Instructions Bring a list of your current medications, along with the dose and frequency. Please include any vitamins, herbal supplements, and over the counter medications you may be taking. Your pre op nurse will need to know when your last dose of medication was taken. FOLLOW THE INSTRUCTIONS BELOW REGARDING YOUR MEDICATIONS. If instructed to TAKE the medication on the morning of surgery, do so with a small sip of water. Current Medications Medication Instructions ALBUTEROL INHL Take if needed, bring with you aspirin 325 MG tablet Take in the evening per your usual schedule atorvastatin (LIPITOR) 40 MG tablet Take in the evening per your usual schedule hydrALAZINE (APRESOLINE) 10 MG tablet Take morning of surgery ibuprofen (MOTRIN) 200 MG tablet Stop taking 1 week prior to surgery, last dose 05/18/25 oxyCODONE-acetaminophen (PERCOCET) 10-325 mg per tablet Take if needed pregabalin (LYRICA) 50 MG capsule Take in the evening per your usual schedule ticagrelor (BRILINTA) 90 mg Tab tablet Stop taking 3 days prior to surgery, last dose 05/22/25 venlafaxine (EFFEXOR-XR) 75 MG 24 hr capsule Take in the evening per your usual schedule Vtuo-ham-Nggfzmy Medication (OTC) Instructions: ? Stop taking okvq-gyy-ikrlepo blood thinners seven (7) to ten (10) days prior to your surgery. Examples of over the counter blood thinners include: Vitamin E and NSAIDs (Motrin, Naproxen, Aleve, Advil, Ibuprofen, Diclofenac, and Meloxicam). ? Stop taking Herbal Supplements and multivitamins for two (2) weeks prior to surgery. ? Stop Chondroitin and glucosamine for two (2) days prior to surgery. ? Stop using Cannabis products two (2) weeks prior to surgery, unless you are taking cannabis to treat seizures or for medicinal purpose, then please stop on the day of surgery. ? Nicotine patches should be removed 24 hours in advance of the surgery. ? It is OK to continue taking: Fish oil, omege-3 fatty acids, melatonin, and supplements used to treat a specific deficiency (vitamin B12, iron, folate, calcium, magnesium or potassium.) ? It is OK to take acetaminophen (Tylenol) if needed in the days leading up to surgery. General Pre-Procedure Instructions You will need a responsible adult to accompany you home from the hospital. You will not be permitted to drive, take a taxi, bus, Uber or Lyft by yourself, as these do not count as reliable transportation. You will also need someone to stay with you for the first 24 hours after anesthesia. We will ask you to provide the name, and a working phone number for your designated contact. Please bring a photo ID and insurance information. If you are being admitted to the hospital after surgery, you may bring a small overnight bag, but please do not bring any valuables. If you have an IMPLANTED DEVICE, BRING THE REMOTE CONTROL for it. Examples include: bladder stimulators, pain stimulators, INSPIRE, etc. If you have obstructive sleep apnea (EILEEN) and use a CPAP or BiPAP device, please bring this with you. Pre-menopausal female patients will be screened and/or tested for prior to your proceduregiven the potential risk of anesthesia and surgery to a fetus. Please SHOWER the evening before surgery and again the morning of surgery using antibacterial soap (Dial). Do not shave in the area of the surgery for 2 days prior to surgery. If needed, a trained staff member will clip the area immediately before your surgery. Stop smoking and/or vaping as far in advance of the surgery as possible. This will help with the healing process. Additional Instructions CONTACT INFORMATION: For questions regarding your pre operative instructions, please call: [facility] for Perioperative Care: There is a nurse available Sunday through Sunday, 8 a.m. to 4:30 p.m. The office is closed on weekends and holidays. After hours you may leave a voicemail, and someone will return your call on the next business day. In an EMERGENCY, if you must reach someone after our office is closed, you may call same day surgery at [phone] ([facility]) or [phone] ([facility] [place]) from 5:30 to 8 p.m. SICK POLICY: If you suspect that you have an illness/infection/rash currently, or, if you develop an illness or rash prior to surgery, please contact your surgeon immediately. Any patient can request that we wear a mask, and we ask that you please respect that request. After 8 p.m., urgent calls only may go to the operating room desk at [phone]. VISITOR POLICY: Same day surgery is allowing no more than (two) 2 adult visitors per patient at any time. Prior to having any visitors, the patient will be checked in by the same day surgery nurse. Children under the age of 14 are not permitted to visit. Visiting hours in areas of the hospital will vary depending on specific unit, or floor of the hospital. Day of Surgery Checklist: The morning of your surgery: ? Carroll your teeth. ? Shower: the morning of surgery with an antibacterial soap, such as Dial. If given Chlorhexidine (CHG) wash or mupirocin/Bactroban nasal ointment, please use as instructed. ? Do not use: powder, lotions, deodorant, perfume, and or cologne. ? What to wear: Wear casual, loose fitting, and comfortable clothing. ? Do NOT wear: Any make-up, jewelry, watch, body piercings, powders, perfumes/colognes, dark nail rwandan. ? take medications listed above ? DO NOT shave in the area of surgery Bring with you: ? Bring a list of your medications and dose including herbal and ljzp-uek-pibhtdo medications. ? Photo ID ? Insurance card ? Glasses and case (do not wear contact lenses on the day of your surgery) ? Dentures and case ? Hearing aids and case ? Crutches, walker, or cane if you have these items and will need them after surgery. ? Specific medications as described above (rescue inhaler, transplant, seizure, Parkinson's and transplant medications) ? CPAP or BiPAP machine and all associated equipment except water ? Remote control for any implanted device (nerve stimulator, bladder stimulator, INSPIRE, etc) ? Other: ? For an overnight stay - pack a small bag of items that you may need (ex. change of clothing, toiletries, phone battery charger). Locker space is limited in the surgery area. Leave at home: ? Valuables: We recommend that you leave valuables (ex. money, jewelry, credit cards) at home or with your family. ? Contact lenses: Leave at home or bring a case for safe keeping. ? Any make-up, jewelry, body piercings, powders, perfumes/colognes, dark nail rwandan ? Please do not bring valuables such as money, jewelry or credit cards with you. documented in this encounter H&P Notes * Quita Heck CNP - 05/11/2025 3:30 PM EDT ANESTHESIOLOGY CONSULTATION AND PRE-OPERATIVE HISTORY AND PHYSICAL SEISMOGRAPH SHOOTER Attending Physician: Dr. Kay Ramirez [facility] DESKTOP SUPPORT SPECIALIST / PA: Quita Heck CNP Date of Procedure: 05/26/25 Surgeon: Dr. Early Diagnosis: Stenosis of right carotid artery Procedure: Right carotid endarterectomy Patient ID: Jaymie Nelson is a 69 y.o. female. Chief Complaint Patient presents with Pre-op Exam Referral Indication: Risk stratification History of Present Illness: 69 yo female with stenosis of right carotid artery who is being seen pre-op prior to right carotid endarterectomy. Medical History: Past Medical History: Diagnosis Date Asthma Cancer ([facility]) left breast Carotid stenosis High cholesterol Hypertension PONV (postoperative nausea and vomiting) Stroke ([facility]) Surgical History: Past Surgical History: Procedure Laterality Date BREAST LUMPECTOMY CERVICAL FUSION HYSTERECTOMY SHOULDER SURGERY bone spur removal Family History: Family History Problem Relation Age of Onset Diabetes Mother Diabetes Sister Diabetes Sister Diabetes Brother Diabetes Brother Diabetes Brother Coronary artery disease Maternal Grandfather Anesthesia problems Neg Hx Stroke Neg Hx Allergies: Allergies[1] Medications: Home Medications Medication Sig Taking? Last Dose ALBUTEROL INHL Inhale into the lungs if needed. Yes aspirin 325 MG tablet Take 1 tablet (325 mg total) by mouth daily. Patient taking differently: Take 1 tablet (325 mg total) by mouth daily. PM Yes atorvastatin (LIPITOR) 40 MG tablet Take 1 tablet (40 mg total) by mouth daily. Patient taking differently: Take 1 tablet (40 mg total) by mouth daily. PM Yes ergocalciferol (ERGOCALCIFEROL) 1,250 mcg (50,000 unit) capsule Take 1 capsule (50,000 Units total)by mouth once a week. Patient taking differently: Take 1 capsule (50,000 Units total) by mouth once a week. ON SATURDAYS AT NIGHT Yes hydrALAZINE (APRESOLINE) 10 MG tablet Take 1 tablet (10 mg total) by mouth every 8 hours. Yes ibuprofen (MOTRIN) 200 MG tablet Take 1 tablet (200 mg total) by mouth if needed for Pain. Yes oxyCODONE-acetaminophen (PERCOCET) 10-325 mg per tablet Take 0.5 tablets by mouth every 12 hours asneeded for Pain. Yes pregabalin (LYRICA) 50 MG capsule Take 1 capsule (50 mg total) by mouth at bedtime. Yes ticagrelor (BRILINTA) 90 mg Tab tablet Take 1 tablet (90 mg total) by mouth 2 times a day for 37 days. MUST REFILL TO FINISH COURSE Patient taking differently: Take 1 tablet (90 mg total) by mouth 2 times a day. MUST REFILL TO FINISH COURSE, AM & PM Yes venlafaxine (EFFEXOR-XR) 75 MG 24 hr capsule Take 1 capsule (75 mg total) by mouth daily. Patient taking differently: Take 1 capsule (75 mg total) by mouth daily. PM Yes Review of Systems Constitutional: Positive for fatigue. Negative for activity change, appetite change, chills and fever. HENT: Positive for dental problem (full upper dentures) and tinnitus. Negative for ear pain, hearing loss, sore throat and trouble swallowing. Eyes: Positive for visual disturbance (wearing glasses, blurry vision since CVA). Respiratory: Positive for cough and shortness of breath. Negative for chest tightness and wheezing. Cardiovascular: Negative for chest pain, palpitations and leg swelling. Denies orthopnea. Pt reports no SOB issues prior to CVA in 04/2025. Since CVA pt having intermittentSOB that can occur when walking around the house, dressing, and showering. Pt reports SOB walking into OV today. Pt feels like SOB is getting better since ECHO on 04/30/25. Denies chest pain with activity or at rest. Gastrointestinal: Negative for abdominal pain, blood in stool, constipation, diarrhea, heartburn, nausea and vomiting. Genitourinary: Negative for difficulty urinating, frequency, hematuria and urgency. Musculoskeletal: Positive for back pain (lower), neck pain and neck stiffness. Negative for arthralgias and gait problem. Skin: Negative for rash and wound. Neurological: Positive for light-headedness (since CVA). Negative for dizziness, seizures, syncope,weakness, numbness and headaches. Hematological: Does not bruise/bleed easily. Denies DVT/PE Objective: Blood pressure 191/83, pulse 77, temperature 96.1 ??F (35.6 ??C), temperature source Temporal, resp. rate 16, height 5' 2 (1.575 m), weight 132 lb (59.9 kg), SpO2 100%. Physical Exam Constitutional: General: She is not in acute distress. Appearance: She is well-developed. She is not diaphoretic. Comments: Body mass index is 24.14 kg/m??. HENT: Head: Normocephalic and atraumatic. Right Ear: External ear normal. Left Ear: External ear normal. Nose: Nose normal. Mouth/Throat: Dentition: Has dentures (full upper). Pharynx: No oropharyngeal exudate. Eyes: General: No scleral icterus. Right eye: No discharge. Left eye: No discharge. Conjunctiva/sclera: Conjunctivae normal. Pupils: Pupils are equal, round, and reactive to light. Neck: Thyroid: No thyromegaly. Vascular: Carotid bruit (right) present. No JVD. Trachea: No tracheal deviation. Comments: Limited neck ROM Cardiovascular: Rate and Rhythm: Normal rate and regular rhythm. Pulses: Radial pulses are 2+ on the right side and 2+ on the left side. Heart sounds: Normal heart sounds. No murmur heard. No friction rub. No gallop. Pulmonary: Effort: No respiratory distress. Breath sounds: Normal breath sounds. No stridor. No wheezing or rales. Abdominal: General: Bowel sounds are normal. There is no distension. Palpations: Abdomen is soft. Tenderness: There is no abdominal tenderness. There is no guarding or rebound. Musculoskeletal: General: No tenderness or deformity. Normal range of motion. Cervical back: Neck supple. Comments: Strength: 5/5 BUE, BLE Lymphadenopathy: Cervical: No cervical adenopathy. Skin: General: Skin is warm and dry. Neurological: Mental Status: She is alert and oriented to person, place, and time. Cranial Nerves: No cranial nerve deficit. Psychiatric: Behavior: Behavior normal. Thought Content: Thought content normal. Judgment: Judgment normal. Lab Review: BMP: Lab name 05/02/25 0653 SODIUM 139 POTASSIUM 3.8 CHLORIDE 106 CO2 23 BUN 11 CBC: Lab name 05/02/25 0653 WBC 6.1 HEMOGLOBIN 14.3 HEMATOCRIT 41.6 MCH 29.6 PLATELETS 250 COAGS: Lab name 04/29/25 0959 PROTHROMBIN TIME 13.9 INR 1.0 RENAL: Lab name 05/02/25 0653 GLUCOSE 110* BUN 11 CREATININE 0.70 SODIUM 139 POTASSIUM 3.8 CHLORIDE 106 CO2 23 CALCIUM 9.3 MAGNESIUM 1.9 ALBUMINKID 4.0 EGFR >90 HEP: HGBA1C: Lab name 04/29/25 0518 HEMOGLOBIN A1C 5.7* Study Results: CT head 05/02/25 IMPRESSION: 1. No intracranial mass effect or hemorrhage. 2. Evolving right frontal and parietal infarcts better seen on prior MRI. MRI head 04/30/25 IMPRESSION: 1. Acute multifocal, predominantly cortical/subcortical right frontal and parietal infarcts. 2. No associated petechial hemorrhage. 3. Background mild small vessel disease, mild atrophy, and scattered remote lacunar-type infarcts. ECHO 04/30/25 Study Conclusions - Left ventricle: The cavity size is normal. Wall thickness was increased in a pattern of mild LVH.Systolic function is normal. The estimated ejection fraction [...] at baseline or with provocation, shows no smfjd-fy-ljwu atrial level shunt. - Pulmonary arteries: Systolic pressure could not be accurately estimated. - Inferior vena cava: The IVC is normal-sized. Anesthesia Considerations: ASA Physical Status: 3 Metabolic equivalent of task/functional capacity: METs 2-3: Walking on level ground at 3-4km/h, light housework, golf with cart Airway: Mallampati III (soft and hard palate and base of uvula visible), Thyromental distance 3 finger breadths, opening 3 finger breadths. Limited neck ROM. Full upper dentures. Assessment and Recommendations: 69 yo female with stenosis of right carotid artery to undergo right carotid endarterectomy under [place]. Concurrent medical issues include: Cardiac risk/Functional status: No known CAD/CHF. Pt reports she had a normal stress test over 10 years ago. Denies history of cardiac angiogram. ECHO 04/2025 - Left ventricle: The cavity size is normal. Wall thickness was increased in a pattern of mild LVH.Systolic function is normal. The estimated ejection fraction [...] at baseline or with provocation, shows no oiiml-ln-tblu atrial level shunt. - Pulmonary arteries: Systolic pressure could not be accurately estimated. - Inferior vena cava: The IVC is normal-sized. Pt reports no SOB issues prior to CVA in 04/2025. Since CVA pt having intermittent SOB that can occur when walking around the house, dressing, and showering. Pt reports SOB walking into OV today. Pt feels like SOB is getting better since ECHO on 04/30/25. Denies chest pain with activity or at rest. METS of 2-3. Denies orthopnea. Right carotid stenosis/CVA: Per [facility] admission note 04/29/25, pt initially presented to [facility] on 04/28/25 for transient left sided numbness/weakness that resolved spontaneously. Patient was found to have severe (>90%) R ICA stenosis at OSH and transferred to neurology forfurther management. Patient remained asymptomatic without deficits despite being found to have multifocal scattered acute infarcts in the R frontal and parietal lobes in the setting of severe R ICA stenosis. Taking full dose aspirin in PM, atorvastatin in PM, Brilinta. Pt scheduled for right carotid endarterectomy. Per Sidra Betancourt RN with Dr. Early's office, hold Brilinta x 3 days prior to OR and continue full dose aspirin perioperatively. Instructed to continue atorvastatin perioperatively. CT head 04/2025 1. No intracranial mass effect or hemorrhage. 2. Evolving right frontal and parietal infarcts better seen on prior MRI. MRI head 04/2025 1. Acute multifocal, predominantly cortical/subcortical right frontal and parietal infarcts. 2. No associated petechial hemorrhage. 3. Background mild small vessel disease, mild atrophy, and scattered remote lacunar-type infarcts. HTN: Taking hydralazine. BP today 191/83. Instructed to take AM of OR. Per [facility] discharge summary 05/02/25, Patient's target systolic blood pressure during admission was SBP 160-200 due to her severe R ICA stenosis. Her home Losartan 100mg was discontinued during admission and patient was discharged on PO Hydralazine 10mg q8h. She will continue this regimen at least until her R CEA (05/12/25) and should follow up with her PCP afterwards to determine what longwall foreman regimen to continue the patient on (ie stopping hydralazine and restarting losartan). HLD: Taking atorvastatin in PM. Recommend continuing perioperatively. Asthma: Using albuterol inhaler (has used 3 times since CVA, prior to that she rarely used). Lungs clear, SP02 100% on RA today. Instructed to use inhaler if needed and bring AM of OR. GERD: Taking TUMS PRN, OTC gummy PRN. May benefit from prophylaxis Prediabetes: Last HgbA1c 5.7 on 04/29/25. History of seizure: Pt reports x 1 in 2005, was on Lamictal for ~10 years, off now ~5-6 years. No longer following with neurologist, Dr. Armando Navarrete in [place], [place]. History of left breast cancer: S/p left lumpectomy with radiation in 2019. Denies chemo. Cervical spinal stenosis: S/p decompression/fusion in 2014 with repeated rhizotomies C3-5. Pt scheduled to see ENT on 05/21/25. Mood: Taking venlafaxine in PM. Instructed to take night before OR as usual. Chronic pain syndrome: Taking Percocet, pregabalin in PM, ibuprofen. Instructed to hold ibuprofen for a week prior to OR. Instructed to take pregabalin night before OR as usual and Percocet if neededAM of OR. Anesthesia considerations: Patient reports PONV. Recommend multimodal prophylaxis. Pt reports she can be a difficult stick, has required ultrasound guidance Discussed pt with smitha Rob to proceed with surgery as scheduled. Number and Complexity of Problems Addressed 2 or more stable chronic illnesses 1 acute, uncomplicated illness or injury Amount and/or Complexity of Data to be Reviewed and Analyzed 2 unique tests ordered Independent interpretation of a test performed by another physician/other qualified health home care scheduler (not separately reported) Discussion of management or test interpretation with external physician/other qualified health careprofessional/appropriate source (not separately reported) Risk of Complications and/or Morbidity or Mortality of Patient Management High Time I spent a total of 60 minutes on the day of the visit. Preoperative instructions reviewed with patient. Patient verbalizes understanding. Labs obtained today: T&S Labs reviewed from 05/02/25 (CBC, BMP) Quita Heck CNP Addendum 05/22/25: Otolaryngology OV 05/21/25: ASSESSMENT/PLAN Jaymie is a very pleasant 69 y.o. female with preoperative exam of vocal cords for repeat anterior neck surgery. On today's flexible laryngoscopy exam the patient has mobile vocal cords without any evidence of paresis or paralysis. Findings of the exam were discussed with the patient. Follow-up as needed for any vocal cord dysfunction in the future. Quita Heck CNP [1] Allergies Allergen Reactions Prednisone Swelling Sulfa (Sulfonamide Antibiotics) Hives documented in this encounter Plan of Treatment Not on file documented as of this encounter Procedures Procedure Name Priority Date/Time Associated Diagnosis Comments ABO/RH Routine 05/11/2025 2:49 PM EDT Stenosis of right carotid artery ANTIBODY SCREEN Routine 05/11/2025 2:49 PM EDT Stenosis of right carotid artery documented in this encounter Results * Antibody screen (05/11/2025 2:49 PM EDT) Antibody Screen Negative 05/11/2025 4:43 PM EDT [facility] Blood 05/11/2025 2:49 PM EDT 05/11/2025 3:51 PM EDT Narrative HEALTH LAB - 05/11/2025 4:51 PM EDT Testing performed by [facility] Transfusion Service Quita Heck CNP BLOOD BANK TEST ORDER LALITHA Final Result [facility] [address] * ABO/Rh (05/11/2025 2:49 PM EDT) ABO Grouping A 05/11/2025 4:32 PM EDT [facility] Rh Type Positive 05/11/2025 4:32 PM EDT [facility] Blood 05/11/2025 2:49 PM EDT 05/11/2025 3:51 PM EDT Quita Heck CNP BLOOD BANK TEST ORDER LALITHA Final Result [facility] [address] documented in this encounter Visit Diagnoses Diagnosis Stenosis of right carotid artery- Primary Occlusion and stenosis of carotid artery without mention of cerebral infarction History of CVA (cerebrovascular accident) Transient ischemic attack (TIA), and cerebral infarction without residual deficits Hypertension, unspecified type Hyperlipidemia, unspecified hyperlipidemia type Asthma, unspecified asthma severity, unspecified whether complicated, unspecified whether persistent Gastroesophageal reflux disease, unspecified whether esophagitis present Prediabetes Other abnormal glucose History of seizure History of breast cancer Personal history of malignant neoplasm of breast Cervical spinal stenosis Spinal stenosis in cervical region Mood disorder ([facility]) Unspecified episodic mood disorder Chronic pain syndrome PONV (postoperative nausea and vomiting) Nausea with vomiting documented in this encounter Care Teams Bronc Breaker Relationship Specialty Start Date End Date Krzysztof Hendrickson MD [address] [place] [address] PCP - General Family Medicine 04/29/25 documented as of this encounter
--- OUTSIDE RECORDS SUMMARY | 2025-05-21 13:15 | XMS_ITS | Encounter Summary ---
Author Organization [facility] Address [address] [place] [address] Care Team Providers Care Information Technology Security Manager Name Role Phone Cullen Rodas MD Primary Care Provider [phone] Source Comments This information has been disclosed [...] release of HIV test results or diagnoses. [id number] Reason for Visit * Reason Comments New Patient Visit/ Consultation * Physician/JOCELIN (Emergency) - Closed Specialty Diagnoses / Procedures Referred By Mandy chandler Referred To Contact Otolaryngology Diagnoses Pre-op evaluation Larry Early MD [address] [place] [address] Phone: tel: fax: Referral ID Status Reason Start Date Expiration Date Visits Re quested Visits Authorized [id number] Closed 05/11/2025 11/07/2025 1 1 Encounter Details Date Type Department Care Team (Late st Contact Info) Description 05/21/2025 1:15 PM EDT Office Visit [facility] Otolaryngology at [facility] [address] [place] [phone] Jessica Taylor MD [address] [place] [phone] Stenosis of carotid artery, unspecified laterality (Primary Dx) Social History Tobacco Use Types Packs/Day Years Used Date Smoking Tobacco: Former Cigarettes Q uit: 2004 Passive Smoke Exposure: Never Smokeless Tobacco: Never Tobacco Cessation:Counseling Given: Not Answered Comments:Started 1990 Quit in 2000 Alcohol Use Standard Drinks/Week Comments Never 0 (1 standard drink = 0.6 oz pur e alcohol) Utilities Answer Date Recorded In the past 12 months has th e [employer], oil, or water [employer] threatened to shut off services in your home? No 05/26/2025 AUDIT-C Answer Date Recorded Q1: How often do you have a drink containing alcohol? Never 05/26/2025 Q2: How many drinks containi ng alcohol do you have on a typical day when you are drinking? Patient does not drink Q3: How often do you have si x or more drinks on one occasion? Never 05/26/2025 PHQ-2 Answer Date Recorded PHQ-2 Total Score 0 05/11/2025 Hunger Vital Sign Answer Date Recorded Within the past 12 months, y ou worried that your food would run out before you got the money to buy more. Never true 05/26/20 25 Within the past 12 months, t he food you bought just didn't last and you didn't have money to get more. Never true 05/26/2025 PRAPARE - Transportation Answer Date Re corded In the past 12 months, has l ack of transportation kept you from medical appointments or from getting medications? No 05/06 In the past 12 months, has l ack of transportation kept you from meetings, work, or from getting things needed for daily living? No 05/26/2025 Housing Stability Vital Sign Answer Rober e Recorded In the last 12 months, was t here a time when you were not able to pay the mortgage or rent on time? No 05/26/2025 In the past 12 months, how m any times have you moved where you were living? 0 05/26/2025 At any time in the past 12 m [facility], were you homeless or living in a penitentiary (including now)? No 05/26/2025 Yearly Questionnaire Answer Date Record ed Do [...] Sign Reading Time Taken Comments Blood Pressure 174/84 05/21/2025 1:18 PM EDT Pulse 65 05/21/2025 1:18 PM EDT Temperature 36.1 C (96.9 F) 05/21/2025 1:18 PM EDT Respiratory Rate 16 05/21/2025 1:18 PM EDT Oxygen Saturation 98% 05/21/2025 1:18 PM EDT Inhaled Oxygen Concentration 98% 05/21/2025 1 :18 PM EDT Weight 59.4 kg (131 lb) 05/21/2025 1:18 PM EDT Height 157.5 cm (5' 2 ) 05/21/2025 1:18 PM EDT Body Mass Index 23.96 05/21/2025 1:18 PM EDT documented in this encounter Progress Notes * Jessica Taylor MD - 05/21/2025 1:15 PM EDT [facility] DIVISION OF OTOLARYNGOLOGY- HEAD & NECK SURGERY Patient Name: Jaymie Nelson Primary Care Physician: CULLEN RODAS MD Referring: Nneka Chief Complaint: carotid stenosis, pre op eval HISTORY OF PRESENT ILLNESS Jaymie is a(n) 69 y.o. female who presents at the request of Dr Early for pre-op evaluation, scheduled for endarterectomy 05/26 Problem List[1] Past Surgical History: Procedure Laterality Date BREAST LUMPECTOMY CERVICAL FUSION HYSTERECTOMY SHOULDER SURGERY bone spur removal Family History Problem Relation Age of Onset Diabetes Mother Diabetes Sister Diabetes Sister Diabetes Brother Diabetes Brother Diabetes Brother Coronary artery disease Maternal Grandfather Anesthesia problems Neg Hx Stroke Neg Hx Social History Socioeconomic History Marital status: Spouse name: Not on file Number of children: Not on file Years of education: Not on file Highest education level: Not on file Occupational History Not on file Tobacco Use Smoking status: Former Current packs/day: 0.00 Types: Cigarettes Quit date: 2004 Years since quittin.5 Passive exposure: Never Smokeless tobacco: Never Tobacco comments: Started 1990 Quit in 2000 Vaping Use Vaping status: Never Used Substance and Sexual Activity Alcohol use: Never Drug use: Never Sexual activity: Yes Other Topics Concern Caffeine Use Yes Occupational Exposure No Exercise No Seat Belt Yes Social History Narrative Not on file Social Drivers of Health Financial Resource Strain: Not on file Food Insecurity: No Food Insecurity (05/11/2025) Yearly Questionnaire Do you need any assistance with obtaining housing, meals, medication, transportation or medical equipment?: No Assistance needed for:: Not on file Transportation Needs: No Transportation Needs (05/11/2025) Yearly Questionnaire Do you need any assistance with obtaining housing, meals, medication, transportation or medical equipment?: No Assistance needed for:: Not on file Physical Activity: Not on file Stress: Not on file Social Connections: Unknown (08/13/2023) Received from [facility] Family and Community Support Help with Day-to-Day Activities: Not on file Lonely or Isolated: Not on file Intimate Partner Violence: Not At Risk (04/29/2025) Humiliation, Afraid, Rape, and Kick questionnaire Fear of Current or Ex-Partner: No Emotionally Abused: No Physically Abused: No Sexually Abused: No Housing Stability: Low Risk (05/11/2025) Yearly Questionnaire Do you need any assistance with obtaining housing, meals, medication, transportation or medical equipment?: No Assistance needed for:: Not on file Pain Pain Score: Zero (05/21/2025 1:18 PM) She denies presence of pain. Pain will be reassessed at next visit. DRUG/FOOD ALLERGIES: Prednisone and Sulfa (sulfonamide antibiotics) CURRENT MEDICATIONS Home Medications Medication Sig Taking? Last Dose fluticasone propionate (FLONASE) 50 mcg/actuation nasal spray Use 2 sprays into each nostril daily.Shake well Yes ALBUTEROL INHL Inhale into the lungs if [...] a week. ON SATURDAYS AT NIGHT Yes gabapentin (NEURONTIN) 800 MG tablet Take 1 tablet (800 mg total) by mouth every 8 hours. Patient not taking: Reported on 05/21/2025 hydrALAZINE (APRESOLINE) 10 MG tablet Take 1 tablet (10 mg total) by mouth every 8 hours. Yes ibuprofen (MOTRIN) 200 MG tablet Take 1 tablet (200 mg total) by mouth if needed for Pain. Patient not taking: Reported on 05/21/2025 memantine (NAMENDA) 10 MG tablet Take 1 tablet (10 mg total) by mouth daily. Patient not taking: Reported on 05/21/2025 oxyCODONE-acetaminophen (PERCOCET) 10-325 mg per tablet Take [...] mg total) by mouth daily. PM Yes PHYSICAL EXAM BP 174/84 (BP Location: Right upper arm) Pulse 65 Temp 96.9 ??F (36.1 ??C) (Temporal) Resp 16 Ht 5' 2 (1.575 m) Wt 131 lb (59.4 kg) SpO2 98% BMI 23.96 kg/m?? RADIOLOGY I have personally and independently reviewed the imaging. My impression of the imaging: Carotid stenosis evident Procedure: Flexible Fiberoptic Laryngoscopy Surgeon: Jessica Taylor MD Indications: Hoarseness/Preop Neck surgery Description: The procedure was explained to the patient who verbally agreed to proceed. The flexible endoscope was passed through the nostril or the mouth. with the findings as described below. The scope was gently withdrawn. The patient tolerated the procedure well without complications. Findings: Nasopharynx clear Palate elevation and closure: Complete Masses, Lesions, Pooling: Base of tongue, vallecula, epiglottis, and piriform sinuses clear. Subglottis: clear Motion: True vocal folds were bilaterally mobile Vocal Folds: No obvious edema, masses, or lesions. ASSESSMENT/PLAN Jaymie is a very pleasant 69 y.o. female with preoperative exam of vocal cords for repeat anterior neck surgery. On today's flexible laryngoscopy exam the patient has mobile vocal cords without any evidence of paresis or paralysis. Findings of the exam were discussed with the patient. Follow-up as needed for any vocal cord dysfunction in the future. External notes/medical records independently reviewed, labs and imaging independently reviewed, medical management and tests to be discussed/communicated to referring MD. [1] Patient Active Problem List Diagnosis Epilepsy ([facility]) Chronic pain syndrome Hypertension Vitamin D deficiency Acute stroke due to ischemia ([facility]) Carotid stenosis * Yoselyn Altamirano RN - 05/21/2025 1:15 PM EDT RN Care Coordination Note: - OR with Dr Early as sched documented in this encounter Plan of Treatment Not on file documented as of this encounter Procedures Procedure Name Priority Date/Time Associated Diagnosis Comments AMB REFERRAL TO ENT STAT 05/11/2025 3:33 PM ED T Pre-op evaluation documented in this encounter Visit Diagnoses Diagnosis Stenosis of carotid artery, unspecified laterality- Primary documented in this encounter Care Teams Information Technology Security Manager Relationship Specialty Start Date End Date Cullen Rodas MD [address] [facility] [place] [address] PCP - General Family Medicine 04/29/25 documented as of this encounter
--- OUTSIDE RECORDS SUMMARY | 2025-05-26 07:24 | XMS_ITS | Encounter Summary ---
Author Organization [facility] Address [facility] [place] [address] Care Team Providers Care Car Rider Name Role Phone Krzysztof Hendrickson MD Primary Care Provider [phone] Source Comments This information has been disclosed [...] release of HIV test results or diagnoses. [id number] Reason for Visit * Auth/Cert (Routine) Specialty Diagnoses / Procedures Referred By Mandy chandler Referred To Contact Diagnoses Occlusion and stenosis of right carotid artery Carotid stenosis, right [I65.21] Procedures OK TEAEC W/PATCH GRF CAROTID VERTB SUBCLAV NECK INC ENDARTERECTOMY CAROTID [facility] [address] [place] [address] Phone: tel: Referral ID Status Reason Start Date Expiration Date Visits Re quested Visits Authorized [id number] 1 1 Encounter Details Date Type Department Care Team (Latest Contact Info) Description 05/26/2025 7:24 AM EDT - 05/27/2025 1:35 PM EDT Hospital Encounter [facility] [address] [place] [id number] Larry Early MD [address] [facility] [address] [place] [address] Stenosis of carotid artery, unspecified laterality (Primary Dx); Carotid stenosis, right Discharge Disposition: Home or Self Care WITHOUT Home Care Services Social History Tobacco Use Types Packs/Day Years Used Date Smoking Tobacco: Former Cigarettes Q uit: 2004 Passive Smoke Exposure: Never Smokeless Tobacco: Never Comments:Started 1990 Quit in 2000 Alcohol Use Standard Drinks/Week Comments Never 0 (1 standard drink = 0.6 oz pur e alcohol) Utilities Answer Date Recorded In the past 12 months has th e [employer], [employer], oil, or water [employer] threatened to shut off services in your [...] any time in the past 12 [facility], were you homeless or living in a assisted (including now)? No 05/26/2025 Yearly Questionnaire Answer [...] Sign Reading Time Taken Comments Blood Pressure 134/59 05/27/2025 12:00 PM EDT Pulse 77 05/27/2025 1:00 PM EDT Temperature 36.7 C (98.1 F) 05/27/2025 12:07 PM EDT Respiratory Rate 10 05/27/2025 1:00 PM EDT Oxygen Saturation 95% 05/27/2025 1:00 PM EDT Inhaled Oxygen Concentration 95% 05/27/2025 1 :00 PM EDT Weight 59.4 kg (131 lb) 05/26/2025 7:50 AM EDT Height 160 cm (5' 3 ) 05/26/2025 7:50 AM EDT Body Mass Index 23.21 05/26/2025 7:50 AM EDT documented in this encounter Functional Status * Audit-C Score Answer Date of Assessment Author 0 05/26/2025 5:06 PM EDT Abe Bear RN * Question Answer Date of Assessment Author Q1: How often do you have a drink containing alcohol? Never 05/26/2025 5:06 PM EDT Edmund Bear, LASHON Q2: How many drinks containing alcohol do you have on a typical day when you are drinking? Patient does not drink 05/26/2025 5:06 PM EDT Edmund Bear, LASHON Q3: How often do you have six or more drinks on one occasion? Never 05/26/2025 5:06 PM EDT Edmund Bear RN documented as of this encounter Discharge Summaries * Na Conde - 05/27/2025 9:00 AM EDT Health Care Management Discharge Summary Patient name: Jaymie Nelson Patient : 1955 Age: 69 y.o. Gender: female Patient emergency contact: Extended Emergency Contact Information Primary Emergency Contact: Titi Nelson [address]: [address] [place] [address] Mobile Relation: Spouse Attending provider: Larry Early MD Primary care physician: KRZYSZTOF HENDRICKSON MD The MD has indicated that the patient is ready for discharge. Jaymie Nelson was referred and accepted at at . The patient will be transported by at Transfer Mode/Level of Care: Family DC Summary and RAGINI have been faxed to facility. The plan has been reviewed: Patient/Family Informed of Discharge Plan: Yes Plan Reviewed With Patient, Family, or Significant Other: Yes Patient and or family are aware and in agreement with the discharge plan: Yes Family Member Name and Relationship Notified at Discharge: Patient notified of discharge Plan reviewed with and other members of the health care team: Yes Care Plan Completed: Yes No further CM/SW needs. This plan has been reviewed with the multi-disciplinary team. Treatment Preferences Treatment Preferences: Other (provide comment) (Patient discharging home with no needs) Post-Discharge Goals Post Acute Care Provider Information: Community Services at Discharge Community Services at Home post discharge: Not Applicable Na Conde [phone] documented in this encounter Discharge Instructions * Discharge Instructions* Carlita Sanches APRN - 05/27/2025 7:36 AM EDT Follow up Appointment Date: 06/12/2025 Post Operative 11:00 AM (15 min.) Larry Early MD [facility] Neurosurgery at [facility] Neuroscience [place] - Please schedule a visit with your primary care physician within 1 week for blood pressure management DISCHARGE INSTRUCTIONS AFTER YOUR CAROTID ENDARTERECTOMY: WOUND CARE: Your incision has been closed with dissolvable sutures (stitches). Your wound will be evaluated at your first postoperative appointment. Keep incision open to the air. You may shower 72 hours after your surgery. Keep the incision clean. Use a mild soap or baby shampoo. Gently wash the surgical area with a warm, soapy washcloth. Pat dry with a clean towel. Do not submerge your incision in water. You may allow the water to run over the incision when showering. Do not stand with your incision directly under the shower. Do not apply ointments or bandages to your incision. Use caution when wearing accessories such as necklaces which may contact and irritate your incision. Please wash your hands frequently, including under your fingernails. Trim fingernails as needed. DO NOT touch your incision without first washing your hands. Avoid touching your incision as much as possible. DO NOT let pets near your incision. Please ensure that your sheets, pillow case, blankets are freshly laundered. USE ICE for any underlying swelling ACTIVITY AFTER YOUR SURGERY: -Progressively increase your activity as tolerated following the recommendations of any inpatient or outpatient postoperative therapy recommendations. -No bending at waist, lifting >10lbs, no sudden twisting. -Nothing more strenuous than daily activities or walking. No running, jogging, swimming, etc...until cleared by neurosurgeon in outpatient follow up. -Do not drive unless instructed otherwise by your neurosurgeon. Avoid driving/operating dangerous or heavy machinery while on pain, sedative, or seizure medications unless instructed otherwise. *MEDICATION INSTRUCTIONS: -Wean off narcotic pain medications as tolerated. -Do not take NSAIDs (eg ibuprofen/Advil, naproxen/Alleve, celecoxib/Celebrex, diclofenac/Voltaren, ketorolac, etc) agents for 2 weeks after surgery unless instructed otherwise. These medications may increase your risk of bleeding -Constipation is a common side effect of opiate pain medications; you should take a daily stool softener to help prevent constipation from developing while on narcotic pain medications. One or two medications should have been provided at discharge to prophylax against constipation. Should you experience constipation despite these medications, please try the prescription medications at the higher dose indicated or, alternatively, you may try lcgc-qzh-mvlyuzg medications like bisacodyl, colace, senokot, or miralax. Contact our office should the condition worsen or should you stop passing gas. -Should you experience medication side effects or intolerance, stop that medication immediately andcall the office [phone] Should you experience severe side effects present to you primary care doctor or the nearest urgent care/emergency room. QUESTIONS OR CONCERNS: If you have a question or concern regarding your care after you get home you can: Call your neurosurgeon???s office at the number [phone] If you have an urgent concern during an evening, weekend, or holiday call the neurosurgery residenton call. Dial [phone] and ask the refinery operator gas plant to have the medtronics technician neurosurgery resident paged to your telephone number. * Attachments The following attachments cannot be sent through Care Everywhere. * Warning Signs of a Stroke (Surinamese) * Carotid Artery Disease Rsjy-bj-Miyp (Surinamese) * Carotid Endarterectomy Care After (Surinamese) documented in this encounter Medications at Time of Discharge ALBUTEROL INHL Inhale into the lungs if needed. aspirin 325 MG tablet Take 1 tablet [...] capsule (75 mg total) by mouth daily. documented as of this encounter Progress Notes * Usama Duncan PT - 05/27/2025 1:04 PM EDT Physical and Occupational Therapy Discharge Name: Jaymie Nelson : 1955 Attending Physician: Larry Early MD Admission Diagnosis: Carotid stenosis, right [I65.21] Date: 05/27/2025 Reviewed Pertinent hospital course: Yes Unable to see patient due to: PT and OT orders received, chart review completed. Per RN report, patient is being discharged from the hospital today and is currently independent with all mobility and exhibiting no deficits in strength, cognition or functional mobility. Patient will be discharged from rehab services without formal assessments. Time Attempted: 1300 Usama Duncan PT [facility] Office: [phone] Hours: [id number] M-F * Mimi Alcala CNP - 05/27/2025 12:29 PM EDT Neuroscience ICU Daily Progress Note 05/27/2025 12:29 PM Patient: Jaymie Nelson LOS: 1 days Post Op Day (if applicable): 1 Day Post-Op Multidisciplinary critical care rounds were made today with the resident team, nursing staff, respiratory therapist, pharmacists, nutritional support and other associated personnel. Jaymie Nelsonwas examined and data from multiple sources was reviewed. Pt is a 69 y.o. female with past medical history significant for HTN, HLD, breast cancer s/p left lumpectomy with radiation (2018), cervical spine stenosis s/p decompression (2014), B12 deficiency, migraines anxiety, depression and chronic pain syndrome. In April 2025, she presented to OSH with transient left sided weakness, numbness and dysarthria. CTA showed a severe grade R ICA stenosis. This stenosis was therefore determined to be symptomatic as MRI also showed acute multifocal right frontaland parietal infarcts. She was discharged home on DAPT with plans for outpatient R carotid endarterectomy. Initially scheduled on 05/12/2025, this was delayed so she could be seen by ENT due to her history of cervical spine intervention. The CEA was completed 05/26 and is recovering well postoperatively. Significant events over the past 24 hours include: S/p Right CEA Afebrile, VSS overnight Weaned off cardene drip this AM All home medications started Tolerating regular diet PE: Vitals: 05/27/25 0809 05/27/25 0813 05/27/25 0900 05/27/25 1207 BP: 124/68 124/68 132/54 BP Location: Patient Position: BP Cuff Size: Pulse: 65 66 Resp: 18 19 Temp: 98.1 ??F (36.7 ??C) 98.1 ??F (36.7 ??C) TempSrc: Oral Oral SpO2: 97% (!) 88% Weight: Height: General appearance - alert, well appearing, and in no distress and oriented to person, place, and time, right neck incision clean dry intact Chest - clear to auscultation, no wheezes, rales or rhonchi, symmetric air entry Heart - normal rate, regular rhythm, normal S1, S2, no murmurs, rubs, clicks or gallops Abdomen - soft, nontender, nondistended, no masses or organomegaly Extremities - peripheral pulses normal, no pedal edema, no clubbing or cyanosis Neurological - Mental status - alert, oriented to person, place, and time, normal mood, behavior, speech, dress, motor activity, and thought processes Cranial Nerves: pupils reactive and equal bilaterally, EOM intact, facial sensation intact, facial expression no facial droop, cough+ Motor: Strength 5/5 in all extremities Sensory: intact throughout Testing: Chem Lab 05/27/2537 SODIUM 140 POTASSIUM 4.0 CHLORIDE 109 CO2 26 BUN 8 CREATININE 0.80 GLUCOSE 128* CALCIUM 8.2* MAGNESIUM 1.9 PHOSPHORUS 3.6 Heme Recent Labs 05/27/2537 WBC 8.1 HGB 10.9* HCT 31.5* PLT 220 Coags Lab 05/27/2537 HEMOGLOBIN 10.9* HEMATOCRIT 31.5* PLATELETS 220 Other Lab 05/27/25 0038 05/26/25 1747 ALK PHOS -- 56 ALT -- 10 AST -- 14 BILIRUBIN TOTAL -- 0.2 ALBUMIN -- 3.3* ALBUMINKID 3.0* -- TOTAL PROTEIN -- 5.4* Lab 05/27/25 0038 ALBUMINKID 3.0* Invalid input(s): CO2ART , HBO2PE Imaging Results for orders placed or performed during the hospital encounter of 04/29/25 MRI Head WO contrast Narrative EXAM: MRI BRAIN WO CONTRAST INDICATION: Acute [...] structures. Upper cervical spine without significant abnormality. Impression IMPRESSION: 1. Acute multifocal, predominantly cortical/subcortical right frontal and parietal infarcts. 2. No associated petechial hemorrhage. 3. Background mild small vessel disease, mild atrophy, and scattered remote lacunar-type infarcts. Approved by Regis Redman MD on 04/30/2025 8:09 AM EDT I have personally reviewed the images and I agree with this report. Report Verified by: Moses Ortiz DO at 04/30/2025 9:[address] Head WO contrast Narrative EXAM: CT HEAD WO CONTRAST INDICATION: Stroke, [...] suspicious osseous lesion. Other: No other abnormalities. Impression IMPRESSION: 1. No intracranial mass effect or hemorrhage. 2. Evolving right frontal and parietal infarcts better seen on prior MRI. Approved by Rafi Garcia MD on 05/02/2025 11:36 AM EDT I have personally reviewed the images and I agree with this report. Report Verified by: Moses Ortiz DO at 05/02/2025 12:18 PM EDT Impression/Plan: Neuro: #Symptomatic R ICA stenosis s/p CEA Primary team: Neurosurgery, Dr. Early Day 1 post R CEA SBP < 140, d/c art line today Continue aspirin 325 mg daily Atorvastatin 40 mg nightly PT/OT/bedside swallow Respiratory: #no acute issues On room air Cardiovascular: #Hyperlipidemia #Hypertension, essential benign SBP goal < 140 On home hydralazine 10 mg q8h D/c nicardipine gtt, d/c art line On home atorvastatin 40 mg daily Fluids/Electrolytes/Renal: #no acute issues I/O last 3 completed shifts: In: 3551.9 [I.V.:3352.1; IV Piggyback:199.8] Out: 1645 [Urine:1625; Drains:20] I/O this shift: In: 100 [P.O.:100] Out: - D/c IVF ICU lytes protocol overnight GI/Nutrition: #no acute issues Tolerating regular diet Bowel regimen Infectious Disease: #no acute issues Culture: Date: Results: Antibiotics (day): NA Cx if spike TMax < 101.5 Daily CBC Hematologic: #no acute issues Daily CBC Transfuse if hgb <7 Endocrine: #no acute issues Blood glucose goal < 180 Sedation/Pain Management/Psychiatric: #pain control, depression, anxiety PRN tylenol Restarted home medications for depression and anxiety Lines/Tubes: PIV's Arterial line-d/c Injury/Disease Specific Needs: Last Lower Ext. Duplex: NA DVT Prophylaxis: Subcutaneous Heparin and SCDs GI Prophylaxis: NA Disposition: discharging home MIMI ALCALA CNP Neurocritical Care 05/27/2025 12:29 PM The HPI and assessment & plan were reviewed and copied forward (with edits) from a note writtenby Pablo Anderson MD on 05/26/25. I have reviewed and updated the history, physical exam, data, assessment, and plan of the note so that it reflects my evaluation and management of the patient. I spent a total of 30 minutes of time caring for this patient with carotid stenosis, including direct patient contact, management of life support systems review of data (i.e.: imaging and lab), discussion with team members, and this time excludes time spent on procedures * Kendrick Azar RN - 05/27/2025 2:46 AM EDT Alert and oriented x4. Equal strength x4. No deficits appreciated. Difficult to maintain BP goal ofless than 140 while up in chair. Nicardipine maxed for short durration. Patient c/o NEVES during that period but treated with half tab of percocet with complete pain relief. Patient back in the bed and resting comfortably neuro intact nicardipine at minimal dose. KENDRICK AZAR RN documented in this encounter Consult Notes * Pablo Anderson DO - 05/26/2025 4:41 PM EDT Neuroscience ICU CONSULT 05/26/2025 4:39 PM Patient:Jaymie Nelson HPI: Jaymie Nelson is a 69 y.o. female with past medical history significant for HTN, HLD, breast cancer s/p left lumpectomy with radiation (2018), cervical spine stenosis s/p decompression (2014), B12 deficiency, migraines anxiety, depression and chronic pain syndrome. In April 2025, she presented to OSH with transient left sided weakness, numbness and dysarthria. CTA showed a severe grade R ICA stenosis. This stenosis was therefore determined to be symptomatic as MRI also showed acute multifocal right frontal and parietal infarcts. She was discharged home on DAPT with plans for outpatient R carotid endarterectomy. Initially scheduled on 05/12/2025, this was delayed so she could be seen by ENT due to her history of cervical spine intervention. The CEA was then completed today. She is admitted for post-op monitoring. Medical Hx: L breast cancer, HTN, HLD, PONV, R ICA stenosis with R sided strokes. Surgical Hx: Lumpectomy, hysterectomy, bone spur removal in shoulder, cervical fusion Social Hx: Previous smoker quit in 2000, no alcohol use Family Hx: extensive diabetes hx, CAD in grandfather Home meds: ASA, hydralazine, atorvastatin, oxycodone-acetaminophen, pregabalin, venlafaxine, albuterol inhaler, ergocalciferol, fluticasone propionate, ticagrelor. Allergies: Sulfa, prednisone REVIEW OF SYSTEMS: A ten point ROS was negative unless noted in the HPI above. PHYSICAL EXAM: GEN: NAD, lethargic but answers appropriately CVS: RRR, no accessory muscle use. ABD: Soft, NTTP Mental Status: Alert and oriented x3. Language is fluent with good comprehension. Cranial Nerve: Pupils are equal, round, and reactive to light. Visual funes are intact to confrontation. Normal fundi. Ocular movements are intact. Face is symmetric at rest and with activation withintact sensation throughout. Hearing intact to finger rub bilaterally. Muscles of tongue and palateactivate symmetrically. No dysarthria. Strength is full in sternocleidomastoid and trapezius bilaterally. Motor: Muscle bulk and tone are normal. Strength is 5/5 in all four extremities both proximally anddistally. There is no pronator drift. Sensory: Sensation is intact to light touch. Coordination: No dysmetria on vhzset-nvke-gxmatd or scsu-mppw-sciq. Gait: deferred. ASSESSMENT AND PLAN: Neuro: Symptomatic R ICA stenosis s/p CEA Primary team: Neurosurgery, Dr. Early Day 0 post R CEA SBP < 140 Continue aspirin 325 mg daily Atorvastatin 40 mg nightly Neurochecks q2h PT/OT/bedside swallow Respiratory: No acute issues SpO2 > 92% Supplement oxygen as needed Cardiovascular: Hyperlipidemia Hypertension, essential benign SBP goal < 140 On home hydralazine 10 mg q8h Nicardipine gtt as needed to maintain BP goals On home atorvastatin 40 mg daily Fluids/Electrolytes/Renal: No acute issues Daily renal panel Replete electrolytes per ICU protocol CMP pending GI/Nutrition: No acute issues General diet Infectious Disease: No acute issues Daily CBC Hematologic: No acute issues, minimal operative blood loss Monitor Endocrine: No acute issues Monitor Sedation/Pain Management/Psychiatric: Depression Anxiety On home venlafaxine 75 mg nightly Lines/Tubes: pIV x 2 Left radial arterial line Right neck drain Aguilar catheter Injury/Disease Specific Needs: Last Lower Ext. Duplex: Obtain day 3 if hospitalized DVT Prophylaxis: SCDs GI Prophylaxis: Not needed Disposition: Remain in ICU PABLO ANDERSON DO Neurocritical Care 05/26/2025 4:39 PM Cosigned by Sean Juarez MD at 05/27/2025 8:19 PM EDT Associated attestation - Sean Juarez MD - 05/27/2025 8:19 PM EDT I saw and examined the patient on 05/27/25, and discussed the case with the resident and agree withthe findings and plan as documented in the resident???s note. * Na Conde - 05/26/2025 12:39 PM EDT HEALTH Care Management/Social Work Assessment Patient Information Patient Name: Jaymie Nelson Hospital Day: 0 Inpatient/Observation: Surgery Admit Admit Date: 05/26/2025 Admission Diagnosis: Carotid stenosis, right [I65.21] Attending provider: Larry Early MD PCP: KRZYSZTOF HENDRICKSON MD Home Pharmacy: [id number] - [place] [place] [address] [facility] [address] [facility] [place] [id number] Pertinent Medications Anticoagulation therapy: No New Diabetic: No Issues related to obtaining medications: None Payor Information Medical Insurance Coverage: Payor: [employer] MANAGED MEDICARE / Plan: [employer] MEDICARE / Product Type: Medicare Mngd Care / Secondary Payor: None Functional Assessment Functional Assessment Assessment Information Obtained From:: Spouse (Completed assessment with patient's spouse, patient currently in the OR.) Current Mental Status: Unable to Assess Mental Status Prior to Admission: Unable to Assess Mental Health History: No Suicide Attempts: No Activities of Daily Living: Independent 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 Marital Status: Number of children and their names: Be Jara Relative Search Completed: No Demographics Correct:: Yes Current Living Arrangements Current Living Arrangements Current Living Arrangements: Home Type of Housing: House Who do you live with?: With Family What family member?: Patient lives with her spouse One Story or Two (check all that apply): Multi-Level Enter the number of steps and rails to enter the residence: 1 Enter the number of steps and rails inside the residence: 1 flight History of Falls?: No Community Services Community Services Community Services at Home: DME DME Current: Crutches, Cane Was any abuse reported by patient?: No [place] Status & Connection to [facility] Services [place] Status & Connection to [place] Services Are you a ?: No Support Systems Emergency contact: Extended Emergency Contact Information Primary Emergency Contact: Titi Nelson [address]: [address] [place] [address] Mobile Relation: Spouse Support Systems Legal Status: HCPOA Name of Guardian/POA/ Payee and Phone Number: Titi NelsonZugzwcl-[phone] Primary Caregiver: Self Times of available support: Total 24/7 hands on (add comment) Marital Status: Number of children and their names: Be Jara Relative Search Completed: No Demographics Correct:: Yes Expected Discharge Disposition: Home Assessment Information Obtained From:: Spouse (Completed assessment with patient's spouse, patient currently in the OR.) Other Pertinent Information Patient is a 69 year old female admitted to [facility] for a endarterectomy carotid. DAPHNE completed assessment with patient's spouse, patient currently in the OR. SW introduced self and explained role of social work/care management. Patient's spouse (Titi Nelson) states he is patient's HCPOA, copy not in chart. SW requested a copy be brought in to be placed in chart. Patient is independent at baseline. Patient lives in a multi level home with her spouse. There is 1STE to enter the home and 1 flight of CLYDE to the second floor. Patient is not active with [facility]. Patient has a cane and crutches. Patient does not use any oxygen or a cpap machine. Patient does not have any mental health diagnoses, SI/HI or substance use. Patient's spouse is able to transport patient home at discharge. Advance Directives (For Healthcare) Advance Directive: Patient has advance directive, copy in chart Discharge Plan Met with patient to initiate discussion regarding discharge planning. Introduced self and role of case management/social work and provided contact information. Anticipated Discharge Plan: Home Anticipated Discharge Date: 05/27/2025 Anticipated Transportation: Family Patient/Family aware and taking part in the discharge plan. Patient/family educated that once post-acute care needs have been identified, a provider list applicable to the identified post-acute care needs as well as the insurance provider will be provided, and patient/family have the freedom to choose their provider(s); financial interest(s) are disclosed as appropriate. NA CONDE Phone Number: [phone] documented in this encounter Nursing Notes * Jacinto Anderson RN - 05/27/2025 1:34 PM EDT RN read and explained discharge instructions and medications to patient and their spouse. Patient had all questions answered. IV's were removed and patient discharged home with all belongings with spouse. * Vianey Diaz RN - 05/27/2025 9:47 AM EDT Stroke Nurse Navigator Note: Patient is post CEA. Neck incision without drain, closed with dermabond. Incision is clean, dry and well approximated. No evidence of edema or bruising. Patient is able to swallow water, voice intact, no evidence of respiratory stridor. Patient instructed to report any difficulty with swallowing or breathing, increasing neck pain, headache, or new motor/sensory deficits. Reviewed FAST and when to call 911. Discussed following up with Dr. Early per discharge instructions. * Jacinto Anderson RN - 05/27/2025 9:36 AM EDT In order to qualify, there will need to be documentation of a desaturation of 88% or below at rest on room air. Should room air saturation exceed 88%, the three step test would need to apply as follows: On room air at rest: 89-94%? On room air with exertion: 94 %? On 0 liters of oxygen during exertion: 94%? * Noemi Hopper RN - 05/27/2025 8:15 AM EDT Stroke Nurse Navigator Note: Patient is post R CEA Neck incision is being closely monitored by nursing CEA education added to discharge paperwork FAST and when to call 911 education added to discharge paperwork. Patient will follow up with Dr. Early Future Appointments Date Time Provider Department Center 06/12/2025 11:15 AM Larry Early MD [facility] 06/26/2025 1:40 PM Yelena Lopez MD [facility] documented in this encounter Miscellaneous Notes * Plan of Care - Jacinto Anderson RN - 05/27/2025 9:10 AM EDT Problem: High Fall Risk Precautions Goal: High Fall Risk Precautions Outcome: Progressing * Care Coordination - Maria E Harmon - 05/27/2025 9:03 AM EDT In order to qualify, there will need to be documentation of a desaturation of 88% or below at rest on room air. Should room air saturation exceed 88%, the three step test would need to apply as follows: On room air at rest: ____ %? On room air with exertion: ____ %? On __ liters of oxygen during exertion: ____%? * Care Coordination - Na Conde - 05/27/2025 8:58 AM EDT Health Case Management/Social Work Department Progress Note Patient Information Patient Name: Jaymie Nelson Hospital day: 1 Inpatient/Observation: Inpatient Level of Care: ICU Admit date: 05/26/2025 Admission diagnosis: Carotid stenosis, right [I65.21] PMH: has a past medical history of Asthma, Cancer ([facility]), Carotid stenosis, High cholesterol, Hypertension, PONV (postoperative nausea and vomiting), Seizures ([facility]) (2005), and Stroke ([facility] PCP: KRZYSZTOF HENDRICKSON MD Home Pharmacy: [id number] - [place], [place] - [address] AT [address] [facility] [id number] Medical Insurance Coverage: Payor: HU[employer] MANAGED MEDICARE / Plan: HU[employer]NA GOLD PLUS MEDICARE / Product Type: Medicare [facility] Care / Other Pertinent Information Per interdisciplinary rounds, patient is medically ready for discharge. Patient s/p endarterectomy carotid. Patient discharging home with no needs. Discharge Plan Anticipated discharge plan: Home Anticipated discharge date: 05/27/2025 CM/SW will continue to follow and remain available for discharge planning needs. NA CONDE Ulmu [phone] * Care Coordination - Na Conde - 05/26/2025 12:45 PM EDT [facility] Case Management/Social Work Department Progress Note Patient Information Patient Name: Jaymie Nelson Hospital day: 0 Inpatient/Observation: Surgery Admit Level of Care: Admit date: 05/26/2025 Admission diagnosis: Carotid stenosis, right [I65.21] PMH: has a past medical history of Asthma, Cancer ([facility]), Carotid stenosis, High cholesterol, Hypertension, PONV (postoperative nausea and vomiting), Seizures (CMS-HCC) (2006), and Stroke ([facility]). PCP: KRZYSZTOF HENDRICKSON MD Home Pharmacy: [id number] - [place], [place] - [address] [address] [address] AT [facility] [address] [address] [address] [address] [place] [phone] Medical Insurance Coverage: Payor: HUMANA MANAGED MEDICARE / Plan: HU[employer]NA GOLD PLUS MEDICARE / Product Type: Medicare [place] Care / Other Pertinent Information Per interdisciplinary rounds, patient is not medically ready for discharge. Patient to the OR todayfor an endarterectomy carotid. Discharge Plan Anticipated discharge plan: Home Anticipated discharge date: 05/27/2025 CM/SW will continue to follow and remain available for discharge planning needs. NA CONDE Cell [phone] documented in this encounter Plan of Treatment Not on file documented as of this encounter Procedures Procedure Name Priority Date/Time Associated Diagnosis Comments SARA RHYTHM STRIP - SCAN 05/27/2025 10:15 AM EDT SARA RHYTHM STRIP - SCAN 05/27/2025 10:15 AM EDT HCG URINE, QUALITATIVE Routine 05/27/2025 12:38 AM EDT Carotid stenosis, right RENAL FUNCTION PANEL W/EGFR Routine 05/27/2025 12:38 AM EDT CBC Routine 05/27/2025 12:38 AM EDT MAGNESIUM Routine 05/27/2025 12:38 AM EDT HIGH SENSITIVITY TROPONIN STAT 05/26/2025 5:47 PM EDT CBC Routine 05/26/2025 5:47 PM EDT COMPREHENSIVE METABOLIC PANEL Routine 05/26/2025 5:47 PM EDT OK TEAEC W/PATCH GRF CAROTID VERTB SUBCLAV NECK INC 05/26/2025 11:35 AM EDT Carotid stenosis, right Special Needs EEG, EVOKED POTENTIALS, SUPINE #LR ABO/RH Routine 05/26/2025 8:03 AM EDT CAROTID ENDARTERECTOMY Routine 05/26/2025 7:34 AM EDT Carotid stenosis, right SURGICAL PATHOLOGY EXAM Routine 05/26/2025 12:00 AM EDT documented in this encounter Results * SARA Rhythm Strip - Scan (05/27/2025 10:15 AM EDT) us Scanning [place] SCAN DOCS - NO RESULTS Final Res ult * SARA Rhythm Strip - Scan (05/27/2025 10:15 AM EDT) us Scanning [facility] SCAN DOCS - NO RESULTS Final Res ult * (ABNORMAL) CBC (05/27/2025 12:38 AM EDT) WBC 8.1 3.8 - 10.8 10E3/uL 05/27/2025 12:54 AM EDT [facility] RBC 3.62(L) 3.80 - 5.10 10E6/uL 05/27/2025 12:54 AM EDT [facility] Hemoglobin 10.9(L) 11.7 - 15.5 g/dL 05/27/2025 12:54 AM EDT [facility] Hematocrit 31.5(L) 35.0 - 45.0 % 05/27/2025 12:54 AM EDT [facility] MCV 87.2 80.0 - 100.0 fL 05/27/2025 12:54 AM EDT [facility] MCH 30.2 27.0 - 33.0 pg 05/27/2025 12:54 AM EDT [facility] MCHC 34.6 32.0 - 36.0 g/dL 05/27/2025 12:54 AM EDT [facility] RDW 13.2 11.0 - 15.0 % 05/27/2025 12:54 AM EDT [facility] Platelets 220 140 - 400 10E3/uL 05/27/2025 12:54 AM EDT [facility] MPV 8.4 7.5 - 11.5 fL 05/27/2025 12:54 AM EDT [facility] Whole Blood 05/27/2025 12:3 8 AM EDT 05/27/2025 12:44 AM EDT us Pablo Anderson DO LAB BLOOD ORDERABLES Final Resul t [facility] [address] * (ABNORMAL) Renal Function Panel w/EGFR (05/27/2025 12:38 AM EDT) Sodium 140 133 - 146 mmol/L 05/27/2025 1:15 AM EDT [facility] Potassium 4.0 3.5 - 5.3 mmol/L 05/27/2025 1:15 AM EDT [facility] Chloride 109 98 - 110 mmol/L 05/27/2025 1:15 AM EDT [facility] CO2 26 21 - 33 mmol/L 05/27/2025 1:15 AM EDT [facility] Anion Gap 5 3 - 16 mmol/L 05/27/2025 1:15 AM EDT [facility] BUN 8 7 - 25 mg/dL 05/27/2025 1:15 AM EDT [facility] Creatinine 0.80 0.60 - 1.30 mg/dL 05/27/2025 1:15 AM EDT [facility] Glucose 128(H) 70 - 100 mg/dL 05/27/2025 1:15 AM EDT [facility] Calcium 8.2(L) 8.6 - 10.3 mg/dL 05/27/2025 1:15 AM EDT [facility] Phosphorus 3.6 2.1 - 4.5 mg/dL 05/27/2025 1:15 AM EDT [facility] Albumin 3.0(L) 3.5 - 5.7 g/dL 05/27/2025 1:15 AM EDT [facility] Osmolality, Calculated 290 278 - 305 mOsm/kg 05/27/2025 1:15 AM EDT [facility] EGFR 81 05/27/2025 1:15 AM EDT [facility] Comment:As of 2022, the estimated GFR is calculated [...] Kidney Disease. Am J Kidney Dis. 2020. Plasma 05/27/2025 12:3 8 AM EDT 05/27/2025 12:44 AM EDT [facility] BLOOD ORDERABLES Final Resul t Performing Organization Address City/[facility]/ZIP Co de Phone Number [facility] [address] [facility] * Magnesium (05/27/2025 12:38 AM EDT) Magnesium 1.9 1.5 - 2.5 mg/dL 05/27/2025 1:15 AM EDT [facility] Plasma 05/27/2025 12:3 8 AM EDT 05/27/2025 12:44 AM EDT PabloLookStat DO LAB BLOOD ORDERABLES Final Resul t [facility] [address] [facility] * HCG Urine, Qualitative (05/27/2025 12:38 AM EDT) hCG Qualitative -Clinitek Negative Negative 05/27/2025 1:05 AM EDT [facility] Urine 05/27/2025 12:3 8 AM EDT 05/27/2025 12:44 AM EDT us Brent Dorado MD URINE ORDERABLES Final Result Performing Organization Address City/[facility]/ZIP Co de Phone Number [facility] [address] * High Sensitivity Troponin (05/26/2025 5:47 PM EDT) Pathologist [facility] High Sensitivity Troponin 6 0 - 14 ng/L 05/26/2025 6:29 PM EDT [facility] Serum 05/26/2025 5:47 PM EDT 05/26/2025 5:52 PM EDT us Brent Dorado MD LAB BLOOD ORDERABLES Final Resul t Performing Organization Address [facility] Co de Phone Number [facility] [address] * (ABNORMAL) Comprehensive metabolic panel (05/26/2025 5:47 PM EDT) Pathologist [facility] Sodium 142 133 - 146 mmol/L 05/26/2025 6:26 PM EDT [facility] Potassium 3.9 3.5 - 5.3 mmol/L 05/26/2025 6:26 PM EDT [facility] Chloride 109 98 - 110 mmol/L 05/26/2025 6:26 PM EDT [facility] CO2 28 21 - 33 mmol/L 05/26/2025 6:26 PM EDT [facility] Anion Gap 5 3 - 16 mmol/L 05/26/2025 6:26 PM EDT [facility] BUN 6(L) 7 - 25 mg/dL 05/26/2025 6:26 PM EDT [facility] Creatinine 0.71 0.60 - 1.30 mg/dL 05/26/2025 6:26 PM EDT [facility] Glucose 108(H) 70 - 100 mg/dL 05/26/2025 6:26 PM EDT [facility] Calcium 8.1(L) 8.6 - 10.3 mg/dL 05/26/2025 6:26 PM EDT [facility] Total Bilirubin 0.2 0.0 - 1.5 mg/dL 05/26/2025 6:26 PM EDT [facility] AST 14 13 - 39 U/L 05/26/2025 6:26 PM EDT [facility] ALT 10 7 - 52 U/L 05/26/2025 6:26 PM EDT [facility] Alkaline Phosphatase 56 36 - 125 U/L 05/26/2025 6:26 PM EDT [facility] Total Protein 5.4(L) 6.4 - 8.9 g/dL 05/26/2025 6:26 PM EDT [facility] Albumin 3.3(L) 3.5 - 5.7 g/dL 05/26/2025 6:26 PM EDT [facility] Osmolality, Calculated 292 278 - 305 mOsm/kg 05/26/2025 6:26 PM EDT [facility] EGFR >90 05/26/2025 6:26 PM EDT [facility] Comment: As of 2022, the estimated [...] renal disease. For additional information: www.kidney.org Plasma 05/26/2025 5:47 PM EDT 05/26/2025 5:52 PM EDT us Brent Dorado MD LAB BLOOD ORDERABLES Final Resul t [facility] [address] [place] [address], [facility] * (ABNORMAL) CBC (05/26/2025 5:47 PM EDT) WBC 7.6 3.8 - 10.8 10E3/uL 05/26/2025 6:00 PM EDT [facility] RBC 3.51(L) 3.80 - 5.10 10E6/uL 05/26/2025 6:00 PM EDT [facility] Hemoglobin 10.7(L) 11.7 - 15.5 g/dL 05/26/2025 6:00 PM EDT [facility] Hematocrit 30.6(L) 35.0 - 45.0 % 05/26/2025 6:00 PM EDT [facility] MCV 87.1 80.0 - 100.0 fL 05/26/2025 6:00 PM EDT [facility] MCH 30.5 27.0 - 33.0 pg 05/26/2025 6:00 PM EDT [facility] MCHC 35.0 32.0 - 36.0 g/dL 05/26/2025 6:00 PM EDT [facility] RDW 13.2 11.0 - 15.0 % 05/26/2025 6:00 PM EDT [facility] Platelets 215 140 - 400 10E3/uL 05/26/2025 6:00 PM EDT [facility] MPV 8.1 7.5 - 11.5 fL 05/26/2025 6:00 PM EDT [facility] Whole Blood 05/26/2025 5:47 PM EDT 05/26/2025 5:52 PM EDT us Brent Dorado MD LAB BLOOD ORDERABLES Final Resul t [facility] [address] [place] [address], [facility] * ABO/Rh (05/26/2025 8:03 AM EDT) ABO Grouping A 05/26/2025 8:50 AM EDT [facility] Rh Type Positive 05/26/2025 8:50 AM EDT [facility] Blood 05/26/2025 8:03 AM EDT 05/26/2025 8:28 AM EDT Larry Early MD BLOOD BANK TEST ORDERAB LES Final Result [facility] [address] [place] [address], [facility] * Surgical Pathology Exam (05/26/2025 12:00 AM EDT) 05/26/2025 05/27/2025 Narrative [facility] - 05/26/2025 12:00 AM EDT CASE: [id number] PATIENT: JAYMIE NELSON Clinical History: Endarterectomy carotid Pre-Operative Diagnosis: carotid stenosis, right Post-Operative Diagnosis: carotid stenosis, right Specimen(s) Submitted: A. right carotid plaque CPT Code(s): 78206 X 1; 21114 X 1 Additional Information: FINAL DIAGNOSIS: Right carotid stenosis, endarterectomy: - Calcified intimal atherosclerotic plaque with thrombosis. NATALIE/jacobo ___ Gross Description: Received in formalin, labeled Jaymie Nelson and right carotid plaque is a 2 x 1.5 x 0.9 cm ibanez-yellow diffusely calcified tissue fragment. The specimen is serially sectioned to reveal ibanez-yellow smooth and diffusely calcified cut surfaces. The entire specimen is submitted in cassette [id number], following decalcification. (Jean-Pierre Parekh MD (Resident)/) Microscopic Description: One HE slides examined. Natasha Whitley, the attending pathologist, have personally reviewed all prosector/resident work and pathology slides to determine final diagnosis. Final Diagnosis performed by TALA COLLAZO MD, PhD Pathologist Electronically signed 05/29/2025 04:07:08 PM The Pathologist signing this report is located at [facility], [address] [place] [address], [place], [address], , CLIA ID: [id number] Larry Early MD PATHOLOGY/CYTOLOGY SIMON CAZARES Final Result [facility] documented in this encounter Visit Diagnoses Diagnosis Stenosis of carotid artery, unspecified laterality- Primary Carotid stenosis, right Occlusion and stenosis of carotid artery without mention of cerebral infarction documented in this encounter Administered Medications Inactive Administered Medications - up to 3 most recent administrations Medication Order MAR Action Action Date Dose Rate Site acetaminophen (TYLENOL) tablet 975 mg 975 mg, Oral, scallop dredger to O.R., Give 1 hour pre-op, Starting on Sun05/26/25 at 0759, For 1 dose, Give 1 hour pre-op. Do NOT give if patient has received acetaminophen in the past 6 hours OR if this dose will cause the patient to exceed 4 grams acetaminophen in the past 24 hours. Do NOT give if patient consumes 3 or more alcoholic beverages per day., Pre-op Given 05/26/2025 8:21 AM EDT 975 mg aspirin tablet 325 mg 325 mg, Oral, Daily, First dose on Sun05/27/25 at 0900 Given 05/27/2025 8:08 AM EDT 325 mg atorvastatin (LIPITOR) tablet 40 mg 40 mg, Oral, At Bedtime (2100), First dose on Sun05/26/25 at 2100 Given 05/26/2025 8:57 PM EDT 40 mg ceFAZolin (ANCEF) 2 g in sodium chloride 0.9 % 100 mL [id number] Intravenous, at 200 mL/hr, Every 8 hours scheduled (3 times per day), First dose on Sun05/26/25 at 2100, For 3 doses, Use [id number] Adapter - Mix Thoroughly Before Administration, Indication? Prophylaxis-Surgical, Site of diagnosed infections (select all that apply): BEAM DYER New Bag 05/27/2025 5:52 AM EDT 2 g 200 mL/hr New Bag 05/26/2025 8:50 PM EDT 2 g 200 mL/hr hydrALAZINE (APRESOLINE) tablet 10 mg 10 mg, Oral, Every 8 hours, First dose on Sun05/26/25 at 1700 Given 05/27/2025 8:09 AM EDT 10 mg Given 05/27/2025 12:43 AM EDT 10 mg Given 05/26/2025 5:30 PM EDT 10 mg labetaloL (NORMODYNE) injection 10 mg 10 mg, Intravenous, Every 2 hour PRN, For SBP greater than : , 140, Starting on Sun05/26/25 at 1641, If CMU is not available, then it is OK to administer IVP so long as BP and HR can be monitored every 1 hour. labetaloL (NORMODYNE) injection 20 mg 20 mg, Intravenous, Every 2 hour PRN, For SBP greater than : , 160, Starting on Sun05/26/25 at 1641, If CMU is not available, then it is OK to administer IVP so long as BP and HR can be monitored every 1 hour. niCARdipine (CARDENE) 40 mg/200 mL in sodium chloride; iso-osmotic Intravenous, at 0-75 mL/hr, Continuous, Starting on Sun05/26/25 at 1700, Initiate infusion if unresponsive to two doses of prn antihypertensives if applicable within a 4-hour period, call physician and titrate per defined parameters/ PROTECT FROM LIGHT, Initial starting rate: 5 mg/hr, Titrate by: 1 - 2.5 mg/hr, Titration interval: no more frequent than: 5 minutes, Clinical Goal: SBP Less than 140 mmHg, Contact Provider: If goals cannot be maintained at highest permissible dose Rate/Dose Change 05/27/2025 2:22 AM EDT 2.5 mg/hr 12.5 mL/hr Rate/Dose Change 05/26/2025 11:41 PM EDT 5 mg/hr 25 mL/ hr Restarted 05/26/2025 11:41 PM EDT 2.5 mg/hr 12.5 mL/hr oxyCODONE-acetaminophen (PERCOCET) 10-325 mg per tablet 0.5 tablet 0.5 tablet, Oral, Every 12 hours PRN, moderate pain (NRS 4-6) or if patient is non-communicative (CPOT 3-5), Starting on Sun05/26/25 at 1638, Maximum dose of acetaminophen is 4000 mg (4 grams) from all sources in 24 hours. Given 05/26/2025 8:56 PM EDT 0.5 tablets polyethylene glycol (MIRALAX) packet 17 g 17 g, Oral, Daily, First dose on Sun05/26/25 at 1700 Given 05/26/2025 5:32 PM EDT 17 g pregabalin (LYRICA) capsule 50 mg 50 mg, Oral, At Bedtime (2099), First dose on Sun05/26/25 at 2100 Given 05/26/2025 8:57 PM EDT 50 mg scopolamine (TRANSDERM-SCOP) (1 mg over 3 days) 1 patch 1 patch, Transdermal, Every 72 hours, First dose on Sun05/26/25 at 0800, Pre-op Patch Applied 05/26/2025 8:21 AM EDT 1 patch Right Arm senna-docusate (SENNA-S) 8.6-50 mg per tablet 1 tablet 1 tablet, Oral, 2 times daily, First dose on Sun05/26/25 at 2100 Given 05/27/2025 8:09 AM EDT 1 tablet Given 05/26/2025 8:57 PM EDT 1 tablet venlafaxine (EFFEXOR-XR) 24 hr capsule 75 mg 75 mg, Oral, At Bedtime (2099), First dose on Sun05/26/25 at 2100, CAPSULES MUST BE SWALLOWED WHOLE; DO NOT OPEN OR CRUSH CAPSULES Given 05/26/2025 8: 57 PM EDT 75 mg documented in this encounter Active and Recently Administered Medications Times are shown in EDT. Scheduled Medication Order 05/25/2025 05/26/2025 05/27/2025 aspirin tablet 325 mg 325 mg, Oral, Daily, First dose on Sun05/27/25 at 0900 0808 (Given - Provid er: Layne Fam RN) atorvastatin (LIPITOR) tablet 40 mg 40 mg, Oral, At Bedtime (2099), First dose on Sun05/26/25 at 2099 2056 (Given - Provider: Kendrick Azar RN) ceFAZolin (ANCEF) 2 g in sodium chloride 0.9 % 100 mL [id number] Intravenous, at 200 mL/hr, Every 8 hours scheduled (3 times per day), First dose on Sun05/26/25 at 2100, For 3 doses, Use [id number] Adapter - Mix Thoroughly Before Administration, Indication? Prophylaxis-Surgical, Site of diagnosed infections (select all that apply): BEAM DYER 2049 (New Bag - Provider: Kendrick Azar RN)2050 (Stopped - Provider: Kendrick Azar RN) 0552 (New Bag - Provider: Kendrick Azar RN)0640 (Stopped - Provider: Kendrick Azar RN)1300 (Not Given - Provider: Jacinto Anderson RN - Reason: Patient/family refused - Comment: patient discharginf) heparin (porcine) injection 5,000 Units 5,000 Units, Subcutaneous, Every 8 hours scheduled (3 times per day), First dose on Sun05/27/25 at 1800 hydrALAZINE (APRESOLINE) tablet 10 mg 10 mg, Oral, Every 8 hours, First dose on Sun05/26/25 at 1700 1730 (Given - Provider: Edmund Bear, LASHON) 0043 (Given - Provider: Kendrick Azar RN)0809 (Given - Provider: Layne Fam, LASHON) polyethylene glycol (MIRALAX) packet 17 g 17 g, Oral, Daily, First dose on Sun05/26/25 at 1700 1732 (Given - Provider: Edmund Bear, LASHON) 0811 (Not Given - Provider: Layne Fam RN - Reason: Patient/family refused) pregabalin (LYRICA) capsule 50 mg 50 mg, Oral, At Bedtime (2099), First dose on Sun05/26/25 at 2099 2056 (Given - Provider: Kendrick Azar RN) scopolamine (TRANSDERM-SCOP) (1 mg over 3 days) 1 patch (CANCELED) 1 patch, Transdermal, Every 72 hours, First dose on Sun05/26/25 at 0800, Pre-op 0821 (Patch Applied - Provider: Victoria Torres RN)1644 (Patch Removed - Provider: Edmund Bear RN - Comment: Time automatically adjusted from order being discontinued) senna-docusate (SENNA-S) 8.6-50 mg per tablet 1 tablet 1 tablet, Oral, 2 times daily, First dose on Sun05/26/25 at 2099 2056 (Given - Provider: Kendrick Azar RN) 0809 (Given - Provider: Layne Fam RN) venlafaxine (EFFEXOR-XR) 24 hr capsule 75 mg 75 mg, Oral, At Bedtime (2099), First dose on Sun05/26/25 at 2100, CAPSULES MUST BE SWALLOWED WHOLE; DO NOT OPEN OR CRUSH CAPSULES 2056 (Given - Provider: Kendrick Azar, RN) Continuous Medication Order 05/25/2025 05/26/2025 05/27/2025 lactated Ringers IV infusion (CANCELED) 20 mL/hr, Intravenous, Continuous, Starting on Sun05/26/25 at 0800, Pre-op 1136 (New Bag - Provider: La Vidal DO)1535 (New Bag - Provider: Juan Massey, RN)1548 (Stopped - Provider: Juan Massey, RN) niCARdipine (CARDENE) 40 mg/200 mL in sodium chloride; iso-osmotic (CANCELED) Intravenous, at 0-75 mL/hr, Continuous, Starting on Sun05/26/25 at 1700, Initiate infusion if unresponsive to two doses of prn antihypertensives if applicable within a 4-hour period, call physician and titrate per defined parameters/ PROTECT FROM LIGHT, Initial starting rate: 5 mg/hr, Titrate by: 1 - 2.5 mg/hr, Titration interval: no more frequent than: 5 minutes, Clinical Goal: SBP Less than 140 mmHg, Contact Provider: If goals cannot be maintained at highest permissible dose 1630 (Rate/Dose Change - Provider: Allie Martinez RN)1635 (Rate/Dose Change - Provider: Allie Martinez RN)1642 (New Bag - Provider: Edmund Bear RN)1726 (Rate/Dose Change - Provider: Edmund Bear RN)1732 (Rate/Dose Change - Provider: Edmund Bear RN)1749 (Rate/Dose Change - Provider: Edmudn Bear RN)1805 (Rate/Dose Change - Provider: Edmund Bear RN)1929 (Rate/Dose Change - Provider: Kendrick Azar, RN)2030 (Rate/Dose Change - Provider: Kendrick Azar, RN)2038 (Rate/Dose Change - Provider: Kendrick Azar, RN)2058 (Rate/Dose Change - Provider: Kendrick Azar, RN)211 (Rate/Dose Change - Provider: Kendrick Azar, RN)2143 (Rate/Dose Verify - Provider: Kendrick Azar RN)2211 (New Bag - Provider: Kendrick Azar RN)2228 (Rate/Dose Change - Provider: Kendrick Azar RN)2243 (Rate/Dose Change - Provider: Kendrick Azar RN)2301 (Stopped - Provider: Kendrick Azar RN)2341 (Restarted - Provider: Kendrick Azar, RN)2341 (Rate/Dose Change - Provider: Kendrick Azar RN) 0222 (Rate/Dose Change - Provider: Kendrick Azar RN)0639 (Stopped - Provider: Kendrick Azar RN) PRN Medication Order 05/25/2025 05/26/2025 05/27/2025 acetaminophen (TYLENOL) tablet 975 mg (COMPLETED) 975 mg, Oral, scallop dredger to O.R., Give 1 hour pre-op, Starting on Sun05/26/25 at 0759, For 1 dose, Give 1 hour pre-op. Do NOT give if patient has received acetaminophen in the past 6 hours OR if this dose will cause the patient to exceed 4 grams acetaminophen in the past 24 hours. Do NOT give if patient consumes 3 or more alcoholic beverages per day., Pre-op 0821 (Given - Provider: Victoria Torres RN) ceFAZolin (ANCEF) 2 g in sodium chloride 0.9 % 100 mL [id number] (COMPLETED) Intravenous, at 200 mL/hr, scallop dredger to O.R., scallop dredger to O.R., Starting on Sun05/26/25 at 0759, For 1 dose, Begin infusion 20-60 minutes prior to incision. For Patient Weight 80 kg or Less. Use [id number] Adapter - Mix Thoroughly Before Administration, Pre-op, Indication? Prophylaxis-Surgical, Site of diagnosed infections (select all that apply): Skin/Soft Tissue 1151 (New Bag - Provider: La Vidal DO)1202 (Canceled Entry - Provider: La Vidal DO)1516 (Bolus - Provider: Juan Massey RN) heparin (porcine) 5,000 unit/mL 2,500 Units in sodium chloride 0.9 % 250 mL IV infusion (CANCELED) As needed, Starting on Sun05/26/25 at 1105, Intra-op 1105 (Given - Provider: Larry Early MD - Comment: Delivered to back table for use, as indicated, by MD) labetaloL (NORMODYNE) injection 10 mg(Linked Group 1) 10 mg, Intravenous, Every 2 hour PRN, For SBP greater than : , 140, Starting on Sun05/26/25 at 1641, If [facility] is not available, then it is OK to administer IVP so long as BP and HR can be monitored every 1 hour. labetaloL (NORMODYNE) injection 20 mg(Linked Group 1) 20 mg, Intravenous, Every 2 hour PRN, For SBP greater than : , 160, Starting on Sun05/26/25 at 1641, If [facility] is not available, then it is OK to administer IVP so long as BP and HR can be monitored every 1 hour. lidocaine-EPINEPHrine 1 %-1:100,000 injection (CANCELED) As needed, Starting on Sun05/26/25 at 1231, Intra-op 1231 (Given - Provider: Larry Early MD - Comment: Surgical Site) ondansetron (ZOFRAN) injection 4 mg 4 mg, Intravenous, Every 6 hours PRN, Nausea and/or Vomiting, Starting on Sun05/26/25 at 1639 oxyCODONE-acetaminophen (PERCOCET) 10-325 mg per tablet 0.5 tablet 0.5 tablet, Oral, Every 12 hours PRN, moderate pain (NRS 4-6) or if patient is non-communicative (CPOT 3-5), Starting on Sun05/26/25 at 1638, Maximum dose of acetaminophen is 4000 mg (4 grams) from all sources in 24 hours. 2055 (Given - Provider: Kendrick Azar RN) sodium chloride 0.9 % irrigation (CANCELED) As needed, Starting on Sun05/26/25 at 1104, Intra-op 1104 (Given - Provider: Larry Early MD) thrombin (bovine) topical solution (CANCELED) As needed, Starting on Sun05/26/25 at 1232, Intra-op 1232 (Given - Provider: Larry Early MD - Comment: Delivered to back table for use, as indicated, by MD) Linked Groups Order Group 1: labetaloL (NORMODYNE) injection 10 mgJump to med 10 mg, Intravenous, Every 2 hour PRN, For SBP greater than : , 140, Starting on Sun05/26/25 at 1641, If [facility] is not available, then it is OK to administer IVP so long as BP and HR can be monitored every 1 hour. Or labetaloL (NORMODYNE) injection 20 mgJump to med 20 mg, Intravenous, Every 2 hour PRN, For SBP greater than : , 160, Starting on Sun05/26/25 at 1641, If [facility] is not available, then it is OK to administer IVP so long as BP and HR can be monitored every 1 hour. documented in this encounter Care Teams Car Rider Relationship Specialty Start Date End Date Krzysztof Hendrickson MD [address] [place] [address] PCP - General Family Medicine 04/29/25 documented as of this encounter
--- OUTSIDE RECORDS SUMMARY | 2025-05-26 10:54 | XMS_ITS | Encounter Summary ---
Author Organization [facility] Address [facility] [place] [address] Care Team Providers Care Food And Drug Inspector Name Role Phone Krzysztof Hendrickson MD Primary Care Provider [phone] Source Comments This information has been disclosed [...] release of HIV test results or diagnoses. [id number] Reason for Visit * Auth/Cert (Routine) Specialty Diagnoses / Procedures Referred By Mandy chandler Referred To Contact Diagnoses Occlusion and stenosis of right carotid artery Carotid stenosis, right [I65.21] Procedures [facility] TEAEC W/PATCH GRF CAROTID VERTB SUBCLAV NECK INC ENDARTERECTOMY CAROTID [facility] [address] [place] [address] Phone: tel: Referral ID Status Reason Start Date Expiration Date Visits Re quested Visits Authorized [id number] 1 1 Encounter Details Date Type Department Care Team (Late st Contact Info) Description 05/26/2025 10:54 AM EDT - 05/26/2025 3:[address] [facility] [address] [place] [address] Larry Early MD [address] [facility] [address] [place] [address] ENDARTERECTOMY CAROTID Surgery Details Date/Time Status Location OR Service Patient Class Case Class Case Type Trauma Case? 05/26/2025 10:54 AM Posted OR 12 Neurosurgery Surgery Admit IOM Included Panel 1 Procedure LRB Anes Op Region Wound Class Comments ENDARTERECTOMY CAROTID Right General Neck Clean Surgeon Surgeon Role Service Panel Larry Early MD Primary Neurosurgery 1 Special Needs EEG, EVOKED POTENTIALS, SUPINE #LR documented in this encounter Social History Tobacco Use Types Packs/Day Years Used Date Smoking Tobacco: Former Cigarettes Q uit: 2004 Passive Smoke Exposure: Never Smokeless Tobacco: Never Comments:Started 1990 Quit in 2000 Alcohol Use Standard Drinks/Week Comments Never 0 (1 standard drink = 0.6 oz pur e alcohol) Utilities Answer Date Recorded In the past 12 months has th e [employer], gas, oil, or water [employer] threatened to shut off services in your [...] any time in the past 12 m [facility], were you homeless or living in a mcfp (including now)? No 05/26/2025 Yearly Questionnaire Answer [...] Sign Reading Time Taken Comments Blood Pressure 172/77 05/26/2025 7:50 AM EDT Pulse 70 05/26/2025 7:50 AM EDT Temperature 36.2 C (97.1 F) 05/26/2025 7:50 AM EDT Respiratory Rate 15 05/26/2025 7:50 AM EDT Oxygen Saturation 99% 05/26/2025 7:50 AM EDT Inhaled Oxygen Concentration 99% 05/26/2025 7 :50 AM EDT Weight 59.4 kg (131 lb) 05/26/2025 7:50 AM EDT Height 160 cm (5' 3 ) 05/26/2025 7:50 AM EDT Body Mass Index 23.21 05/26/2025 7:50 AM EDT documented in this encounter Discharge Summaries * Na Conde - 05/27/2025 9:00 AM EDT Health Care Management Discharge Summary Patient name: Jaymie Nelson Patient : 1955 Age: 69 y.o. Gender: female Patient emergency contact: Extended Emergency Contact Information Primary Emergency Contact: Titi Nelson [address]: [address] [place] [address] Mobile Relation: Spouse Attending provider: Larry Early [...] Patient notified of discharge Plan reviewed with MD and other members of the health care team: Yes Care Plan Completed: Yes No further CM/SW needs. This plan has been reviewed with the multi-disciplinary team. Treatment Preferences Treatment Preferences: Other (provide comment) (Patient discharging home with no needs) Post-Discharge Goals Post Acute Care Provider Information: Community Services at Discharge Community Services at Home post discharge: Not Applicable Na Conde [phone] documented in this encounter Discharge Instructions * Discharge Instructions* Carlita Sanches APRN - 05/27/2025 7:36 AM EDT Follow up Appointment Date: 06/12/2025 Post Operative 11:00 AM (15 min.) Larry Early MD [facility] Neurosurgery at [facility] - Please schedule a visit with your [...] dose indicated or, alternatively, you may try uggb-vnf-jjpyerh medications like bisacodyl, colace, senokot, or miralax. Contact our office should the condition worsen or should you stop passing gas. -Should you experience medication side effects or intolerance, stop that medication immediately andcall the office [phone] Should you experience severe side effects present to you primary care doctor or the nearest urgent care/emergency room. QUESTIONS OR CONCERNS: If you have a question or concern regarding your care after you get home you can: Call your neurosurgeon???s office at the number [phone] If you have an urgent concern during an evening, weekend, or holiday call the neurosurgery residenton call. Dial [phone] and ask the ager operator to have the chief station engineer neurosurgery resident paged to your telephone number. * Attachments The following attachments cannot be sent through Care Everywhere. * Warning Signs of a Stroke (Guinean) * Carotid Artery Disease Ccvh-yz-Ebia (Guinean) * Carotid Endarterectomy Care After (Guinean) documented in this encounter Medications at Time [...] of this encounter Progress Notes * Usama Duncan, PT - 05/27/2025 1:04 PM EDT Physical [...] assessments. Time Attempted: 1300 Usama Duncan PT [facility] Office: [phone] Hours: [id number] M-F * Mimi Alcala, CUSTOM BOOKBINDER - 05/27/2025 12:29 PM EDT Neuroscience ICU [...] 3.0* -- TOTAL PROTEIN -- 5.4* Lab 05/27/2537 ALBUMINKID 3.0* Invalid input(s): CO2ART , HBO2PE [...] to light touch. Coordination: No dysmetria on efkxed-qnxf-psnnxx or qfuc-ilkf-unkz. Gait: deferred. ASSESSMENT AND PLAN: Neuro: Symptomatic [...] MD PCP: KRZYSZTOF HENDRICKSON MD [id number] [address] AT [address] & [address] [phone] Pertinent Medications Anticoagulation therapy: No New Diabetic: No Issues related to obtaining medications: None Payor Information Medical Insurance Coverage: Payor: HUMANA MANAGED MEDICARE / Plan: HUMANA GOLD PLUS MEDICARE / Product Type: Medicare [facility] Care / Secondary Payor: None Functional Assessment Functional Assessment Assessment Information Obtained From:: Spouse (Completed assessment with patient's spouse, patient currently in the OR.) Current Mental Status: Unable to Assess Mental Status Prior to Admission: Unable to Assess Mental Health History: No Suicide Attempts: No Activities of Daily Living: Independent Work History: 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 Marital Status: Number of children and their [...] Was any abuse reported by patient?: No [place] Status & Connection to [facility] Services [place] Status & Connection to [facility] Services Are you a ?: No Support Systems Emergency contact: Extended Emergency Contact Information Primary Emergency Contact: Manny Nelsone Address: [address] [place] [address] Mobile Relation: Spouse Support Systems Legal Status: HCPOA Name of Guardian/POA/ Payee and Phone Number: Titi NelsonWxsvsff-[phone] Primary Caregiver: Self Times of available support: Total 24/ hands on (add comment) Marital Status: Number of children and their names: Be Jara Relative Search Completed: No Demographics Correct:: Yes Expected Discharge Disposition: Home Assessment Information Obtained From:: Spouse (Completed assessment with patient's spouse, patient currently in the OR.) Other Pertinent Information Patient is a 69 year old female admitted to [facility] for a endarterectomy carotid. DAPHNE completed assessment with patient's spouse, patient currently in the OR. DAPHNE introduced self and explained role of social work/care management. Patient's spouse (Titi Nelson) states he is patient's HCPOA, copy not in chart. SW requested a copy be brought in to be placed in chart. Patient is independent at baseline. Patient lives in a multi level home with her spouse. There is 1 CLYDE to enter the home and 1 flight of CLYDE to the second floor. Patient is not active with [facility]. Patient has a cane and crutches. [...] disclosed as appropriate. NA CONDE Phone Number: [phone] documented in this encounter Nursing Notes * [...] Center 06/12/2025 11:15 AM Larry Early MD [facility] 06/26/2025 1:40 PM Yelena Lopez MD [facility] NEUR [facility] documented in this encounter Miscellaneous [...] Na Conde - 05/27/2025 8:58 AM EDT [facility] Case Management/Social Work Department Progress Note Patient Information Patient Name: Jaymie Nelson Hospital day: 1 Inpatient/Observation: Inpatient Level of Care: ICU Admit date: 05/26/2025 Admission diagnosis: Carotid stenosis, right [I65.21] PMH: has a past medical history of Asthma, Cancer (CMS-HCC), Carotid stenosis, High cholesterol, Hypertension, PONV (postoperative nausea and vomiting), Seizures (CMS-HCC) (2005), and Stroke ([facility]-H[facility]). PCP: KRZYSZTOF HENDRICKSON MD Home Pharmacy: [id number] - [place], [place] [facility] [address] [facility] [address] & [place] [address] [place] [address] Medical Insurance Coverage: Payor: HUMANA MANAGED MEDICARE [...] for discharge planning needs. NA CONDE Cell [phone] * Care Coordination - Na Conde - 05/26/2025 12:45 PM EDT [facility] Case Management/Social Work Department Progress Note Patient Information Patient Name: Jaymie Nelson Hospital day: 0 Inpatient/Observation: Surgery Admit Level of Care: Admit date: 05/26/2025 Admission diagnosis: Carotid stenosis, right [I65.21] PMH: has a past medical history of Asthma, Cancer ([facility]-HCC), Carotid stenosis, High cholesterol, Hypertension, PONV (postoperative nausea and vomiting), Seizures (CMS-HCC) (2005), and Stroke ([facility]). PCP: KRZYSZTOF HENDRICKSON MD Home Pharmacy: [facility] #[id number] - [place], [place] - [address] [facility] [address] & [place] [address] [address] [place] [phone] Medical Insurance Coverage: Payor: [employer] MEDICARE / Plan: angelMD MEDICARE / Product Type: Medicare [facility] Care / Other Pertinent Information Per interdisciplinary rounds, patient is not medically ready for discharge. Patient to the OR todayfor an endarterectomy carotid. Discharge Plan Anticipated discharge plan: Home Anticipated discharge date: 05/27/2025 CM/SW will continue to follow and remain available for discharge planning needs. NA CONDE Cell [phone] documented in this encounter Plan of Treatment [...] METABOLIC PANEL Routine 05/26/2025 5:47 PM EDT UT TEAEC W/PATCH GRF CAROTID VERTB SUBCLAV NECK INC 05/26/2025 11:35 AM EDT Carotid stenosis, right Special Needs EEG, EVOKED POTENTIALS, SUPINE #LR ABO/RH Routine 05/26/2025 8:03 AM EDT CAROTID ENDARTERECTOMY Routine 05/26/2025 7:34 AM EDT Carotid stenosis, right SURGICAL PATHOLOGY EXAM Routine 05/26/2025 12:00 AM EDT documented in this encounter Results * SARA Rhythm Strip - Scan (05/27/2025 10:15 AM EDT) [facility] - NO RESULTS Final Res ult * SARA Rhythm Strip - Scan (05/27/2025 10:15 AM EDT) us Sc[facility] - NO RESULTS Final Res ult * (ABNORMAL) CBC (05/27/2025 12:38 AM EDT) WBC 8.1 3.8 - 10.8 10E3/uL 05/27/2025 12:[address] [facility] RBC 3.62(L) 3.80 - 5.10 10E6/uL 05/27/2025 12:[address] [facility] Hemoglobin 10.9(L) 11.7 - 15.5 g/dL 05/27/2025 12:[address] [facility] Hematocrit 31.5(L) 35.0 - 45.0 % 05/27/2025 12:[address] [facility] MCV 87.2 80.0 - 100.0 fL 05/27/2025 12:[address] [facility] MCH 30.2 27.0 - 33.0 pg 05/27/2025 12:[address] [facility] MCHC 34.6 32.0 - 36.0 g/dL 05/27/2025 12:[address] [facility] RDW 13.2 11.0 - 15.0 % 05/27/2025 12:[address] [facility] Platelets 220 140 - 400 10E3/uL 05/27/2025 12:[address] [facility] MPV 8.4 7.5 - 11.5 fL 05/27/2025 12:[address] [facility] Whole Blood 05/27/2025 12:3 8 AM EDT 05/27/2025 12:44 AM EDT us Pablo Anderson DO LAB BLOOD ORDERABLES Final Resul t [facility] [address] [place] [address], [facility] * (ABNORMAL) Renal Function Panel w/EGFR (05/27/2025 12:38 AM EDT) Sodium 140 133 - 146 mmol/L 05/27/2025 1:[address] [facility] Potassium 4.0 3.5 - 5.3 mmol/L 05/27/2025 1:[address] [facility] Chloride 109 98 - 110 mmol/L 05/27/2025 1:[address] [facility] CO2 26 21 - 33 mmol/L 05/27/2025 1:[address] [facility] Anion Gap 5 3 - 16 mmol/L 05/27/2025 1:[address] [facility] BUN 8 7 - 25 mg/dL 05/27/2025 1:[address] [facility] Creatinine 0.80 0.60 - 1.30 mg/dL 05/27/2025 1:[address] [facility] Glucose 128(H) 70 - 100 mg/dL 05/27/2025 1:[address] [facility] Calcium 8.2(L) 8.6 - 10.3 mg/dL 05/27/2025 1:[address] [facility] Phosphorus 3.6 2.1 - 4.5 mg/dL 05/27/2025 1:[address] [facility] Albumin 3.0(L) 3.5 - 5.7 g/dL 05/27/2025 1:[address] [facility] Osmolality, Calculated 290 278 - 305 mOsm/kg 05/27/2025 1:[address] [facility] EGFR 81 05/27/2025 1:[address] [facility] Comment:As of 2022, the estimated GFR [...] DO LAB BLOOD ORDERABLES Final Resul t Performing Organization Address City/[facility]/ZIP Co de Phone Number [facility] [address] [place] [address]. [address] * Magnesium (05/27/2025 12:38 AM EDT) Magnesium 1.9 1.5 - 2.5 mg/dL 05/27/2025 1:[address] [facility] Plasma 05/27/2025 12:3 8 AM EDT 05/27/2025 12:44 AM EDT us Pablo Anderson DO LAB BLOOD ORDERABLES Final Resul t Performing Organization Address [facility] Co de Phone Number [facility] [address] [place] [address]. [address] * HCG Urine, Qualitative (05/27/2025 12:38 AM EDT) hCG Qualitative -Clinitek Negative Negative 05/27/2025 1:[address] [facility] Urine 05/27/2025 12:3 8 AM EDT 05/27/2025 12:44 AM EDT us Brent Dorado MD URINE ORDERABLES Final Result Performing Organization Address [facility] Co de Phone Number [facility] [address] * High Sensitivity Troponin (05/26/2025 5:47 PM EDT) High Sensitivity Troponin 6 0 - 14 ng/L 05/26/2025 6:[address] [facility] Serum 05/26/2025 5:47 PM EDT 05/26/2025 5:52 PM EDT us Brent Dorado MD LAB BLOOD ORDERABLES Final Resul t [facility] [address] * (ABNORMAL) Comprehensive metabolic panel (05/26/2025 5:47 PM EDT) Pathologist [facility] Sodium 142 133 - 146 mmol/L 05/26/2025 6:[address] [facility] Potassium 3.9 3.5 - 5.3 mmol/L 05/26/2025 6:[address] [facility] Chloride 109 98 - 110 mmol/L 05/26/2025 6:[address] [facility] CO2 28 21 - 33 mmol/L 05/26/2025 6:[address] [facility] Anion Gap 5 3 - 16 mmol/L 05/26/2025 6:[address] [facility] BUN 6(L) 7 - 25 mg/dL 05/26/2025 6:[address] [facility] Creatinine 0.71 0.60 - 1.30 mg/dL 05/26/2025 6:[address] [facility] Glucose 108(H) 70 - 100 mg/dL 05/26/2025 6:[address] [facility] Calcium 8.1(L) 8.6 - 10.3 mg/dL 05/26/2025 6:[address] [facility] Total Bilirubin 0.2 0.0 - 1.5 mg/dL 05/26/2025 6:[address] [facility] AST 14 13 - 39 U/L 05/26/2025 6:[address] [facility] ALT 10 7 - 52 U/L 05/26/2025 6:[address] [facility] Alkaline Phosphatase 56 36 - 125 U/L 05/26/2025 6:[address] [facility] Total Protein 5.4(L) 6.4 - 8.9 g/dL 05/26/2025 6:[address] [facility] Albumin 3.3(L) 3.5 - 5.7 g/dL 05/26/2025 6:[address] [facility] Osmolality, Calculated 292 278 - 305 mOsm/kg 05/26/2025 6:[address] [facility] EGFR >90 05/26/2025 6:[address] [facility] Comment: As of 2022, the estimated [...] MD LAB BLOOD ORDERABLES Final Resul t [facility] [address] [place] [id number], [facility] * (ABNORMAL) CBC (05/26/2025 5:47 PM EDT) WBC 7.6 3.8 - 10.8 10E3/uL 05/26/2025 6:[address] [facility] RBC 3.51(L) 3.80 - 5.10 10E6/uL 05/26/2025 6:[address] [facility] Hemoglobin 10.7(L) 11.7 - 15.5 g/dL 05/26/2025 6:[address] [facility] Hematocrit 30.6(L) 35.0 - 45.0 % 05/26/2025 6:[address] [facility] MCV 87.1 80.0 - 100.0 fL 05/26/2025 6:[address] [facility] MCH 30.5 27.0 - 33.0 pg 05/26/2025 6:[address] [facility] MCHC 35.0 32.0 - 36.0 g/dL 05/26/2025 6:[address] [facility] RDW 13.2 11.0 - 15.0 % 05/26/2025 6:[address] [facility] Platelets 215 140 - 400 10E3/uL 05/26/2025 6:[address] [facility] MPV 8.1 7.5 - 11.5 fL 05/26/2025 6:[address] [facility] Whole Blood 05/26/2025 5:47 PM EDT 05/26/2025 5:52 PM EDT us Brent Dorado MD LAB BLOOD ORDERABLES Final Resul t [facility] [address] * ABO/Rh (05/26/2025 8:03 AM EDT) ABO Grouping A 05/26/2025 8:[address] [facility] Rh Type Positive 05/26/2025 8:[address] [facility] Blood 05/26/2025 8:03 AM EDT 05/26/2025 8:28 AM EDT us Larry Early MD BLOOD BANK TEST ORDERAB LES Final Result [facility] [address] [place] [address]. [address] * Surgical Pathology Exam (05/26/2025 12:00 AM EDT) 05/26/2025 05/27/2025 Narrative [facility] - 05/26/2025 12:00 AM EDT CASE: [id number] PATIENT: JAYMIE NELSON Clinical History: Endarterectomy carotid Pre-Operative Diagnosis: carotid stenosis, right Post-Operative Diagnosis: carotid stenosis, right Specimen(s) Submitted: A. right carotid plaque CPT Code(s): 46635 X 1; 11043 X 1 Additional Information: FINAL DIAGNOSIS: Right carotid stenosis, endarterectomy: - Calcified intimal atherosclerotic plaque with thrombosis. Natasha ___ Gross Description: Received in formalin, labeled Jaymie Nelson and right carotid plaque is a 2 x 1.5 x 0.9 cm ibanez-yellow diffusely calcified tissue fragment. The specimen is serially sectioned to reveal ibanez-yellow smooth and diffusely calcified cut surfaces. The entire specimen is submitted in cassette [id number], following decalcification. (Jean-Pierre Parekh MD (Resident)/vc) Microscopic Description: One HE slides examined. Natasha Whitley, the attending pathologist, have personally reviewed all prosector/resident work and pathology slides to determine final diagnosis. Final Diagnosis performed by TALA COLLAZO MD, PhD Pathologist Electronically signed 05/29/2025 04:07:08 PM The Pathologist signing this report is located at [facility], [address] [place] [address], [place], [place], [facility] [phone], CLIA ID: [id number] Larry Early MD PATHOLOGY/CYTOLOGY SIMON CAZARES Final Result [facility] documented in this encounter Visit Diagnoses Diagnosis Stenosis of carotid artery, unspecified laterality- Primary Carotid stenosis, right Occlusion and stenosis of carotid artery without mention of cerebral infarction Carotid stenosis, right Occlusion and stenosis of carotid artery without mention of cerebral infarction documented in this encounter Administered Medications Inactive Administered Medications - up to 3 most recent administrations Medication Order MAR Action Action Date Dose Rate Site aspirin tablet 325 mg 325 mg, Oral, Daily, First dose on Sun05/27/25 at 0900 Given 05/27/2025 8:08 AM EDT 325 mg atorvastatin (LIPITOR) tablet 40 mg 40 mg, Oral, At Bedtime (2099), First dose on Sun05/26/25 at 2100 Given 05/26/2025 8:57 PM EDT 40 mg heparin (porcine) 5,000 unit/mL 2,500 Units in sodium chloride 0.9 % 250 mL IV infusion As needed, Starting on Sun05/26/25 at 1105, Intra-op Given 05/26/2025 11:05 AM EDT 2,500 Units hydrALAZINE (APRESOLINE) tablet 10 mg 10 mg, [...] every 1 hour. lidocaine-EPINEPHrine 1 %-1:100,000 injection As needed, Starting on Sun05/26/25 at 1231, Intra-op Given 05/26/2025 12:31 PM EDT 10 mLs oxyCODONE-acetaminophen (PERCOCET) 10-325 mg per tablet 0.5 [...] Given 05/26/2025 8:57 PM EDT 50 mg senna-docusate (SENNA-S) 8.6-50 mg per tablet 1 tablet 1 tablet, Oral, 2 times daily, First dose on Sun05/26/25 at 2100 Given 05/27/2025 8:09 AM EDT 1 tablet Given 05/26/2025 8:57 PM EDT 1 tablet sodium chloride 0.9 % irrigation As needed, Starting on Sun05/26/25 at 1104, Intra-op Given 05/26/2025 11:04 AM EDT 1,000 mLs thrombin (bovine) topical solution As needed, Starting on Sun05/26/25 at 1232, Intra-op Given 05/26/2025 12:32 PM EDT 5,000 Units venlafaxine (EFFEXOR-XR) 24 hr capsule 75 mg 75 mg, Oral, At Bedtime (2099), First dose on Sun05/26/25 at 2100, CAPSULES MUST BE SWALLOWED WHOLE; DO NOT OPEN OR CRUSH CAPSULES Given 05/26/2025 8:57 PM EDT 75 mg documented in this [...] in sodium chloride 0.9 % 100 mL [id number] Intravenous, at 200 mL/hr, Every 8 hours scheduled (3 times per day), First dose on Sun05/26/25 at 2100, For 3 doses, Use Fpcy2Cix Adapter - Mix Thoroughly Before Administration, Indication? Prophylaxis-Surgical, Site of diagnosed infections (select all that apply): PATIENT INTAKE REPRESENTATIVE 2049 (New Bag - Provider: Kendrick Azar RN)205 (Stopped - Provider: Kendrick Azar RN) 0552 [...] at 1700 1730 (Given - Provider: Edmund Bear RN) 0043 (Given - Provider: Kendrick Azar RN)0809 (Given - Provider: Layne Fam RN) polyethylene glycol (MIRALAX) packet 17 g 17 g, Oral, Daily, First dose on Sun05/26/25 at 1700 1732 (Given - Provider: Edmund Bear RN) 0811 (Not Given - Provider: Layne Fam [...] daily, First dose on Sun05/26/25 at 2100 2056 (Given - Provider: Kendrick Azar, RN) 0809 (Given - Provider: Layne Fam [...] DO)1535 (New Bag - Provider: Juan Massey, LASHON)1548 (Stopped - Provider: Juan Massey RN) niCARdipine (CARDENE) 40 mg/200 mL in [...] Edmund Bear RN)1749 (Rate/Dose Change - Provider: Edmund Bear RN)1805 (Rate/Dose Change - Provider: Edmund Bear RN)192 (Rate/Dose Change - Provider: Kendrick Azar RN)2030 (Rate/Dose Change - Provider: Kendrick Azar RN)2038 (Rate/Dose Change - Provider: Kendrick Azar RN)2058 (Rate/Dose Change - Provider: Kendrick Azar RN)2109 (Rate/Dose Change - Provider: Kendrick Azar RN)2142 (Rate/Dose Verify - Provider: Kendrick Azar RN)221 (New Bag - Provider: Kendrick Azar RN)2227 (Rate/Dose Change - Provider: Kendrick Azar RN)224 (Rate/Dose Change - Provider: Kendrick Azar RN)230 (Stopped - Provider: Kendrick Azar RN)234 (Restarted - Provider: Kendrick Azar RN)234 (Rate/Dose Change - Provider: Kendrick Azar RN) 022 (Rate/Dose Change - Provider: Kendrick Azar RN)0639 (Stopped - Provider: Kendrick Azar RN) PRN Medication Order 05/25/2025 05/26/2025 05/27/2025 acetaminophen (TYLENOL) tablet 975 mg (COMPLETED) 975 mg, Oral, mortgage loan coordinator to O.R., Give 1 hour pre-op, Starting [...] in sodium chloride 0.9 % 100 mL [id number] (COMPLETED) Intravenous, at 200 mL/hr, mortgage loan coordinator to O.R., mortgage loan coordinator to O.R., Starting on Sun05/26/25 at 0759, For 1 dose, Begin infusion 20-60 minutes prior to incision. For Patient Weight 80 kg or Less. Use [id number] Adapter - Mix Thoroughly Before Administration, Pre-op, [...] hour. documented in this encounter Care Teams Food And Drug Inspector Relationship Specialty Start Date End Date Krzysztof Hendrickson MD [address] [place] [address] PCP - General Family Medicine 04/29/25 documented as of this encounter
--- OUTSIDE RECORDS SUMMARY | 2025-05-26 11:36 | XMS_ITS | Encounter Summary ---
Author Organization [facility] Address [facility] [place] [address] Care Team Providers Care Applied Biology Professor Name Role Phone Krzysztof Hendrickson MD Primary Care Provider [phone] Source Comments This information has been disclosed [...] release of HIV test results or diagnoses. [id number] Reason for Visit * Auth/Cert (Routine) Specialty Diagnoses / Procedures Referred By Mandy chandler Referred To Contact Diagnoses Occlusion and stenosis of right carotid artery Carotid stenosis, right [I65.21] Procedures CA TEAEC W/PATCH GRF CAROTID VERTB SUBCLAV NECK INC ENDARTERECTOMY CAROTID [facility] [address] [place] [address] Phone: tel: Referral ID Status Reason Start Date Expiration Date Visits Re quested Visits Authorized [id number] 1 1 Encounter Details Date Type Department Care Team (Late st Contact Info) Description 05/26/2025 11:36 AM EDT Anesthesia Event [facility] [address] [place] [address] Denise Mulligan DO [address] [place] [id number] Anesthesia Record Procedure Summary Procedure Name Responsible Anesthesiologist Anesthesia Start Time Anesthesia Stop Time ENDARTERECTOMY CAROTID (Right: Neck) Denise Mulligan, 05/26/25 1136 05/26/25 1619 Events Date Time Event Comment 05/26/2025 1036 1136 ANPTVER 1136 An Start 1136 An Start Data 1141 An Induction 1147 Quick Note Discussed start ing NIBP and arterial line BP with surgeons, okay to proceed with known HTN. SBP Goal 160-180 to start, will adjust as needed during case. Will proceed slowly with induction 1152 An Intubation 1213 Local Injected by Surgeon 1216 Quick Note Adequate anesth etic depth by EEG per tech 1225 Time Out 1359 Quick Note Surgeon request ing systolic in the 180s during cross clamp 1359 An Carotid On 1404 Quick Note Pushes of nicar dipine given for systolics 200+ 1445 An Carotid Off 1446 Quick Note Surgeon request s systolics 150-160 after unclamping 1518 Quick Note Systolic goal 1 60 mmHg 1543 An Emergence 1556 Extubation 1559 an stop data 1606 Quick Note SBP Goal ~140 p er NSGY request 1619 Follow-up Needed 1619 An Stop Meds Name Total propofol (DIPRIVAN) 10 mg/ml infusion - 100mL VIAL SIZE 1,690.52 mg ceFAZolin (ANCEF) 2 g in sodium chloride 0.9 % 100 mL [id number] 4 g lidocaine (XYLOCAINE) 20 mg/mL (2%) inje ction 60 mg propofol (DIPRIVAN) 10 mg/ml IV injectio n (BOLUS) 200 mg succinylcholine (QUELICIN) 20 mg/mL inje ction 100 mg HYDROmorphone (DILAUDID) injection 2 mg/ mL 0.4 mg glycopyrrolate (ROBINUL) 0.2 mg/mL injec tion 0.2 mg ondansetron (ZOFRAN) 4 mg/2 mL injection 4 mg EPINEPHrine 10 mcg/mL in D5W 10 mL IV sy ringe 65 mcg phenylephrine (OJVANNA-SYNEPHRINE) injection 400 mcg remifentanil (ULTIVA) 2 mg in sodium chl oride 0.9 % 40 mL IV 1.36 mg phenylephrine (JOVANNA-SYNEPHRIN E) 10 mg in sodium chloride 0.9 % 100 mL infusion 3,230 mcg heparin (porcine) injection 5,000 units/ mL 5,000 Units famotidine (PF)(PEPCID) injection 20 mg/ 2 mL 20 mg niCARdipine (CARDENE) 40 mg/ 200 mL in sodium chloride; iso-osmotic (FIXED DOSE) 4.92 mg electrolyte-r (pH 7.4)(NORMOSOL-R pH 7.4 ) IV soln 1000 mL 1,000 mL lactated Ringers IV infusion 1,000 mL lactated ringers infusion 1,000 mL * Agents Name N2O O2 N2O Air * Blood No blood administrations on file. Lines, Drains, and Airways Type Details Placement Removal Peripheral IV 04/29/25; 0408; Yes; Anterior, Right; Forearm 04/29/25 0408 by Kayla Moses RN Peripheral IV 04/29/25; 0408; Yes; Anterior, Left; Forearm 04/29/25 0408 by Kayla Moses RN Incision 05/26/25; 1525; Neck ; Right; Dermabond 05/26/25 1525 by Janell Montes RN Peripheral IV 05/26/25; 20 G; Left , Posterior; Hand 05/26/25 0000 by Edmund Bear RN 05/27/25 1331 by Jacinto Anderson RN Peripheral IV 05/26/25; 0810; 20 G ; Anterior, Right; Hand; Alcohol; None; Standard; Tolerated well 05/26/25 0810 by Victoria Torres RN 05/27/25 1331 by Jacinto Anderson RN Arterial Line 05/26/25; 1148 (crea sharee via procedure documentation); 22; Left; Radial; Chlorhexidine; 1 05/26/25 1148 by La Vidal DO 05/27/25 0805 by Jacinto Anderson RN Anesthesia Airway Device 05/26/25; 1152; I.V.; Standard; Easy Mask Ventilation; Diallo Video MAC; Mac; 3; Oral; Grade I View; NIM Monitoring ETT; 7 mm; Cuffed; 10 mL; 21 cm; Stylet Standard; 1; Resident; DO Young; Capnograph; Yes; 05/26/25; 1556 05/26/25 1152 by La Vidal DO 05/26/25 1556 by Juan Massey RN Urethral Catheter 05/26/25; 1155; Non-latex, Straight-tip; 16 Fr.; Other (Comment) (Patient under anesthesia); Per protocol 05/26/25 1155 by Janell Montes RN 05/26/25 1500 by Edmund Bear RN Drain 05/26/25; 1512; Bulb ; Neck; Right; 7 Fr. (Flat); 0830; Other (Comment) (Removed by Neurosurgery JOCELIN Jeni Juarez) 05/26/25 1512 by Janell Montes RN 05/27/25 0830 by Jacinto Anderson RN documented in this encounter Social History Tobacco Use Types Packs/Day Years Used Date Smoking Tobacco: Former Cigarettes Q uit: 2004 Passive Smoke Exposure: Never Smokeless Tobacco: Never Comments:Started 1990 Quit in 2000 Alcohol Use Standard Drinks/Week Comments Never 0 (1 standard drink = 0.6 oz pur e alcohol) Utilities Answer Date Recorded In the past 12 months has th e [employer], gas, oil, or water [employer] threatened to shut off services in your [...] any time in the past 12 m [facility], were you homeless or living in a alf (including now)? No 05/26/2025 Yearly Questionnaire Answer [...] 05/11 Assistance needed for: Not on file Comments No Sex and Gender Information Value Date Recorded Sex Assigned at Not on file Legal Sex Female 11:24 PM EDT Gender Identity Not on file Sexual Orientation Not on file documented as of this encounter Functional Status * Audit-C Score Answer Date of Assessment Author 0 05/26/2025 5:06 PM EDT Abe Bear RN * Question Answer Date of Assessment Author Q1: How often do you have a drink containing alcohol? Never 05/26/2025 5:06 PM NELLT Edmund Bear RN Q2: How many drinks containing alcohol do you have on a typical day when you are drinking? Patient does not drink 05/26/2025 5:06 PM EDT Edmund Bear RN Q3: How often do you have six or more drinks on one occasion? Never 05/26/2025 5:06 PM NELLT Edmund Bear RN documented as of this encounter Progress Notes * Denise Mulligan DO - 05/27/2025 9:57 AM EDT Anesthesia Post Note Patient: Jaymie Nelson Procedure(s) Performed: Procedure(s): ENDARTERECTOMY CAROTID Anesthesia type: general endotracheal Patient location: 4w Airway: Patent Post pain: Adequate analgesia Nausea / Vomiting: Absent Post-operative Hydration Status: Adequate Post assessment: no apparent anesthetic complications and tolerated procedure well Last Vitals: Vitals: 05/27/25 0800 05/27/25 0809 05/27/25 0813 05/27/25 0900 BP: 124/68 124/68 124/68 132/54 BP Location: Right forearm Patient Position: Lying BP Cuff Size: Regular Pulse: 68 65 66 Resp: 09 22 19 Temp: 97.6 ??F (36.4 ??C) 98.1 ??F (36.7 ??C) TempSrc: Oral Oral SpO2: 97% 97% (!) 88% Weight: Height: Last Temperature: 98.1 ??F (36.7 ??C) (05/27/2025 8:13 AM) Post vital signs: stable Level of consciousness: awake and alert Complications: There were no known notable events for this encounter. documented in this encounter H&P Notes * Svetlana Mendiola MD - 05/25/2025 3:19 PM EDT [facility] DEPARTMENT OF ANESTHESIOLOGY PRE-PROCEDURAL EVALUATION Jaymie Nelson is a 69 y.o. year old female presenting for: Procedure(s): ENDARTERECTOMY CAROTID Surgeon: Larry Early MD Chief Complaint Carotid stenosis, right [I65.21] Review of Systems Anesthesia Evaluation History of anesthetic complications (PONV) Cardiovascular: Exercise tolerance: Whiting Met score: 3 - Walking on a flat surface for one or two blocks. Hypertension (On Hydralazine) is poorly controlled. ROS comment: ECHO 04/30/25 Study Conclusions - Left ventricle: [...] at baseline or with provocation, shows no [id number] atrial level shunt. - Pulmonary arteries: Systolic pressure could not be accurately estimated. - Inferior vena cava: The IVC is normal-sized. Neuro/Muscoloskeletal/Psych: (+) arthritis (Cervical Spinal Stenosis) and back problem. Seizures (Pt reports x 1 in 2005, was onLamictal for ~10 years, off now ~5-6 years. No longer following with neurologist, Dr. Armando Friend [place], [place]). CVA (04/2025 - No noted residual deficits). Comments: CT head 05/02/25 IMPRESSION: 1. No intracranial mass effect or hemorrhage. 2. Evolving right frontal and parietal infarcts better seen on prior MRI. MRI head 04/30/25 IMPRESSION: 1. Acute multifocal, predominantly cortical/subcortical right frontal and parietal infarcts. 2. No associated petechial hemorrhage. 3. Background mild small vessel disease, mild atrophy, and scattered remote lacunar-type infarcts. Per [facility] admission note 04/29/25, pt initially presented to [facility] on 04/28/25 for transient left sided numbness/weakness [...] dose aspirin in PM, atorvastatin in PM, Brilinta Pulmonary: (+) asthma (Using albuterol inhaler (has used 3 times since CVA, prior to that she rarely used)) and shortness of breath. (-) COPD, sleep apnea. GI/Hepatic/Renal: GERD (TUMS and OTC gummy PRN) is well controlled. Endo/Other: (+) cancer (s/p L lumpectomy in 2019) and radiation treatment. Comments: Chronic Pain Syndrome: Taking Percocet, pregabalin in PM, ibuprofen Past Medical History Past Medical History: Diagnosis Date Asthma Cancer ([facility]) left breast Carotid stenosis High cholesterol Hypertension PONV (postoperative nausea and vomiting) Seizures ([facility]) 2005 x1 Stroke ([facility]) Past Surgical History Past Surgical History: Procedure Laterality Date BREAST LUMPECTOMY CERVICAL FUSION HYSTERECTOMY SHOULDER SURGERY bone spur removal Family History Family History Problem Relation Age of Onset Diabetes Mother Diabetes Sister Diabetes Sister Diabetes Brother Diabetes Brother Diabetes Brother Coronary artery disease Maternal Grandfather Anesthesia problems Neg Hx Stroke Neg Hx Social History Social History Socioeconomic History Marital status: Spouse [...] No Exercise No Seat Belt Yes Social Drivers of Health Financial Resource Strain: [...] file Social Connections: Unknown (08/13/2023) Received from [facility] Family and Community Support Help with Day-to-Day Activities: Not on file Lonely or Isolated: Not on file Intimate Partner Violence: Not At Risk (04/29/2025) Humiliation, Afraid, Rape, and Kick questionnaire Fear of Current or Ex-Partner: No Emotionally Abused: No Physically Abused: No Sexually Abused: No Medications Allergies: Allergies[1] Home Meds: Home Medications Medication Sig Taking? Last Dose ALBUTEROL INHL Inhale into the lungs if needed. aspirin 325 MG tablet Take 1 tablet (325 mg total) by mouth daily. Patient taking differently: Take 1 tablet (325 mg total) by mouth daily. PM atorvastatin (LIPITOR) 40 MG tablet Take 1 tablet (40 mg total) by mouth daily. Patient taking differently: Take 1 tablet (40 mg total) by mouth daily. PM ergocalciferol (ERGOCALCIFEROL) 1,250 mcg (50,000 unit) capsule Take 1 capsule (50,000 Units total)by mouth once a week. Patient taking differently: Take 1 capsule (50,000 Units total) by mouth once a week. ON SATURDAYS AT NIGHT fluticasone propionate (FLONASE) 50 mcg/actuation nasal spray Use 2 sprays into each nostril daily.Shake well hydrALAZINE (APRESOLINE) 10 MG tablet Take 1 tablet (10 mg total) by mouth every 8 hours. oxyCODONE-acetaminophen (PERCOCET) 10-325 mg per tablet Take 0.5 tablets by mouth every 12 hours asneeded for Pain. pregabalin (LYRICA) 50 MG capsule Take 1 capsule (50 mg total) by mouth at bedtime. ticagrelor (BRILINTA) 90 mg Tab tablet Take 1 tablet (90 mg total) by mouth 2 times a day for 37 days. MUST REFILL TO FINISH COURSE Patient taking differently: Take 1 tablet (90 mg total) by mouth 2 times a day. MUST REFILL TO FINISH COURSE, AM & PM venlafaxine (EFFEXOR-XR) 75 MG 24 hr capsule Take 1 capsule (75 mg total) by mouth daily. Patient taking differently: Take 1 capsule (75 mg total) by mouth daily. PM Vital Signs Wt Readings from Last 3 Encounters: 05/21/25 131 lb (59.4 kg) 05/11/25 132 lb (59.9 kg) 05/11/25 129 lb (58.5 kg) Ht Readings from Last 3 Encounters: 05/21/25 5' 2 (1.575 m) 05/11/25 5' 2 (1.575 m) 05/11/25 5' 2 (1.575 m) Temp Readings from Last 3 Encounters: 05/21/25 96.9 ??F (36.1 ??C) (Temporal) 05/11/25 96.1 ??F (35.6 ??C) (Temporal) 05/02/25 98.1 ??F (36.7 ??C) (Oral) BP Readings from Last 3 Encounters: 05/21/25 174/84 05/11/25 191/83 05/11/25 (!) 194/95 Pulse Readings from Last 3 Encounters: 05/21/25 65 05/11/25 77 05/11/25 78 SpO2 Readings from Last 3 Encounters: 05/21/25 98% 05/11/25 100% 05/11/25 98% Physical Exam Airway: Mallampati: III Mouth Opening: >2 FB TM distance: > = 3 FB Neck ROM: limited Dental: (+) upper dentures Pulmonary: Breathing: unlabored Cardiovascular: Rhythm: regular Rate: normal Neuro/Musculoskeletal/Psych: Mental status: alert and oriented to person, place and time. Abdominal: Not obese. Current OB Status: Other Findings: Laboratory Data Lab Results Component Value Date WBC 6.1 05/02/2025 HGB 14.3 05/02/2025 HCT 41.6 05/02/2025 MCV 86.4 05/02/2025 PLT 250 05/02/2025 No results found for: ABORH Lab Results Component Value Date GLUCOSE 110 (H) 05/02/2025 BUN 11 05/02/2025 CO2 23 05/02/2025 CREATININE 0.70 05/02/2025 K 3.8 05/02/2025 NA 139 05/02/2025 CL 106 05/02/2025 CALCIUM 9.3 05/02/2025 ALBUMIN 4.0 05/02/2025 Lab Results Component Value Date INR 1.0 04/29/2025 No results found for: PREGTESTUR , PREGSERUM , HCG , HCGQUANT Anesthesia Plan ASA 4 Female, current non-smoker and PONV Anesthesia Type: general endotracheal. PONV Risk Factors: female, Hx of PONV/Motion Sickness, current non-smoker Induction: Intravenous induction. Additional comments: Discussed arterial line insertion, discussed increased risks associated with recent stroke, CEA. Patient agreeable to proceed. Anesthetic plan and risks discussed with patient. Plan, alternatives, and risks of anesthesia, including , have been explained to and discussed with the patient/legal guardian. By my assessment, the patient/legal guardian understands and agrees. Scenario presented in detail. Questions answered. Blood products not discussed. Plan discussed with attending and resident. trial extubation La Vidal DO Anesthesiology, PGY-2 [facility] 05/25/2025 3:26 PM [1] Allergies Allergen Reactions Prednisone Swelling Sulfa (Sulfonamide Antibiotics) Hives documented in this encounter Procedure Notes * La Vidal DO - 05/26/2025 12:47 PM EDTAssociated Order(s): Insert Arterial Line Insert Arterial Line Date/Time: 05/26/2025 11:48 AM Performed by: La Vidal DO Authorized by: Denise Mulligan DO Consent: Consent obtained: Verbal Risks discussed: Bleeding, repeat procedure, infection and pain [place] protocol: Procedure explained and questions answered to patient or proxy's satisfaction: yes Patient identity confirmed: Hospital-assigned identification number and arm band Indications: Indications: hemodynamic monitoring Pre-procedure details: Skin preparation: Chlorhexidine Sedation: Sedation type: None Anesthesia: Anesthesia method: Local infiltration Local anesthetic: Lidocaine 2% w/o epi Procedure details: Laterality: Left Location: Radial artery Needle gauge: 22 G Placement technique: Ultrasound guided Number of attempts: 1 Transducer: waveform confirmed Post-procedure details: Post-procedure: Sterile dressing applied and sutured Procedure completion: Tolerated well, no immediate complications Cosigned by Denise Mulligan DO at 05/26/2025 1:26 PM EDT Associated attestation - Denise Mulligan DO - 05/26/2025 1:26 PM EDT Patient tolerated procedure well with no immediate complications. Denise Mulligan DO 05/26/2025 documented in this encounter Miscellaneous Notes * Extubation Criteria - Juan Massey RN - 05/26/2025 4:04 PM EDT Anesthesia Extubation Criteria: Airway Device: endotracheal tube Emergence Details: Smooth _x_ Stormy __ Prolonged __ Extubation Criteria: Motor strength intact _x_ Follows commands _x_ Good airway reflexes _x_ OP suctioned _x_ Follows commands: Yes Patient extubated: Yes documented in this encounter Plan of Treatment Not on file documented as of this encounter Procedures Procedure Name Priority Date/Time Associated Diagnosis Comments INSERT ARTERIAL LINE Routine 05/26/2025 11:48 AM EDT documented in this encounter Results * Insert Arterial Line (05/26/2025 11:48 AM EDT) Denise Alvarez DO - 05/26/2025 11:48 AM EDT Denise Mulligan DO 05/26/2025 1:26 PM Insert Arterial Line Date/Time: 05/26/2025 11:48 AM Performed by: La Vidal DO Authorized by: Denise Mulligan DO Consent: Consent obtained: Verbal Risks discussed: Bleeding, repeat procedure, infection and pain [facility] protocol: Procedure explained and questions answered to patient or proxy's satisfaction: yes Patient identity confirmed: Hospital-assigned identification number and arm band Indications: Indications: hemodynamic monitoring Pre-procedure details: Skin preparation: Chlorhexidine Sedation: Sedation type: None Anesthesia: Anesthesia method: Local infiltration Local anesthetic: Lidocaine 2% w/o epi Procedure details: Laterality: Left Location: Radial artery Needle gauge: 22 G Placement technique: Ultrasound guided Number of attempts: 1 Transducer: waveform confirmed Post-procedure details: Post-procedure: Sterile dressing applied and sutured Procedure completion: Tolerated well, no immediate complications Denise Mulligan DO IV THERAPY ORDERABLES Fi nal Result documented in this encounter Visit Diagnoses * Transfer of Care - Juan Massey RN - 05/26/2025 4:17 PM EDT Anesthesia Transfer of Care Note Patient: Jaymie Nelson Procedure(s) Performed: Procedure(s): ENDARTERECTOMY CAROTID Patient location: ICU Anesthesia type: general endotracheal Airway Device on Arrival to PACU/ICU: Non-rebreather Mask IV Access: Peripheral Monitors Recommended to be Used During PACU/ICU: Arterial Line and Standard Monitors Outstanding Issues to Address: None Level of Consciousness: awake, alert , and oriented Post vital signs: Vitals: 05/26/25 1618 BP: 125/49 Pulse: 98 Resp: 20 Temp: 97.5 F SpO2: 98% Complications: No notable events documented. Date 05/25/25 1500 - 05/26/25 0659(Not Admitted) 05/26/25 07 - 05/27/25 0659 Shift [id number] 5881-8695 24 Hour Total 0080-7880 6556-3786 7134-3638 24 Hour Total INTAKE I.V. 2000(33.7) 1000(16.8) 3000(50.5) Volume (mL) (electrolyte-R (pH 7.4) (NORMOSOL-R pH 7.4) IV solution) 1000 1000 Volume (mL) (lactated Ringers IV infusion) 1000 1000 Volume (mL) (lactated Ringers IV infusion) 1000 1000 IV Piggyback 100 100 Volume (mL) (ceFAZolin (ANCEF) 2 g in sodium chloride 0.9 % 100 mL [id number]) 100 100 Shift Total(mL/kg) 2100(35.3) 1000(16.8) 3100(52.2) OUTPUT Urine 1000(2.1) 225 1225 Urine 5288 758 5090 Shift Total(mL/kg) 1000(16.8) 225(3.8) 1225(20.6) Weight (kg) 59.4 59.4 59.4 59.4 documented in this encounter Administered Medications Inactive Administered Medications - up to 3 most recent administrations Medication Order MAR Action Action Date Dose Rate Site ceFAZolin (ANCEF) 2 g in sodium chloride 0.9 % 100 mL [id number] Intravenous, at 200 mL/hr, block handler to O.R., block handler to O.R., Starting on Sun05/26/25 at 0759, For 1 dose, Begin infusion 20-60 minutes prior to incision. For Patient Weight 80 kg or Less. Use [id number] Adapter - Mix Thoroughly Before Administration, Pre-op, Indication? Prophylaxis-Surgical, Site of diagnosed infections (select all that apply): Skin/Soft TissueIndications:Carotid stenosis, right Bolus 05/26/2025 3:16 PM EDT 2 g New Bag 05/26/2025 11:51 AM EDT 2 g electrolyte-R (pH 7.4) (NORMOSOL-R pH 7.4) IV solution Intravenous, Continuous - One Step Medications Only, Starting on Sun05/26/25 at 1159, Anesthesia Intra-op New Bag 05/26/2025 2:31 PM EDT New Bag 05/26/2025 11:59 AM EDT EPINEPHrine 10 mcg/mL in D5W 10 mL IV syringe Intravenous, PRN - One Step Medication Only, Starting on Sun05/26/25 at 1153, Anesthesia Intra-op Given 05/26/2025 2:50 PM EDT 5 mcg Given 05/26/2025 1:28 PM EDT 10 mcg Given 05/26/2025 1:18 PM EDT 5 mcg famotidine (PF) (PEPCID) injection Intravenous, PRN - One Step Medication Only, Starting on Sun05/26/25 at 1523, Anesthesia Intra-op Given 05/26/2025 3:23 PM EDT 20 mg glycopyrrolate (ROBINUL) injection Intravenous, PRN - One Step Medication Only, Starting on Sun05/26/25 at 1208, Anesthesia Intra-op Given 05/26/2025 12:17 PM EDT 0.1 mg Given 05/26/2025 12:08 PM EDT 0.1 mg heparin (porcine) injection Intravenous, PRN - One Step Medication Only, Starting on Sun05/26/25 at 1325, Anesthesia Intra-op Given 05/26/2025 1:25 PM EDT 5,000 Units HYDROmorphone (DILAUDID) injection Intravenous, PRN - One Step Medication Only, Starting on Sun05/26/25 at 1554, Anesthesia Intra-op Given 05/26/2025 3:54 PM EDT 0.4 mg lactated Ringers IV infusion 20 mL/hr, Intravenous, Continuous, Starting on Sun05/26/25 at 0800, Pre-opIndications:Carotid stenosis, right New Bag 05/26/2025 3:35 PM EDT New Bag 05/26/2025 11:36 AM EDT lactated Ringers IV infusion Intravenous, Continuous - One Step Medications Only, Starting on Sun05/26/25 at 1313, Anesthesia Intra-op New Bag 05/26/2025 1:13 PM EDT lidocaine (PF) 20 mg/mL (2 %) Soln Intravenous, PRN - One Step Medication Only, Starting on Sun05/26/25 at 1149, Anesthesia Intra-op Given 05/26/2025 11:49 AM EDT 60 mg niCARdipine (CARDENE) 40 mg/200 mL in sodium chloride; iso-osmotic Intravenous, Continuous - One Step Medications Only, Starting on Sun05/26/25 at 1545, Anesthesia Intra-op Rate/Dose Change 05/26/2025 3:54 PM EDT 10 mg/hr 50 mL/hr New Bag 05/26/2025 3:45 PM EDT 5 mg/hr 25 mL/hr ondansetron (ZOFRAN) injection Intravenous, PRN - One Step Medication Only, Starting on Sun05/26/25 at 1522, Anesthesia Intra-op Given 05/26/2025 3:22 PM EDT 4 mg phenylephrine (JOVANNA-SYNEPHRINE) 10 mg in sodium chloride 0.9 % 100 mL infusion Intravenous, Continuous - One Step Medications Only, Starting on Sun05/26/25 at 1243, Anesthesia Intra-op Rate/Dose Change 05/26/2025 3:42 PM EDT 10 mcg/min 6 mL/hr Rate/Dose Change 05/26/2025 3:27 PM EDT 20 mcg/min 12 mL/h r Rate/Dose Change 05/26/2025 3:26 PM EDT 30 mcg/min 18 mL/h r phenylephrine (JOVANNA-SYNEPHRINE) injection Intravenous, PRN - One Step Medication Only, Starting on Sun05/26/25 at 1153, Anesthesia Intra-op Given 05/26/2025 3:26 PM EDT 100 mcg Given 05/26/2025 12:22 PM EDT 100 mcg Given 05/26/2025 11:55 AM EDT 100 mcg propofol (DIPRIVAN) infusion 10 mg/mL Intravenous, Continuous - One Step Medications Only, Starting on Sun05/26/25 at 1141, Anesthesia Intra-op Rate/Dose Change 05/26/2025 3:33 PM EDT 100 mcg/kg/min 35.64 mL/hr Rate/Dose Change 05/26/2025 1:26 PM EDT 120 mcg/kg/min 42. 768 mL/hr Rate/Dose Change 05/26/2025 12:50 PM EDT 130 mcg/kg/min 46 .332 mL/hr propofol 10 mg/ml (DIPRIVAN) injection Intravenous, PRN - One Step Medication Only, Starting on Sun05/26/25 at 1149, Anesthesia Intra-op Given 05/26/2025 2:47 PM EDT 20 mg Given 05/26/2025 2:03 PM EDT 20 mg Given 05/26/2025 2:01 PM EDT 20 mg remifentanil (ULTIVA) 2 mg in sodium chloride 0.9 % 40 mL IV Intravenous, Continuous - One Step Medications Only, Starting on Sun05/26/25 at 1158, Anesthesia Intra-op Rate/Dose Change 05/26/2025 3:34 PM EDT 0.01 mcg/kg/min 0.713 mL/hr Rate/Dose Change 05/26/2025 1:25 PM EDT 0.09 mcg/kg/min 6. 415 mL/hr Rate/Dose Change 05/26/2025 12:42 PM EDT 0.1 mcg/kg/min 7. 128 mL/hr succinylcholine (QUELICIN) injection Intravenous, PRN - One Step Medication Only, Starting on Sun05/26/25 at 1150, Anesthesia Intra-op Given 05/26/2025 11:50 AM EDT 100 mg documented in this encounter Care Teams Applied Biology Professor Relationship Specialty Start Date End Date Krzysztof Hendrickson MD [address] [place] [address] PCP - General Family Medicine 04/29/25 documented as of this encounter
[2025-05-30] VITALS (8 sets, daily range): BP systolic 128–173; BP diastolic 61–134; PULSE 75–87; RESP 14–16; TEMP 36.6; O2SAT 91–98; BMI 23.2
--- OUTSIDE RECORDS SUMMARY | 2025-05-30 19:18 | XMS_ITS | Encounter Summary ---
Author Organization [employer] ([place], [place], [place], [place]) Address [address] [place] [address] Care Team Providers Care Picker Operator Name Role Phone Unavailable Primary Care Provider Unavailabl e Encounter Details Date Type Department Care Team (Late st Contact Info) Description 07/22/2019 Transcribed Document [facility] Family Medicine [facility] [place] [address] ProviderItz MD [address] [place] [id number] Social History Tobacco Use Types Packs/Day [...] Cerner Conversion Note - Itz ProviderMD - 07/22/2019 2:06 PM CDT Patient: [...] followup in two months. Brooke Huerta M.D. TYLER/lauren documented in this encounter Plan of Treatment Not on file documented as of this encounter Visit Diagnoses Not on filedocumented in this encounter
--- OUTSIDE RECORDS SUMMARY | 2025-05-30 19:18 | XMS_ITS ---
Author Organization Unknown Vital Signs BpStanding BpSitting BpSupine Date Temperature HeartRate Weight Hei ght Spo2 Respiration Bmi HeadCircumference FieldCount TimeRecorded NeckCircumferen ce WaistCircumference Pulse 140/90 05/05 00:00 :00 97.4 129,0 5,2 23.5 9 5 05/29/2025 13:30:00 162/82 10/28 00:00 :00 130,0 5,2 23.7 7 4 05/29/2025 09:30:00
--- OUTSIDE RECORDS SUMMARY | 2025-05-30 19:19 | XMS_ITS | Encounter Summary ---
Author Organization [employer] ([place], [place], [place], [place]) Address [address] [place] [address] Care Team Providers Care Foreign Correspondent Name Role Phone Unavailable Primary Care Provider Unavailabl e Encounter Details Date Type Department Care Team (Late st Contact Info) Description 10/05/2020 Transcribed Document [facility] Family Medicine [facility] [place] [address] ProviderItz MD [address] [place] [id number] Social History Tobacco Use Types Packs/Day [...] Cerner Conversion Note - Itz ProviderMD - 10/05/2020 1:25 PM AQUACULTURIST Patient: JAYMIE JONES V Age: 65 years [...]
--- OUTSIDE RECORDS SUMMARY | 2025-05-30 19:19 | XMS_ITS | Encounter Summary ---
Author Organization [email or web address] ([place], [place], [place], [place]) Address [address] [place] [address] Care Team Providers Care Employee Benefits Attorney Name Role Phone Unavailable Primary Care Provider Unavailabl e Encounter Details Date Type Department Care Team (Late st Contact Info) Description 12/22/2020 Transcribed Document [facility] [facility] [place] [address] ProviderItz MD [facility] [place] [address] Social History Tobacco Use Types [...] - Historical ProviderMD - 12/22/2020 1:36 PM EMERGENCY MEDICAL TECHNICIAN BASIC Patient: JAYMIE JONES V Age: 65 Years [...] in two months. Brooke Huerta M.D. TYLER/tavia Electronically signed by Anu, [facility] Conversion Associate Professor Of Geography Cerner at 02/23/2023 2:54 PM CDT documented in this encounter Plan of Treatment Not on file documented as of this encounter Visit Diagnoses Not on filedocumented in this encounter
--- OUTSIDE RECORDS SUMMARY | 2025-05-30 19:19 | XMS_ITS | Encounter Summary ---
Author Organization [employer] ([place], [place], [place], [place]) Address [address] [place] [address] Care Team Providers Care Licensing Specialist Name Role Phone Unavailable Primary Care Provider Unavailabl e Encounter Details Date Type Department Care Team (Late st Contact Info) Description 09/25/2019 Transcribed Document [facility] [place] Family Medicine [facility] [place] [address] ProviderItz MD [address] [place] [address] Social History Tobacco Use Types [...] Cerner Conversion Note - Itz ProviderMD - 09/25/2019 2:27 PM PHYSICS DEPARTMENT CHAIR Patient: JAYMIE JONES V Age: 64 Years [...]
--- OUTSIDE RECORDS SUMMARY | 2025-05-30 19:19 | XMS_ITS | Encounter Summary ---
Author Organization [employer] ([place], [place], [place], [place]) Address [address] [place] [address] Care Team Providers Care Custom Seamstress Name Role Phone Unavailable Primary Care Provider Unavailabl e Encounter Details Date Type Department Care Team (Late st Contact Info) Description 08/15/[address] [facility] [place] Family Medicine [facility] [place] [address] ProviderItz MD [address] [place] [address] Social History Tobacco Use Types [...] Gertrude Zapata APRN SRF/ac Electronically signed by Anu, [facility] Conversion Firearms Assembly Supervisor Cerner at 02/23/2023 2:49 PM CDT documented in this encounter Plan of Treatment Not on file documented as of this encounter Visit Diagnoses Not on filedocumented in this encounter
--- OUTSIDE RECORDS SUMMARY | 2025-05-30 19:19 | XMS_ITS | Clinical Summary ---
Author Organization [facility] Address [address] [place] [address] Care Team Providers Care Receiving Weigher Name Role Phone Krzysztof Hendrickson MD Primary Care Provider [phone] Source Comments This information has been disclosed to you from confidential records protectedfrom disclosure by state law. You shall make no further disclosure of thisinformation without the specific, written, and informed release of theindividual to whom it pertains, or as otherwise permitted by law. A generalauthorization for the release of medical or other information is not sufficientfor the purposes of therelease of HIV test results or diagnoses. [id number] [facility] Allergies Active Allergy Reactions Criticality Noted Date Comments Prednisone Swelling High 04/29/2025 Sulfa (Sulfonamide Antibiotics) Hives Medium 04/06 Medications pregabalin (LYRICA) 50 MG capsule Take 1 capsule (50 mg total) by mouth at bedtime. 04/23/20 25 Active oxyCODONE-beena taminophen (PERCOCET) 10-325 mg per tablet Take 0.5 tablets by mouth every 12 hours as needed for Pain. Active venlafaxine (EFFEXOR-XR) 75 MG 24 hr capsule Take 1 capsule (75 mg total) by mouth daily. Active atorvastatin (LIPITOR) 40 MG tablet Take 1 tablet (40 mg total) by mouth daily. 30 tablet 5 3:03 PM EDT 05/03/20 25 Active Additional Information Patient taking differently:40 mg Oral Daily,PM, Reported on 05/26/2025 aspirin 325 MG tablet Take 1 tablet (325 mg total) by mouth daily. 30 tablet 5 3:03 PM EDT 05/02/20 25 Active Additional Information Patient taking differently:325 mg Oral Daily,PM, Reported on 05/26/2025 ergocalcifero l (ERGOCALCIFER OL) 1,250 mcg (50,000 unit) capsule Take 1 capsule (50,000 Units total) by mouth once a week. 4 capsule 5 3:03 PM EDT 05/02/20 Active Additional Information Patient taking differently:50,000 Units Oral Weekly,ON SATURDAYS AT NIGHT, Reported on 05/21/2025 hydrALAZINE (APRESOLINE) 10 MG tablet Take 1 tablet (10 mg total) by mouth every 8 hours. 120 tablet 5 3:03 PM EDT 05/02/20 Active ALBUTEROL INHL Inhale into the lungs if needed. Active fluticasone propionate (FLONASE) 50 mcg/actuation nasal spray Use 2 sprays into each nostril daily. Shake well 05/05/20 Active atorvastatin (LIPITOR) 20 MG tablet Take 1 tablet (20 mg total) by mouth daily. 02/11/20 25 025 Discontinued(St op Taking at Discharge) losartan (COZAAR) 100 MG tablet Take 1 tablet (100 mg total) by mouth daily. 02/06/20 25 025 Discontinued(St op Taking at Discharge) ticagrelor (BRILINTA) 90 mg Tab tablet Take 1 tablet (90 mg total) by mouth 2 times a day. 60 tablet 1 04/30/20 25 025 Discontinued ticagrelor (BRILINTA) 90 mg Tab tablet Take 1 tablet (90 mg total) by mouth 2 times a day for 37 days. MUST REFILL TO FINISH COURSE 74 tablet 5 3:03 PM EDT 05/02/20 25 025 Discontinued(St op Taking at Discharge) ibuprofen (MOTRIN) 200 MG tablet Take 1 tablet (200 mg total) by mouth if needed for Pain. 025 Discontinued( erapy Completed / No Longer Needed) gabapentin (NEURONTIN) 800 MG tablet Take 1 tablet (800 mg total) by mouth every 8 hours. 025 Discontinued( erapy Completed / No Longer Needed) memantine (NAMENDA) 10 MG tablet Take 1 tablet (10 mg total) by mouth daily. 025 Discontinued(Tr eatment Failure) Hospital, Clinic, or Other Facility Administered Medication Ordered Dose Route Frequency Start Date End Date Status lidocaine (PF) 2% (20 mg/mL) Soln 20 mgIndications:Carotid stenosis, right 20 mg IDrm Once as needed 05/11/2025 05/11/2025 Ended Active Problems Problem Noted Date Diagnosed Date Acute stroke due to ischemia 05/02/2025 Chronic pain syndrome 04/30/2025 Hypertension 04/30/2025 Vitamin D deficiency 04/30/2025 Epilepsy 09/10/2018 Carotid stenosis Encounters Date Type Department Care Team Description 05/26/2025 11:36 AM EDT Anesthesia Event [facility] PERIOP [address] [facility] [place] [address] Denise Mulligan DO 05/26/2025 10:54 AM EDT - 05/26/2025 3:54 PM EDT Surgery [facility] PERIOP [address] [facility] [place] [address] Larry Early MD ENDARTERECTOMY CAROTID 05/26/2025 7:24 AM EDT - 05/27/2025 1:35 PM EDT Hospital Encounter [facility] 4W [address] [facility] [place] [address] Larry Early MD Stenosis of carotid artery, unspecified laterality (Primary Dx); Carotid stenosis, right Discharge Disposition: Home or Self Care WITHOUT Home Care Services 05/26/2025 Travel 05/25/2025 Chart Note [facility] Neurosurgery at [facility] [place] [address] [place] [phone] Sidra Betancourt, LASHON Spoke with patient regarding upcoming CEA with Dr. Graves on 05/2605/21/2025 1:15 PM EDT Office Visit [facility] Otolaryngology at [facility] [address] [place] [phone] Jessica Taylor MD Stenosis of carotid artery, unspecified laterality (Primary Dx) 05/11/2025 3:30 PM EDT Office Visit [facility] Perioperative Care at [address] [phone] Quita Heck CNP Stenosis of right carotid artery (Primary Dx); History of CVA (cerebrovascular accident); Hypertension, unspecified type; Hyperlipidemia, unspecified hyperlipidemia type; Asthma, unspecified asthma severity, unspecified whether complicated, unspecified whether persistent; Gastroesophageal reflux disease, unspecified whether esophagitis present; Prediabetes; History of seizure; History of breast cancer; Cervical spinal stenosis; Mood disorder ([facility]); Chronic pain syndrome; PONV (postoperative nausea and vomiting) 05/11/2025 1:00 PM EDT Office Visit [facility] Neurology at [address] [place] [phone] Luly Conde CNP Hospital discharge follow-up (Primary Dx); Cerebrovascular accident (CVA) due to stenosis of right carotid artery ([facility]) 05/11/2025 Orders Only [facility] Neurosurgery at [address] [phone] Larry Early MD Carotid stenosis, right (Primary Dx) 05/11/2025 Telephone [facility] Perioperative Care at [address] [phone] Dorita Mix MA 05/11/2025 Telephone [facility] Neurosurgery at [address] [place] [phone] Larry Early MD Return Call (Returning Missed Call ) 05/11/2025 Chart Note [facility] Neurosurgery at [address] [place] [phone] Sidra Betancourt RN Called and left VM for patient to return call to office regarding her 05/11/2025 Orders Only [facility] Neurosurgery at [facility] [address] [place] [phone] Larry Early MD Pre-op evaluation (Primary Dx) 05/06/2025 Orders Only [facility] Perioperative Care at [address] [phone] Allie Gonzalez MD Preoperative examination (Primary Dx) 05/05/2025 8:46 AM EDT - 05/05/2025 11:59 PM EDT Hospital Encounter [facility] Radiology [address] [place] [phone] System, Provider Not In Discharge Disposition: Home or Self Care WITHOUT Home Care Services 05/05/2025 Telephone [facility] Neurology at [facility] [address] [place] [phone] Natalee Dash, LASHON 04/29/2025 3:58 AM EDT - 05/02/2025 2:50 PM EDT Hospital Encounter [facility] 4NE [address] [place] [phone] Schuyler Sarabia MD Laporta, Joseph Christopher, DO Peariso, Katrina L, MD Stenosis of right carotid artery (Primary Dx); Cerebrovascular accident (CVA) due to stenosis of right carotid artery ([facility]); Chronic pain syndrome; Hypertension, unspecified type Discharge Disposition: Home or Self Care WITHOUT Home Care Services 04/29/2025 Travel 04/28/2025 Telephone [facility] [address] [place] [address] Destini Hewitt MD from Last 3 Months Family History Medical History Relation Comments Diabetes Brother 1 Diabetes Brother 2 Diabetes Brother 3 Coronary artery disease Maternal Grandfather Diabetes Mother Diabetes Sister 1 Diabetes Sister 2 Anesthesia problems Neg Hx Stroke Neg Hx Relation Status Comments Brother 1 Brother 2 Brother 3 Maternal Grandfather Mother Sister 1 Sister 2 Social History Tobacco Use Types Packs/Day Years [...] any time in the past 12 m [facility], were you homeless or living in a usp (including now)? No 05/26/2025 Yearly Questionnaire Answer [...] on file Sexual Orientation Not on file Last Filed Vital Signs Vital Sign Reading [...] Mass Index 23.21 05/26/2025 7:50 AM EDT Plan of Treatment Health Maintenance Due Date Last Done Comments Abnormal Colonoscopy Follow Up 1957 Depression Monitoring (PHQ-9) 1957 Pulmonary Function Testing 1957 Immunization: Pneumococcal ( 1 of 2 - PCV) 1976 Mammogram (MyChart) 1997 Colonoscopy 2002 Stool Testing (gFOBT) 2002 Osteoporosis Screening (DXA Scan) 2007 Immunization: RSV (Adult) (1 - Risk 60-74 years 1-dose series) 2017 Immunization: DTaP/Tdap/Td ( 1 - Tdap) 08/24/2018 08/23/2018 Immunization: COVID-19 ( season) 2024 03/16/2021, 02/15/2021 Immunization: Influenza (MyC king) (#1) 2025 10/01/2019 Renal Function/GFR 05/27/2026 05/27/2025, 0 05/26/2025, 05/02/2025, Additional history exists Cologuard (FIT-DNA) 04/12/2028 04/12/2025, 2 Colorectal Cancer Screening (MyChart) 04/12/2028 Diabetes Screening 04/29/2028 04/29/2025 Immunization: Zoster Completed 02/09/2025, 05/27/20 24 Hepatitis C Screening (MyChart) Completed Medical Devices Explanted Type Area Weekend Caregiver Device Identifier Shelf Expiration Date Model / Serial / Lot Patch Surgical Evarrest Fibrin L4 In X W2 In Sealant - [id number] Explanted:Qty: 1 on 05/26/2025 at [facility] Main Mesh [employer] 07/02/2027 [id number] / / Procedures Procedure Name Priority Date/Time Associated Diagnosis Comments SARA RHYTHM STRIP - SCAN 05/27/2025 10:15 AM EDT SARA RHYTHM STRIP - SCAN 05/27/2025 10:15 AM EDT CBC Routine 05/27/2025 12:38 AM EDT RENAL FUNCTION PANEL W/EGFR Routine 05/27/2025 12:38 AM EDT MAGNESIUM Routine 05/27/2025 12:38 AM EDT HCG URINE, QUALITATIVE Routine 05/27/2025 12:38 AM EDT Carotid stenosis, right HIGH SENSITIVITY TROPONIN STAT 05/26/2025 5:47 PM EDT COMPREHENSIVE METABOLIC PANEL Routine 05/26/2025 5:47 PM EDT CBC Routine 05/26/2025 5:47 PM EDT INSERT ARTERIAL LINE Routine 05/26/2025 11:48 AM EDT [place] TEAEC W/PATCH GRF CAROTID VERTB SUBCLAV NECK INC 05/26/2025 11:35 AM EDT Carotid stenosis, right Special Needs EEG, EVOKED POTENTIALS, SUPINE #LR ABO/RH Routine 05/26/2025 8:03 AM EDT CAROTID ENDARTERECTOMY Routine 05/26/2025 7:34 AM EDT Carotid stenosis, right SURGICAL PATHOLOGY EXAM Routine 05/26/2025 12:00 AM EDT AMB REFERRAL TO ENT STAT 05/11/2025 3 :33 PM EDT Pre-op evaluation ANTIBODY SCREEN Routine 05/11/2025 2:49 PM EDT Stenosis of right carotid artery ABO/RH Routine 05/11/2025 2:49 PM EDT Stenosis of right carotid artery XR COMPARISON IMAGES Routine 05/05/2025 8:46 AM EDT EKG - SCAN 05/04/2025 2:[address] HEAD WO CONTRAST Routine 05/02/2025 9 :00 AM EDT CBC Routine 05/02/2025 6:53 AM EDT RENAL FUNCTION PANEL W/EGFR Routine 05/02/2025 6:53 AM EDT MAGNESIUM Routine 05/02/2025 6:53 AM EDT APTT-HEPARIN Timed 05/01/2025 12:06 PM EDT ECG 12-LEAD (MUSE) NAKUL 05/01/2025 9: 53 AM EDT APTT-HEPARIN Timed 05/01/2025 6:30 AM EDT MAGNESIUM Routine 05/01/2025 6:30 AM EDT RENAL FUNCTION PANEL W/EGFR Routine 05/01/2025 6:30 AM EDT CBC Routine 05/01/2025 6:30 AM EDT APTT-HEPARIN Timed [...] EDT APTT-HEPARIN Routine 04/30/2025 7:08 AM EDT MAGNESIUM Routine 04/30/2025 7:08 AM EDT RENAL FUNCTION PANEL W/EGFR Routine 04/30/2025 7:08 AM EDT CBC Routine 04/30/2025 7:08 AM EDT MRI HEAD WITHOUT CONTRAST Routine 04/30/2025 12:14 AM EDT APTT-HEPARIN Timed 04/29/2025 10:16 PM EDT APTT-HEPARIN Timed 04/29/2025 3:58 PM EDT APTT STAT 04/29/2025 9:59 AM EDT PROTIME-INR STAT 04/29/2025 9:59 AM EDT CBC STAT 04/29/2025 9:59 AM EDT TSH Routine 04/29/2025 5:18 AM EDT HEMOGLOBIN A1C Routine 04/29/2025 5:18 AM EDT LIPID PANEL Routine 04/29/2025 5:18 AM EDT CBC Routine 04/29/2025 5:18 AM EDT POC GLU MONITORING DEVICE Routine 04/29/2025 5:13 AM EDT APTT STAT 04/29/2025 4:41 AM EDT PROTIME-INR STAT 04/29/2025 4:41 AM EDT B NATRIURETIC PEPTIDE STAT 04/29/2025 4:41 AM EDT VENOUS BLOOD GAS, LINE/SYRINGE STAT 04/29/2025 4:41 AM EDT HIGH SENSITIVITY TROPONIN STAT 04/29/2025 4:41 AM EDT MAGNESIUM STAT 04/29/2025 4:41 AM EDT DIFFERENTIAL STAT 04/29/2025 4:41 AM EDT CBC STAT 04/29/2025 4:41 AM EDT ED HCV AB REFLEX TO HCV QUANT Routine 04/29/2025 4:41 AM EDT BASIC METABOLIC PANEL STAT 04/29/2025 4:41 AM EDT ED ECG 12-LEAD (MUSE) STAT 04/29/2025 4:06 AM EDT from Last 3 Months Results * SARA Rhythm Strip - Scan (05/27/2025 10:15 AM EDT) Only the most recent of3 resultswithin the time period is included. us Scanning Uchhim SCAN DOCS - NO RESULTS Final Res ult * HCG Urine, Qualitative (05/27/2025 12:38 AM EDT) hCG Qualitative -Clinitek Negative Negative 05/27/2025 1:05 AM EDT [facility] Urine 05/27/2025 12:3 8 AM EDT 05/27/2025 12:44 AM EDT Brent Dorado MD URINE ORDERABLES Final Result [facility] [address] [place] [address], [facility] * (ABNORMAL) Renal Function Panel w/EGFR (05/27/2025 12:38 AM EDT) Only the most recent of4 resultswithin the time period is included. Sodium 140 133 - 146 mmol/L 05/27/2025 1:15 AM EDT [facility] Potassium 4.0 3.5 - 5.3 mmol/L 05/27/2025 1:15 AM EDT [facility] Chloride 109 98 - 110 mmol/L 05/27/2025 1:15 AM EDT [facility] CO2 26 21 - 33 mmol/L 05/27/2025 1:15 AM EDT [facility] Anion Gap 5 3 - 16 mmol/L 05/27/2025 1:15 AM EDT [facility] BUN 8 7 - 25 mg/dL 05/27/2025 1:15 AM EDT [facility] Creatinine 0.80 0.60 - 1.30 mg/dL 05/27/2025 1:15 AM EDT [facility] Glucose 128(H) 70 - 100 mg/dL 05/27/2025 1:15 AM EDT [facility] Calcium 8.2(L) 8.6 - 10.3 mg/dL 05/27/2025 1:15 AM EDT [facility] Phosphorus 3.6 2.1 - 4.5 mg/dL 05/27/2025 1:15 AM EDT [facility] Albumin 3.0(L) 3.5 - 5.7 g/dL 05/27/2025 1:15 AM EDT [facility] Osmolality, Calculated 290 278 - 305 mOsm/kg 05/27/2025 1:15 AM EDT [facility] EGFR 81 05/27/2025 1:15 AM EDT [facility] Comment:As of 2022, the estimated [...] DO LAB BLOOD ORDERABLES Final Resul t [facility] [address] [place] [address], [facility] * (ABNORMAL) CBC (05/27/2025 12:38 AM EDT) Only the most recent of8 resultswithin the time period is included. WBC 8.1 3.8 - 10.8 10E3/uL 05/27/2025 12:54 AM EDT [facility] RBC 3.62(L) 3.80 - 5.10 10E6/uL 05/27/2025 12:54 AM EDT [facility] Hemoglobin 10.9(L) 11.7 - 15.5 g/dL 05/27/2025 12:54 AM EDT [facility] Hematocrit 31.5(L) 35.0 - 45.0 % 05/27/2025 12:54 AM EDT [facility] MCV 87.2 80.0 - 100.0 fL 05/27/2025 12:54 AM EDT [facility] MCH 30.2 27.0 - 33.0 pg 05/27/2025 12:54 AM EDT [facility] MCHC 34.6 32.0 - 36.0 g/dL 05/27/2025 12:54 AM EDT [facility] RDW 13.2 11.0 - 15.0 % 05/27/2025 12:54 AM EDT [facility] Platelets 220 140 - 400 10E3/uL 05/27/2025 12:54 AM EDT [facility] MPV 8.4 7.5 - 11.5 fL 05/27/2025 12:54 AM EDT [facility] Whole Blood 05/27/2025 12:3 8 AM EDT 05/27/2025 12:44 AM EDT us Pablowumoel DO LAB BLOOD ORDERABLES Final Resul t [facility] [address] [facility] * Magnesium (05/27/2025 12:38 AM EDT) Only the most recent of5 resultswithin the time period is included. Magnesium 1.9 1.5 - 2.5 mg/dL 05/27/2025 1:15 AM EDT [facility] Plasma 05/27/2025 12:3 8 AM EDT 05/27/2025 12:44 AM EDT us [facility] DO LAB BLOOD ORDERABLES Final Resul t [facility] [address] * High Sensitivity Troponin (05/26/2025 5:47 PM EDT) Only the most recent of2 resultswithin the time period is included. High Sensitivity Troponin 6 0 - 14 ng/L 05/26/2025 6:29 PM EDT [facility] Serum 05/26/2025 5:47 PM EDT 05/26/2025 5:52 PM EDT us Brent Dorado MD LAB BLOOD ORDERABLES Final Resul t [facility] [address] [place] [address], [facility] * (ABNORMAL) Comprehensive metabolic panel (05/26/2025 5:47 PM EDT) Sodium 142 133 - 146 mmol/L 05/26/2025 6:26 PM EDT [facility] Potassium 3.9 3.5 - 5.3 mmol/L 05/26/2025 6:26 PM EDT [facility] Chloride 109 98 - 110 mmol/L 05/26/2025 6:26 PM EDT [facility] CO2 28 21 - 33 mmol/L 05/26/2025 6:26 PM EDT [facility] Anion Gap 5 3 - 16 mmol/L 05/26/2025 6:26 PM EDT [facility] BUN 6(L) 7 - 25 mg/dL 05/26/2025 6:26 PM EDT [facility] Creatinine 0.71 0.60 - 1.30 mg/dL 05/26/2025 6:26 PM EDT [facility] Glucose 108(H) 70 - 100 mg/dL 05/26/2025 6:26 PM EDT [facility] Calcium 8.1(L) 8.6 - 10.3 mg/dL 05/26/2025 6:26 PM EDT [facility] Total Bilirubin 0.2 0.0 - 1.5 mg/dL 05/26/2025 6:26 PM EDT [facility] AST 14 13 - 39 U/L 05/26/2025 6:26 PM EDT [facility] ALT 10 7 - 52 U/L 05/26/2025 6:26 PM EDT [facility] Alkaline Phosphatase 56 36 - 125 U/L 05/26/2025 6:26 PM EDT [facility] Total Protein 5.4(L) 6.4 - 8.9 g/dL 05/26/2025 6:26 PM EDT [facility] Albumin 3.3(L) 3.5 - 5.7 g/dL 05/26/2025 6:26 PM EDT [facility] Osmolality, Calculated 292 278 - 305 mOsm/kg 05/26/2025 6:26 PM EDT [facility] EGFR >90 05/26/2025 6:26 PM EDT [facility] Comment: As of 2022, the [...] ORDERABLES Final Resul t Performing Organization Address City/State/[facility] Co de Phone Number [facility] [address] * Insert Arterial Line (05/26/2025 11:48 AM EDT) Narrative Denise Mulligan DO - 05/26/2025 11:48 AM EDT Denise Mulligan DO 05/26/2025 1:26 PM Insert Arterial Line Date/Time: 05/26/2025 11:48 AM Performed by: La Vidal DO Authorized by: Denise Mulligan DO Consent: Consent obtained: Verbal Risks discussed: Bleeding, repeat procedure, infection and pain [place] protocol: Procedure explained and questions answered to [...] completion: Tolerated well, no immediate complications Denise Page Alcibiade DO IV THERAPY ORDERABLES Fi nal Result * ABO/Rh (05/26/2025 8:03 AM EDT) Only the most recent of2 resultswithin the time period is included. ABO Grouping A 05/26/2025 8:50 AM EDT [facility] Rh Type Positive 05/26/2025 8:50 AM EDT [facility] Blood 05/26/2025 8:03 AM EDT 05/26/2025 8:28 AM EDT Larry Early MD BLOOD BANK TEST ORDERAB LES Final Result [facility] [address] * Surgical Pathology Exam (05/26/2025 12:00 AM EDT) 05/26/2025 05/27/2025 Narrative [facility] - 05/26/2025 12:00 AM EDT CASE: [id number] PATIENT: JAYMIE NELSON Clinical History: Endarterectomy carotid Pre-Operative Diagnosis: carotid stenosis, right Post-Operative Diagnosis: carotid stenosis, right Specimen(s) Submitted: A. right carotid plaque CPT Code(s): 98128 X 1; 87621 X 1 Additional Information: FINAL DIAGNOSIS: Right carotid stenosis, endarterectomy: - Calcified intimal atherosclerotic plaque with thrombosis. JW/ns ___ Gross Description: Received in formalin, labeled Jaymie Nelson and right carotid plaque is a 2 x 1.5 x 0.9 cm ibanez-yellow diffusely calcified tissue fragment. The specimen is serially sectioned to reveal ibanez-yellow smooth and diffusely calcified cut surfaces. The entire specimen is submitted in cassette [id number], following decalcification. (Jean-Pierre Parekh MD (Resident)/vc) Microscopic Description: One HE slides examined. NATALIE/jacobo Whitley, the attending pathologist, have personally reviewed all prosector/resident work and pathology slides to determine final diagnosis. Final Diagnosis performed by TALA COLLAZO MD, PhD Pathologist Electronically signed 05/29/2025 04:07:08 PM The Pathologist signing this report is located at [facility], [address] [place] [address], [place], [place], [facility] [phone], CLIA ID: [id number] us Larry Early MD PATHOLOGY/CYTOLOGY ORDE RABLES Final Result Performing Organization Address City/[facility]/ZIP Co de Phone Number [facility] * ENT Other reasons (05/11/2025 3:33 PM EDT) us Larry Early MD AMB REF PHYSICIAN/JOCELIN O RDERABLES Final Result Performing Organization Address City/[facility]/ZIP Co de Phone Number EXTERNAL * Antibody screen (05/11/2025 2:49 PM EDT) Antibody Screen Negative 05/11/2025 4:43 PM EDT [facility] Blood 05/11/2025 2:49 PM EDT 05/11/2025 3:51 PM EDT Narrative [facility] - 05/11/2025 4:51 PM EDT Testing performed by [facility] Transfusion Service us Quita Heck [facility] BLOOD BANK TEST ORDER LALITHA Final Result [facility] [address] [place] [address]. [place] [address], [facility] * X-ray Comparison Images (05/05/2025 8:46 AM EDT) Only the most recent of3 resultswithin the time period is included. Narrative EXTERNAL - 05/05/2025 8:46 AM EDT Images associated with this accession number were presented to us for comparison to an examination performed here. us Provider Not In System IMG DIAGNOSTIC IMAGING OR DERABLES Final Result EXTERNAL * EKG - scan (05/04/2025 2:13 AM EDT) us Scanning Uchhim SCAN DOCS - NO RESULTS Final Res ult * CT Head WO contrast (05/02/2025 9:00 AM EDT) Only the most recent of2 resultswithin the time period is included. Anatomical Region Laterality Modality Head Computed Tomogra [...] IMG CT ORDERABLES Final Resu lt * (ABNORMAL) aPTT-Heparin (05/01/2025 12:06 PM EDT) Only the most recent of7 resultswithin the time period is included. hPTT 58.3(L) 90.0 - 130.0 seconds 05/01/2025 12:46 PM EDT [facility] Plasma 05/01/2025 12:0 6 PM EDT 05/01/2025 12:24 PM EDT Damari Trevizo MD LAB BLOOD ORDERABLES Final Result [facility] [address] [place] [address] * ECG 12-lead (MUSE) (05/01/2025 9:53 AM EDT) 05/01/2025 9:53 AM EDT Narrative MUSE - 05/01/2025 3:53 PM EDT Ventricular Rate: 61 BPM Atrial Rate: 61 BPM P-R Interval: 220 ms QRS Duration: 100 ms QT: 438 ms QTc: 440 ms P Sproul: 4 degrees R Sproul: 35 degrees T Sproul: -170 degrees Diagnosis Line: SINUS RHYTHM WITH 1ST DEGREE A-V BLOCK ^ INCOMPLETE RIGHT BUNDLE BRANCH BLOCK ^ ST SEGMENT CHANGE AND LATERAL T WAVE INVERSION ^ ABNORMAL ECG ^ ^ Confirmed by CATRINA SHAW ([id number]) on 05/01/2025 3:53:23 PM us Matthieu Alarcon MD ECG ORDERABLES Final Result MUSE * ECHO COMPLETE W/ CONTRAST (04/30/2025 1:38 PM EDT) Anatomical Region Laterality Modality Ultrasound 04/30/2025 1:01 PM EDT Narrative 04/30/2025 4:21 PM EDT * [facility]* [address] [place] [address] Transthoracic Echocardiogram Patient: Jaymie Nelson Room: 4422 Height: 62in MR Number: [id number] : 1955 Weight: 128lb Account: [id number] Gender: F BP: 170 / 75 Study Date: 04/30/2025 Age: 69 BSA: 1.58m^2 Referring physician: Destini Hewitt Interpreting physician: Xin Mcdermott MD PERFORMING Xin Mcdermott MD MANAGER INTELLIGENCE Destini Zhao ORDERING Destini Hewitt REFERRING Destini Hewitt ATTENDING Damari Trevizo ADMITTING Manolo Mahajan Procedure:TRANSTHORACIC ECHO (TTE) COMPLETE Order: Accession WITH BUBBLE Number:[id number] Indications: Stroke, embolic source (I63.20 + Z13.6). [...] at baseline or with provocation, shows no yrmbi-fb-bdbd atrial level shunt. - Pulmonary arteries: Systolic [...] at baseline or with provocation, shows no fsgpo-gv-ovah atrial level shunt. Pulmonary artery: - Systolic [...] at baseline or with provocation, shows no ajqde-cs-qcfv atrial level shunt. Pericardium: - There is [...] Reviewed and confirmed by Xin Mcdermott MD [id number] Procedure Note Xin Mcdermott MD - 04/30/2025 * [facility]* [address] [place] [id number] Transthoracic Echocardiogram Patient: Jaymie Nelson Room: 4422 Height: 62in MR Number: [id number] : 1955 Weight: 128lb Account: [id number] Gender: F BP: 170 /75 Study Date: 04/30/2025 Age: 69 BSA: 1.58m^2 Referring physician: Destini Hewitt Interpreting physician: Xin Mcdermott MD PERFORMING Xin Mcdermott MD MANAGER INTELLIGENCE Destini Zhao ORDERING Destini Hewitt REFERRING Destini Hewitt ATTENDING Damari Trevizo Joseph Christopher Procedure:TRANSTHORACIC ECHO (TTE) COMPLETE Order: Accession WITH BUBBLE Number:[id number] Indications: Stroke, embolic source (I63.20 + Z13.6). Risk factors: Hypertension. Dyslipidemia. Study data: Height: 62in. 157.5cm. Weight: 128lb. 58.1kg. No priorstudy was available for comparison. Study status: Routine. Procedure: A transthoracic echocardiogram was performed. Image quality was adequate. Scanning was performed from the parasternal, apical, and subcostalacoustic windows. Intravenous contrast (agitated saline and Optison) was administered. Transthoracic echocardiogram. M-mode, [id number], complete spectral Doppler, and color Doppler. Birthdate: [...] at baseline or with provocation, shows no pxylk-bx-sacn atrial level shunt. - Pulmonary arteries: Systolic [...] study at baseline or with provocation, showsno gbdjd-rv-xppu atrial level shunt. Pulmonary artery: - Systolic [...] at baseline or with provocation, shows no mhkhj-au-gdme atrial level shunt. Pericardium: - There is [...] Reviewed and confirmed by Xin Mcdermott MD [id number] us Destini Hewitt MD CV ECHO ORDERABLES Final Resul t * MRI Head WO contrast (04/30/2025 12:14 [...] Ortiz DO at 04/30/2025 9:40 AM EDT Destini Hewitt MD IMG MRI ORDERABLES Final Resul t * APTT, No Anticoagulant (04/29/2025 9:59 AM EDT) Only the most recent of2 resultswithin the time period is included. aPTT 33.2 25.5 - 35.0 seconds 04/29/2025 10:28 AM EDT [facility] Plasma 04/29/2025 9:59 AM EDT 04/29/2025 10:05 AM EDT Sindhu Cowart DO LAB BLOOD ORDERABLES Final R esult [facility] [address] * Protime-INR (04/29/2025 9:59 AM EDT) Only the most recent of2 resultswithin the time period is included. Protime 13.9 12.1 - 15.1 seconds 04/29/2025 10:28 AM EDT [facility] INR 1.0 0.9 - 1.1 04/29/2025 10:28 AM EDT [facility] Comment: RECOMMENDED THERAPEUTIC RANGES USING INR : Stable oral anticoagulant therapy: 2.0 - 3.0 Mechanical prosthetic heart valve: 2.5 - 3.5 Recurrent acute myocardial infarction: 2.5 - 3.5 Plasma 04/29/2025 9:59 AM EDT 04/29/2025 10:05 AM EDT Sindhu Cowart DO LAB BLOOD ORDERABLES Final R esult Performing Organization Address City/[facility]/ZIP Co de Phone Number [facility] [address] [facility]. [address] * TSH (04/29/2025 5:18 AM EDT) TSH 2.14 0.45 - 4.12 uIU/mL 04/29/2025 6:07 AM EDT [facility] Serum 04/29/2025 5:18 AM EDT 04/29/2025 5:28 AM EDT Destini Hewitt MD LAB BLOOD ORDERABLES Final Res ult [facility] [address] [facility]. [address] * (ABNORMAL) Hemoglobin A1c (04/29/2025 5:18 AM EDT) Hemoglobin A1C 5.7(H) 4.0 - 5.6 % 04/29/2025 11:06 AM EDT [facility] Comment: Hemoglobin A1c Interpretation Guidelines: Normal: [...] MD LAB BLOOD ORDERABLES Final Res ult [facility] [address] [place] [address], [facility] * (ABNORMAL) Lipid Profile (04/29/2025 5:18 AM EDT) Non-HDL Cholesterol, Calculated 99 0 - 129 mg/dL 04/29/2025 6:05 AM EDT [facility] Comment: Desirable: < 130 mg/dL Above Desirable: 130-159 mg/dL Borderline High: 160-189 mg/dL High: 190-219 mg/dL Very High: > 219 mg/dL Cholesterol, Total 139 0 - 200 mg/dL 04/29/2025 6:05 AM EDT [facility] Triglycerides 110 10 - 149 mg/dL 04/29/2025 6:05 AM EDT [facility] HDL 40(L) 60 - 92 mg/dL 04/29/2025 6:05 AM EDT [facility] Comment: LIPID PROFILE INTERPRETATION CHOLESTEROL,TOTAL(mg/dL) DESIRABLE: [...] LDL Cholesterol 77 mg/dL 6:05 AM EDT [facility] Plasma 04/29/2025 5:18 AM EDT 04/29/2025 5:28 AM EDT Narrative [facility] - 04/29/2025 6:05 AM EDT Fasting LDL cholesterol calculated using the Friedewald equation. Destini Hewitt MD LAB BLOOD ORDERABLES Final Res ult [facility] [address] [facility]. [address] * POC Glucose Monitoring Device (04/29/2025 5:13 AM EDT) POC Glucose Monitoring Device 89 70 - 100 mg/dL 04/29/2025 5:13 AM EDT [facility] Blood 04/29/2025 5:13 AM EDT 04/29/2025 5:13 AM EDT Manolo Mahajan DO POINT OF CARE TEST ORDERABLES Final Result Performing Organization Address [facility] Co de Phone Number [facility] [address] [facility]. [address] * (ABNORMAL) Venous blood gas, Line/Syringe (04/29/2025 4:41 AM EDT) PH-Line Draw 7.36 7.32 - 7.42 04/29/2025 4:51 AM EDT [facility] PCO2-Line Draw 50 41 - 51 mm Hg 04/29/2025 4:51 AM EDT [facility] PO2-Line Draw 31 25 - 40 mm Hg 04/29/2025 4:51 AM EDT [facility] HCO3-Line Draw 25 24 - 28 mmol/L 04/29/2025 4:51 AM EDT [facility] CO2 Content-Line Draw 30(H) 25 - 29 mmol/L 04/29/2025 4:51 AM EDT [facility] Base Excess-Line Draw 1.8 -2.0 - 3.0 mmol/L 04/29/2025 4:51 AM EDT [facility] %HBO2-Line Draw 56.2 40.0 - 70.0 % 04/29/2025 4:51 AM EDT [facility] Carboxyhgb-Gavi e Draw 1.4 % 04/29/2025 4:51 AM EDT [facility] Comment: CARBOXYHEMOGLOBIN (CO) REFERENCE RANGES: Non-Smokers: <2 % Smokers: <8 % TOXIC: >20 % Methemoglobin- Line Draw 0.1 0.0 - 1.5 % 04/29/2025 4:51 AM EDT [facility] Reduced Hemoglobin-Gavi e Draw 42.2(H) 0.0 - 5.0 % 04/29/2025 4:51 AM EDT [facility] Venous, Line Draw 04/29/2025 4:41 AM EDT 04/29/2025 4:47 AM EDT Connie Noble MD LAB BLOOD ORDERABLES F inal Result Performing Organization Address City/[facility] Co de Phone Number [facility] [address] [facility] * ED HCV Ab Reflex To HCV Quant (04/29/2025 4:41 AM EDT) HCV Ab Nonreactive Nonreactive 04/29/2025 6:02 AM EDT [facility] Comment:Health Department no tified in accordance with reportable infectious disease guidelines. HCVAB Number 0.06 0.00 - 0.79 S/CO 04/29/2025 6:02 AM EDT [facility] Serum 04/29/2025 4:41 AM EDT 04/29/2025 5:01 AM EDT Connie Noble MD LAB BLOOD ORDERABLES F inal Result [facility] [address] [facility]. [address] * Differential (04/29/2025 4:41 AM EDT) Neutrophils Relative 53.3 40.0 - 80.0 % 04/29/2025 5:11 AM EDT [facility] Lymphocytes Relative 37.0 15.0 - 45.0 % 04/29/2025 5:11 AM EDT [facility] Monocytes Relative 7.4 0.0 - 12.0 % 04/29/2025 5:11 AM EDT [facility] Eosinophils Relative 1.9 0.0 - 8.0 % 04/29/2025 5:11 AM EDT [facility] Basophils Relative 0.4 0.0 - 1.0 % 04/29/2025 5:11 AM EDT [facility] nRBC 0 0 - 0 /100 WBC 04/29/2025 5:11 AM EDT [facility] Neutrophils Absolute 3,251 1,520 - 8,640 /uL 04/29/2025 5:11 AM EDT [facility] Lymphocytes Absolute 2,257 570 - 4,860 /uL 04/29/2025 5:11 AM EDT [facility] Monocytes Absolute 451 0 - 1,296 /uL 04/29/2025 5:11 AM EDT [facility] Eosinophils Absolute 116 0 - 864 /uL 04/29/2025 5:11 AM EDT [facility] Basophils Absolute 24 0 - 108 /uL 04/29/2025 5:11 AM EDT [facility] Whole Blood 04/29/2025 4:41 AM EDT 04/29/2025 5:01 AM EDT us Connie Noble MD LAB BLOOD ORDERABLES F inal Result [facility] [address] [place] [address], [facility] * BNP (04/29/2025 4:41 AM EDT) BNP 12 0 - 100 pg/mL 04/29/2025 5:11 AM EDT [facility] Comment: BNP may be increased in the presence of sacubitril/valsartan (Entresto). Please interpret accordingly. Plasma 04/29/2025 4:41 AM EDT 04/29/2025 4:47 AM EDT Narrative [facility] - 04/29/2025 5:11 AM EDT The presence of high concentrations of biotin may cause falsely lowered BNP results. Biotin interference may be seen if an individual is taking >5 mg biotin per day. Interpret BNP results in the context of the patient's clinical presentation. Connie Noble MD LAB BLOOD ORDERABLES F inal Result [facility] [address] [address], [facility] * Basic metabolic panel (04/29/2025 4:41 AM EDT) Sodium 139 133 - 146 mmol/L 04/29/2025 5:04 AM EDT [facility] Potassium 3.8 3.5 - 5.3 mmol/L 04/29/2025 5:04 AM EDT [facility] Chloride 105 98 - 110 mmol/L 04/29/2025 5:04 AM EDT [facility] CO2 27 21 - 33 mmol/L 04/29/2025 5:04 AM EDT [facility] Anion Gap 7 3 - 16 mmol/L 04/29/2025 5:04 AM EDT [facility] BUN 9 7 - 25 mg/dL 04/29/2025 5:04 AM EDT [facility] Creatinine 0.70 0.60 - 1.30 mg/dL 04/29/2025 5:04 AM EDT [facility] Glucose 91 70 - 100 mg/dL 04/29/2025 5:04 AM EDT [facility] Calcium 8.9 8.6 - 10.3 mg/dL 04/29/2025 5:04 AM EDT [facility] Osmolality, Calculated 286 278 - 305 mOsm/kg 04/29/2025 5:04 AM EDT [facility] EGFR >90 04/29/2025 5:04 AM EDT [facility] Comment: As of 2022, the [...] 4:41 AM EDT 04/29/2025 4:47 AM EDT Connie Noble MD LAB BLOOD ORDERABLES F inal Result [facility] [address] * ED ECG 12-Lead (MUSE) (04/29/2025 4:06 AM EDT) 04/29/2025 4:06 AM EDT Narrative MUSE - 04/29/2025 8:05 AM EDT Ventricular Rate: 63 BPM Atrial Rate: 63 BPM P-R Interval: 228 ms QRS Duration: 134 ms QT: 460 ms QTc: 470 ms P Sproul: 82 degrees R Sproul: 37 degrees T Sproul: 93 degrees Diagnosis Line: ^ INTERPRETATION NOT AVAILABLE--ECG READ IN ER ^ Confirmed by PHYSICIAN, ER ([id number]), story editor Kalina Patricia ([id number]) on 04/29/2025 8:05:52 AM Hesham Mirza MD ECG ORDERABLES Final Result MUSE from Last 3 Months Insurance [employer] Advance Directives For more information, please contact: [phone] * Full Code (Latest Code Status on File) Date Activated Date Inactivated Comments 05/26/2025 4:30 PM 05/27/2025 5:35 PM * Full Code Date Activated Date Inactivated Comments 04/29/2025 4:56 AM 05/02/2025 6:55 PM Care Teams Receiving Weigher Relationship Specialty Start Date End Date Krzysztof Hendrickson MD [address] [address] PCP - General Family Medicine 04/29/25
--- OUTSIDE RECORDS SUMMARY | 2025-05-30 19:19 | XMS_ITS | Referral Summary ---
Author Organization [facility] ([place], [place], [place], [place]) Address [address] [place] [address] Care Team Providers Care Door Liner Helper Name Role Phone Unavailable Primary Care Provider [...]
--- OUTSIDE RECORDS SUMMARY | 2025-05-30 19:19 | XMS_ITS | Data Portability ---
Author Organization [facility] - Armando chapin MD, Main Office Address [address], [address] [place] [address] Care Team Providers Care Sales And Operations Trainee Name Role Phone ARIANA BENTON Primary Care Provider LUCIE BOBO Primary Care Provider Assessment No assessment recorded. Plan of Treatment Reminders Order Date Submit Date Provider Last Modified By Organization Details Last Modified Time Details Appointments None recorded. Lab vitamin B12 + folate, serum or blood 2022 023 [facility], [address], [address], [place], [address], 3 15:18:18 TSH + T4, serum 2022 023 [facility], [address], [address], [place], [address], 3 15:18:19 CBC w/ auto diff 2022 023 [facility], [address], [address], [place], [address], 3 15:18:18 CMP, serum or plasma 2022 023 [facility], [address], [address], [place], [address], 3 15:18:18 Referral None recorded. Procedures electroence phalogram (EEG), 41-60 minutes (PROC) 2022 023 [email or web address] Armando Draper MD, [address], [address], [place], [address], 3 09:48:53 Surgeries None recorded. Imaging MRI, brain, w/o contrast 2022 023 [facility], [address], [address], [place], [address], 3 15:40:31 Medication Orders memantine [address] [facility]/Pharmacy #[id number], [address] [place], [address], 4 10:51:40 memantine 5 mg tablet [address]/Pharmacy #[id number], [address] [place], [address], 4 10:56:59 lamotrigine 25 mg tablet 2019 020 [email or web address] [facility]/Pharmacy #[id number], [address] [place], [address], 3 12:10:12 Patient TargetsNo targets recorded. Patient Instructions Encounter Date Encounter Id Patient Instructions Last Modified By Organization Details Last Modified Time 08/27/2020 [id number] epilepsy: care instructions Not available 08/27/2020 10:11:32 Finding has been discussed with the patient in detail. Lamotrigine 25 mg 1 tablet daily for 2 months and then discontinue. Return as needed. Not available 08/27/2020 10:27:58 04/26/2023 [id number] MEMORY LOSS EDUCATION Not available 04/26/2023 12:24:46 Finding has been discussed with the patient in detail. Metabolic screen. Brain MRI scan without contrast. Awake EEG. I will see her back in follow-up. Not available 04/26/2023 12:25:06 05/22/2023 [id number] MEMORY LOSS EDUCATION Not available 05/22/2023 08:35:58 Finding has been discussed with the patient in detail. Brain MRI scan without contrast. Namenda 5 mg once a day. Return in 3 months. Not available 05/22/2023 08:39:27 05/22/2023 [id number] MEMORY LOSS EDUCATION [email or web address] Not available 05/22/2023 08:37:55 03/11/2024 [id number] cervical spinal stenosis: care instructions Not available [...] record ed. BARCODE Armando Draper MD [address], [place], [address], 05/22/2023 08:44:54 05/22/2005/22/2023 MRI, brain , w/o contr ast No observ ation record ed. [facility] (Scheduling) [address], [place], [address], 05/23/2023 07:30:50 Result Notes None recorded. Problems Name Problem SNOMED Code Status Onset Date Resolution Date Notes Provider Name and Address Organization Details Recorded Time Epilepsy 45356927 Active 018 KIMBERLEY Mobley MD 09/10/2018 12:59:35 [...] and Address Organization Details Recorded Time 2014 Helotes 30x medicatio n rash moderate Not available 09/10/2018 [id number] UNK KIMBERLEY Mobley MD 8 12:58:13 2015 [...] Body weight Heart rate Respiratory rate Systolic And Diastolic Provider Name and Address Organization Details Last Updated DateTime 03/11/2024 23.2 kg/m2 15345.2 3 g 77 /min 17 /min 132/82 mm[Hg] Armando Draper MD [address] , [facility] [address] [place] [address], [address], KIMBERLEY Draper MD 4 10:54:41 Date Recorded Body height Provider Name an d Address Organization Details Last Updated DateTime 03/11/2024 157.48 cm Renu Draper MD 03/11/2024 10:44:00 Date Recorded Body height Body mass index (BMI) Body weight Heart rate Respiratory rate Systolic And Diastolic Provider Name and Address Organization Details Last Updated DateTime 3 157.48 cm 23 kg/m2 86636.6 4 g 77 /min 17 /min 126/75 mm[Hg] Armando Draper MD [address] [facility], [facility] [address], [place], [address], KIMBER[facility] Draper MD 3 12:21:54 Date Recorded Body mass index (BMI) Body weight Heart rate Respiratory rate Systolic And Diastolic Provider Name and Address Organization Details Last Updated DateTime 05/22/2023 23.4 kg/m2 26397.8 2 g 78 /min 17 /min 122/76 mm[Hg] Armando Draper MD [address] , [facility] [address], [place], [address], KIM[facility] Draper MD 3 08:37:24 Date Recorded Body height Provider Name an d Address Organization Details Last Updated DateTime 05/22/2023 157.48 cm Cathie Weinstein KIM[facility] Draper MD 05/22/2023 08:15:08 Date Recorded Body height Body mass index (BMI) Body weight Heart rate Respiratory rate Systolic And Diastolic Provider Name and Address Organization Details Last Updated DateTime 0 157.48 cm 23.8 kg/m2 17107.0 1 g 67 /min 17 /min 111/72 mm[Hg] Armando Draper MD [address], [facility] [address], [place], [address], KIMBERLEY Draper MD 0 10:25:50 Social History Question Answer Notes LastModified by Organizat ion Details LastModified Time Tobacco Smoking Status Former Smoker KIM[facility] Mobley MD 09/10/2018 12:58:51 Do You Have An Advance Directive? Yes [email or web address] Information not available 04/26/2023 Are You Blind [...] COVID-19 While That Case Was Ill? No [email or web address] Information not available 04/26/2023 In The 14 Days Before Symptom Onset, Have You Had Close Contact With A Person Who Is Under Investigation For COVID-19 While That Person Was Ill? No [email or web address] Information not available 04/26/2023 Have You Been To An Area Known To Be High Risk For COVID-19? No [email or web address] Information not available 04/26/2023 Are You Deaf Or Do You Have Serious Difficulty Hearing? No Information not available 09/10/2018 Live Alone Or With Others? With Others [email or web address] Information not available 04/26/2023 What Was The Date Of Your Most Recent Tobacco Screening? 03/11/2024 [email or web address] Information not available 03/11/2024 How Much Tobacco Do You Smoke? No Information not available 09/10/2018 Has Tobacco Cessation Counseling Been Provided? No Information not available 03/11/2024 How Many Years Have You Smoked Tobacco? 25 Information not available 09/10/2018 Sex: Unknown Functional Status Question Answer Note LastModified by [email or web address] ion Details LastModified Time Do you use any illicit or recreational drugs? No Information not available 03/11/2024 Do you or have you ever used any other forms of tobacco or nicotine? No [email or web address] Information not available 03/11/2024 What is your level of alcohol consumption? None Information not available 09/10/2018 Are you able to walk? YESWOREST [email or web address] Information not available 04/26/2023 Mental Status None recorded. Family History Relationship Description Onset Age of this Age Resolved Age Notes LastModified by Organization Details LastModified Time Mother Diabetes mellitus Not available 2017 12:58:18 Brother Diabetes mellitus Not available 2017 12:58:18 Brother Diabetes mellitus [email or web address] Not available 2019 10:01:28 Brother Diabetes mellitus 56 [email or web address] Not available 2019 10:01:28 Sister Diabetes mellitus Not available 2017 12:58:18 Sister Diabetes mellitus [email or web address] Not available 2019 10:01:28 Medical History Condition [...] [id number] Armando Draper MD Main Office [address] [facility], [address] [address] 09/10/2018 12:54:36 09/10/2018 13:54:16 Cervical radiculopathy 43243175 M54.12 The patient is a 63-year-ol d white female who has recurring left C6-7 radiculopa thy. Epilepsy 14615433 G40.90 9 She has stable epilepsy. [id number] Armando Draper MD Main Office [address], [address] [address] 09/20/2018 11:04:11 09/20/2018 11:39:42 Epilepsy 87184135 G40.909 She has stable epilepsy. 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 Cervical radiculopathy 43934799 M54.12 The patient is a 63-year-ol d white female who has recurring left C6-7 radiculopa thy. [id number] Armando Draper MD Main Office [address] [facility], [address] [address] 09/20/2018 11:05:43 09/20/2018 11:55:18 Ulnar neuropathy 910691358 G56.23 Moderate left, Mild right UNE at both elbows. Cervical radiculopathy 29348484 M54.12 The patient is a 63-year-ol d white female who has recurring left C6-7 radiculopa thy. [id number] Armando Draper MD Main Office [address], [address] [address] 08/07/2019 12:17:33 08/07/2019 12:51:36 Epilepsy 01235385 G40.909 She has stable epilepsy. She is interested in coming off seizure medication . 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 [id number] Armando Draper MD Main Office [address], [address] [address] 08/27/2019 08:55:28 08/27/2019 09:51:31 Epilepsy 46617890 G40.909 She has stable epilepsy. She is interested in coming off seizure medication . EEG is unremarkab le. [id number] Armando Draper MD Main Office [address], [facility] [address] [place] [address] 08/27/2019 08:55:47 08/27/2019 09:50:25 Altered mental status 214455995 R41.82 [id number] Armando Draper MD Main Office [address], [facility] [address] [place] [address] 08/27/2020 10:00:23 08/27/2020 10:11:05 Epilepsy 19718475 G40.909 She has stable epilepsy. She has been seizure-fr ee for quite some time. [id number] Armando Draper MD Main Office [address], [facility] [place] [address] 04/26/2023 11:55:09 04/26/2023 12:26:36 Poor short-term memory 518346114 R41.3 The patient is a 67-year-ol d white female. She has gradual onset of short-term memory loss. Examinatio n today is unremarkab le. Mild cognitive impairment versus age-relate d memory loss cannot be excluded. [id number] Armando Draper MD Main Office [address], [facility] [place] [address] 05/22/2023 08:14:53 05/22/2023 08:59:30 Poor short-term memory 846946889 R41.3 The patient is a 67-year-ol d white female. She has gradual onset of short-term memory loss. Examinatio n today is unremarkab le. Mild cognitive impairment versus age-relate d memory loss cannot be excluded. Her EEG is unremarkab le. [id number] Armando Draper MD Main Office [address], [facility] [address] [place] [address] 05/22/2023 08:37:14 05/22/2023 08:38:56 Poor short-term memory 316314233 R41.3 The patient is a 67-year-ol d white female. She has gradual onset of short-term memory loss. Examinatio n today is unremarkab le. Mild cognitive impairment versus age-relate d memory loss cannot be excluded. [id number] Armando Draper MD Main Office [address], [address] [place] [address] 03/11/2024 10:41:55 03/11/2024 10:51:34 Poor short-term memory 073233452 R41.3 The patient is a 68-year-ol d white female. She has gradual onset of short-term memory loss. Examinatio n today is unremarkab le. Mild cognitive impairment versus age-relate d memory loss cannot be excluded. Spinal mejia nosis in cervical region 13933795 M48.02 Health Concerns Section Related Observation LastModified by Organization Detai ls LastModified Time None Recorded Concern Status LastModified by Organization Details LastModified Time None Recorded Advance Directives Directive Y: Payers Insurance Date Sequence Insurance Name Policy Number Policy Tejada Covered Member ID Tejada Member ID Guarantor Name [id number] 1 [place] ([facility]) [id number] Titi Nelson [id number] Jaymie Nelson Notes Date Note Type Note Provider Name a ks Address Organization Details Recorded Time 08/27/2020 text/html ROS as noted in the HPI Mrs. Nelson is a 64-year-old white female. [...] neck pain. Armando Draper MD [address] , [facility] [address], [place], [address], [facility] Armando Draper MD 08/27/2020 10:28:30 04/26/2023 text/html ROS as noted in the HPI Jaymie is a 67-year-old white female. She [...] history of dementia. MD [address], [address], [place], [address], [facility] - Armando Draper MD 04/26/2023 12:26:25 05/22/2023 text/html ROS as noted in the HPI Mrs. Nelson is a 67-year-old white female. [...] scan this morning. MD [address], [facility] [address], [place], [address], [facility] Sabine Draper MD 05/22/2023 08:40:07 03/11/2024 text/html ROS as noted in the HPI Jaymie is a 68-year-old white female. She [...] pain or weakness. MD [address], [facility] [address], [place], [address], [facility] Sabine Draper MD 03/11/2024 10:57:30 OBGyn Episode No OBEpisode recorded.
--- OUTSIDE RECORDS SUMMARY | 2025-05-30 19:19 | XMS_ITS | Encounter Summary ---
Author Organization [employer] ([place], [place], [place], [place]) Address [address] [place] [address] Care Team Providers Care Forestry Conservation Worker Name Role Phone Unavailable Primary Care Provider Unavailabl e Encounter Details Date Type Department Care Team (Late st Contact Info) Description 12/04/2019 Transcribed Document [facility] Family Medicine [facility] [place] [address] ProviderItz MD [address] [place] [address] Social History Tobacco Use Types [...] - Historical ProviderMD - 12/04/2019 12:55 PM PUBLICATIONS WRITER Patient: JAYMIE JONES V Age: 64 Years [...]
--- OUTSIDE RECORDS SUMMARY | 2025-05-30 19:19 | XMS_ITS | Encounter Summary ---
Author Organization [employer] ([place], [place], [place], [place]) Address [address] [place] [address] Care Team Providers Care Spring Coiler Name Role Phone Unavailable Primary Care Provider Unavailabl e Encounter Details Date Type Department Care Team (Late st Contact Info) Description 08/06/2020 Transcribed Document [facility] Family Medicine [facility] [place] [address] ProviderItz MD [address] [place] [address] Social History Tobacco Use Types Packs/Day Years Used Date Smoking Tobacco: Never Assessed Comments Unknown Sex and Gender Information Value Date Recorded Sex Assigned at Female 05/02/2022 5:42 PM CDT Legal Sex Female 5:42 PM CDT Gender Identity Female 05/02/2022 5:42 PM CDT Sexual Orientation Not on file documented as of this encounter Miscellaneous Notes * Cerner Conversion Note - Itz Singh MD - 08/06/2020 10:50 AM CDT Patient: JAYMIE [...]
--- OUTSIDE RECORDS SUMMARY | 2025-05-30 19:19 | XMS_ITS | Encounter Summary ---
Author Organization [employer] ([place], [place], [place], [place]) Address [address] [place] [address] Care Team Providers Care Flat Sorting Machine Clerk Name Role Phone Unavailable Primary Care Provider Unavailabl e Encounter Details Date Type Department Care Team (Late st Contact Info) Description 08/12/2019 Transcribed Document [facility] Family Medicine [facility] [place] [address] ProviderItz MD [address] [place] [address] Social History Tobacco Use Types [...] Cerner Conversion Note - Itz ProviderMD - 08/12/2019 11:15 AM CDT Patient: [...]
--- OUTSIDE RECORDS SUMMARY | 2025-05-30 19:19 | XMS_ITS | Encounter Summary ---
Author Organization [employer] ([place], [place], [place], [place]) Address [address] [place] [address] Care Team Providers Care Locomotive Oiler Name Role Phone Unavailable Primary Care Provider Unavailabl e Encounter Details Date Type Department Care Team (Late st Contact Info) Description 09/07/2020 Transcribed Document [facility] [place] [facility] [address] ProviderItz MD [address] [place] [address] Social History Tobacco Use Types [...] - Itz ProviderMD - 09/07/2020 3:00 PM NEW CAR SALESPERSON Patient: JAYMIE JONES V Age: 65 years [...]
--- OUTSIDE RECORDS SUMMARY | 2025-05-30 19:19 | XMS_ITS | Encounter Summary ---
Author Organization [employer] ([place], [place], [place], [place]) Address [address] [place] [address] Care Team Providers Care Print Line Feeder Name Role Phone Unavailable Primary Care Provider Unavailabl e Encounter Details Date Type Department Care Team (Late st Contact Info) Description 04/21/2020 Transcribed Document [facility] Family Medicine [place] [address] ProviderItz MD [address] [place] [address] Social History Tobacco Use Types [...] Cerner Conversion Note - Itz ProviderMD - 04/21/2020 9:52 AM CDT Patient: [...] months for a follow-up appointment. MAKAYLA Rae/gagandeep documented in this encounter Plan of Treatment Not on file documented as of this encounter Visit Diagnoses Not on filedocumented in this encounter
--- OUTSIDE RECORDS SUMMARY | 2025-05-30 19:19 | XMS_ITS | Encounter Summary ---
Author Organization [employer] ([place], [place], [place], [place]) Address [address] [place] [address] Care Team Providers Care Warehouse Inventory Clerk Name Role Phone Unavailable Primary Care Provider Unavailabl e Encounter Details Date Type Department Care Team (Late st Contact Info) Description 06/11/2020 Transcribed Document [facility] Family Medicine [facility] [place] [address] ProviderItz MD [address] [place] [address] Social History Tobacco Use Types [...] Cerner Conversion Note - Itz ProviderMD - 06/11/2020 1:58 PM CDT Patient: [...]
--- OUTSIDE RECORDS SUMMARY | 2025-05-30 19:19 | XMS_ITS | Encounter Summary ---
Author Organization [employer] ([place], [place], [place], [place]) Address [address] [place] [address] Care Team Providers Care Supervisor Commissary Production Name Role Phone Unavailable Primary Care Provider Unavailabl e Encounter Details Date Type Department Care Team (Late st Contact Info) Description 02/05/2020 Transcribed Document [facility] [place] [facility] [place] [address] ProviderItz MD [address] [place] [address] Social History Tobacco Use Types [...] two months. BRIDGER Mayfield/danial Electronically signed by [facility], [facility] Conversion Watchmaking Teacher Cerner at 02/23/2023 2:35 PM CDT documented in this encounter Plan of Treatment Not on file documented as of this encounter Visit Diagnoses Not on filedocumented in this encounter
--- OUTSIDE RECORDS SUMMARY | 2025-05-30 19:19 | XMS_ITS | Clinical Summary ---
Author Organization [facility] Address [address] [place] [address], [address] [place] [address] Care Team Providers Care Field Education Coordinator Name Role Phone Unavailable Primary Care [...]
--- OUTSIDE RECORDS SUMMARY | 2025-05-30 19:19 | XMS_ITS | Clinical Summary ---
Author Organization [employer] ([place], [place], [place], [place]) Address [address] [place] [address] Care Team Providers Care Bunch Trimmer Mold Name Role Phone Unavailable Primary Care Provider [...]
--- OUTSIDE RECORDS SUMMARY | 2025-05-30 19:20 | XMS_ITS | Encounter Summary ---
Author Organization [facility] Address [facility] [place] [address] Care Team Providers Care Medical Office Professional Instructor Name Role Phone Krzysztof Hendrickson MD Primary Care Provider [phone] Source Comments This information has been disclosed [...] release of HIV test results or diagnoses. [id number] Reason for Referral * Support Services (Routine) - No Authorization Required Specialty Diagnoses / Procedures Referred By Contac t Referred To Contact Pre-Admission Testing Diagnoses Preoperative examination Allie Gonzalez MD [address] [place] [address]. [place] [address] Phone: tel: fax: [facility] Perioperative Care at [address] [address] Phone: tel: fax: Referral ID Status Reason Start Date Expiration Date Visits Requested Visits Authorized [id number] No Authorization Required 05/06/2025 11/02/2025 1 1 Encounter Details Date Type Department Care Team (Late st Contact Info) Description 05/06/2025 Orders Only [facility] Perioperative Care at [address] [place] [address] Allie Gonzalez MD [address] [place] [phone] Preoperative examination (Primary Dx) Social History Tobacco Use Types Packs/Day Years Used Date Smoking Tobacco: Former Cigarettes Q uit: 2005 Passive Smoke Exposure: Never Smokeless Tobacco: Never Alcohol Use Standard Drinks/Week Comments Never 0 (1 standard drink = 0.6 oz pur e alcohol) Utilities Answer Date Recorded In the past 12 months has th e [employer], gas, oil, or water [employer] threatened to shut off services in your [...] time in the past 12 m [facility], were you homeless or living in a chcf (including now)? No 04/29/2025 Comments Unknown Sex and Gender Information Value Date Recorded Sex Assigned at Not on file Legal Sex Female 11:24 PM EDT Gender Identity Not on file Sexual Orientation Not on file documented as of this encounter Plan of Treatment Scheduled Referrals Name Type Priority Associated Diagnoses Order Schedule PHONE SCREENER VISIT WITH ANESTHESIOLOGIST Outpatient Referral Routine Preoperative examination Ordered: 05/06/2025 documented as of this encounter Visit Diagnoses Diagnosis Preoperative examination- Primary Unspecified pre-operative examination documented in this encounter Care Teams Medical Office Professional Instructor Relationship Specialty Start Date End Date Krzysztof Hendrickson MD [address] [place] [address] PCP - General Family Medicine 04/29/25 documented as of this encounter
--- OUTSIDE RECORDS SUMMARY | 2025-05-30 19:20 | XMS_ITS | Encounter Summary ---
Author Organization [facility] Address [address] [place] [address] Care Team Providers Care Machine Riveter Name Role Phone Krzysztof Hendrickson MD Primary Care Provider [phone] Source Comments This information has been disclosed [...] release of HIV test results or diagnoses. [id number] Health Encounter Details Date Type Department Care Team (Latest Contact Info) Description 05/26/2025 Travel Social History Tobacco Use Types Packs/Day Years Used Date Smoking Tobacco: Former Cigarettes Q uit: 2005 Passive Smoke Exposure: Never Smokeless Tobacco: Never Comments:Started 1990 Quit in 2000 Alcohol Use Standard Drinks/Week Comments Never 0 (1 standard drink = 0.6 oz pur e alcohol) Utilities Answer Date Recorded In the past 12 months has [employer] oil, or water [employer] threatened to shut off services in your [...] any time in the past 12 m [facility], were you homeless or living in a long-term (including now)? No 05/26/2025 Yearly Questionnaire Answer [...] of Assessment Author 0 05/26/2025 5:06 PM NELLT Abe Bear RN * Question Answer Date of Assessment Author Q1: How often do you have a drink containing alcohol? Never 05/26/2025 5:06 PM NELLT Edmund Bear RN Q2: How many drinks containing alcohol do you have on a typical day when you are drinking? Patient does not drink 05/26/2025 5:06 PM EDT Edmund Bear, RN Q3: How often do you have six or more drinks on one occasion? Never 05/26/2025 5:06 PM EDEdmund Greene, RN documented as of this encounter Plan of Treatment Not on file documented as of this encounter Visit Diagnoses Not on filedocumented in this encounter Care Teams Machine Riveter Relationship Specialty Start Date End Date Krzysztof Hendrickson MD [address] [place] [address] PCP - General Family Medicine 04/29/25 documented as of this encounter
--- OUTSIDE RECORDS SUMMARY | 2025-05-30 19:20 | XMS_ITS | Encounter Summary ---
Author Organization [facility] Address [facility] [place] [address] Care Team Providers Care Welder Apprentice Combination Name Role Phone Unavailable Primary Care Provider Unavailabl e Source Comments This information has been disclosed [...] release of HIV test results or diagnoses. [id number] Encounter Details Date Type Department Care Team (Late st Contact Info) Description 04/28/2025 Telephone PROVIDER NEUROLOGY [address] [place] [address] Destini Hewitt MD [address] [place] [address] Social History Tobacco Use Types Packs/Day Years Used Date Smoking Tobacco: Never Assessed Utilities Answer Date Recorded In the past 12 months has [employer], gas, oil, or water [employer] threatened to shut off services in your [...] any time in the past 12 m ont, were you homeless or living in a care home (including now)? No 04/29/2025 Comments Unknown Sex and Gender Information Value Date Recorded Sex Assigned at Not on file Legal Sex Female 11:24 PM EDT Gender Identity Not on file Sexual Orientation Not on file documented as of this encounter Miscellaneous Notes * Telephone Encounter - Destini Hewitt MD - 04/28/2025 11:39 PM EDT Called for potential transfer of patient from [facility] for concern of stroke. Patient is a 69 y.o. female with PMHx of HTN, HLD presenting with stroke-like symptoms. Per provider report, patient's LKW was 1:30PM this afternoon. Developed stuttering, dysarthria, L facial paresthesias, and some mild LUE weakness. On exam she reportedly has subjective diminished sensation of the L face, dysarthria, decreased business intelligence analyst strength on L but no drift. BP on arrival was 206/90. CTA H/N was notable for critical stenosis >90% of the R internal carotid bulb and proximal ICA. She was given ASA 325mg, did not receive plavix load in anticipation of possible carotid intervention. Patient was accepted for transfer by Dr. Hernandez to [facility] Neurology service with ED to ED transfer given limited bed availability. Destini Hewitt MD Neurology PGY-3 04/28/2025 11:49 PM documented in this encounter Plan of Treatment Not on file documented as of this encounter Visit Diagnoses Not on filedocumented in this encounter
--- OUTSIDE RECORDS SUMMARY | 2025-05-30 19:20 | XMS_ITS | Encounter Summary ---
Author Organization [facility] Address [facility] [place] [address] Care Team Providers Care Power Reactor Supervisor Name Role Phone Krzysztof Hendrickson MD Primary Care Provider [phone] Source Comments This information has been disclosed [...] release of HIV test results or diagnoses. [id number] Health Encounter Details Date Type Department Care Team (Late st Contact Info) Description 05/11/2025 Telephone [facility] Perioperative Care at [address] [address] Dorita Mix MA Social History Tobacco Use Types Packs/Day Years Used Date Smoking Tobacco: Former Cigarettes Q uit: 2005 Passive Smoke Exposure: Never Smokeless Tobacco: Never Comments:Quit in 2000 Alcohol Use Standard Drinks/Week Comments Never 0 (1 standard drink = 0.6 oz pur e alcohol) Utilities Answer Date Recorded In the past 12 months has [employer], gas, oil, or water [employer] threatened to shut off services in your [...] any time in the past 12 m [facility], were you homeless or living in a care home (including now)? No 04/29/2025 Yearly Questionnaire Answer [...] encounter Miscellaneous Notes * Telephone Encounter - Dorita Mix MA - 05/11/2025 1:06 PM EDT Spoke to the patient she informed me she will not be coming to today's [facility] appt due to her sx has been scheduled, provided scheduling dept number for the patient to call us back to reschedule [facility] appt once she is aware of the date of SX. documented in this encounter Plan of Treatment Not on file documented as of this encounter Visit Diagnoses Not on filedocumented in this encounter Care Teams Power Reactor Supervisor Relationship Specialty Start Date End Date Krzysztof Hendrickson MD [address] [place] [address] PCP - General Family Medicine 04/29/25 documented as of this encounter
--- OUTSIDE RECORDS SUMMARY | 2025-05-30 19:20 | XMS_ITS | Clinical Summary ---
Author Organization [facility] Address [address] [place] [address] Care Team Providers Care Side Door Man Name Role Phone Unavailable Primary Care Provider Unavailabl e Social History Tobacco Use Types Packs/Day Years Used Date Smoking Tobacco: Never Assessed Abuse Screen Answer Date Recorded Unsafe at Home or Work/School Not on file Feels Threatened by Someone? Not on file 07/2023 Does Anyone Keep You from Co ntacting Others or Doint Things Outside the Home? Not on file 08/13/2023 Physical Sign of Abuse Present Not on file 1 Housing Stability Answer Date Recorded Current Living Arrangements Not on file 07/2023 Potentially Unsafe Housing Conditions Not on justus e 08/13/2023 Family and Community Support Answer Rober e Recorded Help with Day-to-Day Activities Not on file 08/13/2023 Lonely or Isolated Not on file 08/13/2023 Employment Answer Date Recorded Do you want help finding or keeping work or a sheree b? Not on file 08/13/2023 Disabilities Answer Date Recorded Concentrating, Remembering, or Making Decisions Difficulty Not on file 08/13/2023 Doing Errands Independently Difficulty Not on fi le 08/13/2023 Education Answer Date Recorded Help with school or training? Not on file Preferred Language Not on file 08/13/2023 Comments Unknown Sex and Gender Information Value Date Recorded Sex Assigned at Not on file Legal Sex Female 11:56 AM EDT Gender Identity Not on file Sexual Orientation Not on file Plan of Treatment Health Maintenance Due Date Last Done Comments ANNUAL PHYSICAL 1957 DXA SCAN 1957 HEPATITIS C SCREENING 1957 TDAP/TD VACCINES (1 - Tdap) 1976 MAMMOGRAM 1997 COLOGUARD 2002 COLON CANCER SCREENING 5 YEAR SIGMOIDOSCOPY 2002 COLONOSCOPY 2002 COLORECTAL CANCER SCREENING 2002 CT COLONOGRAPHY 2002 FECAL OCCULT BLOOD TEST 2002 FIT Testing (1 year) 2002 Pneumococcal Vaccine 50+ (1 of 1 - PCV) 2007 ZOSTER VACCINE (1 of 2) 2007 COVID-19 Vaccine ( - 2023- season) 2024 INFLUENZA VACCINE 08/05/2025
--- OUTSIDE RECORDS SUMMARY | 2025-05-30 19:20 | XMS_ITS | Encounter Summary ---
Author Organization [facility] Address [facility] [place] [address] Care Team Providers Care Equipment Maintenance Superintendent Name Role Phone Krzysztof Hendrickson MD Primary Care Provider [phone] Source Comments This information has been disclosed [...] release of HIV test results or diagnoses. [id number] Reason for Referral * Physician/JOCELIN (Emergency) - Closed Specialty Diagnoses / Procedures Referred By Mandy t Referred To Contact Otolaryngology Diagnoses Pre-op evaluation Larry Early MD [address] [place] [address] Phone: tel: fax: Referral ID Status Reason Start Date Expiration Date Visits Re quested Visits Authorized [id number] Closed 05/11/2025 11/07/2025 1 1 Scheduling Instructions For appointments, please call [phone]. Encounter Details Date Type Department Care Team (Late st Contact Info) Description 05/11/2025 Orders Only [facility] Neurosurgery at [facility] [address] [place] [address] Larry Early MD [address] [facility] [address] [place] [address] Pre-op evaluation (Primary Dx) Social History Tobacco Use Types Packs/Day Years Used Date Smoking Tobacco: Former Cigarettes Q uit: 2004 Passive Smoke Exposure: Never Smokeless Tobacco: Never Comments:Quit in 2000 Alcohol Use Standard Drinks/Week Comments Never 0 (1 standard drink = 0.6 oz pur e alcohol) Utilities Answer Date Recorded In the past 12 months has th e [employer], gas, oil, or water [employer] threatened to shut off services in your [...] any time in the past 12 m [facility], were you homeless or living in a snf (including now)? No 04/29/2025 Yearly Questionnaire Answer [...] T Pre-op evaluation documented in this encounter Results * ENT Other reasons (05/11/2025 3:33 PM EDT) Larry Early MD AMB REF PHYSICIAN/JOCELIN O RDERABLES Final Result EXTERNAL documented in this encounter Visit Diagnoses Diagnosis Pre-op evaluation- Primary documented in this encounter Care Teams Equipment Maintenance Superintendent Relationship Specialty Start Date End Date Krzysztof Hendrickson MD [address] [place] [address] PCP - General Family Medicine 04/29/25 documented as of this encounter
--- OUTSIDE RECORDS SUMMARY | 2025-05-30 19:20 | XMS_ITS | Encounter Summary ---
Author Organization [facility] Address [facility] [place] [address] Care Team Providers Care Earrings Fabricator Name Role Phone Krzysztof Hendrickson MD Primary Care Provider [phone] Source Comments This information has been disclosed [...] release of HIV test results or diagnoses. [id number] Reason for Referral * Surgical (Routine) - Authorized Specialty Diagnoses / Procedures Referred By Mandy chandler Referred To Contact Surgery Diagnoses Carotid stenosis, right Procedures Case request operating room: ENDARTERECTOMY CAROTID NH TEAEC W/PATCH GRF CAROTID VERTB SUBCLAV NECK INC Larry Early MD [address] [place] [address] Phone: tel: fax: Referral ID Status Reason Start Date Expiration Date V isits Requested Visits Authorized [id number] Authorized 05/11/2025 11/07/2025 1 1 Encounter Details Date Type Department Care Team (Late st Contact Info) Description 05/11/2025 Orders Only [facility] Neurosurgery at [facility] [address] [place] [address] Larry Early MD [address] [facility] [place] [address] Carotid stenosis, right (Primary Dx) Social History Tobacco Use Types Packs/Day Years Used Date Smoking Tobacco: Former Cigarettes Q uit: 2004 Passive Smoke Exposure: Never Smokeless Tobacco: Never Comments:Quit in 2000 Alcohol Use Standard Drinks/Week Comments Never 0 (1 standard drink = 0.6 oz pur e alcohol) Utilities Answer Date Recorded In the past 12 months has th e [employer], gas, oil, or water [employer] threatened to shut off services in your [...] the past 12 m [facility], were you homeless or living in a detention (including now)? No 04/29/2025 Yearly Questionnaire Answer [...] of this encounter Plan of Treatment Scheduled Orders Name Type Priority Associated Diagnoses Orde r Schedule Comprehensive metabolic panel Lab Routine Carotid stenosis, right 1 Occurrences starting 05/11/2025 until 11/23/2025 ABO/Rh Blood Bank Routine Carotid stenosis, right 1 Occurrences starting 05/11/2025 until 05/11/2026 Antibody screen Blood Bank Routine Carotid stenosis, right 1 Occurrences starting 05/11/2025 until 05/11/2026 CBC Lab Routine Carotid stenosis, right 1 Occurrences starting 05/11/2025 until 11/23/2025 Differential Lab Routine Carotid stenosis, right 1 Occurrences starting 05/11/2025 until 11/23/2025 Protime-INR Lab Routine Carotid stenosis, right 1 Occurrences starting 05/11/2025 until 11/23/2025 APTT, No Anticoagulant Lab Routine Carotid stenosis, right 1 Occurrences starting 05/11/2025 until 11/23/2025 Urinalysis w/Rfl to Microscopic Lab Routine Carotid stenosis, right 1 Occurrences starting 05/11/2025 until 05/11/2026 documented as of this encounter Visit Diagnoses Diagnosis Carotid stenosis, right- Primary Occlusion and stenosis of carotid artery without mention of cerebral infarction documented in this encounter Care Teams Earrings Fabricator Relationship Specialty Start Date End Date Krzysztof Hendrickson MD [address] [place] [address] PCP - General Family Medicine 04/29/25 documented as of this encounter
--- OUTSIDE RECORDS SUMMARY | 2025-05-30 19:20 | XMS_ITS | Encounter Summary ---
Author Organization [facility] Address [address] [place] [address] Care Team Providers Care Aerial Advertiser Name Role Phone Krzysztof Hendrickson MD Primary Care Provider [phone] Source Comments This information has been disclosed [...] release of HIV test results or diagnoses. [id number] Health Encounter Details Date Type Department Care Team (Late st Contact Info) Description 05/05/2025 Telephone [facility] Neurology at [address] [place] [phone] Natalee Dash, RN Social History Tobacco Use Types Packs/Day Years Used Date Smoking Tobacco: Former Cigarettes Q uit: 2005 Passive Smoke Exposure: Never Smokeless Tobacco: Never Alcohol Use Standard Drinks/Week Comments Never 0 (1 standard drink = 0.6 oz pur e alcohol) Utilities Answer Date Recorded In the past 12 months has [employer], gas, oil, or water company threatened to [...] time in the past 12 m [facility], were you homeless or living in a jail (including now)? No 04/29/2025 Comments Unknown Sex and Gender Information Value Date Recorded Sex Assigned at Not on file Legal Sex Female 11:24 PM EDT Gender Identity Not on file Sexual Orientation Not on file documented as of this encounter Miscellaneous Notes * Telephone Encounter - Natalee Dash RN - 05/05/2025 1:07 PM EDT Images from the original note were not included. [facility] 2 Day Follow Up Phone Call Discharge Date: 05/02/2025 Date of Call: 05/05/2025 @ 1316 Diagnosis: Acute Ischemic Stroke secondary to Large Artery Atherosclerosis Chief Complaint: slurred speech and weakness of left arm Medication List Accurate as of May 05, 2025 1:07 PM. If you have any questions, ask your nurse or doctor. TAKE these medications, which you were ALREADY TAKING Quantity/Refills aspirin 325 MG tablet Take 1 tablet (325 mg total) by mouth daily. Quantity: 30 tablet Refills: 0 atorvastatin 40 MG tablet Commonly known as: LIPITOR Take 1 tablet (40 mg total) by mouth daily. Quantity: 30 tablet Refills: 0 ergocalciferol 1,250 mcg (50,000 unit) capsule Commonly known as: ERGOCALCIFEROL Take 1 capsule (50,000 Units total) by mouth once a week. Quantity: 4 capsule Refills: 0 hydrALAZINE 10 MG tablet Commonly known as: APRESOLINE Take 1 tablet (10 mg total) by mouth every 8 hours. Quantity: 120 tablet Refills: 0 oxyCODONE-acetaminophen 10-325 mg per tablet Commonly known as: PERCOCET Take 0.5 tablets by mouth every 12 hours as needed for Pain. Refills: 0 pregabalin 50 MG capsule Commonly known as: LYRICA Take 1 capsule (50 mg total) by mouth at bedtime. Refills: 0 ticagrelor 90 mg Tab tablet Commonly known as: BRILINTA Take 1 tablet (90 mg total) by mouth 2 times a day for 37 days. MUST REFILL TO FINISH COURSE Quantity: 74 tablet Refills: 0 venlafaxine 75 MG 24 hr capsule Commonly known as: EFFEXOR-XR Take 1 capsule (75 mg total) by mouth daily. Refills: 0 Spoke with patient as follow up to recent stroke hospitalization. Reviewed discharge medication list. Verified patient taking medications as prescribed. Ensured theyare not having side effects. Reviewed upcoming appointments: Hospital Discharge Follow Up with the Neurology [facility] and Dr. Lopez PCP Follow Up: today 05/05 Patient concerns: None - Encouraged patient to monitor BP daily Referrals: None Contact numbers for referrals given Follow up testing: none Reviewed BEFAST and when to call 911. Patient given clinic number ([phone]) for future questions/concerns. Future Appointments Date Time Provider Department Center 05/11/2025 1:00 PM Luly Conde CNP [facility] NEUR [facility] 06/26/2025 1:40 PM Yelena Lopez MD [facility] NEUR I [facility] documented in this encounter Plan of Treatment Not on file documented as of this encounter Visit Diagnoses Not on filedocumented in this encounter Care Teams Aerial Advertiser Relationship Specialty Start Date End Date Krzysztof Hendrickson MD [address] [place] [address] PCP - General Family Medicine 04/29/25 documented as of this encounter
--- OUTSIDE RECORDS SUMMARY | 2025-05-30 19:20 | XMS_ITS | Encounter Summary ---
Author Organization [facility] Address [facility] [place] [address] Care Team Providers Care Maintenance Repairman Name Role Phone Krzysztof Hendrickson MD Primary Care Provider [phone] Source Comments This information has been disclosed [...] release of HIV test results or diagnoses. [id number] Reason for Visit * Reason Comments Return Call Returning Missed Chadwick l Encounter Details Date Type Department Care Team (Late st Contact Info) Description 05/11/2025 Telephone [facility] Neurosurgery at [facility] [place] [address] [place] [address] Larry Early MD [address] [facility] [address] [place] [address] Return Call (Returning Missed Call ) Social History Tobacco Use Types Packs/Day Years Used Date Smoking Tobacco: Former Cigarettes Q uit: 2004 Passive Smoke Exposure: Never Smokeless Tobacco: Never Comments:Quit in 2000 Alcohol Use Standard Drinks/Week Comments Never 0 (1 standard drink = 0.6 oz pur e alcohol) Utilities Answer Date Recorded In the past 12 months has [employer], gas, oil, or water company threatened [...] time in the past 12 m [facility], were you homeless or living in a nursing home (including now)? No 04/29/2025 Yearly Questionnaire [...] encounter Miscellaneous Notes * Telephone Encounter - Quita Hartman MA - 05/11/2025 10:17 AM EDT Pt returned missed call from Sidra regarding surgery. The note says Pt is to ask for Dorita the windshield wiper repairer. I spoke with Dorita who informed me that her computer was down and she will call the Pt back, but hersurgery for tomorrow has been postponed due to MD wanting her to see ENT first. Message was passed along to Pt and she expressed understanding. Pt may be reached at [phone] documented in this encounter Plan of Treatment Not on file documented as of this encounter Visit Diagnoses Not on filedocumented in this encounter Care Teams Maintenance Repairman Relationship Specialty Start Date End Date Krzysztof Hendrickson MD [address] [place] [address] PCP - General Family Medicine 04/29/25 documented as of this encounter
--- OUTSIDE RECORDS SUMMARY | 2025-05-30 19:20 | XMS_ITS | Encounter Summary ---
Author Organization [facility] Address [address] [place] [address] Care Team Providers Care Feeder Catcher Tobacco Name Role Phone Krzysztof Hendrickson MD Primary Care Provider Source Comments This information has been disclosed [...] release of HIV test results or diagnoses. [id number] Health Encounter Details Date Type Department Care Team (Latest Contact Info) Description 04/29/2025 Travel Social History Tobacco Use Types Packs/Day Years Used Date Smoking Tobacco: Former Cigarettes Q uit: 2005 Passive Smoke Exposure: Never Smokeless Tobacco: Never Alcohol Use Standard Drinks/Week Comments Never 0 (1 standard drink = 0.6 oz pur e alcohol) Utilities Answer Date Recorded In the past 12 months has [employer], gas, oil, or water [employer] threatened to shut off services in your [...] time in the past 12 m [facility], were you homeless or living in a retirement (including now)? No 04/29/2025 Comments Unknown Sex [...] occasion? Never 04/29/2025 11:03 PM EDT Coral Zhang, LASHON documented as of this encounter Plan of Treatment Not on file documented as of this encounter Visit Diagnoses Not on filedocumented in this encounter Care Teams Feeder Catcher Tobacco Relationship Specialty Start Date End Date Krzysztof Hendrickson MD [address] [place] [address] PCP - General Family Medicine 04/29/25 documented as of this encounter
--- OUTSIDE RECORDS SUMMARY | 2025-05-30 19:20 | XMS_ITS | Encounter Summary ---
Author Organization [facility] Address [address] [place] [address] Care Team Providers Care Hydrogen Treater Name Role Phone Krzysztof Hendrickson MD Primary Care Provider [phone] Source Comments This information has been disclosed [...] release of HIV test results or diagnoses. [id number] Health Encounter Details Date Type Department Care Team (Late st Contact Info) Description 05/25/2025 Chart Note [facility] Neurosurgery at [facility] [place] [address] [facility] [address] [place] [phone] Sidra Betancourt, RN Spoke with patient regarding upcoming CEA with Dr. Graves on 05/26 Social History Tobacco Use Types Packs/Day Years Used Date Smoking Tobacco: Former Cigarettes Q uit: 2005 Passive Smoke Exposure: Never Smokeless Tobacco: Never Comments:Started 1990 Quit in 2000 Alcohol Use Standard Drinks/Week Comments Never 0 (1 standard drink = 0.6 oz pur e alcohol) Utilities Answer Date Recorded In the past 12 months has [employer], gas, oil, or water [employer] threatened to shut off services in your home? No 05/26/2025 AUDIT-C Answer Date Recorded Q1: How often do you have a drink containing alcohol? Never 05/26/2025 Q2: How many drinks containi ng alcohol do you have on a typical day when you are drinking? Patient does not drink 5 Q3: How often do you have si [...] in the past 12 m [facility], were you homeless or living in a longterm (including now)? No 05/26/2025 Yearly Questionnaire Answer [...] on file documented as of this encounter Progress Notes * Sidra Betancourt RN - 05/25/2025 6:23 PM EDT Spoke with patient regarding upcoming CEA with Dr. Graves on 05/26 with arrival time of 800 with procedure start time of 1000. Patient does not need to hold any medications prior to procedure.Verified patient has held her Brilinta since 05/22. Pt. Can take medications with small sip of water. Made aware nothing to eat or drink after midnight. Made aware of post procedure instructions includ ing inpatient admission. Voices no questions concerns at this time. Allergies reviewed. documented in this encounter Plan of Treatment Not on file documented as of this encounter Visit Diagnoses Not on filedocumented in this encounter Care Teams Hydrogen Treater Relationship Specialty Start Date End Date Krzysztof Hendrickson MD [address] [place] [address] PCP - General Family Medicine 04/29/25 documented as of this encounter
--- OUTSIDE RECORDS SUMMARY | 2025-05-30 19:20 | XMS_ITS | Encounter Summary ---
Author Organization [facility] Address [address] [place] [address] Care Team Providers Care Commercial Account Executive Name Role Phone Krzysztof Hendrickson MD Primary Care Provider [phone] Source Comments This information has been disclosed [...] release of HIV test results or diagnoses. [id number] Health Encounter Details Date Type Department Care Team (Late st Contact Info) Description 05/11/2025 Chart Note [facility] at [facility] [place] [address] [facility] [address] [place] [id number] Sidra Betancourt RN Called and left for patient to return call to office regarding her Social History Tobacco Use Types Packs/Day Years Used Date Smoking Tobacco: Former Cigarettes Q uit: 2005 Passive Smoke Exposure: Never Smokeless Tobacco: Never Comments:Quit in 2000 Alcohol Use Standard Drinks/Week Comments Never 0 (1 standard drink = 0.6 oz pur e alcohol) Utilities Answer Date Recorded In the past 12 months has [employer], gas, oil, or water [employer] threatened to shut off services in your home? No 04/29/2025 AUDIT-C Answer Date Recorded Q1: How often do you have a drink containing alcohol? Never 04/29/2025 Q2: How many drinks containi ng alcohol do you have on a typical day when you are drinking? Patient does not drink 06/25/202 5 Q3: How often do you have [...] were you homeless or living in a fci (including now)? No 04/29/2025 Yearly Questionnaire Answer [...] Progress Notes * Sidra Betancourt RN - 05/11/2025 9:00 AM EDT Called and left VM for patient to return call to office regarding her scheduled CEA tomorrow with Dr. Early. documented in this encounter Plan of Treatment Not on file documented as of this encounter Visit Diagnoses Not on filedocumented in this encounter Care Teams Commercial Account Executive Relationship Specialty Start Date End Date Krzysztof Hendrickson MD [address] [place] [address] PCP - General Family Medicine 04/29/25 documented as of this encounter
--- NOTE | 2025-05-30 19:25 | CT_ITS ---
PROCEDURE INFORMATION: Exam: CT Head Without Contrast Exam date and time: 05/30/2025 8:13 PM Age: 69 years old Clinical indication: Stroke-like symptoms; Altered mental status/memory loss; Additional info: Possible stroke TECHNIQUE: Imaging protocol: Computed tomography of the head without contrast. Radiation optimization: All CT scans at this facility use at least one of these dose optimization techniques: automated exposure control; mA and/or kV adjustment per patient size (includes targeted exams where dose is matched to clinical indication); or iterative reconstruction. Other technique: STROKE PROTOCOL was implemented. COMPARISON: CT ANGIO HEAD 04/28/2025 9:39 PM FINDINGS: Brain: The IACs are grossly normal. Large parenchymal hematoma in the right frontal lobe measuring 5.8 x 3.9 x 3.4 cm, estimated volume 40 mL. Moderate surrounding parenchymal edema and moderate regional mass effect with subfalcine shift of the cingulate gyrus, and 7.5 mm leftward midline shift at the septum pellucidum. Regional parenchymal hypodensity around the hemorrhage might be due to underlying subacute ischemia or edema. Small volume subdural hematoma tracts over the lateral right frontotemporal distribution, measuring up to 4 mm thickness with mild broad mass effect on the underlying cerebral convexity. Trace subarachnoid hemorrhage tracks in the right sylvian fissure and right parietal sulci. Cerebral ventricles: Right lateral ventricle frontal horn and body are partially effaced. There is small volume intraventricular penetration of hemorrhage in the frontal horn of the right lateral ventricle. There is slight dilatation of the left lateral ventricle which could represent early ventricular entrapment, with slight temporal horn dilatation. Pituitary gland and sella: The sella is grossly normal. Paranasal sinuses: Mucosal thickening in the right maxillary sinus suggesting mild chronic sinus inflammatory disease. No fluid levels. The other paranasal sinuses are clear. Mastoid air cells: Partially opacified right mastoid air cells suggesting mild mastoiditis. No gross coalescence. Left mastoid air cells are clear. Orbital cavities: No acute intraorbital findings. Bones: No acute osseous findings. Soft tissues: No acute soft tissue findings. IMPRESSION: 1. Large parenchymal hematoma in the right frontal lobe with moderate surrounding parenchymal edema, estimated volume 40 mL. Consider hemorrhagic infarct. There is moderate regional mass effect producing 7.5 mm leftward midline shift with subfalcine herniation of the cingulate gyrus. 2. Small volume intraventricular penetration of hemorrhage. The right lateral ventricle is largely effaced and there is mild dilatation of the left lateral ventricle concerning for early ventricular entrapment. 3. Small right frontotemporal acute subdural hemorrhage measuring up to 4 mm thickness with broad-based mild mass effect on the right prominent temporal cerebral convexity. 4. Small volume subarachnoid hemorrhage in the right sylvian fissure and right parietal sulci. 5. THIS REPORT CONTAINS FINDINGS THAT MAY BE CRITICAL TO PATIENT CARE. The findings were verbally communicated via telephone conference with LASHON Joy at 9:00 PM EDT on 05/30/2025. The findings were acknowledged and understood. ASSESSMENT: ASPECTS ([place] Stroke Program Early CT Score) is 10, not counting the patrick hypodensities surrounding the right frontal hematoma.
--- NOTE | 2025-05-30 19:25 | CT_ITS ---
PROCEDURE INFORMATION: Exam: CTA Head With Contrast, Arteriography Exam date and time: 05/30/2025 8:17 PM Age: 69 years old Clinical indication: Stroke-like symptoms; Altered mental status/memory loss; Additional info: Possible stroke TECHNIQUE: Imaging protocol: Computed tomographic angiography of the head with contrast. Exam focused on the arteries. 3D rendering (Not supervised by radiologist): MIP and/or 3D reconstructed images were created by the technologist. Radiation optimization: All CT scans at this facility use at least one of these dose optimization techniques: automated exposure control; mA and/or kV adjustment per patient size (includes targeted exams where dose is matched to clinical indication); or iterative reconstruction. Contrast material: ISOVUE; Contrast volume: 80 ml; Contrast route: INTRAVENOUS (IV); COMPARISON: CT ANGIO HEAD 04/28/2025 9:39 PM FINDINGS: ANTERIOR CIRCULATION: Right internal carotid artery: Right ICA petrous segment is unremarkable. Cavernous segment demonstrates mild calcific plaque without stenosis. Supraclinoid segment is unremarkable. Right middle cerebral artery: Regional mass effect on the anterior M2/M3 branch vessels from the right frontal lobe parenchymal hematoma. No occlusion or significant stenosis. No aneurysm. Right anterior cerebral artery: Leftward shift of the A2 and A3 segments related to subfalcine herniation of the cingulate gyrus anteriorly, with no associated vascular occlusion or stenosis. No aneurysm. The anterior communicating artery is unremarkable. Left internal carotid artery: Left ICA petrous segment is unremarkable. Cavernous segment demonstrates moderate calcific plaque without stenosis. Supraclinoid segment demonstrates mild calcific plaque without stenosis. Left middle cerebral artery: Unremarkable. No occlusion or significant stenosis. No aneurysm. Left anterior cerebral artery: Leftward shift of the left A2 and A3 segments related to the subfalcine herniation of the cingulate gyrus in this region, with no vascular occlusion or significant stenosis. No aneurysm. POSTERIOR CIRCULATION: Right vertebral artery: Small/hypoplastic right vertebral artery. 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 No patrick occlusion. No aneurysm. Left vertebral artery: Left vertebral artery is dominant. No occlusion or significant stenosis. No aneurysm. Basilar artery: Unremarkable. No occlusion or significant stenosis. No aneurysm. Right posterior cerebral artery: Unremarkable. No occlusion or significant stenosis. No aneurysm. Left posterior cerebral artery: Unremarkable. No occlusion or significant stenosis. No aneurysm. Veins: The dural venous sinuses and major cortical veins enhance appropriately without evidence of thrombosis. Left dominant venous drainage. Brain: No enhancing brain lesions or vascular malformations are identified. Large parenchymal hematoma of 40 mL volume again seen in the right frontal lobe along the MALINDA/MCA watershed distribution, consider hemorrhagic watershed infarct. Moderate surrounding parenchymal hypodensity may relate to edema or subacute ischemia. Regional mass effect unchanged from recent noncontrast CT, with 7 mm leftward midline shift and subfalcine herniation of the cingulate gyrus. Small volume acute subdural hematoma over the right frontotemporal convexity and small volume right-sided multifocal subarachnoid hemorrhage again noted. Cerebral ventricles: Intraventricular penetration of hemorrhage in the right lateral ventricle frontal horn, with extensive effacement of the right lateral ventricle. Slight dilatation of the left lateral ventricle may represent early entrapment. Paranasal sinuses: Minimal mucosal thickening in the right maxillary sinus. Bones/joints: Unremarkable. No acute fracture. Soft tissues: Unremarkable. IMPRESSION: 1. No large vessel occlusions. 2. Mass effect on the bilateral MALINDA A2/A3 segments and anterior right MCA branches near the right frontal parenchymal hematoma, but no associated vascular stenosis or occlusion. 7 mm leftward frontal midline shift with subfalcine herniation. 3. Large right frontal lobe parenchymal hemorrhage, estimated 40 mL, unchanged from recent noncontrast CT. Consider hemorrhagic watershed infarct. 4. Moderate parenchymal hypodensity surrounding the right frontal hematoma could represent edema or subacute ischemia. 5. Small volume acute right frontotemporal subdural hematoma unchanged from recent noncontrast CT. 6. Small volume multifocal subarachnoid hemorrhage on the right unchanged from recent noncontrast CT. 7. Small volume intraventricular penetration of hemorrhage in the right lateral ventricle. Slight dilatation of the left lateral ventricle temporal horn could represent early ventricular entrapment. 8. Severe right vertebral artery stenosis unchanged. Left vertebral artery is dominant.
--- NOTE | 2025-05-30 19:25 | ECG_ITS ---
APPROVED REPORT Exam: Resting ECG HR:73 bpm ECG Measurements Heart Rate 73 AXES ME 183 P 62 QRSd 153 QRS 7 QT 442 T 39 QTc 469 Conclusion SINUS RHYTHM RIGHT BUNDLE BRANCH BLOCK [120+ ms QRS DURATION, UPRIGHT V1, 40+ ms S IN I/aVL/V4/V5/V6] ABNORMAL ECG Electronically signed by : DARVIN VAZQUEZ, 05/31/2025 07:25:36
--- NOTE | 2025-05-30 19:25 | CT_ITS ---
PROCEDURE INFORMATION: Exam: CTA Neck With Contrast Exam date and time: 05/30/2025 8:17 PM Age: 69 years old Clinical indication: Stroke-like symptoms; Altered mental status/memory loss; Additional info: Possible stroke TECHNIQUE: Imaging protocol: Computed tomographic angiography of the neck with contrast. Exam focused on the cervical segments of the vasculature. 3D rendering (Not supervised by radiologist): MIP and/or 3D reconstructed images were created by the technologist. Radiation optimization: All CT scans at this facility use at least one of these dose optimization techniques: automated exposure control; mA and/or kV adjustment per patient size (includes targeted exams where dose is matched to clinical indication); or iterative reconstruction. Contrast material: ISOVUE; Contrast volume: 80 ml; Contrast route: INTRAVENOUS (IV); COMPARISON: CT ANGIO NECK 04/28/2025 9:39 PM FINDINGS: Right common carotid artery: Mid segment motion limited. Distal segment demonstrates new short segment circumferential expansion 2 cm proximal to the bifurcation suspicious for short segment circumferential intramural dissection measuring about 4 mm in length. No stenosis or occlusion. No thrombosis although this might serve as a source for embolic disease. Right internal carotid artery: Interval carotid endarterectomy since 04/28/2025, with removal of the extensive calcific plaque in the carotid bulb. The previous proximal right ICA stenosis is no longer evident. There is mild-moderate tortuosity in the mid segment. Right external carotid artery: Previous moderate ostial stenosis has been corrected by the endarterectomy, however there is new post ostial irregular intraluminal bandlike filling defects suggesting short segment dissection producing moderate-severe 70% stenosis. No occlusion. Left common carotid artery: Mild proximal and distal mixed plaque. No stenosis. No dissection or occlusion. Left internal carotid artery: Moderate-severe calcific plaque in the left carotid bulb and proximal ICA produces mild stenosis of less than 50%, unchanged. Moderate tortuosity with mild kinking in the mid segment, without significant stenosis. No dissection or occlusion. Left external carotid artery: Mild ostial calcific plaque with no significant stenosis. No dissection or occlusion. Right vertebral artery: Cervical segment is unremarkable. No stenosis. No dissection or occlusion. Left vertebral artery: Left vertebral artery is dominant. No stenosis. No dissection or occlusion. 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 Left subclavian artery: The left subclavian artery demonstrates mild proximal plaque without stenosis. Aorta: The visualized aortic arch demonstrates moderate ectasia and calcific plaque without evidence of dissection or gross aneurysm. Thyroid: Subcentimeter low-density nodules in the thyroid which do not require further evaluation. Soft tissues: Postoperative changes of recent prior carotid endarterectomy in the right anterolateral neck soft tissues, with local soft tissue swelling and air. No hematoma or abscess. No significant regional mass effect. Bones/joints: No acute osseous abnormalities are identified. C5-C6 ACDF without gross hardware complication or change. Mild-moderate disc osteoarthritic changes C4-C5 and C6-C7. Lungs: Mild pleuroparenchymal scarring in the pulmonary apices bilaterally. IMPRESSION: 1. Interval right carotid endarterectomy since 04/28/2025, with expected postoperative soft tissue swelling and air but no hematoma, abscess, or mass effect. 2. The previous near occlusion of the proximal right ICA has been surgically corrected, with no ICA stenosis or occlusion. 3. There is new contour irregularity of the distal right CCA about 2 cm proximal to the bifurcation concerning for short segment intramural dissection. No associated stenosis or occlusion. No thrombosis is evident currently, although this might serve as an embolic source. 4. There is new short segment intimal dissection in the proximal right external carotid artery about 7 mm distal to the bifurcation producing moderate-severe 70% stenosis. No occlusion. 5. THIS REPORT CONTAINS FINDINGS THAT MAY BE CRITICAL TO PATIENT CARE. The findings were verbally communicated via telephone conference with LASHON Joy at 9:01 PM EDT on 05/30/2025. The findings were acknowledged and understood. COMMENTS: Consistent with the [employer]'s Incidental Findings Committee white paper (J Am Nahid Radiol 2015): In patients aged 35 years and older with an incidental thyroid nodule equal to or greater than 1.[address], MRI or extrathyroidal US, further evaluation with dedicated thyroid US is recommended for patients with normal life expectancy and without comorbidities. For smaller nodules without suspicious features, no further evaluation or follow up is recommended. REFERENCES: NASCET CRITERIA. The degree of stenosis in the cervical segment of the internal carotid artery is based on NASCET criteria. Normal is no stenosis. Mild is less than 50% stenosis. Moderate is 50-69% stenosis. Severe is 70% to 99% stenosis. Total occlusion is no detectable patent lumen.
--- NOTE | 2025-05-30 19:25 | XR_ITS ---
PROCEDURE INFORMATION: Exam: XR Chest Exam date and time: 05/30/2025 8:04 PM Age: 69 years old Clinical indication: Other: Headache; Additional info: AMS, headache TECHNIQUE: Imaging protocol: Radiologic exam of the chest. Views: 1 view. COMPARISON: CR [id number] XR chest portable 06/09/2018 1:09 PM FINDINGS: Lungs: Low lung volumes. Pulmonary vasculature grossly normal. No gross pulmonary infiltrates or edema pattern. Pleural spaces: No pleural effusion. No pneumothorax. Heart/Mediastinum: Heart size normal. No tracheal/mediastinal shift. Bones/joints: Cervical fusion hardware noted without gross hardware complication. No acute osseous abnormalities are identified. Mild thoracic spondylosis. IMPRESSION: No acute thoracic process.
[2025-05-30 19:50] LABS: Hematocrit 36.0 % (37.0-47.0); Hemoglobin 12.4 g/dL (12.2-16.2); Immature Granulocytes % 0.5 %; Mean Corpuscular HGB Conc 34.4 g/dL (31.8-35.4); Mean Corpuscular Hemoglobin 29.7 pg (27.0-31.2); Mean Corpuscular Volume 86.3 fl (81-99); Nucleated Red Blood Cells % 0 %; Platelet Count 318 K/mm3 (142-424); Red Blood Count 4.17 M/mm3 (4.20-5.40); Red Cell Distribution Width-SD 39.0 fL; White Blood Count 11.6 K/mm3 (4.8-10.8)
[2025-05-30 19:51] LABS: Albumin Level 4.4 g/dl (3.5-5.0); Chloride 94 mmol/L (98-107); Sodium 130 mmol/L (136-145)
[2025-05-30 19:52] LABS: Potassium 3.4 mmoL/L (3.5-5.1)
[2025-05-30 19:54] LABS: Alanine Aminotransferase 16 U/L (12-78); Albumin/Globulin Ratio 1.4 (1.1-1.8); Alkaline Phosphatase 74 U/L (38-126); Anion Gap 10.4 mEq/L (5-15); Aspartate Amino Transferase 27 U/L (14-36); Bilirubin,Total 0.5 mg/dl (0.2-1.3); Blood Urea Nitrogen 28 mg/dl (7-17); Carbon Dioxide 29 mmol/L (22.0-30.0); Cholesterol 130 mg/dl (140-200); Creatinine Clearance Estimated 51 mL/min (50-200); Creatinine,Serum 0.60 mg/dl (0.52-1.04); Estimated Glomerular Filt Rate 100 ml/min (>60); GFR (African American) 121 ML/MIN (>60); Globulin 3.2 g/dL (1.3-3.2); Total Protein,Serum 7.6 g/dl (6.3-8.2); Triglycerides 152 mg/dl (30-150)
[2025-05-30 19:55] LABS: Calcium 9.1 mg/dl (8.4-10.2); Glucose 154 mg/dl (74-100); HDL Cholesterol 39 mg/dl (40-60)
[2025-05-30 19:58] LABS: Activated Partial Thrombo Time 26.2 seconds (22.8-30.6); INR 1.02 (0.9-1.1); Prothrombin Time 11.3 seconds (10.1-12.5)
[2025-05-30 20:12] LABS: Troponin I < 0.01 ng/ml (0.00-0.034)
--- NOTE | 2025-05-30 20:19 | HMH.EDGENADL ---
Discharge Plan Disposition Patient Disposition: Xfer Short-Term Hosp Condition: Fair Prescriptions Prescriptions: No Action atorvastatin 80 mg tablet 80 mg PO DAILY montelukast 10 mg tablet 10 mg PO DAILY duloxetine 30 mg capsule,delayed release(DR/EC) 30 mg PO DAILY losartan 50 mg tablet 50 mg PO DAILY hydrochlorothiazide 50 mg tablet 50 mg PO DAILY fluticasone propionate [Allergy Relief (fluticasone)] 50 mcg/actuation spray,suspension 1 spray INTRANASAL DAILY Rx Instructions: administer into each nostril levocetirizine [Xyzal] 5 mg tablet 5 mg PO DAILY Qvar RediHaler 80 mcg/actuation HFA aerosol breath activated 1 inh INHALATION Q12H PRN trazodone 50 mg tablet 50 mg PO .COMPLEX Qty: 180 1RF Rx Instructions: 50 mg PO take 1-2 tablets at bedtime; desvenlafaxine succinate [Pristiq] 50 mg tablet extended release 24 hr 50 mg PO DAILY Qty: 90 1RF oxycodone-acetaminophen 1 EACH tablet 10 - 325 each PO BIDP PRN (Reason: pain) gabapentin 800 MG tablet 800 mg PO TID hydrochlorothiazide 12.5 MG capsule 5 mg PO DAILY nitroglycerin 0.4 MG tablet, sublingual 0.4 mg sublingual Q5MINP PRN (Reason: Chest Pain) 8 Days Qty: 25 0RF mupirocin 2 % ointment 1 applic topical TID 7 Days Qty: 15 0RF Referrals Follow up/Referrals: Provider,Referral, MD [Primary Care Provider, Medical] - See instructions Clinical Impressions Clinical Impression: Spontaneous intracranial hemorrhage Stand Alone Forms Stand Alone Forms: Transfer Record - ED Print Language Print Language: Irish Discharge ED Provider: Stephanie Marcos General Adult HPI General Chief complaint: Headache Stated complaint: altered mental status Time Seen by Provider: 05/30/25 19:18 Mode of Arrival: Ambulatory Source of Information: Patient Description of Symptoms (Recalled from ER Triage Doc. by RN): pt presents to the Ed d/t complaints of new onset fine motor issues. going on 2.5 hrs ago when came home. pt is alert but states she is not acting right. pt had surgery on may 26 for carotid stenosis and reports having a stroke. pt has been having NEVES since 3-4 days. History of Present Illness HPI narrative: This patient is a 69-year-old female with a history of hypertension, hyperlipidemia, recent evaluation here 04/28/2025 with concern for stroke with finding of severe carotid stenosis prompting transfer to [facility], where she underwent carotid endarterectomy on 05/26/2025 presenting with concern for headache and changes to fine motor function. According to the patient's , she was her usual normal self this morning around 10 AM when he left the house, only complaining of a headache. He denied noting anything else out of the ordinary. He states that he came back this evening around 5 PM and noted that she was having trouble with fine motor function and coordination. He states that she also was still complaining of a headache and did not seem to be acting quite normally. Given this, he brought her in for evaluation. She does take aspirin but no blood thinners. No recent falls or trauma. No other concerns or complaints noted at this time. Related Data Home Medications ?Medication ?Instructions ?Recorded ?Confirmed gabapentin 800 mg tablet 800 mg PO TID Pain 06/09/18 02/26/24 hydrochlorothiazide 12.5 mg capsule 5 mg PO DAILY bp 06/09/18 02/26/24 oxycodone-acetaminophen 10 mg-325 10 - 325 each PO BIDP PRN pain 06/09/18 02/26/24 mg tablet atorvastatin 80 mg tablet 80 mg PO DAILY 11/01/21 02/26/24 beclomethasone dipropionate 80 1 inh inhalation Q12H PRN 11/01/21 02/26/24 mcg/actuation HFA breath activated aerosol (Qvar RediHaler) duloxetine 30 mg capsule,delayed 30 mg PO DAILY 11/01/21 02/26/24 release fluticasone propionate 50 1 spray intranasal DAILY 11/01/21 02/26/24 mcg/actuation nasal spray,suspension (Allergy Relief (fluticasone)) hydrochlorothiazide 50 mg tablet 50 mg PO DAILY 11/01/21 02/26/24 levocetirizine 5 mg tablet (Xyzal) 5 mg PO DAILY 11/01/21 02/26/24 losartan 50 mg tablet 50 mg PO DAILY 11/01/21 02/26/24 montelukast 10 mg tablet 10 mg PO DAILY 11/01/21 02/26/24 Previous Rx's ?Medication ?Instructions ?Recorded nitroglycerin 0.4 mg sublingual 0.4 mg sublingual Q5MINP PRN Chest 06/09/18 tablet Pain 8 days ##25 trazodone 50 mg tablet 50 mg PO .COMPLEX #180 tabs 08/09/22 desvenlafaxine succinate 50 mg 50 mg PO DAILY #90 tabs 02/13/23 tablet,extended release 24 hr (Pristiq) mupirocin 2 % topical ointment 1 applic topical TID 7 days #15 12/16/23 grams Allergies Allergy/AdvReac Type Severity Reaction Status Date / Time prednisone (PREDNISONE) Allergy Mild Verified 02/26/24 13:16 Sulfa (Sulfonamide Allergy Mild Verified 02/26/24 13:16 Antibiotics) (SULFA (SULFONAMIDE ANTIBIOTICS)) [facility] Disclaimer: The information contained in this section may have been updated after the patient was seen, as this information can be updated by other users. Medical History Major depressive disorder Social History Smoking Status: Never smoker alcohol intake: never substance use type: denies use current occupational status: retired Travel in the last 8 weeks?: None number of children: 2 Have you lived/traveled outside [place] in past 30 days?: No Contact w/someone who lives/traveled outside [place] past 30 days?: No Exposure to someone with infectious disease in past 14 days?: No Do you have a fever (greater than 100.4 F or 38 C)?: No Have you tested positive for COVID-19?: No Exposed to someone with COVID-19 in past 14 days?: No Do you have a sore throat?: No Do you have a cough?: No Do you have any weakness?: No Do you have any diarrhea?: No Are you experiencing any unusual bleeding?: No Do you have any muscle aches/pain?: No Do you have any abdominal pain?: No Are you experiencing loss of taste or smell?: No Other Medical History Have you received the Pneumonia Vaccine: No ROS Obtained: Yes All systems reviewed & no additional complaints except as documented Physical Exam General General appearance: alert and in no apparent distress Comment: Sitting upright with eyes closed Head Head exam: atraumatic and normocephalic Eye Eye exam: Present normal appearance, PERRL and EOMI ENT ENT exam: Present normal exam, normal oropharynx, mucous membranes moist and normal external ear exam Neck Neck exam: Present normal inspection, full ROM and trachea midline; Absent tenderness Chest Chest inspection: Present normal inspection and symmetric chest wall rise; Absent tenderness Respiratory Respiratory exam: Present normal lung sounds bilaterally; Absent respiratory distress, wheezes, stridor or accessory muscle use Cardiovascular Cardiovascular exam: Present regular rate and normal rhythm Abdominal Exam Abdominal exam: Present soft; Absent distention, tenderness or guarding Extremities Exam Extremities exam: Present normal inspection, full ROM and normal capillary refill; Absent tenderness or edema Back Exam Back exam: Present normal inspection and full ROM; Absent tenderness Neurological Exam Neurological exam: Present alert, CN II-XII intact and other (Patient is sitting upright with eyes closed and looks uncomfortable. She does not have any obvious appreciable focal neurologic deficits, but she does not know what month it is and has some difficulty with following commands, especially with her left upper extremity ); Absent oriented X3 or motor sensory deficit Psychiatric Psychiatric exam: Present normal affect and normal mood Skin Skin exam: Present warm and dry Medical Decision Making Medical Records Medical records reviewed: Yes I reviewed the patient's medical records. Screening: Per USPSTF and CDC recommendations, given the prevalence of disease in our region, it is our hospital?s policy to screen for HIV and viral Hepatitis for all patients aged 18 and over and those with ongoing risk factors. Pillo Inquiry Pt receiving controlled substance: No Vital Signs: 05/30/25 19:19 05/30/25 20:40 Temperature 97.8 F Temperature Source Oral Pulse Rate 87 Pulse Rate [Right Radial] 75 Respiratory Rate 16 15 Blood Pressure 128/72 Blood Pressure [Right Arm] 173/82 H Blood Pressure Mean [Right Arm] 112 Blood Pressure Position [Right Arm] Supine 02 Sat by Pulse Oximetry 98 91 L Lab Data Lab results reviewed: Yes I reviewed the patient's lab results. Lab Results 05/30/25 19:38: WBC 11.6 H, RBC 4.17 L, Hgb 12.4, Hct 36.0 L, MCV 86.3, MCH 29.7, MCHC 34.4, RDW 12.4, Plt Count 318, MPV 10.1, Neut % (Auto) 84.2 H, Lymph % (Auto) 8.5 L, Wise % (Auto) 6.6, Eos % (Auto) 0.1, Baso % (Auto) 0.1, Neut # (Auto) 9.8 H, Lymph # (Auto) 1.0, Wise # (Auto) 0.8, Eos # (Auto) 0.0, Baso # (Auto) 0.0, PT 11.3, INR 1.02, APTT 26.2, Sodium 130 L, Potassium 3.4 L, Chloride 94 L, Carbon Dioxide 29, Anion Gap 10.4, BUN 28 H, Creatinine 0.60, Estimated Creat Clear 51, Estimated GFR 100, Est GFR ( Amer) 121, Glucose 154 H, Calcium 9.1, Total Bilirubin 0.5, AST 27, ALT 16, Alkaline Phosphatase 74, Troponin I < 0.01, Total Protein 7.6, Albumin 4.4, Globulin 3.2, Albumin/Globulin Ratio 1.4, Triglycerides 152 H, Cholesterol 130 L, LDL Cholesterol Direct 47.37 L, VLDL Cholesterol 30, HDL Cholesterol 39 L, Cholesterol/HDL Ratio 3.3, Plasma/Serum Alcohol < 10 05/30/25 19:38 05/30/25 19:38 Orders (Tests/Meds): ED MEDICATIONS Generic Name Dose Route Start Last Admin Trade Name Freq PRN Reason Stop Dose Admin Sodium Chloride 500 mls @ 40 mls/hr 05/30/25 20:45 05/30/25 20:44 Sod Chloride 3% 500ml Bag (Hypertonic) IV 05/31/25 09:14 40 mls/hr .[id number] Administration Sodium Chloride 10 ml 05/30/25 19:25 Sodium Chloride 0.9% 10ml Flush Syringe IV 06/29/25 19:24 NEEDED PRN Maintain IV Site Sodium Chloride 10 ml 05/30/25 20:20 05/30/25 20:21 Sodium Chloride 0.9% 10ml Syr (Rad Only) IV 06/29/25 20:19 10 ml NEEDED PRN Administration Maintain IV Site Discontinued Medications Generic Name Dose Route Start Last Admin Trade Name Freq PRN Reason Stop Dose Admin Hydralazine HCl 10 mg 05/30/25 20:15 05/30/25 20:20 Hydralazine 20mg/Ml Vial IV 05/30/25 20:16 10 mg ONCE ONE Administration Iopamidol 80 ml 05/30/25 20:20 05/30/25 20:21 Iopamidol-370 (76%);100ml Bottle IV 05/30/25 20:21 80 ml ONCE ONE Administration Sodium Chloride 50 ml 05/30/25 20:20 05/30/25 20:21 0.9 % Sodium Chloride 50 Ml Vial IV 05/30/25 20:21 50 ml ONCE ONE Administration ORDERS Category Date Time Status CT angio head Stat Cat Scan 05/30/25 19:[address] angio neck Stat Cat Scan 05/30/25 19:[address] head/brain wo con Stat Cat Scan 05/30/25 19:25 Taken XR chest portable Stat Exams 05/30/25 19:25 Taken Activated Partial Thrombo Time Stat Lab 05/30/25 19:38 Completed Complete Blood Count Auto Diff Stat Lab 05/30/25 19:38 Completed Comprehensive Metabolic Panel Stat Lab 05/30/25 19:38 Completed Drug Screen,Urine Stat Lab 05/30/25 19:25 Ordered Ethyl Alcohol Stat Lab 05/30/25 19:38 Completed Lipid Panel Stat Lab 05/30/25 19:38 Completed Prothrombin Time INR Stat Lab 05/30/25 19:38 Completed Troponin I Q3H Lab 05/30/25 22:30 Ordered Troponin I Q3H Lab 05/31/25 01:30 Ordered Troponin I Stat Lab 05/30/25 19:38 Completed Urinalysis and Microscopic Stat Lab 05/30/25 19:25 Ordered ECG Request Stat Y 05/30/25 19:25 Completed ECG Data Tracing #1: I reviewed this ECG and interpreted as documented below: Normal sinus rhythm with a ventricular rate of 73 bpm. Right bundle branch block. No acute ST changes concerning for STEMI ECG initial impression date: 05/30/25 ECG initial impression time: 19:53 Medical Decision Narrative: In summary, this patient is a 69-year-old female presenting to the Emergency Department for evaluation of headache, fine motor coordination issues. Differential diagnoses considered include but are not limited to CVA, intracranial hemorrhage, complex migraine, hypertensive urgency/emergency among others. Ruling out the most morbid conditions drove assessment. It should be noted patient's history includes recent carotid endarterectomy for carotid stenosis in the setting of strokelike symptoms as well as hypertension and hyperlipidemia which may or may not be at goal therapy. This complicates all aspects of care by increasing patient's risk for morbidity. I reviewed patient's past medical records and noted patient here in the emergency department April 28 with transfer to as detailed in HPI. On exam, the patient is sitting upright with her eyes closed. She looks uncomfortable. She is hypertensive but otherwise vitals are reassuring on cardiac telemetry. Initial systolics in the 170s. She has some difficulty following commands, especially the left upper extremity, but she is able to overcome these issues and does not seem to have any appreciable weakness or discoordination. I do not appreciate any obvious focal neurologic deficits, but she does not answer the month correctly. Patient's last known well was around 10:00 this morning, so she presents outside of any sort of window for thrombolytics even if this were an acute stroke. Workup included stroke labs to rule out acute metabolic and cardiac dysfunction as well as CT head, CT angiogram head and neck. EKG was obtained which was reassuring. I independently interpreted CT scan prior to the radiologist read and noted very large right sided frontal brain bleed. Please see their read for final interpretation. She is on aspirin, but reversal here at this facility would take a very long time, so I feel flying her out for transfer to higher level of care with neurology and neurosurgery is of utmost importance. I ordered 10 mg of hydralazine for blood pressure control to see if this is enough to lower her blood pressure for goal systolic less than 140. She has hyponatremia, so I called and had an interactive discussion with pharmacy who recommended hypertonic saline at 40 mL/h given the hyponatremia and the brain bleed. They put this order in for me. Labs were obtained that demonstrated mild hypokalemia as well. After 2 mg push of hydralazine, blood pressure improved to systolic in the 120s. Patient is still alert and conversational, protecting her airway. As soon as I saw the CT head without contrast, I initiated discussions with [facility] in hopes of transferring the patient back. Family updated to plan of care. I had an interactive discussion with Dr. Juarez at 2039 who accepted the patient to for transfer. I requested flight, air care 1 accepted with ETA of 35 minutes as of 2048. Ultimately, patient was transferred in stable condition. Critical Care Critical Care Time Critical Care Time: Yes Attestation: On 05/30/25, the high probability of a clinically significant, sudden or life threatening deterioration of the following system(s) required my full and direct attention, intervention and personal management. The time I documented below is in addition to time spent performing reported procedures but includes the following listed in this critical care notation. Total Time Total Critical Care Time: 60
[2025-05-30] MEDS: HYDRALAZINE 20MG/ML VIAL 10 MG IV (20:20)
[2025-05-30] MEDS: 0.9 % SODIUM CHLORIDE 50 ML VIAL IV (20:21)
[2025-05-30] MEDS: SODIUM CHLORIDE 0.9% 10ML SYR (RAD ONLY) 10 ML IV (20:21)
[2025-05-30] MEDS: IOPAMIDOL-370 (76%);100ML BOTTLE 80 ML IV (20:21)
--- NOTE | 2025-05-30 20:35 | PC.NURSE ---
spoke with Sanjay LaurenD for hypertonic saline dosing
[2025-05-30] MEDS: SODIUM CHLORIDE 3 % 500 ML 40 ML IV (20:44)
[2025-05-30] MEDS: NICARDIPINE HCL 25 MG in 0.9 % SODIUM CHLORIDE 240 ML 50 MG IV (21:12)
== END 2025-05-30 21:33 | disposition short-term general hospital (02) ==
PROVIDERS: Emergency Provider Emergency Medicine
DX: I62.9 Nontraumatic intracranial hemorrhage, unspecified (principal); E87.6 Hypokalemia; E87.1 Hypo-osmolality and hyponatremia; R51.9 Headache, unspecified; I45.10 Unspecified right bundle-branch block; R41.82 Altered mental status, unspecified; I10 Essential (primary) hypertension; E78.5 Hyperlipidemia, unspecified
CPT/HCPCS: 70450; 70496; 70498; 71045; 80053; 80061; 80320; 84484; 85025; 85610; 85730; 93005; 96365; 96375; 99291; J0360; J2404; J7050; J7131; Q9967